=== PATIENT | male | born 1940 | race Caucasian/White ===

== ENCOUNTER 2021-06-17 19:24 | Inpatient (IN) ==
[2021-06-17] MEDS ORDERED: SODIUM CHLORIDE 0.9% 1000ML 500 ML IV ONE (19:50)
--- NOTE | 2021-06-17 19:53 | Emergency Department Note ---
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 The patient has not had a fall recently but approximately 2 to 3 weeks ago he did have a fall. He injured his back at that time. He was seen in our facility recently as well. He started noticing worsening pain and started having ecchymosis over his right flank. For this reason his family members brought him to the emergency department for further evaluation. The patient himself states the pain is improving at this time. He recently moved to this area and has no family doctor. He denies having any dysuria or hematuria. He denies having any chest pain but does complain of right lateral pain in the lower chest wall. He has had no vomiting. He denies having any headache or loss of consciousness. He does take blood thinners and also has a history of for bicytopenia. ROS: See above HPI for pertinent positives & negatives. A total of 10 systems reviewed and were otherwise negative. PAST MEDICAL HISTORY: See Below PAST SURGICAL HISTORY: See Below FAMILY HISTORY: See Below SOCIAL HISTORY: See Below HOME MEDICATIONS: See Below ALLERGIES: See Below VITALS: See Below PHYSICAL EXAMINATION: GENERAL: The patient is awake and alert but somewhat uncomfortable appearing. EYES: The conjunctivae are clear. The pupils are round and reactive. EARS, NOSE, MOUTH AND THROAT: The nose is without any evidence of any deformity NECK: The neck is nontender and supple. RESPIRATORY: There is no tachypnea or conversational dyspnea. Diminished breath sounds are noted in the right lung field. CARDIOVASCULAR: Regular rate and rhythm noted there no murmurs rubs or gallops normal S1 normal S2. GASTROINTESTINAL: The abdomen is soft. Abdomen is nontender. BACK: There is no midline tenderness appreciated. There was palpable tenderness over the lateral right chest wall. No crepitus was appreciated. MUSCULOSKELETAL/EXTREMITIES: There is no evidence of gross deformity full range of motion is noted in the hips and shoulders. SKIN: There is no obvious evidence of any rash. There are no petechiae, pallor or cyanosis noted. NEUROLOGIC: Patient is awake alert and oriented x3. Gait was steady. MEDICAL DECISION MAKING: Patient is an 81-year-old male who presented to emergency department for an evaluation of lower chest pain and flank pain. The patient's had frequent falls in the past but has not had a significant fall in 2 weeks. The patient was seen in our facility after his initial fall. The patient presented to the emergency department this evening because of ecchymosis over his flank as well as lower chest wall pain. The patient does not have a family doctor locally. He does not have any follow-up scheduled. He was recently told by his previous physician that he might have metastatic cancer from pancreatic source. I discussed patient's laboratory and radiographic studies with him here emi. He was treated with pain medication in the emergency department. He was reevaluated multiple times. On reevaluation he was feeling much better but the patient has very poor follow-up at this time and I am concerned he may get lost to follow-up given his new diagnosis this evening. He also takes oral anticoagulation and is thrombocytopenic and I am afraid that he may end up with a significant intracranial or otherwise traumatic injury. For this reason I discussed his case with the on-call [facility] hospitalist. They have agreed to evaluate the patient in the emergency department for further management and disposition. Triage Nursing notes reviewed. Prior medical records reviewed Vital Signs: reviewed and remarkable for no significant abnormalities Differential diagnosis: Fracture, dislocation, contusion, intra-abdominal, pneumothorax, intrathoracic, intracranial, neurologic, compartment syndrome, rhabdomyolysis, as well as other pathologies. ER treatment provided: See below Diagnostics interpreted by me: ECG: AG was obtained in the emergency department. My interpretation is sinus r hythm at 83 bpm. First-degree AV block was noted. Poor R wave progression was noted. Nonspecific ST segment depressions were noted throughout. No previous tracing was available. Cardiac Monitoring: An order was placed for continuous cardiac monitoring. The monitor shows a rate of 83 bpm with sinus rhythm. Laboratory studies: As stated above and show below. Imaging studies: See below Consultation(s): The case was discussed with the on-call [place] Hospitalist. They have agreed to evaluate the patient in the emergency department. Past Med/Surg History Medical History Acid reflux Aortic valve disorder High cholesterol Hypertension Social History Smoking Status: Never smoker Feels Safe at Home: Yes Allergies Allergies Allergy/AdvReac Type Severity Reaction Status Date / Time shellfish derived AdvReac Hives Unverified 06/17/21 19:37 Home Meds Home Medications Medication Instructions Recorded Confirmed apixaban 2.5 mg tablet (Eliquis) 2.5 mg PO DAILY 06/06/21 06/17/21 aspirin 81 mg tablet,delayed 81 mg PO DAILY 06/06/21 06/17/21 release pravastatin 20 mg tablet 20 mg PO DAILY 06/06/21 06/17/21 spironolactone 25 mg tablet 25 mg PO DAILY 06/06/21 06/17/21 tamsulosin 0.4 mg capsule 0.4 mg PO DAILY 06/06/21 06/17/21 Previous Rx's Medication Instructions Recorded hydroxyzine HCl 25 mg tablet 25 mg PO QID PRN #30 tab 06/06/21 Results & Data (ED) Vital Signs Vital Signs - 24 hr 06/17/21 19:29 06/17/21 20:15 06/17/21 20:22 Temperature 36.9 C Temperature Source Temporal Artery Scan Pulse Rate 89 83 Pulse Rate [Right Finger] 83 Pulse Rhythm Regular Pulse Rhythm [Right Finger] Regular Pulse Strength [Right Finger] Normal Respiratory Rate 18 18 18 Respiratory Effort / Characteristics Non-Labored Spontaneous Respiratory Depth Normal Blood Pressure 137/77 Blood Pressure [Right Arm] Blood Pressure Mean 97 Blood Pressure Mean [Right Arm] Blood Pressure Position Sitting Blood Pressure Position [Right Arm] Pulse Oximetry 95 94 Oxygen Delivery Method Room Air Room Air Sepsis Recent Fever Within 48 Hours No Sepsis New/Unexplained Change in Mental Status No Sepsis Action Taken by Nursing No Action Required 06/17/21 22:00 Temperature Temperature Source Pulse Rate Pulse Rate [Right Finger] Pulse Rhythm Pulse Rhythm [Right Finger] Pulse Strength [Right Finger] Respiratory Rate 18 Respiratory Effort / Characteristics Non-Labored Spontaneous Respiratory Depth Normal Blood Pressure Blood Pressure [Right Arm] 139/90 Blood Pressure Mean Blood Pressure Mean [Right Arm] 106 Blood Pressure Position Blood Pressure Position [Right Arm] Lying Pulse Oximetry 97 Oxygen Delivery Method Room Air Sepsis Recent Fever Within 48 Hours Sepsis New/Unexplained Change in Mental Status Sepsis Action Taken by Assisted Medications Current Medication List: was personally reviewed by me Laboratory Data Attestation: I reviewed the patient's lab results. Result diagrams: 06/17/21 20:30 06/17/21 20:30 Lab Results 06/17/21 06/17/21 06/17/21 Range/Units 20:15 20:30 20:30 WBC 12.46 H (4.8-10.8) K/uL RBC 3.52 L (4.7-6.1) M/uL Hgb 10.8 L (14.0-18.0) g/dL Hct 32.5 L (42-52) % MCV 92.3 (80-100) fL MCH 30.7 (25-34) pg MCHC 33.2 (32-36) g/dL RDW Std Deviation 51.2 H (36.4-46.3) fL RDW Coeff of Harsh 15.2 H (11.5-14.5) % Plt Count 113 L (130-400) K/uL MPV 10.5 H (7.4-10.4) fL Immature Gran % (Auto) 0.6 % Neut % (Auto) 86.8 % Lymph % (Auto) 11.3 % Churchill % (Auto) 0.2 % Eos % (Auto) 1.0 % Baso % (Auto) 0.1 % Neut # (Auto) 10.83 H (1.4-6.5) K/uL Lymph # (Auto) 1.41 (1.2-3.4) K/uL Churchill # (Auto) 0.02 L (0.11-0.59) K/uL Eos # (Auto) 0.12 (0-0.5) K/uL Baso # (Auto) 0.01 (0-0.2) K/uL Immature Gran # (Auto) 0.07 H (0.00-0.02) K/uL PT 17.3 H (9.0-12.0) Seconds INR 1.7 H (0.9-1.1) APTT 27.2 (21.0-31.0) Seconds PTT Ratio 1.0 Sodium (136-145) mmol/L Potassium (3.5-5.1) mmol/L Chloride (98-107) mmol/L Carbon Dioxide (21-32) mmol/L Anion Gap (3-11) BUN (6-23) mg/dl Creatinine (0.6-1.4) mg/dl Est Cr Clr Drug Dosing ml/min Est GFR ( Amer) ml/min Est GFR (Non-Af Amer) ml/min BUN/Creatinine Ratio (10-20) Glucose (70-99(Fasting)) mg/dl Calcium (8.5-10.1) mg/dl Total Bilirubin (0.2-1.0) mg/dl AST (13-39) U/L ALT (7-52) U/L Alkaline Phosphatase (34-104) U/L Troponin I (0-0.04) ng/ml Total Protein (6.0-8.3) gm/dl Albumin (3.4-5.0) gm/dl Globulin (2.5-4.0) gm/dl Albumin/Globulin Ratio (0.9-2) Lipase (11-82) U/L Urine Color Dark Yellow Urine Appearance Clear (Clear) Urine pH 5.0 (4.5-7.5) Ur Specific [place] 1.018 (1.000-1.030) Urine Protein Trace H (Negative) Urine Glucose (UA) Negative (Negative) Urine Ketones Trace H (Negative) Urine Blood 1+ H (Negative) Urine Nitrite Negative (Negative) Urine Bilirubin Negative (Negative) Urine Urobilinogen Negative (Negative) Ur Leukocyte Esterase Trace H (Negative) Urine WBC (Auto) 5-10 H (0-5) /hpf Urine RBC (Auto) 10-30 H (0-4) /hpf U Hyaline Cast (Auto) 1-5 (0-5) /lpf U Epithel Cells (Auto) 10-20 H (0-5) /lpf Urine Bacteria (Auto) Negative (Negative) Urine Yeast Budding A (None Prsent) SARS-CoV-2, RNA, NAAT (NEGATIVE) 06/17/21 06/17/21 Range/Units 20:30 21:40 WBC (4.8-10.8) K/uL RBC (4.7-6.1) M/uL Hgb (14.0-18.0) g/dL Hct (42-52) % MCV (80-100) fL MCH (25-34) pg MCHC (32-36) g/dL RDW Std Deviation (36.4-46.3) fL RDW Coeff of Harsh (11.5-14.5) % Plt Count (130-400) K/uL MPV (7.4-10.4) fL Immature Gran % (Auto) % Neut % (Auto) % Lymph % (Auto) % Churchill % (Auto) % Eos % (Auto) % Baso % (Auto) % Neut # (Auto) (1.4-6.5) K/uL Lymph # (Auto) (1.2-3.4) K/uL Churchill # (Auto) (0.11-0.59) K/uL Eos # (Auto) (0-0.5) K/uL Baso # (Auto) (0-0.2) K/uL Immature Gran # (Auto) (0.00-0.02) K/uL PT (9.0-12.0) Seconds INR (0.9-1.1) APTT (21.0-31.0) Seconds PTT Ratio Sodium 136 (136-145) mmol/L Potassium 4.3 (3.5-5.1) mmol/L Chloride 105 (98-107) mmol/L Carbon Dioxide 20 L (21-32) mmol/L Anion Gap 11 (3-11) BUN 34 H (6-23) mg/dl Creatinine 1.78 H (0.6-1.4) mg/dl Est Cr Clr Drug Dosing 29.4 ml/min Est GFR ( Amer) 40.0 ml/min Est GFR (Non-Af Amer) 34.5 ml/min BUN/Creatinine Ratio 19.1 (10-20) Glucose 126 H (70-99(Fasting)) mg/dl Calcium 10.1 (8.5-10.1) mg/dl Total Bilirubin 1.1 H (0.2-1.0) mg/dl AST 26 (13-39) U/L ALT 31 (7-52) U/L Alkaline Phosphatase 272 H (34-104) U/L Troponin I 0.03 (0-0.04) ng/ml Total Protein 6.5 (6.0-8.3) gm/dl Albumin 4.2 (3.4-5.0) gm/dl Globulin 2.3 L (2.5-4.0) gm/dl Albumin/Globulin Ratio 1.8 (0.9-2) Lipase 11 (11-82) U/L Urine Color Urine Appearance (Clear) Urine pH (4.5-7.5) Ur Specific [place] (1.000-1.030) Urine Protein (Negative) Urine Glucose (UA) (Negative) Urine Ketones (Negative) Urine Blood (Negative) Urine Nitrite (Negative) Urine Bilirubin (Negative) Urine Urobilinogen (Negative) Ur Leukocyte Esterase (Negative) Urine WBC (Auto) (0-5) /hpf Urine RBC (Auto) (0-4) /hpf U Hyaline Cast (Auto) (0-5) /lpf U Epithel Cells (Auto) (0-5) /lpf Urine Bacteria (Auto) (Negative) Urine Yeast (None Prsent) SARS-CoV-2, RNA, NAAT NEGATIVE (NEGATIVE) Administered Medications Fentanyl Citrate (Fentanyl Citrate 100 Mcg/2 Ml Vial) 50 mcg IV Q15M PRN PRN Reason: Pain Stop: 07/01/21 21:28 Last Admin: 06/17/21 21:38 Dose: 50 mcg Documented by: [id number] Discontinued Medications Sodium Chloride (Nss 1000ml) 500 mls @ 999 mls/hr IV .Q31M ONE Stop: 06/17/21 20:20 Last Admin: 06/17/21 20:37 Dose: 999 mls/hr Documented by: [id number] Ondansetron HCl (Ondansetron Inj 2 Mg/Ml 2 Ml Vial) 4 mg IV NOW STA Stop: 06/17/21 21:30 Last Admin: 06/17/21 21:39 Dose: 4 mg Documented by: [id number] Imaging Data Radiologist's Impression: Cervical Spine CT 06/17/21 19:44 CT SCAN OF THE CERVICAL SPINE CLINICAL HISTORY: Fall. COMPARISON STUDY: No priors. TECHNIQUE: CT scan of the cervical spine is performed from the skull base to the upper thoracic spine. Images are reviewed in the axial, sagittal, and coronal planes. IV contrast was not administered for this examination. A dose lowering technique was utilized adhering to the principles of ALARA. FINDINGS: Skeletal structures: The skeletal structures are osteopenic. There is no evidence of fracture or subluxation involving the cervical spine. Vertebral body height and alignment are maintained. There is straightening of the cervical lordosis. Anterior osteophytes are seen throughout. The odontoid process and lateral masses are intact. The atlantoaxial articulation is preserved noting productive degenerative change. The spinous processes appear intact. There is moderate multilevel cervical spondylosis. Uncovertebral and facet arthropathy contribute to neural foraminal narrowing at several levels. Intervertebral discs: There is advanced disc space narrowing at C3-C4, C5-C6, and C6-C7. Mild to moderate disc space narrowing is noted at the remaining cervical levels. Central canal: Posterior disc osteophyte complexes are seen at all levels between C2-C3 and C6-C7. This likely contributes to multilevel acquired compromise of the central canal. Soft tissues: The prevertebral and paraspinous soft tissues are within normal limits. There is atherosclerotic calcification of the carotid bulbs. Calvarium: The visualized calvarium at the skull base appears intact. Brain parenchyma: Partially visualized brain parenchyma at the skull base is within normal limits. Sinuses and mastoids: There is trace mucosal thickening within the maxillary antra. The mastoid air cells are well pneumatized. Lung apices: Clear as visualized. IMPRESSION: 1. There is no evidence of fracture or subluxation involving the cervical spine. 2. Osteopenia and spondylotic change as above. ACT 112: Negative or not required by law. Electronically signed by: Meliton Mixon M.D. 06/17/2021 8:[address] 06/17/21 19:44 CT SCAN OF THE BRAIN WITHOUT IV CONTRAST CLINICAL HISTORY: Fall. COMPARISON STUDY: No priors. TECHNIQUE: Unenhanced axial CT scan of the brain is performed from the vertex to the skull base. A dose lowering technique was utilized adhering to the principles of ALARA. FINDINGS: Brain parenchyma: There are age-related involutional changes noting mild subcortical and periventricular microangiopathic change. There is no hemorrhage, mass effect, or evidence of acute territorial ischemia by CT criteria. Small foci of high bilateral frontal encephalomalacia are consistent with small remote infarcts. Yates-white matter differentiation is preserved. No extra-axial fluid collection is seen. Ventricles, sulci, cisterns: Prominent secondary to involutional change. Intracranial vasculature: There is atherosclerotic calcification of the cavernous carotid arteries. Calvarium: The skeletal structures are osteopenic. No depressed calvarial fracture is identified. Sinuses and mastoids: The visualized paranasal sinuses are clear. The mastoid air cells are well pneumatized. Orbits: The bony orbits are grossly intact. There are bilateral ocular lens implants. IMPRESSION: There is no hemorrhage, mass effect, or evidence of acute territorial ischemia by CT criteria. ACT 112: Negative or not required by law. Electronically signed by: Meliton Mixon M.D. 06/17/2021 8:54 PM Abdomen/Pelvis CT 06/17/21 19:48 CT SCAN OF THE CHEST, ABDOMEN, AND PELVIS WITHOUT IV CONTRAST CLINICAL HISTORY: Fall several weeks ago. Right-sided chest wall pain.. COMPARISON STUDY: No priors. TECHNIQUE: Unenhanced CT scan of the chest, abdomen, and pelvis was performed from the thoracic inlet to the proximal femora. Images are reviewed in the axial, sagittal, and coronal planes. IV contrast was not administered for these examinations. Note that the examinations are significantly suboptimal without IV contrast. A dose lowering technique was utilized adhering to the principles of ALARA. CT DOSE: 2141.74 mGy.cm FINDINGS: CHEST: Thyroid: Normal in size and heterogeneous in attenuation. Thoracic aorta: There is atherosclerotic calcification of the thoracic aorta, which is normal in caliber and demonstrates standard 3-vessel arch anatomy. Heart: The patient is status post midline sternotomy and aortic valve surgery. The heart is normal in size and without pericardial effusion. The coronary arteries are densely calcified. Lungs and pleural spaces: There is no airspace consolidation, pleural effusion, or pneumothorax. An accessory azygous fissure is incidentally noted. The trachea and central airways are clear. Mild scarring/atelectasis is noted at the lung bases. Mediastinum: There is no mediastinal hematoma or lymphadenopathy. Elida: Not well assessed without IV contrast. Axillae: There is no axillary lymphadenopathy. Bony thorax: The skeletal structures are osteopenic. No lytic or blastic lesions are identified. ABDOMEN AND PELVIS: Liver: The unenhanced liver is normal in size, contour, and attenuation. There is no intrahepatic biliary ductal dilatation. Left lobe cysts measure up to 5.5 cm. The liver is infiltrated by numerous low-attenuation lesions which measure up to 3.0 cm. The appearance is typical for extensive/multifocal hepatic metastatic disease. Gallbladder: Suspect cholelithiasis. There is no CT evidence of acute cholecystitis. Spleen: Normal in size and attenuation. Pancreas: An ill-defined mass lesion is suggested in the region of the pancreatic head/neck, measuring approximately 3 x 2 cm on image #135. The upstream pancreatic duct is markedly dilated measuring up to 13 mm in diameter, and there is severe atrophy of the pancreatic body and tail. This the mass lesion closely approximates the superior mesenteric vein. Adrenal glands: Unremarkable. Kidneys: The unenhanced kidneys are normal in size and without hydronephrosis. A 6 mm nonobstructing calculus is seen in the right upper pole. Bilateral renal cysts measure up to 3.4 cm. Abdominal vasculature: The abdominal aorta is normal in course and caliber noting advanced atherosclerotic calcification. Stomach and bowel: There is a small hiatal hernia. There is moderate colonic diverticulosis without CT evidence of acute diverticulitis. No bowel obstruction is seen. The appendix is not visualized. Peritoneum: There is no intraperitoneal free air or abdominal ascites. There is a fat-containing umbilical hernia. Lymphadenopathy: None. Pelvic viscera: The prostate gland is enlarged and heterogeneous noting median lobe hypertrophy. The bladder wall is thickened and trabeculated indicating chronic outlet obstruction. A bladder diverticulum seen posteriorly on the left measures up to 2.8 cm. There is a small fat-containing left inguinal hernia. Skeletal structures: The skeletal structures are osteopenic. The lumbosacral spine, bony pelvis, and proximal femora appear intact. There is mild lumbosacral spondylosis. No lytic or blastic lesions are seen. IMPRESSION: 1. There is no acute posttraumatic intrathoracic abnormality. 2. There is no airspace consolidation, pleural effusion, or pneumothorax. 3. There is no evidence of solid organ injury in the abdomen or pelvis on this unenhanced examination. 4. There is evidence of extensive/diffuse multifocal hepatic metastatic disease. A pancreatic primary is favored. See below. 5. There is an approximately 3 cm ill-defined/heterogeneous mass lesion in the pancreatic head/neck with significant dilatation of the upstream pancreatic duct and marked atrophy of the pancreatic body/tail. Pancreatic adenocarcinoma is the diagnosis of exclusion. GI follow-up is recommended. 6. There is no intra- or extrahepatic biliary ductal dilatation. 7. Colonic diverticulosis without CT evidence of acute diverticulitis. 8. Right-sided nephrolithiasis and suspect cholelithiasis. 9. Additional findings as above. ACT 112: Positive. There are findings on this exam that require communication between the performing entity and the patient following Patient Test Result Information Act ([place] Act 112) guidelines. Electronically signed by: Meliton Mixon M.D. 06/17/2021 9:[address] 06/17/21 19:48 CT SCAN OF THE CHEST, ABDOMEN, AND PELVIS WITHOUT IV CONTRAST CLINICAL HISTORY: Fall several weeks ago. Right-sided chest wall pain.. COMPARISON STUDY: No priors. TECHNIQUE: Unenhanced CT scan of the chest, abdomen, and pelvis was performed from the thoracic inlet to the proximal femora. Images are reviewed in the axial, sagittal, and coronal planes. IV contrast was not administered for these examinations. Note that the examinations are significantly suboptimal without IV contrast. A dose lowering technique was utilized adhering to the principles of ALARA. CT DOSE: 2141.74 mGy.cm FINDINGS: CHEST: Thyroid: Normal in size and heterogeneous in attenuation. Thoracic aorta: There is atherosclerotic calcification of the thoracic aorta, which is normal in caliber and demonstrates standard 3-vessel arch anatomy. Heart: The patient is status post midline sternotomy and aortic valve surgery. The heart is normal in size and without pericardial effusion. The coronary arteries are densely calcified. Lungs and pleural spaces: There is no airspace consolidation, pleural effusion, or pneumothorax. An accessory azygous fissure is incidentally noted. The trachea and central airways are clear. Mild scarring/atelectasis is noted at the lung bases. Mediastinum: There is no mediastinal hematoma or lymphadenopathy. Elida: Not well assessed without IV contrast. Axillae: There is no axillary lymphadenopathy. Bony thorax: The skeletal structures are osteopenic. No lytic or blastic lesions are identified. ABDOMEN AND PELVIS: Liver: The unenhanced liver is normal in size, contour, and attenuation. There is no intrahepatic biliary ductal dilatation. Left lobe cysts measure up to 5.5 cm. The liver is infiltrated by numerous low-attenuation lesions which measure up to 3.0 cm. The appearance is typical for extensive/multifocal hepatic metastatic disease. Gallbladder: Suspect cholelithiasis. There is no CT evidence of acute cholecystitis. Spleen: Normal in size and attenuation. Pancreas: An ill-defined mass lesion is suggested in the region of the pancreatic head/neck, measuring approximately 3 x 2 cm on image #135. The upstream pancreatic duct is markedly dilated measuring up to 13 mm in diameter, and there is severe atrophy of the pancreatic body and tail. This the mass lesion closely approximates the superior mesenteric vein. Adrenal glands: Unremarkable. Kidneys: The unenhanced kidneys are normal in size and without hydronephrosis. A 6 mm nonobstructing calculus is seen in the right upper pole. Bilateral renal cysts measure up to 3.4 cm. Abdominal vasculature: The abdominal aorta is normal in course and caliber noting advanced atherosclerotic calcification. Stomach and bowel: There is a small hiatal hernia. There is moderate colonic diverticulosis without CT evidence of acute diverticulitis. No bowel obstruction is seen. The appendix is not visualized. Peritoneum: There is no intraperitoneal free air or abdominal ascites. There is a fat-containing umbilical hernia. Lymphadenopathy: None. Pelvic viscera: The prostate gland is enlarged and heterogeneous noting median lobe hypertrophy. The bladder wall is thickened and trabeculated indicating chronic outlet obstruction. A bladder diverticulum seen posteriorly on the left measures up to 2.8 cm. There is a small fat-containing left inguinal hernia. Skeletal structures: The skeletal structures are osteopenic. The lumbosacral spine, bony pelvis, and proximal femora appear intact. There is mild lumbosacral spondylosis. No lytic or blastic lesions are seen. IMPRESSION: 1. There is no acute posttraumatic intrathoracic abnormality. 2. There is no airspace consolidation, pleural effusion, or pneumothorax. 3. There is no evidence of solid organ injury in the abdomen or pelvis on this unenhanced examination. 4. There is evidence of extensive/diffuse multifocal hepatic metastatic disease. A pancreatic primary is favored. See below. 5. There is an approximately 3 cm ill-defined/heterogeneous mass lesion in the pancreatic head/neck with significant dilatation of the upstream pancreatic duct and marked atrophy of the pancreatic body/tail. Pancreatic adenocarcinoma is the diagnosis of exclusion. GI follow-up is recommended. 6. There is no intra- or extrahepatic biliary ductal dilatation. 7. Colonic diverticulosis without CT evidence of acute diverticulitis. 8. Right-sided nephrolithiasis and suspect cholelithiasis. 9. Additional findings as above. ACT 112: Positive. There are findings on this exam that require communication between the performing entity and the patient following Patient Test Result Information Act ([place] Act 112) guidelines. Electronically signed by: Meliton Mixon M.D. 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
[2021-06-17 20:30] LABS: Appearance Urine Clear (Clear); Bacteria Urine Automated Negative (Negative); Bilirubin Urine Negative (Negative); Blood Urine 1+ (Negative); Color Urine Dark Yellow; Glucose Urine UA Negative (Negative); Ketones Urine Trace (Negative); Leukocyte Esterase Urine Trace (Negative); Nitrite Urine Negative (Negative); Protein Urine Trace (Negative); Specific Gravity Urine 1.018 (1.000-1.030); Urobilinogen Urine Negative (Negative)
[2021-06-17 20:42] LABS: Basophils # (auto) 0.01 K/uL (0-0.2); Basophils % (auto) 0.1 %; Eosinophils # (auto) 0.12 K/uL (0-0.5); Hematocrit (blood only) 32.5 % (42-52); Hemoglobin 10.8 g/dL (14.0-18.0); Immature Granulocytes # (auto) 0.07 K/uL (0.00-0.02); Immature Granulocytes % (auto) 0.6 %; Lymphocytes # (auto) 1.41 K/uL (1.2-3.4); Lymphocytes % (auto) 11.3 %; Mean Corpuscular Hemoglobin 30.7 pg (25-34); Mean Corpuscular Hgb Conc 33.2 g/dL (32-36); Mean Corpuscular Volume 92.3 fL (80-100); Mean Platelet Volume 10.5 fL (7.4-10.4); Monocytes # (auto) 0.02 K/uL (0.11-0.59); Monocytes % (auto) 0.2 %; Neutrophils # (auto) 10.83 K/uL (1.4-6.5); Neutrophils % (auto) 86.8 %; Platelet Count 113 K/uL (130-400); RDW Coefficient of Variation 15.2 % (11.5-14.5); RDW Standard Deviation 51.2 fL (36.4-46.3); Red Blood Count 3.52 M/uL (4.7-6.1); White Blood Count 12.46 K/uL (4.8-10.8)
--- NOTE | 2021-06-17 20:55 | CT Scan Report ---
CT SCAN OF THE BRAIN WITHOUT IV CONTRAST CLINICAL HISTORY: Fall. COMPARISON STUDY: No priors. TECHNIQUE: Unenhanced axial CT scan of the brain is performed from the vertex to the skull base. A do se lowering technique was utilized adhering to the principles of ALARA. FINDINGS: Brain parenchyma: There are age-related involutional changes noting mild subcortical and periventric ular microangiopathic change. There is no hemorrhage, mass effect, or evidence of acute territorial i schemia by CT criteria. Small foci of high bilateral frontal encephalomalacia are consistent with sma ll remote infarcts. Yates-white matter differentiation is preserved. No extra-axial fluid collection i s seen. Ventricles, sulci, cisterns: Prominent secondary to involutional change. Intracranial vasculature: There is atherosclerotic calcification of the cavernous carotid arteries. Calvarium: The skeletal structures are osteopenic. No depressed calvarial fracture is identified. Sinuses and mastoids: The visualized paranasal sinuses are clear. The mastoid air cells are well pneu matized. Orbits: The bony orbits are grossly intact. There are bilateral ocular lens implants. IMPRESSION: There is no hemorrhage, mass effect, or evidence of acute territorial ischemia by CT elian hackett. ACT 112: Negative or not required by law. Electronically signed by: Meliton Mixon M.D. 06/17/2021 8:54 PM
[2021-06-17 20:58] LABS: INR 1.7 (0.9-1.1); Partial Thromboplastin Time 27.2 Seconds (21.0-31.0); Prothrombin Time 17.3 Seconds (9.0-12.0)
--- NOTE | 2021-06-17 20:59 | CT Scan Report ---
CT SCAN OF THE CERVICAL SPINE CLINICAL HISTORY: Fall. COMPARISON STUDY: No priors. TECHNIQUE: CT scan of the cervical spine is performed from the skull base to the upper thoracic spine . Images are reviewed in the axial, sagittal, and coronal planes. IV contrast was not administered fo r this examination. A dose lowering technique was utilized adhering to the principles of ALARA. FINDINGS: Skeletal structures: The skeletal structures are osteopenic. There is no evidence of fracture or subl uxation involving the cervical spine. Vertebral body height and alignment are maintained. There is st raightening of the cervical lordosis. Anterior osteophytes are seen throughout. The odontoid process and lateral masses are intact. The atlantoaxial articulation is preserved noting productive degenerat sonia change. The spinous processes appear intact. There is moderate multilevel cervical spondylosis. U ncovertebral and facet arthropathy contribute to neural foraminal narrowing at several levels. Intervertebral discs: There is advanced disc space narrowing at C3-C4, C5-C6, and C6-C7. Mild to mode rate disc space narrowing is noted at the remaining cervical levels. Central canal: Posterior disc osteophyte complexes are seen at all levels between C2-C3 and C6-C7. Th is likely contributes to multilevel acquired compromise of the central canal. Soft tissues: The prevertebral and paraspinous soft tissues are within normal limits. There is athero sclerotic calcification of the carotid bulbs. Calvarium: The visualized calvarium at the skull base appears intact. Brain parenchyma: Partially visualized brain parenchyma at the skull base is within normal limits. Sinuses and mastoids: There is trace mucosal thickening within the maxillary antra. The mastoid air c ells are well pneumatized. Lung apices: Clear as visualized. IMPRESSION: 1. There is no evidence of fracture or subluxation involving the cervical spine. 2. Osteopenia and spondylotic change as above. ACT 112: Negative or not required by law. Electronically signed by: Meliton Mixon M.D. 06/17/2021 8:57 PM
[2021-06-17 21:01] LABS: Albumin Globulin Ratio 1.8 (0.9-2); Albumin Level 4.2 gm/dl (3.4-5.0); BUN Creatinine Ratio 19.1 (10-20); Bilirubin,Total 1.1 mg/dl (0.2-1.0); Calcium 10.1 mg/dl (8.5-10.1); Creatinine Clr Calc Pharmacy 29.4 ml/min; Est GFR (Non-African American) 34.5 ml/min; Globulin 2.3 gm/dl (2.5-4.0); Potassium 4.3 mmol/L (3.5-5.1); Total Protein 6.5 gm/dl (6.0-8.3)
[2021-06-17 21:02] LABS: Troponin I 0.03 ng/ml (0-0.04)
--- NOTE | 2021-06-17 21:15 | CT Scan Report ---
CT SCAN OF THE CHEST, ABDOMEN, AND PELVIS WITHOUT IV CONTRAST CLINICAL HISTORY: Fall several weeks ago. Right-sided chest wall pain.. COMPARISON STUDY: No priors. TECHNIQUE: Unenhanced CT scan of the chest, abdomen, and pelvis was performed from the thoracic inlet to the proximal femora. Images are reviewed in the axial, sagittal, and coronal planes. IV contrast was not administered for these examinations. Note that the examinations are significantly suboptimal without IV contrast. A dose lowering technique was utilized adhering to the principles of ALARA. CT DOSE: 2141.74 mGy.cm FINDINGS: CHEST: Thyroid: Normal in size and heterogeneous in attenuation. Thoracic aorta: There is atherosclerotic calcification of the thoracic aorta, which is normal in rossy alexis and demonstrates standard 3-vessel arch anatomy. Heart: The patient is status post midline sternotomy and aortic valve surgery. The heart is normal in size and without pericardial effusion. The coronary arteries are densely calcified. Lungs and pleural spaces: There is no airspace consolidation, pleural effusion, or pneumothorax. An a ccessory azygous fissure is incidentally noted. The trachea and central airways are clear. Mild scarr ing/atelectasis is noted at the lung bases. Mediastinum: There is no mediastinal hematoma or lymphadenopathy. Elida: Not well assessed without IV contrast. Axillae: There is no axillary lymphadenopathy. Bony thorax: The skeletal structures are osteopenic. No lytic or blastic lesions are identified. ABDOMEN AND PELVIS: Liver: The unenhanced liver is normal in size, contour, and attenuation. There is no intrahepatic kiran iary ductal dilatation. Left lobe cysts measure up to 5.5 cm. The liver is infiltrated by numerous lo w-attenuation lesions which measure up to 3.0 cm. The appearance is typical for extensive/multifocal hepatic metastatic disease. Gallbladder: Suspect cholelithiasis. There is no CT evidence of acute cholecystitis. Spleen: Normal in size and attenuation. Pancreas: An ill-defined mass lesion is suggested in the region of the pancreatic head/neck, measurin g approximately 3 x 2 cm on image #135. The upstream pancreatic duct is markedly dilated measuring up to 13 mm in diameter, and there is severe atrophy of the pancreatic body and tail. This the mass les ion closely approximates the superior mesenteric vein. Adrenal glands: Unremarkable. Kidneys: The unenhanced kidneys are normal in size and without hydronephrosis. A 6 mm nonobstructing calculus is seen in the right upper pole. Bilateral renal cysts measure up to 3.4 cm. Abdominal vasculature: The abdominal aorta is normal in course and caliber noting advanced atheroscle rotic calcification. Stomach and bowel: There is a small hiatal hernia. There is moderate colonic diverticulosis without C T evidence of acute diverticulitis. No bowel obstruction is seen. The appendix is not visualized. Peritoneum: There is no intraperitoneal free air or abdominal ascites. There is a fat-containing umbi lical hernia. Lymphadenopathy: None. Pelvic viscera: The prostate gland is enlarged and heterogeneous noting median lobe hypertrophy. The bladder wall is thickened and trabeculated indicating chronic outlet obstruction. A bladder diverticu lum seen posteriorly on the left measures up to 2.8 cm. There is a small fat-containing left inguinal hernia. Skeletal structures: The skeletal structures are osteopenic. The lumbosacral spine, bony pelvis, and proximal femora appear intact. There is mild lumbosacral spondylosis. No lytic or blastic lesions are seen. IMPRESSION: 1. There is no acute posttraumatic intrathoracic abnormality. 2. There is no airspace consolidation, pleural effusion, or pneumothorax. 3. There is no evidence of solid organ injury in the abdomen or pelvis on this unenhanced examination . 4. There is evidence of extensive/diffuse multifocal hepatic metastatic disease. A pancreatic primary is favored. See below. 5. There is an approximately 3 cm ill-defined/heterogeneous mass lesion in the pancreatic head/neck w ith significant dilatation of the upstream pancreatic duct and marked atrophy of the pancreatic body/ tail. Pancreatic adenocarcinoma is the diagnosis of exclusion. GI follow-up is recommended. 6. There is no intra- or extrahepatic biliary ductal dilatation. 7. Colonic diverticulosis without CT evidence of acute diverticulitis. 8. Right-sided nephrolithiasis and suspect cholelithiasis. 9. Additional findings as above. ACT 112: Positive. There are findings on this exam that require communication between the performing entity and the patient following Patient Test Result Information Act ([place] Act 112) guidelines. Electronically signed by: Meliton Mixon M.D. 06/17/2021 9:14 PM
[2021-06-17] MEDS ORDERED: ONDANSETRON INJ 2 MG/ML 2 ML VIAL IV STA (21:29)
[2021-06-17] MEDS: fentaNYL citrate 100 MCG/2 ML VIAL IV PRN (21:38)
--- NOTE | 2021-06-17 21:52 | History & Physical Report ---
Date of Service June 17, 2021 Assessment & Plan (1) Pancreatic neoplasm: Plan: Moises López is an 81yo male with PMHx significant for CKDIII, chronic normocytic anemia, HTN, HLD, paroxysmal a-fib (on Eliquis, no BB) and aortic stenosis (s/p open aortic valve replacement 1.5 years ago) who presented to [facility] ED on 06/17 for right-sided rib pain. Found to have pancreatic neoplasm with evidence of liver metastases. Pancreatic Neoplasm; Liver Metastases New diagnosis per outside imaging results earlier today, in addition to CT C/A/P in [facility] ED. 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 Patient would like to start this process while hospitalized, as he recently moved to [place] and would like to undergo all necessary treatment here if possible. He understan - consulted GI (Dr. Aguirre) for consideration for ERCP with biopsy - consulted Heme/Onc - appreciate recs - note: patient signed release of records to obtain records from [facility], but he reports that his currently already has all of the records and will bring them in [place] - NPO in case of ERCP tomorrow - started on mIVFs with LR @100cc/hr Right-sided Rib Pain Improved s/p Fentanyl. Suspect this is referred pain from possible peritoneal metastasis that may not be evident on CT. No signs of lytic/blastic rib lesions or pneumonia on CT. EKG/Trop negative - unlikely cardiac. - Tylenol 1g IV Q8H ordered for pain (currently pain is minimal) Paroxysmal Atrial Fibrillation; S/p open aortic valve replacement CHADS-VASc score of 4. Currently in sinus rhythm with 1st degree AV block per admission EKG. Chronically on Eliquis for both a-fib and s/p valve replacement, and was reportedly "weaned off of" rate-control by PCP in [facility] before moving here. - hold Aspirin/Eliquis given possible ERCP with biopsy tomorrow - started Heparin gtt without bolus - stop 4-5 hours before procedure Elevated PT/INR Suspect 2/2 chronic Eliquis and possible dietary deficiency in vitamin K. Also, liver metastases and associated hepatic dysfunction may be contributing. Thrombocytopenia Plts 113 in ED, were 220 in 11/2019. Suspect due to possible hepatic dysfunction in setting of malignancy. No signs of active bleeding. - trend in AM Leukocytosis WBC mildly elevated with neutrophilic predominance and left shift, but patient is afebrile and without focal source of infection. Suspect possible hemoconcentration (2/2 dehydration) vs inflammatory response to cancer. - trend CBC in AM Hyperbilirubinemia TBili 1.1 in ED, down from 1.7 on 06/06, and patient reports higher TBili levels per previous blood draws in last several months. Also had reported generalized pruritus and jaundice that resolved. Likely 2/2 intermittent biliary duct obstruction due to pancreatic malignancy. Currently no evidence of biliary duct obstruction on CT A/P. - ordered DBili - trend in AM Asymptomatic Bacteriuria UA positive for trace LE and 5-10 WBC but also with 10-20 epithelial cells, and patient denies dysuria or urinary urgency. - urine cx pending - defer abx for now Hematuria UA showed RBC 10-30 and 1+ blood. Patient denies gross hematuria. Does have chronic BPH which is evident on CT A/P with associated chronic bladder outlet obstruction. Suspect the hematuria is 2/2 BPH but cannot completely r/o bladder malignancy. - urine cytology ordered Chronic Normocytic Anemia; CKDIII Suspect chronic anemia is 2/2 CKD. Hgb is 10.8 which appears to be chronic baseline. Cr is 1.78 which also seems to be ~baseline. No signs of active bleeding. - trend CBC and BMP in AM FEN/GI: NPO, LR @100cc/hr DVT Prophylaxis: Heparin gtt Code Status: full code Disposition: med/surg (2) Liver metastases: (3) Rib pain on right side: (4) Thrombocytopenia: (5) Anemia: (6) Aortic valve disorder: (7) Hypertension: (8) High cholesterol: (9) Hyperbilirubinemia: History of Present Illness Chief Complaint: right flank pain Primary Care Provider: NO PCP Moises López is an 81yo male with PMHx significant for HTN, HLD, paroxysmal a- fib (on Eliquis, no BB) and aortic stenosis (s/p open aortic valve replacement 1.5 years ago) who presented to [facility] ED on 06/17 for acute-onset moderate right- sided rib pain, non-pleuritic, x1 day. Reports that the pain was constant. Only mildly improved with Tylenol, so he decided to come in for evaluation. The patient recently moved from the [facility] but had been seeing [facility] for constipation, bloating, and mild burning epigastric pain for the last several months. Also reports that he had "elevated bilirubin and facial jaundice" which resolved several weeks ago without intervention. He reportedly had CT A/P, followed by MRI abdomen several nights ago, and received results earlier today - primary pancreatic mass with likely liver metastasis. He reports that he primarily came to the ED for the right-sided rib pain, although he would like to figure out how to move forward with diagnosis/treatment of possible pancreatic/liver cancer. The patient moved into [place] with his in order to live closer to his daughter who is a teacher here. He would ideally like to have all necessary evaluation/treatment done here in town. Patient denies h/o obesity, alcohol use or tobacco use. Denies other drug use. Does report h/o breast cancer in mother and colon cancer in maternal uncle. In the ED the patient was afebrile and hemodynamically stable on room air. EKG without ST/T wave changes and Troponin negative x1. Laboratory evaluation was significant for WBC 12.46 with neutrophilic predominance and left shift. Hgb 10.8 (chronic baseline), MCV 92.3. Plts 113 (74 on 06/06). PT 17.3 and INR 1.7. PTT WNL. Cr 1.78 (chronic baseline), TBili 1.1 (was 1.7 on 06/06), ALP 272 (was 140 on 06/06). Lipase WNL. UA with trace LE, 5-10 WBC, 1+ blood, 10-30 RBCs, 10-[address] A/P shows 3-cm ill-defined/heterogenous mass lesion in pancreatic head/neck with significant dilatation of upstream pancreatic duct and marked atrophy of pancreatic body/tail, in addition to extensive/diffuse multifocal hepatic metastatic disease. No intra- or extra-hepatic biliary ductal dilatation. Also with right-sided nephrolithiasis and suspect cholelithiasis, in addition to colonic diverticulosis. CT head/c-spine unremarkable for fracture or acute pathology, but with chronic osteopenia and spondylitic changes. CT chest without abnormalities. No lytic/blastic bony lesions seen on any imaging. Patient was given 1L NSS bolus, Zofran x1 for nausea, and Fentanyl 50mcg IV x1 for pain. Patient reports that right-sided rib pain is nearly completely reso lved after Fentanyl. Allergies Allergy/AdvReac Type Severity Reaction Status Date / Time shellfish derived AdvReac Hives Unverified 06/17/21 19:37 Home Medications Medication Instructions Recorded Confirmed Type apixaban 2.5 mg tablet (Eliquis) 2.5 mg PO DAILY 06/06/21 06/17/21 History aspirin 81 mg tablet,delayed 81 mg PO DAILY 06/06/21 06/17/21 History release hydroxyzine HCl 25 mg tablet 25 mg PO QID PRN #30 tab 06/06/21 06/17/21 Rx pravastatin 20 mg tablet 20 mg PO DAILY 06/06/21 06/17/21 History spironolactone 25 mg tablet 25 mg PO DAILY 06/06/21 06/17/21 History tamsulosin 0.4 mg capsule 0.4 mg PO DAILY 06/06/21 06/17/21 History Past Med/Surg History Medical History Acid reflux Aortic valve disorder High cholesterol Hypertension Social History Smoking Status: Never smoker Second Hand Exposure: No; Do You Dip or Chew Tobacco: No; Hx Alcohol Use: No Hx Substance Use: No Preferred Language: Serbian Communication Ability: Effective Electrician Deck Required: No Beliefs That Will Affect Care: None Current Living Situation: Alone Other Information That Helps Us Care for You: No Feels Safe at Home: Yes Safety Concerns: Feels Safe At This Time Assistive Devices: Glasses Review of Systems Review of Systems: All systems reviewed & are unremarkable except as noted in HPI & below Physical Exam Physical Exam: General: A&Ox3. NAD. Cooperative. HEENT: Atraumatic, normocephalic. Anicteric sclerae. Pulm: CTAB A&P. -wheezes, -rales, -rhonchi. Symmetrical chest rise. No increase work of breathing. No respiratory distress. Cardiac: RRR, -mrg. Radial pulses intact and symmetrical. No LE edema. Chest: no tenderness on palpation of sternum or ribs. No bruising/ecchymoses appreciated. Abdominal: soft, mild RUQ and epigastric tenderness to palpation, non-distended, BS x 4 Skin: warm, dry, no rash, no jaundice Results & Data Results & Data ([facility]) Vital Signs (Past 12 Hours) Vital Signs Temp Pulse Pulse Resp BP Pulse Ox 06/17/21 20:22 83 18 94 06/17/21 20:15 83 18 95 06/17/21 19:29 36.9 C 89 18 137/77 Code Status & VTE Plan Code Status full code Supervising Physician Co-Signing Physician Notes Attending addendum: I have physically seen this patient, have supervised the medical residents activities, and agree with the H&P unless as otherwise noted. Assessment and Plan: Metastatic pancreatic cancer to liver- New diagnosis Consult gastroenterology Consult oncology NPO for possible ERCP tomorrow LR at 100 mL's per hour PAF status post AVR- On Eliquis per outpatient physician Hold aspirin and Eliquis for possible ERCP tomorrow Start heparin drip standard protocol without bolus Remaining orders and notations as noted Resident Activity Tracking Resident Involvement: Resident Care Provided Care Provided: Adult Hospital Medicine (1) Anemia Anemia type: unspecified type Qualified Code(s): D64.9 - Anemia, unspecified
[2021-06-17] MEDS ORDERED: HEPARIN SODIUM/DEXTROSE 25,000 UNITS/500 ML BAG IV SCH (23:42)
[2021-06-17] MEDS ORDERED: Heparin IV Adult Wt-Based Standard *NO* Bolus Protocol IV ONE (23:42)
[2021-06-18] MEDS: LACTATED RINGER'S 1,000 ML IV SCH ×2 (00:27→10:56)
[2021-06-18] MEDS: fentaNYL citrate 100 MCG/2 ML VIAL IV PRN (00:39)
[2021-06-18] MEDS ORDERED: ONDANSETRON INJ 2 MG/ML 2 ML VIAL IV PRN (03:26)
[2021-06-18] MEDS ORDERED: ACETAMINOPHEN 1000 MG/100 ML IV IV PRN (03:26)
[2021-06-18 07:21] LABS: Hematocrit (blood only) 26.7 % (42-52); Hemoglobin 9.1 g/dL (14.0-18.0); Mean Corpuscular Hemoglobin 31.6 pg (25-34); Mean Corpuscular Hgb Conc 34.1 g/dL (32-36); Mean Corpuscular Volume 92.7 fL (80-100); RDW Coefficient of Variation 15.3 % (11.5-14.5); RDW Standard Deviation 51.7 fL (36.4-46.3); Red Blood Count 2.88 M/uL (4.7-6.1); White Blood Count 9.07 K/uL (4.8-10.8)
[2021-06-18 07:39] LABS: Mean Platelet Volume 10.1 fL (7.4-10.4); Platelet Count 95 K/uL (130-400)
[2021-06-18 07:45] LABS: Basophils # (auto) 0.01 K/uL (0-0.2); Basophils % (auto) 0.1 %; Eosinophils # (auto) 0.21 K/uL (0-0.5); Eosinophils % (auto) 2.3 %; Immature Granulocytes # (auto) 0.03 K/uL (0.00-0.02); Immature Granulocytes % (auto) 0.3 %; Lymphocytes # (auto) 1.01 K/uL (1.2-3.4); Lymphocytes % (auto) 11.1 %; Monocytes # (auto) 0.37 K/uL (0.11-0.59); Monocytes % (auto) 4.1 %; Neutrophils # (auto) 7.44 K/uL (1.4-6.5); Neutrophils % (auto) 82.1 %
[2021-06-18 07:47] LABS: Partial Thromboplastin Ratio 3.9
[2021-06-18 07:54] LABS: Estimated Average Glucose 103 mg/dl; Hemoglobin A1C 5.2 % (4.5-5.6)
[2021-06-18 08:04] LABS: Partial Thromboplastin Time 107.2 Seconds (21.0-31.0)
[2021-06-18 08:09] LABS: Albumin Globulin Ratio 1.9 (0.9-2); BUN Creatinine Ratio 18.3 (10-20); Bilirubin,Total 0.9 mg/dl (0.2-1.0); Creatinine Clr Calc Pharmacy 39.9 ml/min; Est GFR (African American) 57.9 ml/min; Globulin 1.6 gm/dl (2.5-4.0); Magnesium 1.7 mg/dl (1.7-2.4); Phosphorus 2.6 mg/dl (2.5-4.9); Potassium 4.4 mmol/L (3.5-5.1); Total Protein 4.6 gm/dl (6.0-8.3)
--- NOTE | 2021-06-18 09:12 | Hospitalist Progress Note ---
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 No intra- or extra-hepatic biliary ductal dilatation. No lytic/blastic bony lesions seen on any imaging -pathology is necessary to confirm malignancy and primary tumor site -elevated LFTs likely explained by malignancy/liver mets -hyperbilirubinemia likely explained by malignancy/liver mets -per GI he will have an outpatient procedure and no ERCP during his hospital stay -heme/onc will follow outpt -MRI would help ascertain whether or not there are brain mets #rib pain on R side/flank contusion -stable, ecchymoses present on back/flank area, continue analgesia #anemia, chronic -Hgb is 10.8 which appears to be at baseline -no signs of bleeding #CKDIII -stable, Cr is 1.78, seems to be his baseline #asymptomatic bacteriuria #hematuria, microscopic -no UTI symptoms, UA positive for trace LE and 5-10 WBC but also with 10-20 epithelial cells, urine culture pending, no abx given at this time -no gross hematuria appreciated by patient, there is evidence of a stone which could be a possible cause of hematuria -urine cytology ordered #FENGI -diet order placed since he will have an outpatient procedure for his pancreatic mass #DVT prophylaxis: since heparin was discontinued, can resume at-home apixaban Admission and Anticipated Discharge Date Admission Date: June 17, 2021 Supervising Physician Co-Signing Physician Notes I personally examined the patient and verified all lu points of history and exam, discussed case, and agree with decision making with Ulices VOSS feeling ok just mostly a lot of questions. extensive time discussing next steps in dx, most likely dx and ddx (pancreatic, vs other unfortunately severe UGI malignancy) and most likley courses of action (getting bx then being able to discuss treatment options - but that overall prognosis fdc is unfortunately grim) vitals noted nad heent nc at mmm breathing unlabored no accessory muscles good effort skin no rashes no pallor or icterus neuro no focal deficits highly probable metastatic pancreatic cancer -MRI brain to complete w/u as can be done inpt (anticipate PET as outpt as well) -US biopsy of liver lesion tomorrow -nutrition / ensuring he gets adequate calories -outpt f/u w oncology ~1hr face to face (time in around 3p, time out around 4p) extensive discussions on dx/w/u/options/overall picture - answered all questions to the best of my ability Subjective CC: R-sided rib and flank pain HPI: Moises is an 81 y/o M w. PMhx of CKDIII, HTN, HLD, chronic normocytic anemia, paroxysmal AFIB (on Eliquis), and aortic stenosis (s/p porcine aortic valve replacement 1.5 years ago) who presented to the [facility] ED on 06/17 for R-sided rib and flank pain for 1 day that was not worse with inspiration. Of note he came to the [facility] ED on 06/06/21 after sustaining a fall which caused a hematoma/ecchymosis to the buttock and tibial regions. At the time he also noted itchiness all over. At the time his bilirubin was 1.7. The patient recently moved to the [facility] from the [facility] to be closer to his daughter who teaches in the area. He lives in an apartment with his . He sees [facility] for constipation, bloating, and epigastric pain for the past several months. He reports a hx of elevated bilirubin and jaundice but has not recently noted any yellowing of the eyes or skin. He recently underwent a CT abd/pelvic and MRI abdomen which revealed a primary pancreatic mass with suspicion for liver metastases. In the ED the patient was afebrile and hemodynamically stable on room air. EKG without ST/T wave changes and Troponin negative x1. Patient was given 1L NSS bolus, Zofran x1 for nausea, and Fentanyl 50mcg IV x1 for pain. Patient reports that right-sided rib pain is nearly completely resolved after Fentanyl Today he notes a significant reduction in his R-sided flank/rib pain after receiving pain meds. He does not have any other concerns or new symptoms. He did share that he had an unintentional ~10 lb. weight loss in the past 2-3 months. He has 1 bowel movement every 2 days on average, does not report any bloody stools/diarrhea. No night sweats or fevers that he can recall. He would like to discuss the prognosis for his pancreatic mass. No BOLES/vision changes, chest pain, SOB, hemoptysis, extremity swelling, recent illness. Review of Systems Review of Systems: All systems reviewed & are unremarkable except as noted in Subjective Physical Exam Constitutional: WD/WN, vitals as above Eyes: PERRL, conjunctivae normal, anicteric sclerae Cardiovascular: RRR, no murmur, no edema no carotid bruits appreciated, no LE erythema/tenderness/swelling Gastrointestinal (Abdomen): normal bowel sounds, soft, nontender, no hepatosplenomegaly Inspection/Auscultation: abdomen normal to inspection Musculoskeletal: no tenderness to palpation to spinous processes Skin: ecchymoses noted on flanks BL Neurologic: PERRL, EOMI, accommodation nl, no face palsy, no dysarthria Results & Data Results & Data ([facility]) Vital Signs (Past 12 Hours) Vital Signs Pulse Resp BP Pulse Ox 06/18/21 06:45 81 18 115/73 96 06/18/21 04:55 87 17 111/55 L 99 06/18/21 02:00 64 18 97 06/18/21 00:00 64 18 94 06/17/21 22:00 18 139/90 97 Diagnostic Findings Laboratory Results WBC 9.07 K/uL (4.8-10.8) 06/18/21 06:58 RBC 2.88 M/uL (4.7-6.1) L 06/18/21 06:58 Hgb 9.1 g/dL (14.0-18.0) L 06/18/21 06:58 Hct 26.7 % (42-52) L 06/18/21 06:58 MCV 92.7 fL (80-100) 06/18/21 06:58 MCH 31.6 pg (25-34) 06/18/21 06:58 MCHC 34.1 g/dL (32-36) 06/18/21 06:58 RDW Std Deviation 51.7 fL (36.4-46.3) H 06/18/21 06:58 RDW Coeff of Harsh 15.3 % (11.5-14.5) H 06/18/21 06:58 Plt Count 95 K/uL (130-400) L 06/18/21 06:58 MPV 10.1 fL (7.4-10.4) 06/18/21 06:58 Immature Gran % (Auto) 0.3 % 06/18/21 06:58 Neut % (Auto) 82.1 % 06/18/21 06:58 Lymph % (Auto) 11.1 % 06/18/21 06:58 Bulloch % (Auto) 4.1 % 06/18/21 06:58 Eos % (Auto) 2.3 % 06/18/21 06:58 Baso % (Auto) 0.1 % 06/18/21 06:58 Neut # (Auto) 7.44 K/uL (1.4-6.5) H 06/18/21 06:58 Lymph # (Auto) 1.01 K/uL (1.2-3.4) L 06/18/21 06:58 Bulloch # (Auto) 0.37 K/uL (0.11-0.59) 06/18/21 06:58 Eos # (Auto) 0.21 K/uL (0-0.5) 06/18/21 06:58 Baso # (Auto) 0.01 K/uL (0-0.2) 06/18/21 06:58 Immature Gran # (Auto) 0.03 K/uL (0.00-0.02) H 06/18/21 06:58 PT 17.3 Seconds (9.0-12.0) H 06/17/21 20:30 INR 1.7 (0.9-1.1) H 06/17/21 20:30 APTT 107.2 Seconds (21.0-31.0) H* 06/18/21 06:58 PTT Ratio 3.9 06/18/21 06:58 Sodium 135 mmol/L (136-145) L 06/18/21 06:58 Potassium 4.4 mmol/L (3.5-5.1) 06/18/21 06:58 Chloride 107 mmol/L (98-107) 06/18/21 06:58 Carbon Dioxide 18 mmol/L (21-32) L 06/18/21 06:58 Anion Gap 10 (3-11) 06/18/21 06:58 BUN 24 mg/dl (6-23) H 06/18/21 06:58 Creatinine 1.31 mg/dl (0.6-1.4) D 06/18/21 06:58 Est Cr Clr Drug Dosing 39.9 ml/min 06/18/21 06:58 Est GFR ( Amer) 57.9 ml/min 06/18/21 06:58 Est GFR (Non-Af Amer) 50.0 ml/min 06/18/21 06:58 BUN/Creatinine Ratio 18.3 (10-20) 06/18/21 06:58 Glucose 95 mg/dl (70-99(Fasting)) 06/18/21 06:58 Estimat Average Glucose 103 mg/dl 06/18/21 06:58 Hemoglobin A1c 5.2 % (4.5-5.6) 06/18/21 06:58 Calcium 8.0 mg/dl (8.5-10.1) L D 06/18/21 06:58 Phosphorus 2.6 mg/dl (2.5-4.9) 06/18/21 06:58 Magnesium 1.7 mg/dl (1.7-2.4) 06/18/21 06:58 Total Bilirubin 0.9 mg/dl (0.2-1.0) 06/18/21 06:58 Direct Bilirubin 0.3 mg/dl (0-0.2) H 06/17/21 20:30 AST 113 U/L (13-39) H 06/18/21 06:58 ALT 66 U/L (7-52) H 06/18/21 06:58 Alkaline Phosphatase 212 U/L (34-104) H 06/18/21 06:58 Troponin I 0.03 ng/ml (0-0.04) 06/17/21 20:30 Total Protein 4.6 gm/dl (6.0-8.3) L D 06/18/21 06:58 Albumin 3.0 gm/dl (3.4-5.0) L 06/18/21 06:58 Globulin 1.6 gm/dl (2.5-4.0) L 06/18/21 06:58 Albumin/Globulin Ratio 1.9 (0.9-2) 06/18/21 06:58 Lipase 11 U/L (11-82) 06/17/21 20:30 Urine Color Dark Yellow 06/17/21 20:15 Urine Appearance Clear (Clear) 06/17/21 20:15 Urine pH 5.0 (4.5-7.5) 06/17/21 20:15 Ur Specific [place] 1.018 (1.000-1.030) 06/17/21 20:15 Urine Protein Trace (Negative) H 06/17/21 20:15 Urine Glucose (UA) Negative (Negative) 06/17/21 20:15 Urine Ketones Trace (Negative) H 06/17/21 20:15 Urine Blood 1+ (Negative) H 06/17/21 20:15 Urine Nitrite Negative (Negative) 06/17/21 20:15 Urine Bilirubin Negative (Negative) 06/17/21 20:15 Urine Urobilinogen Negative (Negative) 06/17/21 20:15 Ur Leukocyte Esterase Trace (Negative) H 06/17/21 20:15 Urine WBC (Auto) 5-10 /hpf (0-5) H 06/17/21 20:15 Urine RBC (Auto) 10-30 /hpf (0-4) H 06/17/21 20:15 U Hyaline Cast (Auto) 1-5 /lpf (0-5) 06/17/21 20:15 U Epithel Cells (Auto) 10-20 /lpf (0-5) H 06/17/21 20:15 Urine Bacteria (Auto) Negative (Negative) 06/17/21 20:15 Urine Yeast Budding (None Prsent) A 06/17/21 20:15 SARS-CoV-2, RNA, NAAT NEGATIVE (NEGATIVE) 06/17/21 21:[address] 06/17/21 19:44 CT SCAN OF THE CERVICAL SPINE CLINICAL HISTORY: Fall. COMPARISON STUDY: No priors. TECHNIQUE: CT scan of the cervical spine is performed from the skull base to the upper thoracic spine. Images are reviewed in the axial, sagittal, and coronal planes. IV contrast was not administered for this examination. A dose lowering technique was utilized adhering to the principles of ALARA. FINDINGS: Skeletal structures: The skeletal structures are osteopenic. There is no evidence of fracture or subluxation involving the cervical spine. Vertebral body height and alignment are maintained. There is straightening of the cervical lordosis. Anterior osteophytes are seen throughout. The odontoid process and lateral masses are intact. The atlantoaxial articulation is preserved noting productive degenerative change. The spinous processes appear intact. There is moderate multilevel cervical spondylosis. Uncovertebral and facet arthropathy contribute to neural foraminal narrowing at several levels. Intervertebral discs: There is advanced disc space narrowing at C3-C4, C5-C6, and C6-C7. Mild to moderate disc space narrowing is noted at the remaining cervical levels. Central canal: Posterior disc osteophyte complexes are seen at all levels between C2-C3 and C6-C7. This likely contributes to multilevel acquired compromise of the central canal. Soft tissues: The prevertebral and paraspinous soft tissues are within normal limits. There is atherosclerotic calcification of the carotid bulbs. Calvarium: The visualized calvarium at the skull base appears intact. Brain parenchyma: Partially visualized brain parenchyma at the skull base is within normal limits. Sinuses and mastoids: There is trace mucosal thickening within the maxillary antra. The mastoid air cells are well pneumatized. Lung apices: Clear as visualized. IMPRESSION: 1. There is no evidence of fracture or subluxation involving the cervical spine. 2. Osteopenia and spondylotic change as above. ACT 112: Negative or not required by law. Electronically signed by: Meliton Mixon M.D. 06/17/2021 8:[address] 06/17/21 19:44 CT SCAN OF THE BRAIN WITHOUT IV CONTRAST CLINICAL HISTORY: Fall. COMPARISON STUDY: No priors. TECHNIQUE: Unenhanced axial CT scan of the brain is performed from the vertex to the skull base. A dose lowering technique was utilized adhering to the principles of ALARA. FINDINGS: Brain parenchyma: There are age-related involutional changes noting mild subcortical and periventricular microangiopathic change. There is no hemorrhage, mass effect, or evidence of acute territorial ischemia by CT criteria. Small foci of high bilateral frontal encephalomalacia are consistent with small remote infarcts. Yates-white matter differentiation is preserved. No extra-axial fluid collection is seen. Ventricles, sulci, cisterns: Prominent secondary to involutional change. Intracranial vasculature: There is atherosclerotic calcification of the cavernous carotid arteries. Calvarium: The skeletal structures are osteopenic. No depressed calvarial fracture is identified. Sinuses and mastoids: The visualized paranasal sinuses are clear. The mastoid air cells are well pneumatized. Orbits: The bony orbits are grossly intact. There are bilateral ocular lens implants. IMPRESSION: There is no hemorrhage, mass effect, or evidence of acute territorial ischemia by CT criteria. ACT 112: Negative or not required by law. Electronically signed by: Meliton Mixon M.D. 06/17/2021 8:54 PM Abdomen/Pelvis CT 06/17/21 19:48 CT SCAN OF THE CHEST, ABDOMEN, AND PELVIS WITHOUT IV CONTRAST CLINICAL HISTORY: Fall several weeks ago. Right-sided chest wall pain.. COMPARISON STUDY: No priors. TECHNIQUE: Unenhanced CT scan of the chest, abdomen, and pelvis was performed from the thoracic inlet to the proximal femora. Images are reviewed in the axial, sagittal, and coronal planes. IV contrast was not administered for these examinations. Note that the examinations are significantly suboptimal without IV contrast. A dose lowering technique was utilized adhering to the principles of ALARA. CT DOSE: 2141.74 mGy.cm FINDINGS: CHEST: Thyroid: Normal in size and heterogeneous in attenuation. Thoracic aorta: There is atherosclerotic calcification of the thoracic aorta, which is normal in caliber and demonstrates standard 3-vessel arch anatomy. Heart: The patient is status post midline sternotomy and aortic valve surgery. The heart is normal in size and without pericardial effusion. The coronary arteries are densely calcified. Lungs and pleural spaces: There is no airspace consolidation, pleural effusion, or pneumothorax. An accessory azygous fissure is incidentally noted. The trachea and central airways are clear. Mild scarring/atelectasis is noted at the lung bases. Mediastinum: There is no mediastinal hematoma or lymphadenopathy. Elida: Not well assessed without IV contrast. Axillae: There is no axillary lymphadenopathy. Bony thorax: The skeletal structures are osteopenic. No lytic or blastic lesions are identified. ABDOMEN AND PELVIS: Liver: The unenhanced liver is normal in size, contour, and attenuation. There is no intrahepatic biliary ductal dilatation. Left lobe cysts measure up to 5.5 cm. The liver is infiltrated by numerous low-attenuation lesions which measure up to 3.0 cm. The appearance is typical for extensive/multifocal hepatic metastatic disease. Gallbladder: Suspect cholelithiasis. There is no CT evidence of acute cholecystitis. Spleen: Normal in size and attenuation. Pancreas: An ill-defined mass lesion is suggested in the region of the pancreatic head/neck, measuring approximately 3 x 2 cm on image #135. The upstream pancreatic duct is markedly dilated measuring up to 13 mm in diameter, and there is severe atrophy of the pancreatic body and tail. This the mass lesion closely approximates the superior mesenteric vein. Adrenal glands: Unremarkable. Kidneys: The unenhanced kidneys are normal in size and without hydronephrosis. A 6 mm nonobstructing calculus is seen in the right upper pole. Bilateral renal cysts measure up to 3.4 cm. Abdominal vasculature: The abdominal aorta is normal in course and caliber noting advanced atherosclerotic calcification. Stomach and bowel: There is a small hiatal hernia. There is moderate colonic diverticulosis without CT evidence of acute diverticulitis. No bowel obstruction is seen. The appendix is not visualized. Peritoneum: There is no intraperitoneal free air or abdominal ascites. There is a fat-containing umbilical hernia. Lymphadenopathy: None. Pelvic viscera: The prostate gland is enlarged and heterogeneous noting median lobe hypertrophy. The bladder wall is thickened and trabeculated indicating chronic outlet obstruction. A bladder diverticulum seen posteriorly on the left measures up to 2.8 cm. There is a small fat-containing left inguinal hernia. Skeletal structures: The skeletal structures are osteopenic. The lumbosacral spine, bony pelvis, and proximal femora appear intact. There is mild lumbosacral spondylosis. No lytic or blastic lesions are seen. IMPRESSION: 1. There is no acute posttraumatic intrathoracic abnormality. 2. There is no airspace consolidation, pleural effusion, or pneumothorax. 3. There is no evidence of solid organ injury in the abdomen or pelvis on this unenhanced examination. 4. There is evidence of extensive/diffuse multifocal hepatic metastatic disease. A pancreatic primary is favored. See below. 5. There is an approximately 3 cm ill-defined/heterogeneous mass lesion in the pancreatic head/neck with significant dilatation of the upstream pancreatic duct and marked atrophy of the pancreatic body/tail. Pancreatic adenocarcinoma is the diagnosis of exclusion. GI follow-up is recommended. 6. There is no intra- or extrahepatic biliary ductal dilatation. 7. Colonic diverticulosis without CT evidence of acute diverticulitis. 8. Right-sided nephrolithiasis and suspect cholelithiasis. 9. Additional findings as above. ACT 112: Positive. There are findings on this exam that require communication between the performing entity and the patient following Patient Test Result Information Act ([place] Act 112) guidelines. Electronically signed by: Meliton Mixon M.D. 06/17/2021 9:[address] 06/17/21 19:48 CT SCAN OF THE CHEST, ABDOMEN, AND PELVIS WITHOUT IV CONTRAST CLINICAL HISTORY: Fall several weeks ago. Right-sided chest wall pain.. COMPARISON STUDY: No priors. TECHNIQUE: Unenhanced CT scan of the chest, abdomen, and pelvis was performed from the thoracic inlet to the proximal femora. Images are reviewed in the axial, sagittal, and coronal planes. IV contrast was not administered for these examinations. Note that the examinations are significantly suboptimal without IV contrast. A dose lowering technique was utilized adhering to the principles of ALARA. CT DOSE: 2141.74 mGy.cm FINDINGS: CHEST: Thyroid: Normal in size and heterogeneous in attenuation. Thoracic aorta: There is atherosclerotic calcification of the thoracic aorta, which is normal in caliber and demonstrates standard 3-vessel arch anatomy. Heart: The patient is status post midline sternotomy and aortic valve surgery. The heart is normal in size and without pericardial effusion. The coronary arteries are densely calcified. Lungs and pleural spaces: There is no airspace consolidation, pleural effusion, or pneumothorax. An accessory azygous fissure is incidentally noted. The trachea and central airways are clear. Mild scarring/atelectasis is noted at the lung bases. Mediastinum: There is no mediastinal hematoma or lymphadenopathy. Elida: Not well assessed without IV contrast. Axillae: There is no axillary lymphadenopathy. Bony thorax: The skeletal structures are osteopenic. No lytic or blastic lesions are identified. ABDOMEN AND PELVIS: Liver: The unenhanced liver is normal in size, contour, and attenuation. There is no intrahepatic biliary ductal dilatation. Left lobe cysts measure up to 5.5 cm. The liver is infiltrated by numerous low-attenuation lesions which measure up to 3.0 cm. The appearance is typical for extensive/multifocal hepatic metastatic disease. Gallbladder: Suspect cholelithiasis. There is no CT evidence of acute cholecystitis. Spleen: Normal in size and attenuation. Pancreas: An ill-defined mass lesion is suggested in the region of the pancreatic head/neck, measuring approximately 3 x 2 cm on image #135. The upstream pancreatic duct is markedly dilated measuring up to 13 mm in diameter, and there is severe atrophy of the pancreatic body and tail. This the mass lesion closely approximates the superior mesenteric vein. Adrenal glands: Unremarkable. Kidneys: The unenhanced kidneys are normal in size and without hydronephrosis. A 6 mm nonobstructing calculus is seen in the right upper pole. Bilateral renal cysts measure up to 3.4 cm. Abdominal vasculature: The abdominal aorta is normal in course and caliber noting advanced atherosclerotic calcification. Stomach and bowel: There is a small hiatal hernia. There is moderate colonic diverticulosis without CT evidence of acute diverticulitis. No bowel obstruction is seen. The appendix is not visualized. Peritoneum: There is no intraperitoneal free air or abdominal ascites. There is a fat-containing umbilical hernia. Lymphadenopathy: None. Pelvic viscera: The prostate gland is enlarged and heterogeneous noting median lobe hypertrophy. The bladder wall is thickened and trabeculated indicating chronic outlet obstruction. A bladder diverticulum seen posteriorly on the left measures up to 2.8 cm. There is a small fat-containing left inguinal hernia. Skeletal structures: The skeletal structures are osteopenic. The lumbosacral spine, bony pelvis, and proximal femora appear intact. There is mild lumbosacral spondylosis. No lytic or blastic lesions are seen. IMPRESSION: 1. There is no acute posttraumatic intrathoracic abnormality. 2. There is no airspace consolidation, pleural effusion, or pneumothorax. 3. There is no evidence of solid organ injury in the abdomen or pelvis on this unenhanced examination. 4. There is evidence of extensive/diffuse multifocal hepatic metastatic disease. A pancreatic primary is favored. See below. 5. There is an approximately 3 cm ill-defined/heterogeneous mass lesion in the pancreatic head/neck with significant dilatation of the upstream pancreatic duct and marked atrophy of the pancreatic body/tail. Pancreatic adenocarcinoma is the diagnosis of exclusion. GI follow-up is recommended. 6. There is no intra- or extrahepatic biliary ductal dilatation. 7. Colonic diverticulosis without CT evidence of acute diverticulitis. 8. Right-sided nephrolithiasis and suspect cholelithiasis. 9. Additional findings as above. ACT 112: Positive. There are findings on this exam that require communication between the performing entity and the patient following Patient Test Result Information Act ([place] Act 112) guidelines. Electronically signed by: Meliton Mixon M.D. 06/17/2021 9:14 PM Medications Administered Current Inpatient Medications Acetaminophen (Acetaminophen 1000 Mg/100 Ml Iv) 1,000 mg IV Q8H PRN PRN Reason: Pain Stop: 06/21/21 03:25 Lactated Ringer's (Lr) 1,000 mls @ 100 mls/hr IV .Q10H KYLER Stop: 07/17/21 23:29 Last Admin: 06/18/21 00:27 Dose: 100 mls/hr Documented by: Heparin Sodium/Dextrose (Heparin Sodium/Dextrose) 25,000 units in 500 mls @ 24 mls/hr IV .[id number] KYLER; Protocol Stop: 07/17/21 23:41 Last Titration: 06/18/21 09:13 Dose: 1,000 units/hr, 20 mls/hr Documented by: Ondansetron HCl (Ondansetron Inj 2 Mg/Ml 2 Ml Vial) 4 mg IV Q6H PRN PRN Reason: Nausea Stop: 07/18/21 03:25 (1) Contusion, flank Encounter type: initial encounter Qualified Code(s): S30.1XXA - Contusion of abdominal wall, initial encounter (2) Contusion of buttock Encounter type: initial encounter Qualified Code(s): S30.0XXA - Contusion of lower back and pelvis, initial encounter (3) Anemia Anemia type: unspecified type Qualified Code(s): D64.9 - Anemia, unspecified
[2021-06-18] MEDS ORDERED: hydrOXYzine HCl 25 MG TAB PO PRN (13:39)
--- NOTE | 2021-06-18 13:53 | Gastrointestinal Consultation ---
Date of Consultation June 18, 2021 Assessment & Plan (1) Elevated LFTs: (2) Pancreatic lesion: (3) Liver lesion: Pt is a 81 yo male, who presented to ED w c/o R flank/rib area tenderness. Workup showed elevated LFTs w CT imaging studies demonstrating pancreas head/neck 3cm ill defined/heterogenous mass with upstream dilation of pancreatic duct and atrophy of pancreatic body/tail, findings concerning for pancreatic adenocarcinoma. 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 This was also demonstrated on outside CT/MRI - Defer repeat pancreas imaging - F/U Urine culture results - He'll need outpt EUS w FNA of pancreas lesion, which we can help arrange - On Eliquis for hx of Afib and AVR; will need to stop this med 5 days prior to EUS w FNA Supervising Physician Co-Signing Physician Notes Attg add: I interviewed and examined pt, reviewed chart and labs. Pt with imaging suspicious for met panc CA. Will expedite outpt EUS. No need biliary decompression. Please call with questions. History of Present Illness Reason for Consultation: Pancreatic neoplasm Requesting Physician: Dr Jaime Oleary Attending Physician: Dr. Lulu Douglas History of Present Illness Pt is a 81 yo male, who presented to ED today w c/o R flank/ribs area tenderness. During his workup it is noted that his LFTs are elevated: Tibli 0.9, AST 113, ALT 66, Alk phos 212. CT abd/pelvis showed 3cm ill defined/heterogenous mass lesion on pancreas head/neck upstream dilation of pancreatic duct and atrophy of pancreatic body/tail, findings concerning for pancreatic adenocarcinoma. 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 Pt recently moved from [facility] to be near to daughter who is an gymnastic teacher. He was previously seeing [facility] provider for complaints of constipation, bloating. Had outpt CT abd/pelvis followed later w MRI abd w wo contrast which showed pancreas mass and dilation of pancreatic duct, liver lesions concerning for pancreatic malignancy w liver mets. Pt denies jaundice, abd pain, n/v but noticed appetite and weight loss (15lbs in the last 2 months). Denies known family hx of GI malignancies. Denies hx of tobacco, ETOH, illicit drug uses. Allergies Allergy/AdvReac Type Severity Reaction Status Date / Time shellfish derived AdvReac Hives Unverified 06/17/21 19:37 Home Medications Medication Instructions Recorded Confirmed Type apixaban 2.5 mg tablet (Eliquis) 2.5 mg PO DAILY 06/06/21 06/17/21 History aspirin 81 mg tablet,delayed 81 mg PO DAILY 06/06/21 06/17/21 History release hydroxyzine HCl 25 mg tablet 25 mg PO QID PRN #30 tab 06/06/21 06/17/21 Rx pravastatin 20 mg tablet 20 mg PO DAILY 06/06/21 06/17/21 History spironolactone 25 mg tablet 25 mg PO DAILY 06/06/21 06/17/21 History tamsulosin 0.4 mg capsule 0.4 mg PO DAILY 06/06/21 06/17/21 History Patient History Medical History Acid reflux Aortic valve disorder High cholesterol Hypertension Social History Smoking Status: Never smoker Second Hand Exposure: No; Do You Dip or Chew Tobacco: No; Hx Alcohol Use: No Hx Substance Use: No Preferred Language: Romanian Communication Ability: Effective 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 Beliefs That Will Affect Care: None Current Living Situation: Alone Other Information That Helps Us Care for You: No Feels Safe at Home: Yes Safety Concerns: Feels Safe At This Time Assistive Devices: None Review of Systems Review of Systems: All systems reviewed & are unremarkable except as noted in HPI & below Physical Exam Constitutional: WD/WN, vitals as above well groomed, cooperative and comfortable Eyes: PERRL, conjunctivae normal, anicteric sclerae ENMT: external ear and nose normal, oropharynx normal Respiratory: normal respiratory effort, lungs clear to auscultation Cardiovascular: RRR, no murmur, no edema Gastrointestinal (Abdomen): normal bowel sounds, soft, nontender, no hepatosplenomegaly Skin: no rashes, warm and dry no jaundice Psychiatric: A+Ox3, euthymic affect Lymphatic: no lymphedema Results & Data ([facility]) Vital Signs (Past 12 Hours) Vital Signs Pulse Resp BP Pulse Ox 06/18/21 11:06 74 18 127/63 95 06/18/21 06:45 81 18 115/73 96 06/18/21 04:55 87 17 111/55 L 99 06/18/21 02:00 64 18 97
[2021-06-18] MEDS ORDERED: APIXABAN 2.5 MG TAB PO SCH (14:00)
[2021-06-18 15:11] LABS: Partial Thromboplastin Ratio 2.6
[2021-06-18 15:23] LABS: Partial Thromboplastin Time 71.7 Seconds (21.0-31.0)
--- NOTE | 2021-06-18 17:50 | Billing Data ---
Date of Service June 18, 2021 Coding Level of Care Code 90151 Subseq Hosp Care Lvl 3
--- NOTE | 2021-06-18 17:51 | Billing Data ---
Date of Service June 18, 2021 Coding Level of Care Code 47836 Prolonged Care (int'l)
--- NOTE | 2021-06-18 19:17 | Magnetic Resonance Report ---
MR brain wo con CLINICAL HISTORY: R/o mets TECHNIQUE: Multiplanar and multisequence MR images of the brain were obtained without intravenous con trast. Comparison: Comparison is made to CT head 06/17/2021 FINDINGS: No abnormal restricted diffusion is identified. Foci of T2 and FLAIR hyperintensity are noted in the paraventricular areas consistent with chronic small vessel ischemic disease. Ex vacuo ventriculomegal y and sulcal enlargement is noted compatible with diffuse encephalomalacia. Bilateral white matter ab normalities are seen in the posterior frontal lobes. There are no masses, mass effect, or midline donato ft. No abnormal enhancement is seen. There is no evidence of acute intraparenchymal hemorrhage. No ex tra axial fluid collections are seen. The corpus callosum, pituitary gland, and cerebellar tonsils ap pear grossly unremarkable. Flow voids of the major intracranial arterial vessels are identified. The imaged portions of the para nasal sinuses, mastoid air cells, and orbits are unremarkable. IMPRESSION: Encephalomalacia and white matter changes. White matter T2 hyperintensities in the bilateral posterio r frontal lobes are favored to represent degenerative changes due to the relatively small size, howev er underlying metastatic disease cannot be excluded. If clinical concern remains, MRI brain with cont rast can be performed. ACT 112: Negative or not required by law. Electronically signed by: Dwight Randall M.D. 06/18/2021 7:15 PM
--- NOTE | 2021-06-18 23:31 | Billing Data ---
Date of Service June 18, 2021 Coding Level of Care Code 33224 Initial Inpt Care Lvl 3
--- NOTE | 2021-06-19 05:36 | Electrocardiogram Report ---
Test Reason : Blood Pressure : / mmHG Vent. Rate : 083 BPM Atrial Rate : 083 BPM P-R Int : 264 ms QRS Dur : 088 ms QT Int : 386 ms P-R-T Axes : 054 036 031 degrees QTc Int : 453 ms Sinus rhythm with 1st degree A-V block Septal infarct , age undetermined Abnormal ECG No previous ECGs available Confirmed by Santos Gilmore ([id number]) on 06/19/2021 5:35:49 AM Referred By: REFERRED SELF Confirmed By:Santos Gilmore
[2021-06-19] MEDS ORDERED: SPIRONOLACTONE 25 MG TAB PO SCH (09:00)
[2021-06-19] MEDS ORDERED: TAMSULOSIN HCL 0.4 MG CAP PO SCH (09:00)
[2021-06-19] MEDS ORDERED: ASPIRIN 81 MG ECTAB PO SCH (09:00)
[2021-06-19] MEDS ORDERED: PRAVASTATIN SOD 20 MG TAB PO SCH (09:00)
[2021-06-19 09:10] LABS: Basophils # (auto) 0.02 K/uL (0-0.2); Basophils % (auto) 0.1 %; Eosinophils # (auto) 0.08 K/uL (0-0.5); Eosinophils % (auto) 0.6 %; Hematocrit (blood only) 31.4 % (42-52); Immature Granulocytes # (auto) 0.05 K/uL (0.00-0.02); Immature Granulocytes % (auto) 0.3 %; Lymphocytes # (auto) 1.24 K/uL (1.2-3.4); Lymphocytes % (auto) 8.6 %; Mean Corpuscular Hemoglobin 29.7 pg (25-34); Mean Corpuscular Hgb Conc 31.8 g/dL (32-36); Mean Corpuscular Volume 93.2 fL (80-100); Mean Platelet Volume 10.6 fL (7.4-10.4); Monocytes # (auto) 1.33 K/uL (0.11-0.59); Monocytes % (auto) 9.3 %; Neutrophils # (auto) 11.62 K/uL (1.4-6.5); Neutrophils % (auto) 81.1 %; Platelet Count 117 K/uL (130-400); RDW Coefficient of Variation 15.3 % (11.5-14.5); RDW Standard Deviation 52.2 fL (36.4-46.3); Red Blood Count 3.37 M/uL (4.7-6.1); White Blood Count 14.34 K/uL (4.8-10.8)
[2021-06-19 09:24] LABS: INR 1.5 (0.9-1.1); Prothrombin Time 15.2 Seconds (9.0-12.0)
[2021-06-19] MEDS ORDERED: LORazepam 2 MG/1 ML VIAL IV ONE (09:36)
[2021-06-19 09:48] LABS: Albumin Globulin Ratio 1.5 (0.9-2); Albumin Level 3.5 gm/dl (3.4-5.0); BUN Creatinine Ratio 18.5 (10-20); Bilirubin,Total 1.1 mg/dl (0.2-1.0); Calcium 8.7 mg/dl (8.5-10.1); Creatinine Clr Calc Pharmacy 33.3 ml/min; Est GFR (African American) 46.6 ml/min; Est GFR (Non-African American) 40.2 ml/min; Globulin 2.4 gm/dl (2.5-4.0); Potassium 4.3 mmol/L (3.5-5.1); Total Protein 5.9 gm/dl (6.0-8.3)
--- NOTE | 2021-06-19 10:18 | Hospitalist Progress Note ---
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 No intra- or extra-hepatic biliary ductal dilatation. No lytic/blastic bony lesions seen on any imaging -pathology is necessary to confirm malignancy and primary tumor site -elevated LFTs likely explained by malignancy/liver mets -hyperbilirubinemia likely explained by malignancy/liver mets -per GI he will have an outpatient procedure and no ERCP during his hospital stay -heme/onc will follow outpt -MRI w/o contrast was not sufficient, MRI w/ contrast ordered -liver US/biopsy scheduled for 06/19/21 #rib pain on R side/flank contusion -stable, ecchymoses present on back/flank area, continue analgesia #anemia, chronic -Hgb is 10.8 which appears to be at baseline -no signs of bleeding #CKDIII -stable, Cr is 1.78, seems to be his baseline #asymptomatic bacteriuria #hematuria, microscopic -no UTI symptoms, UA positive for trace LE and 5-10 WBC but also with 10-20 epithelial cells, urine culture pending, no abx given at this time -no gross hematuria appreciated by patient, there is evidence of a stone which could be a possible cause of hematuria -urine cytology ordered #JAMESI -NPO since he has liver biopsy today 06/19/21 -caloric need is ~1800 calories/day #DVT prophylaxis: apixaban 2.5 mg PO daily on hold Admission and Anticipated Discharge Date Admission Date: June 17, 2021 Subjective CC: R-sided rib and flank pain HPI: Moises is an 81 y/o M w. PMhx of CKDIII, HTN, HLD, chronic normocytic anemia, paroxysmal AFIB (on Eliquis), and aortic stenosis (s/p porcine aortic valve replacement 1.5 years ago) who presented to the [facility] ED on 06/17 for R-sided rib and flank pain for 1 day that was not worse with inspiration. Of note he came to the [facility] ED on 06/06/21 after sustaining a fall which caused a hematoma/ecchymosis to the buttock and tibial regions. At the time he also noted itchiness all over. At the time his bilirubin was 1.7. The patient recently moved to the [facility] from the [facility] to be closer to his daughter who teaches in the area. He lives in an apartment with his . He sees [facility] for constipation, bloating, and epigastric pain for the past several months. He reports a hx of elevated bilirubin and ja undice but has not recently noted any yellowing of the eyes or skin. He recently underwent a CT abd/pelvic and MRI abdomen which revealed a primary pancreatic mass with suspicion for liver metastases. In the ED the patient was afebrile and hemodynamically stable on room air. EKG without ST/T wave changes and Troponin negative x1. Patient was given 1L NSS bolus, Zofran x1 for nausea, and Fentanyl 50mcg IV x1 for pain. Patient reports that right-sided rib pain is nearly completely resolved after Fentanyl Today (06/19/21) he continues to report a significant reduction in his R-sided flank/rib pain. He did have some concerns about obtaining a liver US/biopsy and repeat MRI w/ contrast, but all of his questions were answered. He does not have any other concerns or new symptoms. He is urinating regularly without burning or suprapubic pain. He has not had a bowel movement since admission which is WNL for him. No night sweats or fevers during his current admission. No BOLES/vision changes, chest pain, SOB, hemoptysis, extremity swelling/redness/pain, recent illness. Review of Systems Review of Systems: All systems reviewed & are unremarkable except as noted in Subjective Physical Exam Constitutional: NAD, sitting upright in bed Eyes: PERRL, conjunctivae normal, anicteric sclerae Respiratory: normal respiratory effort, lungs clear to auscultation Cardiovascular: RRR, no murmur, no edema Gastrointestinal (Abdomen): normal to inspection, bowel sounds present in all quadrants, no visible masses, +some tenderness Skin: no rashes, warm and dry Neurologic: PERRL, EOMI, accommodation nl, no face palsy, no dysarthria Psychiatric: A+Ox3, euthymic affect Lymphatic: LE are without edema, redness or swelling LLE does show some ecchymoses which he reports are from his prior fall several weeks ago Results & Data Results & Data ([facility]) Vital Signs (Past 12 Hours) Vital Signs Temp Pulse Resp BP Pulse Ox 06/19/21 07:35 36.7 C 80 16 110/66 97 06/18/21 22:16 37.2 C 80 16 93/54 L 97 Diagnostic Findings Laboratory Results WBC 14.34 K/uL (4.8-10.8) H 06/19/21 08:45 RBC 3.37 M/uL (4.7-6.1) L 06/19/21 08:45 Hgb 10.0 g/dL (14.0-18.0) L 06/19/21 08:45 Hct 31.4 % (42-52) L 06/19/21 08:45 MCV 93.2 fL (80-100) 06/19/21 08:45 MCH 29.7 pg (25-34) 06/19/21 08:45 MCHC 31.8 g/dL (32-36) L 06/19/21 08:45 RDW Std Deviation 52.2 fL (36.4-46.3) H 06/19/21 08:45 RDW Coeff of Harsh 15.3 % (11.5-14.5) H 06/19/21 08:45 Plt Count 117 K/uL (130-400) L 06/19/21 08:45 MPV 10.6 fL (7.4-10.4) H 06/19/21 08:45 Immature Gran % (Auto) 0.3 % 06/19/21 08:45 Neut % (Auto) 81.1 % 06/19/21 08:45 Lymph % (Auto) 8.6 % 06/19/21 08:45 Crane % (Auto) 9.3 % 06/19/21 08:45 Eos % (Auto) 0.6 % 06/19/21 08:45 Baso % (Auto) 0.1 % 06/19/21 08:45 Neut # (Auto) 11.62 K/uL (1.4-6.5) H 06/19/21 08:45 Lymph # (Auto) 1.24 K/uL (1.2-3.4) 06/19/21 08:45 Crane # (Auto) 1.33 K/uL (0.11-0.59) H 06/19/21 08:45 Eos # (Auto) 0.08 K/uL (0-0.5) 06/19/21 08:45 Baso # (Auto) 0.02 K/uL (0-0.2) 06/19/21 08:45 Immature Gran # (Auto) 0.05 K/uL (0.00-0.02) H 06/19/21 08:45 PT 15.2 Seconds (9.0-12.0) H 06/19/21 08:45 INR 1.5 (0.9-1.1) H 06/19/21 08:45 APTT 71.7 Seconds (21.0-31.0) H* 06/18/21 14:05 PTT Ratio 2.6 06/18/21 14:05 Sodium 137 mmol/L (136-145) 06/19/21 08:45 Potassium 4.3 mmol/L (3.5-5.1) 06/19/21 08:45 Chloride 107 mmol/L (98-107) 06/19/21 08:45 Carbon Dioxide 21 mmol/L (21-32) 06/19/21 08:45 Anion Gap 9 (3-11) 06/19/21 08:45 BUN 29 mg/dl (6-23) H 06/19/21 08:45 Creatinine 1.57 mg/dl (0.6-1.4) H 06/19/21 08:45 Est Cr Clr Drug Dosing 33.3 ml/min 06/19/21 08:45 Est GFR ( Amer) 46.6 ml/min 06/19/21 08:45 Est GFR (Non-Af Amer) 40.2 ml/min 06/19/21 08:45 BUN/Creatinine Ratio 18.5 (10-20) 06/19/21 08:45 Glucose 105 mg/dl (70-99(Fasting)) H 06/19/21 08:45 Estimat Average Glucose 103 mg/dl 06/18/21 06:58 Hemoglobin A1c 5.2 % (4.5-5.6) 06/18/21 06:58 Calcium 8.7 mg/dl (8.5-10.1) 06/19/21 08:45 Phosphorus 2.6 mg/dl (2.5-4.9) 06/18/21 06:58 Magnesium 1.7 mg/dl (1.7-2.4) 06/18/21 06:58 Total Bilirubin 1.1 mg/dl (0.2-1.0) H 06/19/21 08:45 Direct Bilirubin 0.3 mg/dl (0-0.2) H 06/17/21 20:30 AST 162 U/L (13-39) H 06/19/21 08:45 ALT 146 U/L (7-52) H 06/19/21 08:45 Alkaline Phosphatase 285 U/L (34-104) H 06/19/21 08:45 Troponin I 0.03 ng/ml (0-0.04) 06/17/21 20:30 Total Protein 5.9 gm/dl (6.0-8.3) L D 06/19/21 08:45 Albumin 3.5 gm/dl (3.4-5.0) 06/19/21 08:45 Globulin 2.4 gm/dl (2.5-4.0) L 06/19/21 08:45 Albumin/Globulin Ratio 1.5 (0.9-2) 06/19/21 08:45 Lipase 11 U/L (11-82) 06/17/21 20:30 Urine Color Dark Yellow 06/17/21 20:15 Urine Appearance Clear (Clear) 06/17/21 20:15 Urine pH 5.0 (4.5-7.5) 06/17/21 20:15 Ur Specific Klemme 1.018 (1.000-1.030) 06/17/21 20:15 Urine Protein Trace (Negative) H 06/17/21 20:15 Urine Glucose (UA) Negative (Negative) 06/17/21 20:15 Urine Ketones Trace (Negative) H 06/17/21 20:15 Urine Blood 1+ (Negative) H 06/17/21 20:15 Urine Nitrite Negative (Negative) 06/17/21 20:15 Urine Bilirubin Negative (Negative) 06/17/21 20:15 Urine Urobilinogen Negative (Negative) 06/17/21 20:15 Ur Leukocyte Esterase Trace (Negative) H 06/17/21 20:15 Urine WBC (Auto) 5-10 /hpf (0-5) H 06/17/21 20:15 Urine RBC (Auto) 10-30 /hpf (0-4) H 06/17/21 20:15 U Hyaline Cast (Auto) 1-5 /lpf (0-5) 06/17/21 20:15 U Epithel Cells (Auto) 10-20 /lpf (0-5) H 06/17/21 20:15 Urine Bacteria (Auto) Negative (Negative) 06/17/21 20:15 Urine Yeast Budding (None Prsent) A 06/17/21 20:15 SARS-CoV-2, RNA, NAAT NEGATIVE (NEGATIVE) 06/17/21 21:[address] 06/17/21 19:44 CT SCAN OF THE CERVICAL SPINE CLINICAL HISTORY: Fall. COMPARISON STUDY: No priors. TECHNIQUE: CT scan of the cervical spine is performed from the skull base to the upper thoracic spine. Images are reviewed in the axial, sagittal, and coronal planes. IV contrast was not administered for this examination. A dose lowering technique was utilized adhering to the principles of ALARA. FINDINGS: Skeletal structures: The skeletal structures are osteopenic. There is no evidence of fracture or subluxation involving the cervical spine. Vertebral body height and alignment are maintained. There is straightening of the cervical lordosis. Anterior osteophytes are seen throughout. The odontoid process and lat eral masses are intact. The atlantoaxial articulation is preserved noting productive degenerative change. The spinous processes appear intact. There is moderate multilevel cervical spondylosis. Uncovertebral and facet arthropathy contribute to neural foraminal narrowing at several levels. Intervertebral discs: There is advanced disc space narrowing at C3-C4, C5-C6, and C6-C7. Mild to moderate disc space narrowing is noted at the remaining cervical levels. Central canal: Posterior disc osteophyte complexes are seen at all levels between C2-C3 and C6-C7. This likely contributes to multilevel acquired compromise of the central canal. Soft tissues: The prevertebral and paraspinous soft tissues are within normal limits. There is atherosclerotic calcification of the carotid bulbs. Calvarium: The visualized calvarium at the skull base appears intact. Brain parenchyma: Partially visualized brain parenchyma at the skull base is within normal limits. Sinuses and mastoids: There is trace mucosal thickening within the maxillary antra. The mastoid air cells are well pneumatized. Lung apices: Clear as visualized. IMPRESSION: 1. There is no evidence of fracture or subluxation involving the cervical spine. 2. Osteopenia and spondylotic change as above. ACT 112: Negative or not required by law. Electronically signed by: Meliton Mixon M.D. 06/17/2021 8:[address] 06/17/21 19:44 CT SCAN OF THE BRAIN WITHOUT IV CONTRAST CLINICAL HISTORY: Fall. COMPARISON STUDY: No priors. TECHNIQUE: Unenhanced axial CT scan of the brain is performed from the vertex to the skull base. A dose lowering technique was utilized adhering to the principles of ALARA. FINDINGS: Brain parenchyma: There are age-related involutional changes noting mild subcortical and periventricular microangiopathic change. There is no hemorrhage, mass effect, or evidence of acute territorial ischemia by CT criteria. Small foci of high bilateral frontal encephalomalacia are consistent with small remote infarcts. Yates-white matter differentiation is preserved. No extra-axial fluid collection is seen. Ventricles, sulci, cisterns: Prominent secondary to involutional change. Intracranial vasculature: There is atherosclerotic calcification of the cavernous carotid arteries. Calvarium: The skeletal structures are osteopenic. No depressed calvarial fracture is identified. Sinuses and mastoids: The visualized paranasal sinuses are clear. The mastoid air cells are well pneumatized. Orbits: The bony orbits are grossly intact. There are bilateral ocular lens implants. IMPRESSION: There is no hemorrhage, mass effect, or evidence of acute territorial ischemia by CT criteria. ACT 112: Negative or not required by law. Electronically signed by: Meliton Mixon M.D. 06/17/2021 8:54 PM Abdomen/Pelvis CT 06/17/21 19:48 CT SCAN OF THE CHEST, ABDOMEN, AND PELVIS WITHOUT IV CONTRAST CLINICAL HISTORY: Fall several weeks ago. Right-sided chest wall pain.. COMPARISON STUDY: No priors. TECHNIQUE: Unenhanced CT scan of the chest, abdomen, and pelvis was performed from the thoracic inlet to the proximal femora. Images are reviewed in the axial, sagittal, and coronal planes. IV contrast was not administered for these examinations. Note that the examinations are significantly suboptimal without IV contrast. A dose lowering technique was utilized adhering to the principles of ALARA. CT DOSE: 2141.74 mGy.cm FINDINGS: CHEST: Thyroid: Normal in size and heterogeneous in attenuation. Thoracic aorta: There is atherosclerotic calcification of the thoracic aorta, which is normal in caliber and demonstrates standard 3-vessel arch anatomy. Heart: The patient is status post midline sternotomy and aortic valve surgery. The heart is normal in size and without pericardial effusion. The coronary arteries are densely calcified. Lungs and pleural spaces: There is no airspace consolidation, pleural effusion, or pneumothorax. An accessory azygous fissure is incidentally noted. The trachea and central airways are clear. Mild scarring/atelectasis is noted at the lung bases. Mediastinum: There is no mediastinal hematoma or lymphadenopathy. Elida: Not well assessed without IV contrast. Axillae: There is no axillary lymphadenopathy. Bony thorax: The skeletal structures are osteopenic. No lytic or blastic lesions are identified. ABDOMEN AND PELVIS: Liver: The unenhanced liver is normal in size, contour, and attenuation. There is no intrahepatic biliary ductal dilatation. Left lobe cysts measure up to 5.5 cm. The liver is infiltrated by numerous low-attenuation lesions which measure up to 3.0 cm. The appearance is typical for extensive/multifocal hepatic metastatic disease. Gallbladder: Suspect cholelithiasis. There is no CT evidence of acute cholecystitis. Spleen: Normal in size and attenuation. Pancreas: An ill-defined mass lesion is suggested in the region of the pancreatic head/neck, measuring approximately 3 x 2 cm on image #135. The upstream pancreatic duct is markedly dilated measuring up to 13 mm in diameter, and there is severe atrophy of the pancreatic body and tail. This the mass lesion closely approximates the superior mesenteric vein. Adrenal glands: Unremarkable. Kidneys: The unenhanced kidneys are normal in size and without hydronephrosis. A 6 mm nonobstructing calculus is seen in the right upper pole. Bilateral renal cysts measure up to 3.4 cm. Abdominal vasculature: The abdominal aorta is normal in course and caliber noting advanced atherosclerotic calcification. Stomach and bowel: There is a small hiatal hernia. There is moderate colonic diverticulosis without CT evidence of acute diverticulitis. No bowel obstruction is seen. The appendix is not visualized. Peritoneum: There is no intraperitoneal free air or abdominal ascites. There is a fat-containing umbilical hernia. Lymphadenopathy: None. Pelvic viscera: The prostate gland is enlarged and heterogeneous noting median lobe hypertrophy. The bladder wall is thickened and trabeculated indicating chronic outlet obstruction. A bladder diverticulum seen posteriorly on the left measures up to 2.8 cm. There is a small fat-containing left inguinal hernia. Skeletal structures: The skeletal structures are osteopenic. The lumbosacral spine, bony pelvis, and proximal femora appear intact. There is mild lumbosacral spondylosis. No lytic or blastic lesions are seen. IMPRESSION: 1. There is no acute posttraumatic intrathoracic abnormality. 2. There is no airspace consolidation, pleural effusion, or pneumothorax. 3. There is no evidence of solid organ injury in the abdomen or pelvis on this unenhanced examination. 4. There is evidence of extensive/diffuse multifocal hepatic metastatic disease. A pancreatic primary is favored. See below. 5. There is an approximately 3 cm ill-defined/heterogeneous mass lesion in the pancreatic head/neck with significant dilatation of the upstream pancreatic duct and marked atrophy of the pancreatic body/tail. Pancreatic adenocarcinoma is the diagnosis of exclusion. GI follow-up is recommended. 6. There is no intra- or extrahepatic biliary ductal dilatation. 7. Colonic diverticulosis without CT evidence of acute diverticulitis. 8. Right-sided nephrolithiasis and suspect cholelithiasis. 9. Additional findings as above. ACT 112: Positive. There are findings on this exam that require communication between the performing entity and the patient following Patient Test Result Information Act ([place] Act 112) guidelines. Electronically signed by: Meliton Mixon M.D. 06/17/2021 9:[address] 06/17/21 19:48 CT SCAN OF THE CHEST, ABDOMEN, AND PELVIS WITHOUT IV CONTRAST CLINICAL HISTORY: Fall several weeks ago. Right-sided chest wall pain.. COMPARISON STUDY: No priors. TECHNIQUE: Unenhanced CT scan of the chest, abdomen, and pelvis was performed from the thoracic inlet to the proximal femora. Images are reviewed in the axial, sagittal, and coronal planes. IV contrast was not administered for these examinations. Note that the examinations are significantly suboptimal without IV contrast. A dose lowering technique was utilized adhering to the principles of ALARA. CT DOSE: 2141.74 mGy.cm FINDINGS: CHEST: Thyroid: Normal in size and heterogeneous in attenuation. Thoracic aorta: There is atherosclerotic calcification of the thoracic aorta, which is normal in caliber and demonstrates standard 3-vessel arch anatomy. Heart: The patient is status post midline sternotomy and aortic valve surgery. The heart is normal in size and without pericardial effusion. The coronary arteries are densely calcified. Lungs and pleural spaces: There is no airspace consolidation, pleural effusion, or pneumothorax. An accessory azygous fissure is incidentally noted. The trachea and central airways are clear. Mild scarring/atelectasis is noted at the lung bases. Mediastinum: There is no mediastinal hematoma or lymphadenopathy. Elida: Not well assessed without IV contrast. Axillae: There is no axillary lymphadenopathy. Bony thorax: The skeletal structures are osteopenic. No lytic or blastic lesions are identified. ABDOMEN AND PELVIS: Liver: The unenhanced liver is normal in size, contour, and attenuation. There is no intrahepatic biliary ductal dilatation. Left lobe cysts measure up to 5.5 cm. The liver is infiltrated by numerous low-attenuation lesions which measure up to 3.0 cm. The appearance is typical for extensive/multifocal hepatic metastatic disease. Gallbladder: Suspect cholelithiasis. There is no CT evidence of acute cholecystitis. Spleen: Normal in size and attenuation. Pancreas: An ill-defined mass lesion is suggested in the region of the pancreatic head/neck, measuring approximately 3 x 2 cm on image #135. The upstream pancreatic duct is markedly dilated measuring up to 13 mm in diameter, and there is severe atrophy of the pancreatic body and tail. This the mass lesion closely approximates the superior mesenteric vein. Adrenal glands: Unremarkable. Kidneys: The unenhanced kidneys are normal in size and without hydronephrosis. A 6 mm nonobstructing calculus is seen in the right upper pole. Bilateral renal cysts measure up to 3.4 cm. Abdominal vasculature: The abdominal aorta is normal in course and caliber noting advanced atherosclerotic calcification. Stomach and bowel: There is a small hiatal hernia. There is moderate colonic diverticulosis without CT evidence of acute diverticulitis. No bowel obstruction is seen. The appendix is not visualized. Peritoneum: There is no intraperitoneal free air or abdominal ascites. There is a fat-containing umbilical hernia. Lymphadenopathy: None. Pelvic viscera: The prostate gland is enlarged and heterogeneous noting median lobe hypertrophy. The bladder wall is thickened and trabeculated indicating chronic outlet obstruction. A bladder diverticulum seen posteriorly on the left measures up to 2.8 cm. There is a small fat-containing left inguinal hernia. Skeletal structures: The skeletal structures are osteopenic. The lumbosacral spine, bony pelvis, and proximal femora appear intact. There is mild lumbosacral spondylosis. No lytic or blastic lesions are seen. IMPRESSION: 1. There is no acute posttraumatic intrathoracic abnormality. 2. There is no airspace consolidation, pleural effusion, or pneumothorax. 3. There is no evidence of solid organ injury in the abdomen or pelvis on this unenhanced examination. 4. There is evidence of extensive/diffuse multifocal hepatic metastatic disease. A pancreatic primary is favored. See below. 5. There is an approximately 3 cm ill-defined/heterogeneous mass lesion in the pancreatic head/neck with significant dilatation of the upstream pancreatic duct and marked atrophy of the pancreatic body/tail. Pancreatic adenocarcinoma is the diagnosis of exclusion. GI follow-up is recommended. 6. There is no intra- or extrahepatic biliary ductal dilatation. 7. Colonic diverticulosis without CT evidence of acute diverticulitis. 8. Right-sided nephrolithiasis and suspect cholelithiasis. 9. Additional findings as above. ACT 112: Positive. There are findings on this exam that require communication between the performing entity and the patient following Patient Test Result Information Act ([place] Act 112) guidelines. Electronically signed by: Meliton Mixon M.D. 06/17/2021 9:14 PM Brain MRI 06/19/21 07:40 MRI OF THE BRAIN WITHOUT AND WITH IV CONTRAST CLINICAL HISTORY: possible brain mets COMPARISON STUDY: Head CT June 17, 2021. MRI of the brain June 18, 2021. TECHNIQUE: Utilizing a 1.5 Sherri magnet and dedicated coil, multiplanar, multiecho imaging of the brain was performed pre and postcontrast administration. IV administration of 6.5 mL of Gadavist contrast was uneventful. Thin cut T1 post contrast imaging was performed. FINDINGS: There are no foci projected diffusion to suggest acute infarct. No acute intracranial hemorrhage, midline shift or mass effect is present. Ventricular system is unremarkable. There is moderate atrophy. Basal cisterns are patent. There are no extra axial collections. No intracranial mass or pathologic enhancement is noted. A few small bilateral frontal lobe T2 hyperintense foci represent old infarcts. There is no associated enhancement of these foci. These correspond to the findings on MRI of June 19, 2019. Scattered gyral hypointense foci most evident on the gradient echo sequence suggest hemosiderin deposition. There is also a hypointense focus within the right occipital lobe. The findings favor old blood products. A 2.3 cm T1 and T2 hypointense right frontal bone lesion is noted on axial image 20 of 23. There is a smaller right frontal bone lesion on image 17. These are nonspecific. Mild white matter T2 hyperintense foci suggest small vessel disease. IMPRESSION: 1. No parenchymal metastases. 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 2. Two right frontal calvarial lesions. Although probably benign, these are indeterminate. 3. Scattered foci of hemosiderin deposition, a chronic finding. ACT 112: Negative or not required by law. Electronically signed by: Herbert Graham M.D. 06/19/2021 11:09 AM (1) Contusion, flank Encounter type: initial encounter Qualified Code(s): S30.1XXA - Contusion of abdominal wall, initial encounter (2) Contusion of buttock Encounter type: initial encounter Qualified Code(s): S30.0XXA - Contusion of lower back and pelvis, initial encounter (3) Anemia Anemia type: unspecified type Qualified Code(s): D64.9 - Anemia, unspecified
[2021-06-19] MEDS ORDERED: GADOBUTROL 65ML VIAL IV ONE (10:53)
--- NOTE | 2021-06-19 11:10 | Magnetic Resonance Report ---
MRI OF THE BRAIN WITHOUT AND WITH IV CONTRAST CLINICAL HISTORY: possible brain mets COMPARISON STUDY: Head CT June 17, 2021. MRI of the brain June 18, 2021. TECHNIQUE: Utilizing a 1.5 Sherri magnet and dedicated coil, multiplanar, multiecho imaging of the br ain was performed pre and postcontrast administration. IV administration of 6.5 mL of Gadavist contr ast was uneventful. Thin cut T1 post contrast imaging was performed. FINDINGS: There are no foci projected diffusion to suggest acute infarct. No acute intracranial hemor rhage, midline shift or mass effect is present. Ventricular system is unremarkable. There is moderate atrophy. Basal cisterns are patent. There are no extra axial collections. No intracranial mass or pa thologic enhancement is noted. A few small bilateral frontal lobe T2 hyperintense foci represent old infarcts. There is no associated enhancement of these foci. These correspond to the findings on MRI o f June 19, 2019. Scattered gyral hypointense foci most evident on the gradient echo sequence suggest hemosiderin deposition. There is also a hypointense focus within the right occipital lobe. The findin gs favor old blood products. A 2.3 cm T1 and T2 hypointense right frontal bone lesion is noted on axi al image 20 of 23. There is a smaller right frontal bone lesion on image 17. These are nonspecific. M ild white matter T2 hyperintense foci suggest small vessel disease. IMPRESSION: 1. No parenchymal metastases. The T2 hyperintense foci on MRI of June 18, 2021 represent small old in farcts. 2. Two right frontal calvarial lesions. Although probably benign, these are indeterminate. 3. Scattered foci of hemosiderin deposition, a chronic finding. ACT 112: Negative or not required by law. Electronically signed by: Herbert Graham M.D. 06/19/2021 11:09 AM
--- NOTE | 2021-06-19 15:24 | Ultrasound Report ---
ULTRASOUND-GUIDED FINE-NEEDLE ASPIRATION OF A RIGHT HEPATIC LOBE LESION HISTORY: Multiple hepatic masses. Pancreatitis w/ liver metastases COMPARISON: Abdomen and pelvis CT 06/17/2021. PROCEDURE: Written informed consent was obtained. The neck was prepped and draped in the usual steril e fashion. 1% lidocaine was used for local anesthesia. A total of 2 passes using a 22-gauge Mehdi needle and 22-gauge spinal needle were made through the dominant 2.3 cm right hepatic lobe lesion un pedro ultrasound guidance. Specimens were given to the on-site pathologist who determined adequate tiss ue for diagnosis. The patient tolerated the procedure well. There were no immediate complications. IMPRESSION: Successful ultrasound-guided fine-needle aspiration of a right hepatic lesion. ACT 112: Negative or not required by law. Electronically signed by: Craig Dash M.D. 06/19/2021 3:22 PM
[2021-06-19] MEDS ORDERED: ONDANSETRON 4 MG OD TAB PO STA (16:07)
[2021-06-19] MEDS ORDERED: KETOROLAC TROMETHAMINE 15 MG/ML VIAL IV ONE (16:15)
--- NOTE | 2021-06-19 16:20 | Discharge Summary ---
Date of Service June 19, 2021 Admission HPI Per Admitting Provider Moises López is an 81yo male with PMHx significant for HTN, HLD, paroxysmal a- fib (on Eliquis, no BB) and aortic stenosis (s/p open aortic valve replacement 1.5 years ago) who presented to [facility] ED on 06/17 for acute-onset moderate right- sided rib pain, non-pleuritic, x1 day. Reports that the pain was constant. Only mildly improved with Tylenol, so he decided to come in for evaluation. The patient recently moved from the [facility] but had been seeing [facility] for constipation, bloating, and mild burning epigastric pain for the last several months. Also reports that he had "elevated bilirubin and facial jaundice" which resolved several weeks ago without intervention. He reportedly had CT A/P, followed by MRI abdomen several nights ago, and received results earlier today - primary pancreatic mass with likely liver metastasis. He reports that he primarily came to the ED for the right-sided rib pain, although he would like to figure out how to move forward with diagnosis/treatment of possible pancreatic/liver cancer. The patient moved into [place] with his in order to live closer to his daughter who is a teacher here. He would ideally like to have all necessary evaluation/treatment done here in town. Patient denies h/o obesity, alcohol use or tobacco use. Denies other drug use. Does report h/o breast cancer in mother and colon cancer in maternal uncle. In the ED the patient was afebrile and hemodynamically stable on room air. EKG without ST/T wave changes and Troponin negative x1. Laboratory evaluation was significant for WBC 12.46 with neutrophilic predominance and left shift. Hgb 10.8 (chronic baseline), MCV 92.3. Plts 113 (74 on 06/06). PT 17.3 and INR 1.7. PTT WNL. Cr 1.78 (chronic baseline), TBili 1.1 (was 1.7 on 06/06), ALP 272 (was 140 on 06/06). Lipase WNL. UA with trace LE, 5-10 WBC, 1+ blood, 10-30 RBCs, 10-[address] A/P shows 3-cm ill-defined/heterogenous mass lesion in pancreatic head/neck with significant dilatation of upstream pancreatic duct and marked atrophy of pancreatic body/tail, in addition to extensive/diffuse multifocal hepatic metastatic disease. No intra- or extra-hepatic biliary ductal dilatation. Also with right-sided nephrolithiasis and suspect cholelithiasis, in addition to colonic diverticulosis. CT head/c-spine unremarkable for fracture or acute pathology, but with chronic osteopenia and spondylitic changes. CT chest without abnormalities. No lytic/blastic bony lesions seen on any imaging. Patient was given 1L NSS bolus, Zofran x1 for nausea, and Fentanyl 50mcg IV x1 for pain. Patient reports that right-sided rib pain is nearly completely resolved after Fentanyl. Admission Exam Per Admitting Provider General: A&Ox3. NAD. Cooperative. HEENT: Atraumatic, normocephalic. Anicteric sclerae. Pulm: CTAB A&P. -wheezes, -rales, -rhonchi. Symmetrical chest rise. No increase work of breathing. No respiratory distress. Cardiac: RRR, -mrg. Radial pulses intact and symmetrical. No LE edema. Chest: no tenderness on palpation of sternum or ribs. No bruising/ecchymoses appreciated. Abdominal: soft, mild RUQ and epigastric tenderness to palpation, non-distended, BS x 4 Skin: warm, dry, no rash, no jaundice Principal Diagnosis new dx metastatic cancer Discharge Exam Constitutional: NAD, sitting upright in bed Eyes: PERRL, conjunctivae normal, anicteric sclerae Respiratory: normal respiratory effort, lungs clear to auscultation Cardiovascular: RRR, no murmur, no edema Gastrointestinal (Abdomen): normal to inspection, bowel sounds present in all quadrants, no visible masses, +some tenderness Skin: no rashes, warm and dry Neurologic: PERRL, EOMI, accommodation nl, no face palsy, no dysarthria Psychiatric: A+Ox3, euthymic affect Lymphatic: LE are without edema, redness or swelling LLE does show some ecchymoses which he reports are from his prior fall several weeks ago Discharge Data Allergies Allergy/AdvReac Type Severity Reaction Status Date / Time shellfish derived AdvReac Hives Unverified 06/17/21 19:37 Consultations 06/17/21 22:02 ED Decision to Admit Stat 06/18/21 03:26 Consult Gastroenterology Routine Ordered Studies 06/17/21 19:44 CT cervical spine wo con Stat CT head/brain wo con Stat 06/17/21 19:48 CT abd pelvis wo con Stat CT chest diagnostic wo con Stat 06/18/21 15:03 MR brain wo con Routine 06/19/21 07:40 MR brain wo/w con Routine 06/19/21 17:48 US biopsy liver Routine Hospital Course (1) Pancreatic neoplasm: Moises López is an 81yo male with PMHx significant for CKDIII, chronic normocytic anemia, HTN, HLD, paroxysmal a-fib (on Eliquis, no BB) and aortic stenosis (s/p open aortic valve replacement 1.5 years ago) who presented to [facility] ED on 06/17 for right-sided rib pain and was found to have pancreatic neoplasm with evidence of liver metastases. Pancreatic Neoplasm; Liver Metastases New diagnosis per outside imaging results earlier today, in addition to CT C/A/P in [facility] ED. 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 Patient would like to start this process while hospitalized, as he recently moved to [place] and would like to undergo all necessary treatment here if possible. - note: patient signed release of records to obtain records from [facility], but he reports that his currently already has all of the records and will bring them in [facility] CT Chest/A/P w/ con: 1. There is no acute posttraumatic intrathoracic abnormality. 2. There is no airspace consolidation, pleural effusion, or pneumothorax. 3. There is no evidence of solid organ injury in the abdomen or pelvis on this unenhanced examination. 4. There is evidence of extensive/diffuse multifocal hepatic metastatic disease. A pancreatic primary is favored. See below. 5. There is an approximately 3 cm ill-defined/heterogeneous mass lesion in the pancreatic head/neck with significant dilatation of the upstream pancreatic duct and marked atrophy of the pancreatic body/tail. Pancreatic adenocarcinoma is the diagnosis of exclusion. GI follow-up is recommended. 6. There is no intra- or extrahepatic biliary ductal dilatation. 7. Colonic diverticulosis without CT evidence of acute diverticulitis. 8. Right-sided nephrolithiasis and suspect cholelithiasis. Brain MRI w/wo con 1. No parenchymal metastases. 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 2. Two right frontal calvarial lesions. Although probably benign, these are indeterminate. 3. Scattered foci of hemosiderin deposition, a chronic finding. Liver Biopsy: successful, pathology pending Outpatient followup: - recommend repeat hepatic panel, coags. Will likely need outpatient ERCP with gastroenterology pending liver biopsy results. All other medical conditions managed per home regimen. (2) Liver metastases: (3) Rib pain on right side: (4) Thrombocytopenia: (5) Anemia: (6) Aortic valve disorder: (7) Hypertension: (8) High cholesterol: (9) Hyperbilirubinemia: Total Time Total Time Spent Total Time Spent (In Minutes): >30mins Discharge Plan Discharge Items Patient Disposition: Home - Self-Care Reason For Visit: RIB PAIN, PANCREATIC NEOPLASM Discharge Diagnosis: Pancreatic Cancer Activity: Resume your previous activity Non-emergency contact: Primary Care Provider and Oncologist Call non-emergency contact if: you have any medication questions and your symptoms worsen Follow-up/Referrals: PCP,NO [Primary Care Provider] - Diet: Regular and Other - See Diet Comment Diet Comment: at least 1800 - 2000 calories for nutrition upkeep Addtl Attending Provider Instructions: Moises, Your abdominal and rib pain was found to be secondary to pancreatic cancer that was found at the head of your pancreas (near your belly button). You had two MRIs of your Brain to evaluate for any injuries or metastases (cancer spread) and they were negative! You also had a biopsy (piece) of your liver taken to see what kind of cancer cells were causing injury to your liver. These results will take some time to return. You will be evaluated by a local oncologist (cancer doctor) who will discuss with you options for chemotherapy, radiation, and goals of treatment. Part of cancer treatment and keeping yourself healthy is paying attention to your diet and calorie intake. Instead of being on a specific diet like most people would be, we recommend trying to "beef up" your calorie count and stay on the higher end so you have a buffer against weight loss and malnutrition. You will have an ERCP (endoscopic retrograde cholepancreatography) that is done by a GI doctor to better image and take a piece of the pancreas cancer as an outpatient. 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 If you have any questions, call your PCP or oncologist. A prescription for an anti-nausea dissolvable tab was sent to your pharmacy. None of your chronic medications were changed. Pending Studies at Discharge: No Stand-Alone Forms: My [facility], Smoking Cessation Medications and DC Order Prescriptions: New ondansetron 4 mg tablet,disintegrating 4 mg PO TID PRN (Reason: nausea and vomiting) 4 Days Qty: 12 RF: 0 oxycodone-acetaminophen [Percocet] 5-325 mg tablet 1 tab PO Q8H PRN (Reason: pain) Qty: 10 RF: 0 Continued aspirin 81 mg Tablet,Delayed Release (Dr/Ec) 81 mg PO DAILY RF: 0 spironolactone 25 mg tablet 25 mg PO DAILY RF: 0 tamsulosin 0.4 mg capsule 0.4 mg PO DAILY RF: 0 pravastatin 20 mg tablet 20 mg PO DAILY RF: 0 Eliquis 2.5 mg tablet 2.5 mg PO DAILY RF: 0 hydroxyzine HCl 25 mg tablet 25 mg PO QID PRN (Reason: itching) Qty: 30 RF: 0 Discharge Orders: Discharge Order (Routine); Ordered 06/19/21 Ordered By: Jeri Alonso Admission Data Admit Date/Time: 06/17/21 23:05 Attending Provider: Jaime Oleary Admit Provider: Espinoza Barbosa Primary Care Provider: PCP,NO Other Providers: Oracio Park ; Ari Aguirre Other Interventions: Discharge Summary Assessment (RN) Last Done: 06/19/21 17:21 Supervising Physician Co-Signing Physician Notes I personally examined the patient and verified all lu points of history and exam, discussed case, and agree with decision making with Dr Alonso feeling tired but othewise OK. extensive discussions on follow up and next steps vitals noted nad heent nc at mmm breathing unlabored no accessory muscles good effort skin no rashes no pallor or icterus neuro no focal deficits new dx metstatic cancer - most likely pancreas. biopsy pending. CT C/A/P and MRI brain done. outpt f/u, w/u, treatment. had extensive discussions w pt and family on natural hx most commonly seen with and without treatment, discussed nutrition at length and in detail as well stable for home, otherwise as above Resident Activity Tracking Resident Involvement: Resident Care Provided Care Provided: Adult Hospital Medicine
--- NOTE | 2021-06-19 17:47 | Billing Data ---
Date of Service June 19, 2021 Coding Level of Care Code D/C DAY MANAGEMENT >30 MINS
== END 2021-06-19 18:34 | disposition home or self-care (01) | DRG 436 ==
LOC: ED 19:24 → EDINP 23:05 → SUATTDRO 23:05 → 3E 06-18 16:00

== ENCOUNTER 2021-07-03 12:34 | Inpatient (IN) ==
[2021-07-03] MEDS ORDERED: ONDANSETRON INJ 2 MG/ML 2 ML VIAL IV STA (14:09)
[2021-07-03] MEDS ORDERED: fentaNYL citrate 100 MCG/2 ML VIAL IV STA (14:09)
[2021-07-03] MEDS ORDERED: SODIUM CHLORIDE 0.9% 1000ML 1,000 ML IV SCH ×2 (14:15→19:53)
[2021-07-03 14:20] LABS: Basophils # (auto) 0.03 K/uL (0-0.2); Basophils % (auto) 0.2 %; Eosinophils # (auto) 0.05 K/uL (0-0.5); Eosinophils % (auto) 0.3 %; Hematocrit (blood only) 25.6 % (42-52); Hemoglobin 8.3 g/dL (14.0-18.0); Immature Granulocytes # (auto) 0.15 K/uL (0.00-0.02); Immature Granulocytes % (auto) 0.9 %; Lymphocytes # (auto) 1.55 K/uL (1.2-3.4); Lymphocytes % (auto) 9.3 %; Mean Corpuscular Hemoglobin 29.6 pg (25-34); Mean Corpuscular Hgb Conc 32.4 g/dL (32-36); Mean Corpuscular Volume 91.4 fL (80-100); Mean Platelet Volume 10.7 fL (7.4-10.4); Monocytes # (auto) 0.03 K/uL (0.11-0.59); Monocytes % (auto) 0.2 %; Neutrophils # (auto) 14.77 K/uL (1.4-6.5); Neutrophils % (auto) 89.1 %; Platelet Count 131 K/uL (130-400); RDW Coefficient of Variation 14.9 % (11.5-14.5); RDW Standard Deviation 49.5 fL (36.4-46.3); White Blood Count 16.58 K/uL (4.8-10.8)
--- NOTE | 2021-07-03 14:30 | Emergency Department Note ---
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 The patient had a recent upper endoscopy for a biopsy. He now presents with right-sided flank pain and generalized weakness. His family number presented to the emergency department with him but the patient arrived via ambulance. The family member does provide some of the history. He denies having any chest pain or fever. He denies having any difficulty breathing. He states the pain is on his right flank and goes into his lower back as well. He denies having any numbness in the lower extremities. He has generalized weakness. He denies having any headache or loss of consciousness. He denies having any dysuria or hematuria. ROS: See above HPI for pertinent positives & negatives. A total of 10 systems reviewed and were otherwise negative. PAST MEDICAL HISTORY: See Below PAST SURGICAL HISTORY: See Below FAMILY HISTORY: See Below SOCIAL HISTORY: See Below HOME MEDICATIONS: See Below ALLERGIES: See Below VITALS: See Below PHYSICAL EXAMINATION: GENERAL: The patient is awake and alert. He does appear to be somewhat in pain. EYES: The conjunctivae are clear. The pupils are round and reactive. EARS, NOSE, MOUTH AND THROAT: The nose is without any evidence of any deformity. NECK: The neck is nontender and supple. RESPIRATORY: Diminished breath sounds are noted in the right lung field. There is no tachypnea or conversational dyspnea. CARDIOVASCULAR: Regular rate and rhythm noted there no murmurs rubs or gallops normal S1 normal S2. GASTROINTESTINAL: The abdomen is soft. Abdomen is nontender. BACK: No midline tenderness was noted to palpation. Right CVA tenderness was noted. MUSCULOSKELETAL/EXTREMITIES: There is no evidence of gross deformity full range of motion is noted in the hips and shoulders. SKIN: There is no obvious evidence of any rash. There is no significant pedal edema. NEUROLOGIC: Patient is awake alert and oriented x3 strength is symmetric patellar reflexes are 2+ bilaterally MEDICAL DECISION MAKING: The patient is an 81-year-old female who presented to emergency department for an evaluation of right-sided flank pain. The patient recently had an upper endoscopy. The patient does take blood thinners. He was found to be anemic. He was treated with IV fluids and IV antibiotics in the emergency department. I discussed the patient's laboratory and radiographic studies with him. I also [facility] They have agreed to evaluate the patient in the emergency department for further management and disposition. Triage Nursing notes reviewed. Prior medical records reviewed Vital Signs: reviewed and remarkable for low blood pressure. Differential diagnosis: Renal colic, UTI, appendicitis, diverticulitis, mesenteric ischemia, aortic pathology, infections, inflammatory bowel disease, PUD, biliary pathology, as well as other pathologies. ER treatment provided: See below Diagnostics interpreted by me: ECG: EKG was obtained in the emergency department. My interpretation is sinus rhythm with first-degree AV block at 83 bpm. There is no ectopy. Nonspecific ST segment depressions were noted. This was compared to a tracing from June 17, 2021. No significant changes were noted. Cardiac Monitoring: An order was placed for continuous cardiac monitoring. The monitor shows a rate of 87 bpm with sinus rhythm. Laboratory studies: As stated above and show below. Imaging studies: See below Consultation(s): Discussed this case with Lela who [facility] They will evaluate the patient in the emergency department. 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 at [facility] History of cardiac catheterization Family History Mother Breast cancer Social History Smoking Status: Never smoker Second Hand Exposure: No; Hx Alcohol Use: No Hx Substance Use: No Preferred Language: Dutch Communication Ability: Effective Die Sinker Apprentice Required: No Beliefs That Will Affect Care: None Current Living Situation: Alone Feels Safe at Home: Yes Assistive Devices: Glasses Allergies Allergies Allergy/AdvReac Type Severity Reaction Status Date / Time shellfish derived AdvReac Hives Unverified 07/03/21 16:24 Home Meds Home Medications Medication Instructions Recorded Confirmed apixaban 2.5 mg tablet (Eliquis) 2.5 mg PO BID 06/06/21 07/03/21 aspirin 81 mg tablet,delayed 81 mg PO DAILY 06/06/21 07/03/21 release pravastatin 20 mg tablet 20 mg PO DAILY 06/06/21 07/03/21 spironolactone 25 mg tablet 25 mg PO DAILY 06/06/21 07/03/21 tamsulosin 0.4 mg capsule 0.4 mg PO HS 06/06/21 07/03/21 cholecalciferol (vitamin D3) 50 2,000 unit PO DAILY 07/03/21 07/03/21 mcg (2,000 unit) capsule (Vitamin D3) escitalopram oxalate 10 mg tablet 10 mg PO DAILY 07/03/21 07/03/21 famotidine 20 mg tablet 20 mg PO HS 07/03/21 07/03/21 ondansetron HCl 8 mg tablet 8 mg PO Q8 PRN 07/03/21 07/03/21 prochlorperazine maleate 10 mg 10 mg PO Q6 PRN 07/03/21 07/03/21 tablet Results & Data (ED) Vital Signs Vital Signs - 24 hr 07/03/21 12:46 07/03/21 12:51 07/03/21 12:52 Temperature 37.1 C Temperature Source Oral Pulse Rate 80 Pulse Rate [Finger] 80 Pulse Rhythm Pulse Rhythm [Finger] Pulse Strength [Finger] Respiratory Rate 18 18 Respiratory Effort / Characteristics Non-Labored Spontaneous Non-Labored Spontaneous Respiratory Depth Normal Normal Respiratory Pattern Blood Pressure 116/62 Blood Pressure [Right Arm] 116/62 Blood Pressure Mean 80 Blood Pressure Mean [Right Arm] 80 Blood Pressure Position Lying Blood Pressure Position [Right Arm] Lying Pulse Oximetry 98 98 98 Oxygen Delivery Method Room Air Room Air Room Air Sepsis Recent Fever Within 48 Hours No Sepsis New/Unexplained Change in Mental Status No Sepsis Action Taken by Nursing No Action Required 07/03/21 14:31 07/03/21 14:43 07/03/21 16:00 Temperature Temperature Source Pulse Rate 82 Pulse Rate [Finger] 77 90 Pulse Rhythm Regular Pulse Rhythm [Finger] Regular Regular Pulse Strength [Finger] Normal Normal Respiratory Rate 18 18 18 Respiratory Effort / Characteristics Non-Labored Spontaneous Non-Labored Respiratory Depth Normal Normal Respiratory Pattern Regular Blood Pressure Blood Pressure [Right Arm] 104/55 L 118/66 Blood Pressure Mean Blood Pressure Mean [Right Arm] 71 83 Blood Pressure Position Blood Pressure Position [Right Arm] Lying Lying Pulse Oximetry 96 96 96 Oxygen Delivery Method Room Air Room Air Room Air Sepsis Recent Fever Within 48 Hours Sepsis New/Unexplained Change in Mental Status Sepsis Action Taken by Nursing 07/03/21 18:00 Temperature Temperature Source Pulse Rate Pulse Rate [Finger] 87 Pulse Rhythm Pulse Rhythm [Finger] Regular Pulse Strength [Finger] Normal Respiratory Rate 18 Respiratory Effort / Characteristics Non-Labored Respiratory Depth Normal Respiratory Pattern Regular Blood Pressure Blood Pressure [Right Arm] 112/58 L Blood Pressure Mean Blood Pressure Mean [Right Arm] 76 Blood Pressure Position Blood Pressure Position [Right Arm] Lying Pulse Oximetry 97 Oxygen Delivery Method Room Air Sepsis Recent Fever Within 48 Hours Sepsis New/Unexplained Change in Mental Status Sepsis Action Taken by [facility] Medications Current Medication List: was personally reviewed by me Laboratory Data Attestation: I reviewed the patient's lab results. Result diagrams: 07/03/21 12:45 07/03/21 12:45 Lab Results 07/03/21 07/03/21 07/03/21 Range/Units 12:45 12:45 12:45 WBC 16.58 H (4.8-10.8) K/uL RBC 2.80 L (4.7-6.1) M/uL Hgb 8.3 L (14.0-18.0) g/dL Hct 25.6 L (42-52) % MCV 91.4 (80-100) fL MCH 29.6 (25-34) pg MCHC 32.4 (32-36) g/dL RDW Std Deviation 49.5 H (36.4-46.3) fL RDW Coeff of Harsh 14.9 H (11.5-14.5) % Plt Count 131 (130-400) K/uL MPV 10.7 H (7.4-10.4) fL Immature Gran % (Auto) 0.9 % Neut % (Auto) 89.1 % Lymph % (Auto) 9.3 % [place] % (Auto) 0.2 % Eos % (Auto) 0.3 % Baso % (Auto) 0.2 % Neut # (Auto) 14.77 H (1.4-6.5) K/uL Lymph # (Auto) 1.55 (1.2-3.4) K/uL [place] # (Auto) 0.03 L (0.11-0.59) K/uL Eos # (Auto) 0.05 (0-0.5) K/uL Baso # (Auto) 0.03 (0-0.2) K/uL Immature Gran # (Auto) 0.15 H (0.00-0.02) K/uL PT 16.8 H (9.0-12.0) Seconds INR 1.6 H (0.9-1.1) APTT 29.1 (21.0-31.0) Seconds PTT Ratio 1.1 Sodium 137 (136-145) mmol/L Potassium 4.7 (3.5-5.1) mmol/L Chloride 107 (98-107) mmol/L Carbon Dioxide 21 (21-32) mmol/L Anion Gap 9 (3-11) BUN 54 H (6-23) mg/dl Creatinine 1.46 H (0.6-1.4) mg/dl Est Cr Clr Drug Dosing 35.8 ml/min Est GFR ( Amer) 50.8 ml/min Est GFR (Non-Af Amer) 43.9 ml/min BUN/Creatinine Ratio 37.0 H (10-20) Glucose 119 H (70-99(Fasting)) mg/dl Calcium 9.2 (8.5-10.1) mg/dl Magnesium 2.3 (1.7-2.4) mg/dl Total Bilirubin 0.8 (0.2-1.0) mg/dl AST 34 (13-39) U/L ALT 40 (7-52) U/L Alkaline Phosphatase 412 H (34-104) U/L Troponin I 0.05 H* (0-0.04) ng/ml Total Protein 5.4 L (6.0-8.3) gm/dl Albumin 3.5 (3.4-5.0) gm/dl Globulin 1.9 L (2.5-4.0) gm/dl Albumin/Globulin Ratio 1.8 (0.9-2) Lipase (11-82) U/L TSH (0.300-4.500) uIu/ml Urine Color Urine Appearance (Clear) Urine pH (4.5-7.5) Ur Specific [place] (1.000-1.030) Urine Protein (Negative) Urine Glucose (UA) (Negative) Urine Ketones (Negative) Urine Blood (Negative) Urine Nitrite (Negative) Urine Bilirubin (Negative) Urine Urobilinogen (Negative) Ur Leukocyte Esterase (Negative) SARS-CoV-2, RNA, NAAT (NEGATIVE) 07/03/21 07/03/21 07/03/21 Range/Units 12:45 13:30 16:20 WBC (4.8-10.8) K/uL RBC (4.7-6.1) M/uL Hgb (14.0-18.0) g/dL Hct (42-52) % MCV (80-100) fL MCH (25-34) pg MCHC (32-36) g/dL RDW Std Deviation (36.4-46.3) fL RDW Coeff of Harsh (11.5-14.5) % Plt Count (130-400) K/uL MPV (7.4-10.4) fL Immature Gran % (Auto) % Neut % (Auto) % Lymph % (Auto) % [place] % (Auto) % Eos % (Auto) % Baso % (Auto) % Neut # (Auto) (1.4-6.5) K/uL Lymph # (Auto) (1.2-3.4) K/uL [place] # (Auto) (0.11-0.59) K/uL Eos # (Auto) (0-0.5) K/uL Baso # (Auto) (0-0.2) K/uL Immature Gran # (Auto) (0.00-0.02) K/uL PT (9.0-12.0) Seconds INR (0.9-1.1) APTT (21.0-31.0) Seconds PTT Ratio Sodium (136-145) mmol/L Potassium (3.5-5.1) mmol/L Chloride (98-107) mmol/L Carbon Dioxide (21-32) mmol/L Anion Gap (3-11) BUN (6-23) mg/dl Creatinine (0.6-1.4) mg/dl Est Cr Clr Drug Dosing ml/min Est GFR ( Amer) ml/min Est GFR (Non-Af Amer) ml/min BUN/Creatinine Ratio (10-20) Glucose (70-99(Fasting)) mg/dl Calcium (8.5-10.1) mg/dl Magnesium (1.7-2.4) mg/dl Total Bilirubin (0.2-1.0) mg/dl AST (13-39) U/L ALT (7-52) U/L Alkaline Phosphatase (34-104) U/L Troponin I (0-0.04) ng/ml Total Protein (6.0-8.3) gm/dl Albumin (3.4-5.0) gm/dl Globulin (2.5-4.0) gm/dl Albumin/Globulin Ratio (0.9-2) Lipase 8 L (11-82) U/L TSH 4.064 (0.300-4.500) uIu/ml Urine Color Yellow Urine Appearance Clear (Clear) Urine pH 5.0 (4.5-7.5) Ur Specific [place] 1.019 (1.000-1.030) Urine Protein Negative (Negative) Urine Glucose (UA) Negative (Negative) Urine Ketones Negative (Negative) Urine Blood Negative (Negative) Urine Nitrite Negative (Negative) Urine Bilirubin Negative (Negative) Urine Urobilinogen Negative (Negative) Ur Leukocyte Esterase Negative (Negative) SARS-CoV-2, RNA, NAAT (NEGATIVE) 07/03/21 Range/Units Unknown WBC (4.8-10.8) K/uL RBC (4.7-6.1) M/uL Hgb (14.0-18.0) g/dL Hct (42-52) % MCV (80-100) fL MCH (25-34) pg MCHC (32-36) g/dL RDW Std Deviation (36.4-46.3) fL RDW Coeff of Harsh (11.5-14.5) % Plt Count (130-400) K/uL MPV (7.4-10.4) fL Immature Gran % (Auto) % Neut % (Auto) % Lymph % (Auto) % [place] % (Auto) % Eos % (Auto) % Baso % (Auto) % Neut # (Auto) (1.4-6.5) K/uL Lymph # (Auto) (1.2-3.4) K/uL [place] # (Auto) (0.11-0.59) K/uL Eos # (Auto) (0-0.5) K/uL Baso # (Auto) (0-0.2) K/uL Immature Gran # (Auto) (0.00-0.02) K/uL PT (9.0-12.0) Seconds INR (0.9-1.1) APTT (21.0-31.0) Seconds PTT Ratio Sodium (136-145) mmol/L Potassium (3.5-5.1) mmol/L Chloride (98-107) mmol/L Carbon Dioxide (21-32) mmol/L Anion Gap (3-11) BUN (6-23) mg/dl Creatinine (0.6-1.4) mg/dl Est Cr Clr Drug Dosing ml/min Est GFR ( Amer) ml/min Est GFR (Non-Af Amer) ml/min BUN/Creatinine Ratio (10-20) Glucose (70-99(Fasting)) mg/dl Calcium (8.5-10.1) mg/dl Magnesium (1.7-2.4) mg/dl Total Bilirubin (0.2-1.0) mg/dl AST (13-39) U/L ALT (7-52) U/L Alkaline Phosphatase (34-104) U/L Troponin I (0-0.04) ng/ml Total Protein (6.0-8.3) gm/dl Albumin (3.4-5.0) gm/dl Globulin (2.5-4.0) gm/dl Albumin/Globulin Ratio (0.9-2) Lipase (11-82) U/L TSH (0.300-4.500) uIu/ml Urine Color Urine Appearance (Clear) Urine pH (4.5-7.5) Ur Specific [place] (1.000-1.030) Urine Protein (Negative) Urine Glucose (UA) (Negative) Urine Ketones (Negative) Urine Blood (Negative) Urine Nitrite (Negative) Urine Bilirubin (Negative) Urine Urobilinogen (Negative) Ur Leukocyte Esterase (Negative) SARS-CoV-2, RNA, NAAT NEGATIVE (NEGATIVE) Administered Medications Discontinued Medications Fentanyl Citrate (Fentanyl Citrate 100 Mcg/2 Ml Vial) 50 mcg IV NOW STA Stop: 07/03/21 14:10 Last Admin: 07/03/21 14:36 Dose: 50 mcg Documented by: [id number] Sodium Chloride (Nss 1000ml) 1,000 mls @ 999 mls/hr IV .Q1H1M KYLER Stop: 07/03/21 15:15 Last Infusion: 07/03/21 15:38 Dose: 0 mls/hr Documented by: [id number] Admin: 07/03/21 14:34 Dose: 999 mls/hr Documented by: [id number] Sodium Chloride (Nss 1000ml) 1,000 mls @ 999 mls/hr IV .Q1H1M ONE Stop: 07/03/21 16:52 Last Infusion: 07/03/21 18:49 Dose: 0 mls/hr Documented by: [id number] Admin: 07/03/21 17:02 Dose: 999 mls/hr Documented by: [id number] Piperacillin Sod/Tazobactam Sod (Zosyn) 4.5 gm in 120 mls @ 240 mls/hr IV NOW ONE Stop: 07/03/21 16:21 Last Infusion: 07/03/21 17:59 Dose: 0 mls/hr Documented by: [id number] Admin: 07/03/21 17:02 Dose: 240 mls/hr Documented by: [id number] Ondansetron HCl (Ondansetron Inj 2 Mg/Ml 2 Ml Vial) 4 mg IV NOW STA Stop: 07/03/21 14:10 Last Admin: 07/03/21 14:34 Dose: 4 mg Documented by: [id number] Imaging Data Radiologist's Impression: Abdomen/Pelvis CT 07/03/21 14:[address] WITHOUT CONTRAST CT DOSE: 417.25 mGycm HISTORY: Acute right-sided flank pain and patient with a pancreatic mass and hepatic metastasis right flank pain TECHNIQUE: Multiaxial CT images of the abdomen and pelvis were performed without contrast. A dose lowering technique was utilized adhering to the principles of ALARA. COMPARISON STUDY: CT abdomen and pelvis 06/17/2021 FINDINGS: Prior median sternotomy with extensive coronary artery calcifications. Clear lung bases. No pneumatosis or pneumoperitoneum. Limited study without the use of contrast and respiratory motion artifact. The unenhanced spleen and adrenal glands are unremarkable. Multifocal hepatic metastasis are stable from prior. 5 cm left hepatic lobe cyst. Gallbladder is mildly contracted. Gallbladder wall thickening with pericholecystic edema and cholelithiasis. Mass of the pancreatic head redemonstrated measuring approximately 3.4 cm. There is upstream pancreatic biliary ductal dilation with atrophy. Prominent lymph nodes within the crispin hepatis. Mild nonspecific bilateral perinephric stranding. 5 mm nonobstructing calculus of the superior pole left kidney. Linear nonobstructing calculi of the inferior pole left kidney. 3.2 cm left renal cyst. No ureteral calculi or hydronephrosis. Prostamegaly. Mild urinary bladder wall thickening with left posterolateral 3 cm diverticulum suggestive of chronic bladder outlet obstruction. Atherosclerosis of the aorta without aneurysm. Tiny hiatal hernia. Mild wall thickening of the stomach with partial distention. No bowel obstruction. Colonic diverticulosis. Circumferential wall thickening of the hepatic flexure. Mild wall thickening is also noted involving the ascending colon. No CT evidence of acute appendicitis. Gynecomastia. Unremarkable soft tissues. No acute fracture. IMPRESSION: 1. Mass of the pancreatic head measuring over 3 cm is redemonstrated resulting in upstream pancreatic ductal dilation. Pancreatic adenocarcinoma is the diagnosis of exclusion. 2. Multifocal hepatic metastasis redemonstrated. 3. Cholelithiasis with partial distention of the gallbladder. There is gall bladder wall thickening with pericholecystic edema and trace free fluid within the crispin hepatis. Correlate clinically to exclude acute cholecystitis. 4. Mild wall thickening of the hepatic flexure is likely reactive. A nonspecific colitis is considered less likely. 5. Nonobstructing bilateral nephrolithiasis. 6. Prostamegaly with evidence of chronic bladder outlet obstruction. ACT 112: Negative or not required by law. The above report was generated using voice recognition software. It may contain grammatical, syntax or spelling errors. Electronically signed by: Nicolás Johnson M.D. 07/03/2021 3:42 PM Chest X-Ray 07/03/21 14:11 XR chest 1V portable HISTORY: 81 years-old Male weakness acute weakness COMPARISON: CT chest 06/17/2021 TECHNIQUE: Portable AP view of the chest FINDINGS: Cardiac mediastinal and hilar silhouettes are unchanged. Prior median sternotomy with cardiac valvular prosthesis and left atrial exclusion device. Azygos lobe and fissure. There is no pneumothorax, pleural effusion, airspace consolidation or overt pulmonary edema. The bones of the chest appear grossly intact. IMPRESSION: No acute process. ACT 112: Negative or not required by law. The above report was generated using voice recognition software. It may contain grammatical, syntax or spelling errors. Electronically signed by: Nicolás Johnson M.D. 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, Liver metastases, Pancreatic lesion Patient Disposition: Being Evaluated by Hospitalist Forms Stand Alone Forms: [facility] Prescriptions Prescriptions: No Action aspirin 81 mg Tablet,Delayed Release (Dr/Ec) 81 mg PO DAILY RF: 0 spironolactone 25 mg tablet 25 mg PO DAILY RF: 0 tamsulosin 0.4 mg capsule 0.4 mg PO HS RF: 0 pravastatin 20 mg tablet 20 mg PO DAILY RF: 0 Eliquis 2.5 mg tablet 2.5 mg PO BID RF: 0 escitalopram oxalate 10 mg tablet 10 mg PO DAILY RF: 0 ondansetron HCl 8 mg tablet 8 mg PO Q8 PRN (Reason: Nausea) RF: 0 prochlorperazine maleate 10 mg tablet 10 mg PO Q6 PRN (Reason: Nausea) RF: 0 famotidine 20 mg Tablet 20 mg PO HS RF: 0 cholecalciferol (vitamin D3) [Vitamin D3] 50 mcg (2,000 unit) Capsule 2,000 unit PO DAILY RF: 0 Referrals Referrals: PCP,NO [Physician] -
[2021-07-03 14:38] LABS: INR 1.6 (0.9-1.1); Partial Thromboplastin Ratio 1.1; Partial Thromboplastin Time 29.1 Seconds (21.0-31.0); Prothrombin Time 16.8 Seconds (9.0-12.0)
--- NOTE | 2021-07-03 14:43 | XRay Report ---
XR chest 1V portable HISTORY: 81 years-old Male weakness acute weakness COMPARISON: CT chest 06/17/2021 TECHNIQUE: Portable AP view of the chest FINDINGS: Cardiac mediastinal and hilar silhouettes are unchanged. Prior median sternotomy with cardiac valvula r prosthesis and left atrial exclusion device. Azygos lobe and fissure. There is no pneumothorax, ple ural effusion, airspace consolidation or overt pulmonary edema. The bones of the chest appear grossly intact. IMPRESSION: No acute process. ACT 112: Negative or not required by law. The above report was generated using voice recognition software. It may contain grammatical, syntax o r spelling errors. Electronically signed by: Nicolás Johnson M.D. 07/03/2021 2:42 PM
[2021-07-03 14:48] LABS: Albumin Globulin Ratio 1.8 (0.9-2); Albumin Level 3.5 gm/dl (3.4-5.0); Bilirubin,Total 0.8 mg/dl (0.2-1.0); Calcium 9.2 mg/dl (8.5-10.1); Creatinine Clr Calc Pharmacy 35.8 ml/min; Est GFR (African American) 50.8 ml/min; Est GFR (Non-African American) 43.9 ml/min; Globulin 1.9 gm/dl (2.5-4.0); Magnesium 2.3 mg/dl (1.7-2.4); Potassium 4.7 mmol/L (3.5-5.1); Total Protein 5.4 gm/dl (6.0-8.3)
[2021-07-03 15:28] LABS: Troponin I 0.05 ng/ml (0-0.04)
--- NOTE | 2021-07-03 15:43 | CT Scan Report ---
ABDOMEN AND PELVIS CT WITHOUT CONTRAST CT DOSE: 417.25 mGycm HISTORY: Acute right-sided flank pain and patient with a pancreatic mass and hepatic metastasis right flank pain TECHNIQUE: Multiaxial CT images of the abdomen and pelvis were performed without contrast. A dose lo wering technique was utilized adhering to the principles of ALARA. COMPARISON STUDY: CT abdomen and pelvis 06/17/2021 FINDINGS: Prior median sternotomy with extensive coronary artery calcifications. Clear lung bases. No pneumatos is or pneumoperitoneum. Limited study without the use of contrast and respiratory motion artifact. The unenhanced spleen and adrenal glands are unremarkable. Multifocal hepatic metastasis are stable f rom prior. 5 cm left hepatic lobe cyst. Gallbladder is mildly contracted. Gallbladder wall thickening with pericholecystic edema and cholelithiasis. Mass of the pancreatic head redemonstrated measuring approximately 3.4 cm. There is upstream pancreatic biliary ductal dilation with atrophy. Prominent ly mph nodes within the crispin hepatis. Mild nonspecific bilateral perinephric stranding. 5 mm nonobstructing calculus of the superior pole l eft kidney. Linear nonobstructing calculi of the inferior pole left kidney. 3.2 cm left renal cyst. N o ureteral calculi or hydronephrosis. Prostamegaly. Mild urinary bladder wall thickening with left po sterolateral 3 cm diverticulum suggestive of chronic bladder outlet obstruction. Atherosclerosis of t he aorta without aneurysm. Tiny hiatal hernia. Mild wall thickening of the stomach with partial distention. No bowel obstruction . Colonic diverticulosis. Circumferential wall thickening of the hepatic flexure. Mild wall thickenin g is also noted involving the ascending colon. No CT evidence of acute appendicitis. Gynecomastia. Un remarkable soft tissues. No acute fracture. IMPRESSION: 1. Mass of the pancreatic head measuring over 3 cm is redemonstrated resulting in upstream pancreatic ductal dilation. Pancreatic adenocarcinoma is the diagnosis of exclusion. 2. Multifocal hepatic metastasis redemonstrated. 3. Cholelithiasis with partial distention of the gallbladder. There is gallbladder wall thickening wi th pericholecystic edema and trace free fluid within the crispin hepatis. Correlate clinically to exclu de acute cholecystitis. 4. Mild wall thickening of the hepatic flexure is likely reactive. A nonspecific colitis is considere d less likely. 5. Nonobstructing bilateral nephrolithiasis. 6. Prostamegaly with evidence of chronic bladder outlet obstruction. ACT 112: Negative or not required by law. The above report was generated using voice recognition software. It may contain grammatical, syntax o r spelling errors. Electronically signed by: Nicolás Johnson M.D. 07/03/2021 3:42 PM
[2021-07-03] MEDS ORDERED: SODIUM CHLORIDE 0.9% 1000ML 1,000 ML IV ONE (15:52)
[2021-07-03] MEDS ORDERED: PIPERACILLIN/TAZOBACTAM 4.5 GM/120 ML BAG IV ONE (15:52)
[2021-07-03] MEDS ORDERED: PIPERACILL/TAZOBAC CONSULT ACTIVE PRN ×2 (15:52→20:31)
[2021-07-03 16:30] LABS: Appearance Urine Clear (Clear); Bilirubin Urine Negative (Negative); Blood Urine Negative (Negative); Color Urine Yellow; Glucose Urine UA Negative (Negative); Ketones Urine Negative (Negative); Leukocyte Esterase Urine Negative (Negative); Nitrite Urine Negative (Negative); Protein Urine Negative (Negative); Specific Gravity Urine 1.019 (1.000-1.030); Urobilinogen Urine Negative (Negative)
[2021-07-03] MEDS ORDERED: CONSULT PHARMACY STA (17:18)
--- NOTE | 2021-07-03 17:30 | History & Physical Report ---
Date of Service July 03, 2021 Assessment & Plan (1) Weakness: Plan: Patient is 81-year-old female with PMH HTN, HLD, TIA, CKD III, PAF on Eliquis, aortic stenosis s/p aortic valve replacement with prosthetic valve and 2020, chronic anemia, newly diagnosed pancreatic adenocarcinoma with liver mets presented to ER with complaint of weakness today. Has been having poor oral intake. Today in warm shower bilateral legs felt weak. May have generalized weakness secondary to poor oral intake, progressive decline from underlying disease Fall precautions PT/OT eval Abnormal CT abdomen/pelvis Possible cholecystitis CT Abd/pelvis: 1. Mass of the pancreatic head measuring over 3 cm is redemonstrated resulting in upstream pancreatic ductal dilation. Pancreatic adenocarcinoma is the diagnosis of exclusion. 2. Multifocal hepatic metastasis redemonstrated. 3. Cholelithiasis with partial distention of the gallbladder. There is gallbladder wall thickening with pericholecystic edema and trace free fluid within the crispin hepatis. Correlate clinically to exclude acute cholecystitis. 4. Mild wall thickening of the hepatic flexure is likely reactive. A nonspecific colitis is considered less likely. Patient afebrile, vitals stable. WBC: 16 (baseline 14-15.5). Alk phos: 412 (baseline mid 200s-400s per outpatient labs), remaining liver functions WNL. Patient without fever, chills, nausea, vomiting, diarrhea, abdominal pain. On exam patient without any right upper quadrant abdominal tenderness to palpation. Acute cholecystitis considered less likely at this time In ER given Zosyn, will continue Gentle IVF Clear liquid diet General surgery consult, spoke with on-call who had recommended that patient can have diet CBC, CMP in a.m. Pancreatic cancer Recently diagnosed adenocarcinoma with liver metastasis Patient following with [facility] hematology/oncology-Dr. Terrell. Patient is to soon start palliative chemotherapy. No radiation or surgery treatment was recommended. He is to have port placed in the near future. Elevated troponin: Troponin 0 0.05. EKG without acute ST changes Denies chest pain, shortness of breath Trend troponin EKG in a.m. Paroxysmal atrial fibrillation On Eliquis Current sinus rhythm Eliquis has been on hold secondary to EUS and biopsy on 07/02/2021. Patient was instructed to resume Eliquis on evening of 07/04/2021 Not on any rate control medication History TIA Continue aspirin, statin HTN Hold spironolactone and reevaluate tomorrow HLD Continue pravastatin CKD III Cr: 1.46. Baseline~1.6 per outpatient lab review Monitor renal functions, avoid nephrotoxic agents when possible BPH Continue tamsulosin Depression Patient recently prescribed Lexapro, however he has not started taking yet Denies suicidal, homicidal ideations DVT Prophylaxis SCDs Full Code as per discussion with pt Follows with Dr Tomer Lemons for routine care Pt was seen and care coordinated with Dr Cervantes. See addendum History of Present Illness Chief Complaint: weakness Primary Care Provider: Tomer Lemons DO Patient is 81-year-old female with PMH HTN, HLD, TIA, CKD III, PAF on Eliquis, aortic stenosis s/p aortic valve replacement with prosthetic valve and 2020, chronic anemia, newly diagnosed pancreatic adenocarcinoma with liver mets presented to ER with complaint of weakness today. Patient had endoscopy ultrasound and biopsy done yesterday 07/02/[address] Arteaga. Reports was feeling fine after procedure yesterday evening. States this morning he woke up and had some difficulty urinating. States he overall felt "wiped out" and generalized weakness. Reports he got in the hot shower and while in shower he felt like his legs were weak so called for help to get out of the shower. Denies any dizziness, lightheadedness, syncope, fall. Patient reports has had poor appetite and oral intake for several weeks Did not eat or drink today. He reports intermittent pain to right lateral ribs that has been ongoing for several weeks, denies any increased pain. Patient denies any other abdominal pain, nausea, vomiting, diarrhea. Last bowel movement 2 days ago. Denies diaphoresis, BOLES, vision changes, neck pain, CP, SOB, orthopnea, palpitations, cough, sore throat, choking, otalgia, rhinorrhea, extremity edema, rashes, dysuria, urinary frequency, hematuria. Allergies Allergy/AdvReac Type Severity Reaction Status Date / Time shellfish derived AdvReac Hives Unverified 07/03/21 16:24 Home Medications Medication Instructions Recorded Confirmed Type apixaban 2.5 mg tablet (Eliquis) 2.5 mg PO BID 06/06/21 07/03/21 History aspirin 81 mg tablet,delayed 81 mg PO DAILY 06/06/21 07/03/21 History release pravastatin 20 mg tablet 20 mg PO DAILY 06/06/21 07/03/21 History spironolactone 25 mg tablet 25 mg PO DAILY 06/06/21 07/03/21 History tamsulosin 0.4 mg capsule 0.4 mg PO HS 06/06/21 07/03/21 History cholecalciferol (vitamin D3) 50 2,000 unit PO DAILY 07/03/21 07/03/21 History mcg (2,000 unit) capsule (Vitamin D3) escitalopram oxalate 10 mg tablet 10 mg PO DAILY 07/03/21 07/03/21 History famotidine 20 mg tablet 20 mg PO HS 07/03/21 07/03/21 History ondansetron HCl 8 mg tablet 8 mg PO Q8 PRN 07/03/21 07/03/21 History prochlorperazine maleate 10 mg 10 mg PO Q6 PRN 07/03/21 07/03/21 History tablet 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 at [facility] History of cardiac catheterization Family History Mother Breast cancer Social History Smoking Status: Never smoker Second Hand Exposure: No; Hx Alcohol Use: No Hx Substance Use: No Preferred Language: Malian Communication Ability: Effective Caramel Maker Required: No Beliefs That Will Affect Care: None Current Living Situation: Alone Feels Safe at Home: Yes Assistive Devices: Glasses Review of Systems Review of Systems: All systems reviewed & are unremarkable except as noted in HPI & below Physical Exam Physical Exam: General: no distress, WDWN Head: normocephalic, atraumatic Eyes: PERRL, EOM's intact, conjunctiva non-injected, anicteric ENT: normal inspection external ears, nose, mucous membranes dry Neck: supple, trachea midline Lungs: clear, no respiratory distress, no wheezing/rhonchi/rales CV: RRR, no pretibial edema Abd: normal BS, soft, non-tender to palpation, no RUQ tenderness to palpation Ext: no cyanosis, no calf tenderness Neuro: A&O x 3, no focal deficits noted, normal affect Skin: warm, dry Results & Data Results & Data ([facility]) Vital Signs (Past 12 Hours) Vital Signs Temp Pulse Pulse Resp BP BP Pulse Ox 07/03/21 16:00 90 18 118/66 96 07/03/21 14:43 77 18 104/55 L 96 07/03/21 14:31 82 18 96 07/03/21 12:52 98 07/03/21 12:51 80 18 116/62 98 07/03/21 12:46 37.1 C 80 18 116/62 98 Laboratory Results Short CBC 07/03/21 Range/Units 12:45 WBC 16.58 H (4.8-10.8) K/uL Hgb 8.3 L (14.0-18.0) g/dL Hct 25.6 L (42-52) % Plt Count 131 (130-400) K/uL BMP 07/03/21 12:45 Sodium 137 Potassium 4.7 Chloride 107 Carbon Dioxide 21 BUN 54 H Creatinine 1.46 H Glucose 119 H Calcium 9.2 Cardiac Enzymes 07/03/21 Range/Units 12:45 Troponin I 0.05 H* (0-0.04) ng/ml Liver Function 07/03/21 Range/Units 12:45 Total Bilirubin 0.8 (0.2-1.0) mg/dl AST 34 (13-39) U/L ALT 40 (7-52) U/L Alkaline Phosphatase 412 H (34-104) U/L Albumin 3.5 (3.4-5.0) gm/dl Urine 07/03/21 Range/Units 16:20 Urine Color Yellow Urine Appearance Clear (Clear) Urine pH 5.0 (4.5-7.5) Ur Specific [place] 1.019 (1.000-1.030) Urine Protein Negative (Negative) Urine Glucose (UA) Negative (Negative) Diagnostic Findings Abdomen/Pelvis CT 07/03/21 14:[address] WITHOUT CONTRAST CT DOSE: 417.25 mGycm HISTORY: Acute right-sided flank pain and patient with a pancreatic mass and hepatic metastasis right flank pain TECHNIQUE: Multiaxial CT images of the abdomen and pelvis were performed without contrast. A dose lowering technique was utilized adhering to the principles of ALARA. COMPARISON STUDY: CT abdomen and pelvis 06/17/2021 FINDINGS: Prior median sternotomy with extensive coronary artery calcifications. Clear lung bases. No pneumatosis or pneumoperitoneum. Limited study without the use of contrast and respiratory motion artifact. The unenhanced spleen and adrenal glands are unremarkable. Multifocal hepatic metastasis are stable from prior. 5 cm left hepatic lobe cyst. Gallbladder is mildly contracted. Gallbladder wall thickening with pericholecystic edema and cholelithiasis. Mass of the pancreatic head redemonstrated measuring approximately 3.4 cm. There is upstream pancreatic biliary ductal dilation with atrophy. Prominent lymph nodes within the crispin hepatis. Mild nonspecific bilateral perinephric stranding. 5 mm nonobstructing calculus of the superior pole left kidney. Linear nonobstructing calculi of the inferior pole left kidney. 3.2 cm left renal cyst. No ureteral calculi or hydronephrosis. Prostamegaly. Mild urinary bladder wall thickening with left posterolateral 3 cm diverticulum suggestive of chronic bladder outlet obstruction. Atherosclerosis of the aorta without aneurysm. Tiny hiatal hernia. Mild wall thickening of the stomach with partial distention. No bowel obstruction. Colonic diverticulosis. Circumferential wall thickening of the hepatic flexure. Mild wall thickening is also noted involving the ascending colon. No CT evidence of acute appendicitis. Gynecomastia. Unremarkable soft tissues. No acute fracture. IMPRESSION: 1. Mass of the pancreatic head measuring over 3 cm is redemonstrated resulting in upstream pancreatic ductal dilation. Pancreatic adenocarcinoma is the diagnosis of exclusion. 2. Multifocal hepatic metastasis redemonstrated. 3. Cholelithiasis with partial distention of the gallbladder. There is gallbladder wall thickening with pericholecystic edema and trace free fluid within the crispin hepatis. Correlate clinically to exclude acute cholecystitis. 4. Mild wall thickening of the hepatic flexure is likely reactive. A nonspecific colitis is considered less likely. 5. Nonobstructing bilateral nephrolithiasis. 6. Prostamegaly with evidence of chronic bladder outlet obstruction. ACT 112: Negative or not required by law. The above report was generated using voice recognition software. It may contain grammatical, syntax or spelling errors. Electronically signed by: Nicolás Johnson M.D. 07/03/2021 3:42 PM Chest X-Ray 07/03/21 14:11 XR chest 1V portable HISTORY: 81 years-old Male weakness acute weakness COMPARISON: CT chest 06/17/2021 TECHNIQUE: Portable AP view of the chest FINDINGS: Cardiac mediastinal and hilar silhouettes are unchanged. Prior median sternotomy with cardiac valvular prosthesis and left atrial exclusion device. Azygos lobe and fissure. There is no pneumothorax, pleural effusion, airspace consolidation or overt pulmonary edema. The bones of the chest appear grossly intact. IMPRESSION: No acute process. ACT 112: Negative or not required by law. The above report was generated using voice recognition software. It may contain grammatical, syntax or spelling errors. Electronically signed by: Nicolás Johnson M.D. 07/03/2021 2:42 PM Supervising Physician Co-Signing Physician Notes This is an attending cosign note for full report and documentation please see full dictation by SHMUEL above following is a synopsis. 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 Patient otherwise states that he was taking a shower he felt fairly weak with stumbling gait. Otherwise states he feels largely comfortable currently. Denies any significant abdominal pain denies any nausea vomiting or diarrhea. Patient was noted by the ER staff to have possible cholecystitis. However symptoms are not significant. Otherwise had a traumatic chest largely clear abdomen soft fullness to palpation epigastric and the right upper quadrant area. Negative Lopez sign. Patient started on Zosyn by ER staff for possible cholecystitis and questionable colitis. For now unlikely due to lack of symptomatology. However monitor overnight for now. Physical therapy evaluation.
--- NOTE | 2021-07-03 19:37 | Surgery Consultation ---
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 While CT scan does show gallstones with some edema/ free fluid, there is no clinical sign of acute cholecystitis. Such findings could also be due to partial blockage from his pancreatic malignancy. Agree with antibiotics and follow WBC count. OK to start diet and if remains pain free, advance as tolerated. Given known metastatic disease, he is not an ideal surgical candidate should he develop acute cholecystitis. Will sign off - please call with questions. Present on Admission?: Yes History of Present Illness Reason for Consultation: abnormal ct scan abdomen/ pelvis showing gallstones Requesting Physician: Candie Ring PA-C History of Present Illness 81 yr old man recently diagnosed with metastatic pancreatic cancer to liver found on evaluation of right flank pain. Brought by ambulance to the ER with weakness. While in the shower, bilateral lower extremites felt weak. Has poor PO intake due to decrease appetite, loss of taste, early satiety. No abdominal pain but persists with back pain. No nausea or vomiting. CT scan showed gallstones with mild pericholecystic edema as well as changes c/w metastatic pancreatic cancer. Asked to consult to see if he has acute cholecystitis. Had an EUS with biopsy yesterday. Port placement for upcoming chemo is planned. Has had over 10 lbs in weight loss. Allergies Allergy/AdvReac Type Severity Reaction Status Date / Time shellfish derived AdvReac Hives Unverified 07/03/21 16:24 Home Medications Medication Instructions Recorded Confirmed Type apixaban 2.5 mg tablet (Eliquis) 2.5 mg PO BID 06/06/21 07/03/21 History aspirin 81 mg tablet,delayed 81 mg PO DAILY 06/06/21 07/03/21 History release pravastatin 20 mg tablet 20 mg PO DAILY 06/06/21 07/03/21 History spironolactone 25 mg tablet 25 mg PO DAILY 06/06/21 07/03/21 History tamsulosin 0.4 mg capsule 0.4 mg PO HS 06/06/21 07/03/21 History cholecalciferol (vitamin D3) 50 2,000 unit PO DAILY 07/03/21 07/03/21 History mcg (2,000 unit) capsule (Vitamin D3) escitalopram oxalate 10 mg tablet 10 mg PO DAILY 07/03/21 07/03/21 History famotidine 20 mg tablet 20 mg PO HS 07/03/21 07/03/21 History ondansetron HCl 8 mg tablet 8 mg PO Q8 PRN 07/03/21 07/03/21 History prochlorperazine maleate 10 mg 10 mg PO Q6 PRN 07/03/21 07/03/21 History tablet Patient History Medical History Acid reflux Anemia Aortic stenosis Aortic valve disorder BPH (benign prostatic hyperplasia) CKD (chronic kidney disease), stage III High cholesterol Hypertension Pancreatic neoplasm TIA (transient ischemic attack) Surgical History H/O aortic valve replacement 10/18/2019-prosthetic valve at [facility] History of cardiac catheterization Family History Mother Breast cancer Social History Smoking Status: Never smoker Second Hand Exposure: No; Hx Alcohol Use: No Hx Substance Use: No Preferred Language: Honduran Communication Ability: Effective Satellite Instruction Facilitator Required: No Beliefs That Will Affect Care: None Current Living Situation: Alone Feels Safe at Home: Yes Assistive Devices: Glasses Review of Systems Constitutional: + weakness; no fever and no chills Eyes: no problem reported Ear, Nose, Mouth, Throat: + problem reported (decrease in taste) Respiratory: no problem reported Cardiovascular: + problem reported (history of aortic valve for endocarditis in 2019) Gastrointestinal: as per Subjective / HPI Genitourinary: + problem reported (trouble with urination) Musculoskeletal: + problem reported (right foot had ingrown nail- family nicked his toe while cutting) Neurologic: + generalized weakness Psychiatric: no problem reported Physical Exam Constitutional: + ill appearing and + thin; no acute distress Eyes: PERRL, conjunctivae normal, anicteric sclerae ENMT: external ear and nose normal, oropharynx normal Respiratory: normal respiratory effort, lungs clear to auscultation Cardiovascular: Rate/Rhythm: regular rate and regular rhythm Gastrointestinal (Abdomen): normal bowel sounds, soft, nontender, no hepatosplenomegaly Skin: right toe with a small cut on the medial side of the nail; no infection Neurologic: awake; no focal motor deficits Results & Data ([facility]) Vital Signs (Past 12 Hours) Vital Signs Temp Pulse Pulse Resp BP BP Pulse Ox 07/03/21 18:00 87 18 112/58 L 97 07/03/21 16:00 90 18 118/66 96 07/03/21 14:43 77 18 104/55 L 96 07/03/21 14:31 82 18 96 07/03/21 12:52 98 07/03/21 12:51 80 18 116/62 98 07/03/21 12:46 37.1 C 80 18 116/62 98 Laboratory Results 07/03/21 07/03/21 07/03/21 Range/Units Unknown 16:20 13:30 WBC (4.8-10.8) K/uL RBC (4.7-6.1) M/uL Hgb (14.0-18.0) g/dL Hct (42-52) % MCV (80-100) fL MCH (25-34) pg MCHC (32-36) g/dL RDW Std Deviation (36.4-46.3) fL RDW Coeff of Harsh (11.5-14.5) % Plt Count (130-400) K/uL MPV (7.4-10.4) fL Immature Gran % (Auto) % Neut % (Auto) % Lymph % (Auto) % Giles % (Auto) % Eos % (Auto) % Baso % (Auto) % Neut # (Auto) (1.4-6.5) K/uL Lymph # (Auto) (1.2-3.4) K/uL Giles # (Auto) (0.11-0.59) K/uL Eos # (Auto) (0-0.5) K/uL Baso # (Auto) (0-0.2) K/uL Immature Gran # (Auto) (0.00-0.02) K/uL PT (9.0-12.0) Seconds INR (0.9-1.1) APTT (21.0-31.0) Seconds PTT Ratio Sodium (136-145) mmol/L Potassium (3.5-5.1) mmol/L Chloride (98-107) mmol/L Carbon Dioxide (21-32) mmol/L Anion Gap (3-11) BUN (6-23) mg/dl Creatinine (0.6-1.4) mg/dl Est Cr Clr Drug Dosing ml/min Est GFR ( Amer) ml/min Est GFR (Non-Af Amer) ml/min BUN/Creatinine Ratio (10-20) Glucose (70-99(Fasting)) mg/dl Calcium (8.5-10.1) mg/dl Magnesium (1.7-2.4) mg/dl Total Bilirubin (0.2-1.0) mg/dl AST (13-39) U/L ALT (7-52) U/L Alkaline Phosphatase (34-104) U/L Troponin I (0-0.04) ng/ml Total Protein (6.0-8.3) gm/dl Albumin (3.4-5.0) gm/dl Globulin (2.5-4.0) gm/dl Albumin/Globulin Ratio (0.9-2) Lipase 8 L (11-82) U/L TSH (0.300-4.500) uIu/ml Urine Color Yellow Urine Appearance Clear (Clear) Urine pH 5.0 (4.5-7.5) Ur Specific [place] 1.019 (1.000-1.030) Urine Protein Negative (Negative) Urine Glucose (UA) Negative (Negative) Urine Ketones Negative (Negative) Urine Blood Negative (Negative) Urine Nitrite Negative (Negative) Urine Bilirubin Negative (Negative) Urine Urobilinogen Negative (Negative) Ur Leukocyte Esterase Negative (Negative) SARS-CoV-2, RNA, NAAT NEGATIVE (NEGATIVE) 07/03/21 07/03/21 07/03/21 Range/Units 12:45 12:45 12:45 WBC (4.8-10.8) K/uL RBC (4.7-6.1) M/uL Hgb (14.0-18.0) g/dL Hct (42-52) % MCV (80-100) fL MCH (25-34) pg MCHC (32-36) g/dL RDW Std Deviation (36.4-46.3) fL RDW Coeff of Harsh (11.5-14.5) % Plt Count (130-400) K/uL MPV (7.4-10.4) fL Immature Gran % (Auto) % Neut % (Auto) % Lymph % (Auto) % Giles % (Auto) % Eos % (Auto) % Baso % (Auto) % Neut # (Auto) (1.4-6.5) K/uL Lymph # (Auto) (1.2-3.4) K/uL Giles # (Auto) (0.11-0.59) K/uL Eos # (Auto) (0-0.5) K/uL Baso # (Auto) (0-0.2) K/uL Immature Gran # (Auto) (0.00-0.02) K/uL PT 16.8 H (9.0-12.0) Seconds INR 1.6 H (0.9-1.1) APTT 29.1 (21.0-31.0) Seconds PTT Ratio 1.1 Sodium 137 (136-145) mmol/L Potassium 4.7 (3.5-5.1) mmol/L Chloride 107 (98-107) mmol/L Carbon Dioxide 21 (21-32) mmol/L Anion Gap 9 (3-11) BUN 54 H (6-23) mg/dl Creatinine 1.46 H (0.6-1.4) mg/dl Est Cr Clr Drug Dosing 35.8 ml/min Est GFR ( Amer) 50.8 ml/min Est GFR (Non-Af Amer) 43.9 ml/min BUN/Creatinine Ratio 37.0 H (10-20) Glucose 119 H (70-99(Fasting)) mg/dl Calcium 9.2 (8.5-10.1) mg/dl Magnesium 2.3 (1.7-2.4) mg/dl Total Bilirubin 0.8 (0.2-1.0) mg/dl AST 34 (13-39) U/L ALT 40 (7-52) U/L Alkaline Phosphatase 412 H (34-104) U/L Troponin I 0.05 H* (0-0.04) ng/ml Total Protein 5.4 L (6.0-8.3) gm/dl Albumin 3.5 (3.4-5.0) gm/dl Globulin 1.9 L (2.5-4.0) gm/dl Albumin/Globulin Ratio 1.8 (0.9-2) Lipase (11-82) U/L TSH 4.064 (0.300-4.500) uIu/ml Urine Color Urine Appearance (Clear) Urine pH (4.5-7.5) Ur Specific [place] (1.000-1.030) Urine Protein (Negative) Urine Glucose (UA) (Negative) Urine Ketones (Negative) Urine Blood (Negative) Urine Nitrite (Negative) Urine Bilirubin (Negative) Urine Urobilinogen (Negative) Ur Leukocyte Esterase (Negative) SARS-CoV-2, RNA, NAAT (NEGATIVE) 07/03/21 Range/Units 12:45 WBC 16.58 H (4.8-10.8) K/uL RBC 2.80 L (4.7-6.1) M/uL Hgb 8.3 L (14.0-18.0) g/dL Hct 25.6 L (42-52) % MCV 91.4 (80-100) fL MCH 29.6 (25-34) pg MCHC 32.4 (32-36) g/dL RDW Std Deviation 49.5 H (36.4-46.3) fL RDW Coeff of Harsh 14.9 H (11.5-14.5) % Plt Count 131 (130-400) K/uL MPV 10.7 H (7.4-10.4) fL Immature Gran % (Auto) 0.9 % Neut % (Auto) 89.1 % Lymph % (Auto) 9.3 % Giles % (Auto) 0.2 % Eos % (Auto) 0.3 % Baso % (Auto) 0.2 % Neut # (Auto) 14.77 H (1.4-6.5) K/uL Lymph # (Auto) 1.55 (1.2-3.4) K/uL Giles # (Auto) 0.03 L (0.11-0.59) K/uL Eos # (Auto) 0.05 (0-0.5) K/uL Baso # (Auto) 0.03 (0-0.2) K/uL Immature Gran # (Auto) 0.15 H (0.00-0.02) K/uL PT (9.0-12.0) Seconds INR (0.9-1.1) APTT (21.0-31.0) Seconds PTT Ratio Sodium (136-145) mmol/L Potassium (3.5-5.1) mmol/L Chloride (98-107) mmol/L Carbon Dioxide (21-32) mmol/L Anion Gap (3-11) BUN (6-23) mg/dl Creatinine (0.6-1.4) mg/dl Est Cr Clr Drug Dosing ml/min Est GFR ( Amer) ml/min Est GFR (Non-Af Amer) ml/min BUN/Creatinine Ratio (10-20) Glucose (70-99(Fasting)) mg/dl Calcium (8.5-10.1) mg/dl Magnesium (1.7-2.4) mg/dl Total Bilirubin (0.2-1.0) mg/dl AST (13-39) U/L ALT (7-52) U/L Alkaline Phosphatase (34-104) U/L Troponin I (0-0.04) ng/ml Total Protein (6.0-8.3) gm/dl Albumin (3.4-5.0) gm/dl Globulin (2.5-4.0) gm/dl Albumin/Globulin Ratio (0.9-2) Lipase (11-82) U/L TSH (0.300-4.500) uIu/ml Urine Color Urine Appearance (Clear) Urine pH (4.5-7.5) Ur Specific [place] (1.000-1.030) Urine Protein (Negative) Urine Glucose (UA) (Negative) Urine Ketones (Negative) Urine Blood (Negative) Urine Nitrite (Negative) Urine Bilirubin (Negative) Urine Urobilinogen (Negative) Ur Leukocyte Esterase (Negative) SARS-CoV-2, RNA, NAAT (NEGATIVE) Diagnostic Findings ABDOMEN AND PELVIS CT WITHOUT CONTRAST CT DOSE: 417.25 mGycm HISTORY: Acute right-sided flank pain and patient with a pancreatic mass and hepatic metastasis right flank pain TECHNIQUE: Multiaxial CT images of the abdomen and pelvis were performed without contrast. A dose lowering technique was utilized adhering to the principles of ALARA. COMPARISON STUDY: CT abdomen and pelvis 06/17/2021 FINDINGS: Prior median sternotomy with extensive coronary artery calcifications. Clear manpreet g bases. No pneumatosis or pneumoperitoneum. Limited study without the use of contrast and respiratory motion artifact. The unenhanced spleen and adrenal glands are unremarkable. Multifocal hepatic m etastasis are stable from prior. 5 cm left hepatic lobe cyst. Gallbladder is mildly contracted. Gallbladder wall thickening with pericholecystic edema and cholelithiasis. Mass of the pancreatic head redemonstrated measuring approximately 3.4 cm. There is upstream pancreatic biliary ductal dilation with atrophy. Prominent lymph nodes within the crispin hepatis. Mild nonspecific bilateral perinephric stranding. 5 mm nonobstructing calculus of the superior pole left kidney. Linear nonobstructing calculi of the inferior pole left kidney. 3.2 cm left renal cyst. No ureteral calculi or hydronephrosis. Prostamegaly. Mild urinary bladder wall thickening with left posterolateral 3 cm diverticulum suggestive of chronic bladder outlet obstruction. Atherosclerosis of the aorta without aneurysm. Tiny hiatal hernia. Mild wall thickening of the stomach with partial distention. No bowel obstruction. Colonic diverticulosis. Circumferential wall thickening of the hepatic flexure. Mild wall thickening is also noted involving the ascending colon. No CT evidence of acute appendicitis. Gynecomastia. Unremarkable soft tissues. No acute fracture. IMPRESSION: 1. Mass of the pancreatic head measuring over 3 cm is redemonstrated resulting in upstream pancreatic ductal dilation. Pancreatic adenocarcinoma is the diagnosis of exclusion. 2. Multifocal hepatic metastasis redemonstrated. 3. Cholelithiasis with partial distention of the gallbladder. There is gallbladder wall thickening with pericholecystic edema and trace free fluid within the crispin hepatis. Correlate clinically to exclude acute cholecystitis. 4. Mild wall thickening of the hepatic flexure is likely reactive. A nonspecific colitis is considered less likely. 5. Nonobstructing bilateral nephrolithiasis.
[2021-07-03] MEDS ORDERED: POLYETHYLENE (MIRALAX) 17 GM PACK PO PRN (19:53)
[2021-07-03] MEDS: TAMSULOSIN HCL 0.4 MG CAP PO SCH (20:54)
[2021-07-03] MEDS: FAMOTIDINE 20 MG TAB PO SCH (20:54)
[2021-07-03] MEDS: PIPERACILLIN/TAZOBACTAM 3.375 GM in DEXTROSE 5% 100 ML IV SCH (22:35)
--- NOTE | 2021-07-03 22:42 | Electrocardiogram Report ---
Test Reason : Blood Pressure : / mmHG Vent. Rate : 083 BPM Atrial Rate : 083 BPM P-R Int : 226 ms QRS Dur : 082 ms QT Int : 390 ms P-R-T Axes : 078 040 043 degrees QTc Int : 458 ms Sinus rhythm with 1st degree A-V block Cannot rule out Anterior infarct (cited on or before 17-JUN-2021) Nonspecific ST abnormality Abnormal ECG When compared with ECG of 17-JUN-2021 20:03, Questionable change in initial forces of Septal leads Confirmed by Santos Gilmore ([id number]) on 07/03/2021 10:41:44 PM Referred By: Confirmed By:Santos Gilmore
[2021-07-03] MEDS ORDERED: SODIUM CHLORIDE 0.9% 500 ML IV SCH (22:45)
[2021-07-04 02:10] LABS: Hematocrit (blood only) 21.2 % (42-52); Hemoglobin 6.9 g/dL (14.0-18.0); Mean Corpuscular Hemoglobin 30.3 pg (25-34); Mean Corpuscular Hgb Conc 32.5 g/dL (32-36); Mean Platelet Volume 10.8 fL (7.4-10.4); Platelet Count 83 K/uL (130-400); RDW Coefficient of Variation 15.4 % (11.5-14.5); RDW Standard Deviation 51.7 fL (36.4-46.3); Red Blood Count 2.28 M/uL (4.7-6.1); White Blood Count 13.09 K/uL (4.8-10.8)
[2021-07-04 02:17] LABS: Albumin Globulin Ratio 1.9 (0.9-2); BUN Creatinine Ratio 37.3 (10-20); Basophils # (auto) 0.02 K/uL (0-0.2); Basophils % (auto) 0.2 %; Bilirubin,Total 0.8 mg/dl (0.2-1.0); Calcium 8.2 mg/dl (8.5-10.1); Creatinine Clr Calc Pharmacy 36.6 ml/min; Eosinophils # (auto) 0.14 K/uL (0-0.5); Eosinophils % (auto) 1.1 %; Est GFR (African American) 52.6 ml/min; Est GFR (Non-African American) 45.4 ml/min; Globulin 1.6 gm/dl (2.5-4.0); Immature Granulocytes # (auto) 0.21 K/uL (0.00-0.02); Immature Granulocytes % (auto) 1.6 %; Lymphocytes # (auto) 1.44 K/uL (1.2-3.4); Monocytes # (auto) 0.43 K/uL (0.11-0.59); Monocytes % (auto) 3.3 %; Neutrophils # (auto) 10.85 K/uL (1.4-6.5); Neutrophils % (auto) 82.8 %; Platelet Estimate Decreased (Normal); Potassium 4.1 mmol/L (3.5-5.1); Schistocytes 1+; Total Protein 4.6 gm/dl (6.0-8.3)
[2021-07-04 04:01] LABS: Hematocrit (blood only) 19.8 % (42-52); Hemoglobin 6.4 g/dL (14.0-18.0)
[2021-07-04] MEDS ORDERED: SODIUM CHLORIDE 0.9% 250 ML IV PRN ×3 (04:40→08:39)
[2021-07-04] MEDS: PIPERACILLIN/TAZOBACTAM 3.375 GM in DEXTROSE 5% 100 ML IV SCH ×3 (06:14→23:31)
[2021-07-04] MEDS ORDERED: SODIUM CHLORIDE 0.9% 1000ML 500 ML IV ONE (07:42)
[2021-07-04] MEDS ORDERED: SODIUM CHLORIDE 0.9% 1000ML 1,000 ML IV ONE (07:58)
[2021-07-04] MEDS ORDERED: PANTOPRAZOLE BOLUS/DRIP 1 EA IV STA (08:18)
[2021-07-04] MEDS ORDERED: PANTOprazole 80 MG in DEXTROSE 5% 100 ML IV ONE (08:30)
[2021-07-04] MEDS ORDERED: ASPIRIN 81 MG ECTAB PO SCH (09:00)
[2021-07-04] MEDS: SACCHAROMYCES BOULARDII 250 MG CAP PO SCH (09:02)
[2021-07-04] MEDS: CEROVITE ADV FORMULA TAB PO SCH (09:03)
[2021-07-04] MEDS: PRAVASTATIN SOD 20 MG TAB PO SCH (09:03)
[2021-07-04] MEDS: PANTOprazole 40 MG in DEXTROSE 5% 100 ML IV SCH ×4 (09:22→23:33)
[2021-07-04 09:29] LABS: Ferritin 373.9 ng/ml (8-388)
--- NOTE | 2021-07-04 10:43 | Electrocardiogram Report ---
Test Reason : Blood Pressure : / mmHG Vent. Rate : 082 BPM Atrial Rate : 082 BPM P-R Int : 240 ms QRS Dur : 084 ms QT Int : 406 ms P-R-T Axes : 066 062 -12 degrees QTc Int : 474 ms Sinus rhythm with 1st degree A-V block T wave abnormality, consider inferior ischemia Abnormal ECG When compared with ECG of 03-JUL-2021 12:43, T wave inversion now evident in Inferior leads Confirmed by Dangelo Rodriguez ([id number]) on 07/04/2021 10:43:12 AM Referred By: REFERRED SELF Confirmed By:Chris Rodriguez
[2021-07-04 12:15] LABS: Hematocrit (blood only) 24.5 % (42-52); Hemoglobin 7.9 g/dL (14.0-18.0); Mean Corpuscular Hemoglobin 29.4 pg (25-34); Mean Corpuscular Hgb Conc 32.2 g/dL (32-36); Mean Corpuscular Volume 91.1 fL (80-100); RDW Standard Deviation 49.2 fL (36.4-46.3); Red Blood Count 2.69 M/uL (4.7-6.1); White Blood Count 17.88 K/uL (4.8-10.8)
[2021-07-04 12:16] LABS: Mean Platelet Volume 10.4 fL (7.4-10.4); Platelet Count 81 K/uL (130-400)
[2021-07-04 12:36] LABS: Acanthocytes 1+; Basophils # (auto) 0.02 K/uL (0-0.2); Basophils % (auto) 0.1 %; Echinocytes 1+; Eosinophils # (auto) 0.12 K/uL (0-0.5); Eosinophils % (auto) 0.7 %; Immature Granulocytes # (auto) 0.21 K/uL (0.00-0.02); Immature Granulocytes % (auto) 1.2 %; Lymphocytes # (auto) 1.96 K/uL (1.2-3.4); Monocytes # (auto) 0.33 K/uL (0.11-0.59); Monocytes % (auto) 1.8 %; Neutrophils # (auto) 15.24 K/uL (1.4-6.5); Neutrophils % (auto) 85.2 %
--- NOTE | 2021-07-04 14:51 | Hospitalist Progress Note ---
Date of Service July 04, 2021 Assessment & Plan (1) Weakness: Plan: per admittins service notes with addendum: Patient is 81-year-old female with PMH HTN, HLD, TIA, CKD III, PAF on Eliquis, aortic stenosis s/p aortic valve replacement with prosthetic valve and 2020, chronic anemia, newly diagnosed pancreatic adenocarcinoma with liver mets presented to ER with complaint of weakness today. Has been having poor oral intake. Today in warm shower bilateral legs felt weak. Generalized weakness secondary to Anemia, r/o Cholecystitis Anemia, possible GI Bleed? check FOBT check anemia panel 1 unit pRBC ordered Hg improved from 6.9 to 7.9 repeat Hg at 5pm 2 units on hold Protonix drip npo for now AST/ALT, Kaushal stable at this time Acute Cholecystitis unlikely per Gen Surg continue IV Zosyn monitor closely CT Abd/pelvis: 1. Mass of the pancreatic head measuring over 3 cm is redemonstrated resulting in upstream pancreatic ductal dilation. Pancreatic adenocarcinoma is the diagnosis of exclusion. 2. Multifocal hepatic metastasis redemonstrated. 3. Cholelithiasis with partial distention of the gallbladder. There is gallbladder wall thickening with pericholecystic edema and trace free fluid within the crsipin hepatis. Correlate clinically to exclude acute cholecystitis. 4. Mild wall thickening of the hepatic flexure is likely reactive. A nonspecific colitis is considered less likely. Pancreatic cancer Recently diagnosed adenocarcinoma with liver metastasis Patient following with [facility] hematology/oncology-Dr. Terrell. Patient is to soon start palliative chemotherapy. No radiation or surgery treatment was recommended. He is to have port placed in the near future. Elevated troponin: Troponin 0 0.05. EKG without acute ST changes Denies chest pain, shortness of breath troponin 2nd and 3rd set negative repeat EKG in AM Paroxysmal atrial fibrillation On Eliquis Current sinus rhythm Eliquis has been on hold secondary to EUS and biopsy on 07/02/2021. Patient was instructed to resume Eliquis on evening of 07/04/2021 Not on any rate control medication 07/04 hold Eliquis in light of anemia History TIA Hold ASA HTN Hold spironolactone due to low BP HLD Continue pravastatin CKD III Cr: 1.46. Baseline~1.6 per outpatient lab review crea at baseline BPH Continue tamsulosin Depression Patient recently prescribed Lexapro, however he has not started taking yet Denies suicidal, homicidal ideations DVT Prophylaxis SCDs Full Code as per discussion with pt Disposition pending will need PT/OT plan of care discussed with patient in detail and at length all questions answered he is understanding, agreeable, comfortable with the plan of care Admission and Anticipated Discharge Date Admission Date: July 03, 2021 Subjective ff up for weakness, anemia, possible acute cholecystitis, etc informed by RN that patient's BP systolic 79 1 L NSS bolus ordered seen at bedside, awake, alert, but appears weak answers all questions appropriately denies dizziness, chest pain, dyspnea no abdominal pain ,nausea/vomiting, chills reports intermittent straining with urination denies melena/hematochezia Eliquis last taken 4 days ago no other symptoms Review of Systems Review of Systems: all noted and negative except for above Physical Exam Physical Exam: General- oriented x 3, not in distress, speaks in sentences with no effort or accessory muscle use Head- atraumatic Eyes- PERRL, EOMI, anicteric pale conjunctivae ENT- oropharynx clear Neck- supple, no JVD, no adenopathy, no thyromegaly; carotids +2/2, no bruits appreciated Lungs- clear to auscultation bilaterally, no rales/wheezes Heart- normal rate, regular rhythm; no murmurs Abdomen- normal bowel sounds, nondistended, soft, nontender, no masses or hepatosplenomegaly Extremities- no pretibial edema, no calf tenderness; peripheral pulses intact Neuro- alert, oriented x 3; CN 2-12 grossly intact; motor 5/5 bilaterally;sensation 100% on all extremities; no other gross focal neurologic deficits Skin- warm & dry Results & Data Results & Data ([facility] [place]) Vital Signs (Past 12 Hours) Vital Signs Temp Pulse Pulse Resp BP BP Pulse Ox 07/04/21 11:20 37.0 C 82 16 90/47 L 96 07/04/21 10:18 36.8 C 18 L 72 H 108/68 97 07/04/21 09:18 36.8 C 80 18 88/46 L 100 07/04/21 08:48 36.8 C 82 18 97/59 L 99 07/04/21 08:33 36.8 C 79 18 88/54 L 98 07/04/21 08:11 36.6 C 81 18 122/88 97 07/04/21 07:39 76 07/04/21 06:23 36.8 C 82 16 78/51 L 97 07/04/21 03:02 36.6 C 82 16 89/50 L 99 all noted and reviewed including below
--- NOTE | 2021-07-04 15:24 | Surgery Progress Note ---
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 OK to continue with diet as tolerated. If develops pain, could consider HIDA scan on Tuesday. Admission and Anticipated Discharge Date Admission Date: July 03, 2021 Subjective No complaints of right upper quadrant or epigastric pain. Continues with low appetite but no nausea. Physical Exam Gastrointestinal (Abdomen): soft, nontender in right upper quadrant, no petit's sign, nondistended Results & Data ([facility]) Vital Signs (Past 12 Hours) Vital Signs Temp Pulse Pulse Resp BP BP Pulse Ox 07/04/21 15:10 73 07/04/21 14:59 36.9 C 72 18 105/59 L 98 07/04/21 11:20 37.0 C 82 16 90/47 L 96 07/04/21 10:18 36.8 C 18 L 72 H 108/68 97 07/04/21 09:18 36.8 C 80 18 88/46 L 100 07/04/21 08:48 36.8 C 82 18 97/59 L 99 07/04/21 08:33 36.8 C 79 18 88/54 L 98 07/04/21 08:11 36.6 C 81 18 122/88 97 07/04/21 07:39 76 07/04/21 06:23 36.8 C 82 16 78/51 L 97 Laboratory Results Abnormal lab results 07/03/21 07/04/21 07/04/21 Range/Units 12:45 01:35 01:35 WBC 13.09 H (4.8-10.8) K/uL RBC 2.28 L (4.7-6.1) M/uL Hgb 6.9 L* (14.0-18.0) g/dL Hct 21.2 L (42-52) % RDW Std Deviation 51.7 H (36.4-46.3) fL RDW Coeff of Harsh 15.4 H (11.5-14.5) % Plt Count 83 L (130-400) K/uL MPV 10.8 H (7.4-10.4) fL Neut # (Auto) 10.85 H (1.4-6.5) K/uL Immature Gran # (Auto) 0.21 H (0.00-0.02) K/uL Platelet Estimate Decreased L (Normal) Chloride 113 H (98-107) mmol/L Carbon Dioxide 19 L (21-32) mmol/L BUN 53 H (6-23) mg/dl Creatinine 1.42 H (0.6-1.4) mg/dl BUN/Creatinine Ratio 37.3 H (10-20) Glucose 116 H (70-99(Fasting)) mg/dl Calcium 8.2 L (8.5-10.1) mg/dl Transferrin (200-360) mg/dl Alkaline Phosphatase 352 H (34-104) U/L Troponin I 0.05 H* (0-0.04) ng/ml Total Protein 4.6 L (6.0-8.3) gm/dl Albumin 3.0 L (3.4-5.0) gm/dl Globulin 1.6 L (2.5-4.0) gm/dl Crossmatch 07/04/21 07/04/21 07/04/21 Range/Units 03:25 03:25 08:40 WBC (4.8-10.8) K/uL RBC (4.7-6.1) M/uL Hgb 6.4 L* (14.0-18.0) g/dL Hct 19.8 L* (42-52) % RDW Std Deviation (36.4-46.3) fL RDW Coeff of Harsh (11.5-14.5) % Plt Count (130-400) K/uL MPV (7.4-10.4) fL Neut # (Auto) (1.4-6.5) K/uL Immature Gran # (Auto) (0.00-0.02) K/uL Platelet Estimate (Normal) Chloride (98-107) mmol/L Carbon Dioxide (21-32) mmol/L BUN (6-23) mg/dl Creatinine (0.6-1.4) mg/dl BUN/Creatinine Ratio (10-20) Glucose (70-99(Fasting)) mg/dl Calcium (8.5-10.1) mg/dl Transferrin 142 L (200-360) mg/dl Alkaline Phosphatase (34-104) U/L Troponin I (0-0.04) ng/ml Total Protein (6.0-8.3) gm/dl Albumin (3.4-5.0) gm/dl Globulin (2.5-4.0) gm/dl Crossmatch See Detail 07/04/21 Range/Units 12:03 WBC 17.88 H (4.8-10.8) K/uL RBC 2.69 L (4.7-6.1) M/uL Hgb 7.9 L (14.0-18.0) g/dL Hct 24.5 L (42-52) % RDW Std Deviation 49.2 H (36.4-46.3) fL RDW Coeff of Harsh 15.0 H (11.5-14.5) % Plt Count 81 L (130-400) K/uL MPV (7.4-10.4) fL Neut # (Auto) 15.24 H (1.4-6.5) K/uL Immature Gran # (Auto) 0.21 H (0.00-0.02) K/uL Platelet Estimate (Normal) Chloride (98-107) mmol/L Carbon Dioxide (21-32) mmol/L BUN (6-23) mg/dl Creatinine (0.6-1.4) mg/dl BUN/Creatinine Ratio (10-20) Glucose (70-99(Fasting)) mg/dl Calcium (8.5-10.1) mg/dl Transferrin (200-360) mg/dl Alkaline Phosphatase (34-104) U/L Troponin I (0-0.04) ng/ml Total Protein (6.0-8.3) gm/dl Albumin (3.4-5.0) gm/dl Globulin (2.5-4.0) gm/dl Crossmatch
[2021-07-04] MEDS: ACETAMINOPHEN 325 MG TAB PO PRN (15:42)
[2021-07-04 16:37] LABS: Hematocrit (blood only) 22.2 % (42-52); Hemoglobin 7.3 g/dL (14.0-18.0)
[2021-07-04] MEDS: TAMSULOSIN HCL 0.4 MG CAP PO SCH (20:04)
[2021-07-04] MEDS: FAMOTIDINE 20 MG TAB PO SCH (20:04)
[2021-07-04 22:30] LABS: Hematocrit (blood only) 25.2 % (42-52); Hemoglobin 8.4 g/dL (14.0-18.0)
[2021-07-05] MEDS: PANTOprazole 40 MG in DEXTROSE 5% 100 ML IV SCH ×2 (04:36→18:50)
[2021-07-05 06:06] LABS: Hematocrit (blood only) 27.1 % (42-52); Mean Corpuscular Hemoglobin 29.9 pg (25-34); Mean Corpuscular Hgb Conc 33.2 g/dL (32-36); RDW Coefficient of Variation 15.6 % (11.5-14.5); Red Blood Count 3.01 M/uL (4.7-6.1); White Blood Count 14.29 K/uL (4.8-10.8)
[2021-07-05] MEDS: PIPERACILLIN/TAZOBACTAM 3.375 GM in DEXTROSE 5% 100 ML IV SCH ×2 (06:16→18:50)
[2021-07-05 06:24] LABS: Mean Platelet Volume 11.2 fL (7.4-10.4); Platelet Count 71 K/uL (130-400)
[2021-07-05 06:43] LABS: BUN Creatinine Ratio 21.4 (10-20); Basophils # (auto) 0.02 K/uL (0-0.2); Basophils % (auto) 0.1 %; Calcium 8.6 mg/dl (8.5-10.1); Creatinine Clr Calc Pharmacy 37.2 ml/min; Eosinophils # (auto) 0.25 K/uL (0-0.5); Eosinophils % (auto) 1.7 %; Est GFR (African American) 53.5 ml/min; Est GFR (Non-African American) 46.1 ml/min; Immature Granulocytes % (auto) 1.4 %; Lymphocytes % (auto) 9.1 %; Monocytes % (auto) 4.2 %; Neutrophils # (auto) 11.92 K/uL (1.4-6.5); Neutrophils % (auto) 83.5 %
[2021-07-05 07:18] LABS: RBC Morphology Unremarkable
[2021-07-05] MEDS: SACCHAROMYCES BOULARDII 250 MG CAP PO SCH (07:30)
[2021-07-05] MEDS: PRAVASTATIN SOD 20 MG TAB PO SCH (07:30)
[2021-07-05] MEDS: CEROVITE ADV FORMULA TAB PO SCH (07:31)
[2021-07-05] MEDS: ACETAMINOPHEN 325 MG TAB PO PRN ×2 (07:39→22:15)
[2021-07-05] MEDS: SODIUM CHLORIDE 0.9% 1000ML 1,000 ML IV SCH ×2 (10:18→22:14)
[2021-07-05] MEDS: ESCITALOPRAM OXALATE 10 MG TAB PO SCH (10:20)
--- NOTE | 2021-07-05 17:13 | Hospitalist Progress Note ---
Date of Service July 05, 2021 Assessment & Plan (1) Weakness: Plan: per admittins service notes with addendum: Patient is 81-year-old female with PMH HTN, HLD, TIA, CKD III, PAF on Eliquis, aortic stenosis s/p aortic valve replacement with prosthetic valve and 2020, chronic anemia, newly diagnosed pancreatic adenocarcinoma with liver mets presented to ER with complaint of weakness today. Has been having poor oral intake. Today in warm shower bilateral legs felt weak. Generalized weakness secondary to Anemia, r/o Cholecystitis Anemia, possible GI Bleed? check FOBT: Positive check anemia panel: Reviewed Status post 2 units of packed RBCs Hemoglobin improved from 6.4-9.0 Transition from Protonix drip to IV push twice a day We will order GI evaluation N.p.o. post midnight AST/ALT, Kaushal stable at this time Acute Cholecystitis unlikely per Gen Surg continue IV Zosyn for now monitor closely CT Abd/pelvis: 1. Mass of the pancreatic head measuring over 3 cm is redemonstrated resulting in upstream pancreatic ductal dilation. Pancreatic adenocarcinoma is the diagnosis of exclusion. 2. Multifocal hepatic metastasis redemonstrated. 3. Cholelithiasis with partial distention of the gallbladder. There is gallbladder wall thickening with pericholecystic edema and trace free fluid within the crispin hepatis. Correlate clinically to exclude acute cholecystitis. 4. Mild wall thickening of the hepatic flexure is likely reactive. A nonspecific colitis is considered less likely. Pancreatic cancer Recently diagnosed adenocarcinoma with liver metastasis Patient following with [facility] hematology/oncology-Dr. Terrell. Patient is to soon start palliative chemotherapy. No radiation or surgery treatment was recommended. He is to have port placed in the near future. Elevated troponin: Troponin 0 0.05. EKG without acute ST changes Denies chest pain, shortness of breath troponin 2nd and 3rd set negative repeat EKG in AM Paroxysmal atrial fibrillation On Eliquis Current sinus rhythm Eliquis has been on hold secondary to EUS and biopsy on 07/02/2021. Patient was instructed to resume Eliquis on evening of 07/04/2021 Not on any rate control medication 07/04 hold Eliquis in light of anemia, possible GI bleed History TIA Hold ASA HTN Hold spironolactone due to low BP HLD Continue pravastatin CKD III Cr: 1.46. Baseline~1.6 per outpatient lab review crea at baseline BPH Continue tamsulosin Depression Patient recently prescribed Lexapro, however he has not started taking yet Denies suicidal, homicidal ideations DVT Prophylaxis SCDs Full Code as per discussion with pt Disposition pending will need PT/OT plan of care discussed with patient in detail and at length all questions answered he is understanding, agreeable, comfortable with the plan of care Admission and Anticipated Discharge Date Admission Date: July 03, 2021 Subjective Follow-up for weakness, anemia, etc. Seen resting in bed, comfortable, not in distress Appears to be less weak States he feels improved today Able to ambulate in the hallways with a physical therapist with no problems Denies chest pain, shortness of breath, dizziness, edward pain, nausea vomiting, melena or hematochezia No fevers or chills No cough No other symptom Review of Systems Review of Systems: all noted and negative except for above Physical Exam Physical Exam: General- oriented x 3, not in distress, speaks in sentences with no effort or accessory muscle use Eyes- anicteric Neck- no JVD Lungs- clear breath sounds bilaterally, no rales/wheezes Heart- normal rate, regular rhythm; no murmurs Abdomen- normal bowel sounds, nondistended, soft, nontender Extremities- no pretibial edema, no calf tenderness Neuro- alert, oriented x 3; no gross focal neurologic deficits Skin- warm & dry Results & Data Results & Data ([facility]) Vital Signs (Past 12 Hours) Vital Signs Temp Pulse Pulse Resp BP Pulse Ox 07/05/21 15:41 36.3 C L 61 20 115/57 L 98 07/05/21 13:53 99 07/05/21 10:56 36.5 C 61 18 95/57 L 98 07/05/21 08:00 64 07/05/21 07:26 36.9 C 67 18 93/51 L 98 all noted and reviewed including below
[2021-07-05] MEDS: TAMSULOSIN HCL 0.4 MG CAP PO SCH (21:10)
[2021-07-05] MEDS: FAMOTIDINE 20 MG TAB PO SCH (21:10)
[2021-07-05] MEDS: PANTOprazole 40 MG in SYRINGE 0 ML IV SCH (21:10)
[2021-07-06 08:06] LABS: Hematocrit (blood only) 25.4 % (42-52); Hemoglobin 8.4 g/dL (14.0-18.0); Mean Corpuscular Hemoglobin 29.8 pg (25-34); Mean Corpuscular Hgb Conc 33.1 g/dL (32-36); Mean Corpuscular Volume 90.1 fL (80-100); RDW Coefficient of Variation 15.7 % (11.5-14.5); RDW Standard Deviation 50.6 fL (36.4-46.3); Red Blood Count 2.82 M/uL (4.7-6.1); White Blood Count 11.87 K/uL (4.8-10.8)
[2021-07-06 08:12] LABS: Mean Platelet Volume 11.2 fL (7.4-10.4); Platelet Count 63 K/uL (130-400)
[2021-07-06 08:35] LABS: Acanthocytes 1+; Basophils # (auto) 0.01 K/uL (0-0.2); Basophils % (auto) 0.1 %; Eosinophils # (auto) 0.25 K/uL (0-0.5); Eosinophils % (auto) 2.1 %; Immature Granulocytes # (auto) 0.13 K/uL (0.00-0.02); Immature Granulocytes % (auto) 1.1 %; Lymphocytes # (auto) 1.35 K/uL (1.2-3.4); Lymphocytes % (auto) 11.4 %; Monocytes # (auto) 0.35 K/uL (0.11-0.59); Monocytes % (auto) 2.9 %; Neutrophils # (auto) 9.78 K/uL (1.4-6.5); Neutrophils % (auto) 82.4 %
[2021-07-06] MEDS: PANTOprazole 40 MG in SYRINGE 0 ML IV SCH ×2 (08:40→21:41)
[2021-07-06] MEDS: CEROVITE ADV FORMULA TAB PO SCH (08:40)
[2021-07-06] MEDS: ESCITALOPRAM OXALATE 10 MG TAB PO SCH (08:40)
[2021-07-06] MEDS: PRAVASTATIN SOD 20 MG TAB PO SCH (08:40)
[2021-07-06] MEDS: SACCHAROMYCES BOULARDII 250 MG CAP PO SCH (08:40)
[2021-07-06 08:49] LABS: BUN Creatinine Ratio 16.9 (10-20); Calcium 8.3 mg/dl (8.5-10.1); Creatinine Clr Calc Pharmacy 42.2 ml/min; Est GFR (African American) 61.9 ml/min; Est GFR (Non-African American) 53.4 ml/min; Potassium 3.9 mmol/L (3.5-5.1)
--- NOTE | 2021-07-06 09:11 | Gastrointestinal Consultation ---
Date of Consultation July 06, 2021 Assessment & Plan (1) Malignant neoplasm of pancreas metastatic to liver: (2) Anemia: Mr. López is an 81 yr old male with metastatic pancreatic adenocarcinoma. Anemia likely secondary to the malignant process. Though occult stool is positive there is no gross GI bleeding. No evidence of bile duct obstruction or acute cholecystitis on imaging. No GI contraindication to a regular diet. No plans for GI procedures at this time. Management of adenocarcinoma by hematology oncology. GI will sign off. Supervising Physician Co-Signing Physician Notes I performed a history and physical examination of the patient today, including specifically on physical exam - soft abdomen. I have discussed the patient's management with the advanced practitioner. Please refer to the nurse pr actitioner's note for the documented findings and plan of care. s/p EUS FNA of Liver Mets, had drop in H/H and black stool for a day and now his stool is back to brown and H/H is stable. His BUN down to normal. Likely has a sejf limited oozing from the gastric puncture site. HIDA with no obstruction. Recommend: Can be discharged from GI stand point. PO PPI BID for a month. Need to keep his appointment for crispin cath placement this Tuesday. Recall Gi if needed. History of Present Illness Reason for Consultation: anemia, possible GI bleed Requesting Physician: Dr. Clark Attending Physician: Fabian Clark MD History of Present Illness Mr. Moises López is an 81 yr old male with a hx of HTN, HLD, TIA, CKD III, PAF on Eliquis, aortic stenosis s/p aortic valve replacement with prosthetic valve and 2020, chronic anemia, newly diagnosed pancreatic adenocarcinoma with liver mets, presented to the ED 07/03/21 for weakness. GI is consulted for anemia, possible GI bleed. He follows with Dr. Terrell and palliative chemotherapy as planned. He has had diarrhea but no gross GI bleeding. Occult stool was positive on arrival. Hb was 6.9 on admission, + 2 Units prbcs ->9.0 yesterday and 8.4 today. Allergies Allergy/AdvReac Type Severity Reaction Status Date / Time shellfish derived AdvReac Hives Unverified 07/03/21 16:24 Home Medications Medication Instructions Recorded Confirmed Type apixaban 2.5 mg tablet (Eliquis) 2.5 mg PO BID 06/06/21 07/03/21 History aspirin 81 mg tablet,delayed 81 mg PO DAILY 06/06/21 07/03/21 History release pravastatin 20 mg tablet 20 mg PO DAILY 06/06/21 07/03/21 History spironolactone 25 mg tablet 25 mg PO DAILY 06/06/21 07/03/21 History tamsulosin 0.4 mg capsule 0.4 mg PO HS 06/06/21 07/03/21 History cholecalciferol (vitamin D3) 50 2,000 unit PO DAILY 07/03/21 07/03/21 History mcg (2,000 unit) capsule (Vitamin D3) escitalopram oxalate 10 mg tablet 10 mg PO DAILY 07/03/21 07/03/21 History famotidine 20 mg tablet 20 mg PO HS 07/03/21 07/03/21 History ondansetron HCl 8 mg tablet 8 mg PO Q8 PRN 07/03/21 07/03/21 History prochlorperazine maleate 10 mg 10 mg PO Q6 PRN 07/03/21 07/03/21 History tablet Patient History Medical History Acid reflux Anemia Aortic stenosis Aortic valve disorder BPH (benign prostatic hyperplasia) CKD (chronic kidney disease), stage III High cholesterol Hypertension Pancreatic neoplasm TIA (transient ischemic attack) Surgical History H/O aortic valve replacement 10/18/2019-prosthetic valve at [facility] [place] History of cardiac catheterization Family History Mother Breast cancer Social History Smoking Status: Never smoker Second Hand Exposure: No; Hx Alcohol Use: No Hx Substance Use: No Preferred Language: Hebrew Communication Ability: Effective Topstitcher Zigzag Required: No Beliefs That Will Affect Care: None marital status: Current Living Situation: Spouse How many Children do You have: 2 Other Information That Helps Us Care for You: No Feels Safe at Home: Yes Assistive Devices: Glasses Assistive Devices Comment: Teeth Implants Review of Systems Review of Systems: ROS: Gen: +weakness, No fevers, + weight loss Eyes: No eye redness, or pain, no recent vision changes Resp: No SOB, no cough Cardio: No palpitations/irregular beats, no chest pain GI: as per HPI, otherwise (-) : Denies pain on urination Skin: No jaundice, itching or new rashes Physical Exam Constitutional: well developed, + ill appearing, + thin and cooperative Eyes: PERRL, conjunctivae normal, anicteric sclerae ENMT: external ear and nose normal, oropharynx normal Neck: trachea midline, no thyromegaly Respiratory: normal respiratory effort, lungs clear to auscultation Cardiovascular: RRR, no murmur, no edema Gastrointestinal (Abdomen): Inspection/Auscultation: abdomen normal to inspection and + hypoactive bowel sounds; abdomen not distended and no abdominal edema Percussion/Palpation: + abdomen tender (diffuse) and abdomen soft Skin: no rashes, warm and dry normal turgor and + pallor Neurologic: PERRL, EOMI, accommodation nl, no face palsy, no dysarthria awake; not confused Psychiatric: A+Ox3, euthymic affect Results & Data ([facility]) Vital Signs (Past 12 Hours) Vital Signs Temp Pulse Pulse Resp BP BP Pulse Ox 07/06/21 07:00 37.0 C 77 18 129/72 98 07/06/21 03:36 36.9 C 74 16 115/52 L 96 07/05/21 22:40 36.9 C 68 16 114/67 100 07/05/21 22:23 70 Laboratory Results WBC 11, Hb 8.4, HCT 25.4, PLT S 63, NA 138, K3.9, CL 113, CO2 19, BUN 21, CR 1.24 T bili 0.8, AST 28, ALT 35, alkaline phosphatase 352, lipase 8 Diagnostic Findings non contrast CTAP 07/03/21: 1. Mass of the pancreatic head measuring over 3 cm is redemonstrated resulting in upstream pancreatic ductal dilation. Pancreatic adenocarcinoma is the diagnosis of exclusion. 2. Multifocal hepatic metastasis redemonstrated. 3. Cholelithiasis with partial distention of the gallbladder. There is gallbladder wall thickening with pericholecystic edema and trace free fluid within the crispin hepatis. Correlate clinically to exclude acute cholecystitis. 4. Mild wall thickening of the hepatic flexure is likely reactive. A nonspecific colitis is considered less likely. 5. Nonobstructing bilateral nephrolithiasis. 6. Prostamegaly with evidence of chronic bladder outlet obstruction. CXR 07/03/21: No acute process. HIDA 07/06/21: 1. There is no scintigraphic evidence of acute cholecystitis. 2. The gallbladder ejection fraction measured 40% which is normal. 3. There is delayed and heterogeneous hepatic uptake, likely related to hepatic metastatic disease seen by CT. (1) Anemia Anemia type: unspecified type Qualified Code(s): D64.9 - Anemia, unspecified
[2021-07-06] MEDS ORDERED: SINCALIDE 1.4 MCG in 0.9 % SODIUM CHLORIDE 100 ML IV ONE (10:45)
--- NOTE | 2021-07-06 12:17 | Nuclear Medicine Report ---
NUCLEAR HEPATOBILIARY SCAN WITH EJECTION FRACTION IMAGING CLINICAL HISTORY: Right upper quadrant abdominal pain. COMPARISON STUDY: Abdominal CT dated 07/03/2021. TECHNIQUE: Dynamic images of the liver and anterior abdomen were obtained every 5 minutes for a total of 60 minutes following the IV administration of 5.3 mCi of technetium 99m Mebrofenin. 1.4 mcg of sincalide was then injected with additional images acquired every 5 minutes for 45 minutes to calcula te the gallbladder ejection fraction. FINDINGS: The hepatobiliary scan slightly delayed and heterogeneous hepatic uptake. There is visualiz ed activity within the intra and extrahepatic biliary tree at 20 minutes, and within the gallbladder at 25 minutes. There is slightly delayed biliary to bowel transit, with small bowel visualized by 75 minutes. On the sincalide imaging, the gallbladder ejection fraction was measured at 40%. IMPRESSION: 1. There is no scintigraphic evidence of acute cholecystitis. 2. The gallbladder ejection fraction measured 40% which is normal. 3. There is delayed and heterogeneous hepatic uptake, likely related to hepatic metastatic disease se en by CT. ACT 112: Negative or not required by law. Electronically signed by: Meliton Mixon M.D. 07/06/2021 12:16 PM
[2021-07-06] MEDS: SODIUM CHLORIDE 0.9% 1000ML 1,000 ML IV SCH (12:22)
--- NOTE | 2021-07-06 13:22 | Hospitalist Progress Note ---
Date of Service July 06, 2021 Assessment & Plan (1) Weakness: Plan: per admittins service notes with addendum: Patient is 81-year-old female with PMH HTN, HLD, TIA, CKD III, PAF on Eliquis, aortic stenosis s/p aortic valve replacement with prosthetic valve and 2020, chronic anemia, newly diagnosed pancreatic adenocarcinoma with liver mets presented to ER with complaint of weakness today. Has been having poor oral intake. Today in warm shower bilateral legs felt weak. Generalized weakness secondary to Anemia, likely acute blood loss, possibly from liver biopsy during endoscopic ultrasound Acute cholecystitis ruled out FOBT: Positive check anemia panel: Reviewed Status post 2 units of packed RBCs Hemoglobin improved from 6.4- 8.4 Transitioned from Protonix drip to IV push twice a day Discussed with GI, given elevation of BUN, patient may have had bleeding from liver biopsy during EUS, which has since resolved Continue to monitor hemoglobin, advance diet today AST/ALT, Kaushal stable at this time Acute Cholecystitis unlikely per Gen Surg HIDA scan: Negative Zosyn discontinued monitor closely CT Abd/pelvis: 1. Mass of the pancreatic head measuring over 3 cm is redemonstrated resulting in upstream pancreatic ductal dilation. Pancreatic adenocarcinoma is the diagnosis of exclusion. 2. Multifocal hepatic metastasis redemonstrated. 3. Cholelithiasis with partial distention of the gallbladder. There is gallbladder wall thickening with pericholecystic edema and trace free fluid within the crispin hepatis. Correlate clinically to exclude acute cholecystitis. 4. Mild wall thickening of the hepatic flexure is likely reactive. A nonspecific colitis is considered less likely. Pancreatic cancer Recently diagnosed adenocarcinoma with liver metastasis Patient following with [facility] hematology/oncology-Dr. Terrell. Patient is to soon start palliative chemotherapy. No radiation or surgery treatment was recommended. He is to have port placed in the near future. Elevated troponin: Troponin 0 0.05. EKG without acute ST changes Denies chest pain, shortness of breath troponin 2nd and 3rd set negative repeat EKG: Pending Paroxysmal atrial fibrillation usually On Eliquis Current sinus rhythm Eliquis has been on hold secondary to EUS and biopsy on 07/02/2021. Patient was instructed to resume Eliquis on evening of 07/04/2021 Not on any rate control medication 07/05 hold Eliquis in light of anemia, possible GI bleed x4 more days per Dr. Rocío Devine History TIA Hold ASA x4 more days HTN Hold spironolactone due to low BP HLD Continue pravastatin CKD III Cr: 1.46. Baseline~1.6 per outpatient lab review crea at baseline BPH Continue tamsulosin Depression Recently prescribed Lexapro, continue Denies suicidal, homicidal ideations DVT Prophylaxis SCDs Full Code as per discussion with pt Disposition pending PT/OT plan of care discussed with patient in detail and at length all questions answered he is understanding, agreeable, comfortable with the plan of care Admission and Anticipated Discharge Date Admission Date: July 03, 2021 Subjective Follow-up for weakness, anemia, following endoscopic ultrasound with liver biopsy, etc. Seen sitting up in chair, comfortable, not in distress States he feels improved overall No dizziness, recurrence of presyncope Denies chest pain, shortness of breath No abdominal pain, nausea vomiting, fevers or chills No melena hematochezia No other symptoms Review of Systems Review of Systems: all noted and negative except for above Physical Exam Physical Exam: General- oriented x 3, not in distress, speaks in sentences with no effort or accessory muscle use Eyes- anicteric Neck- no JVD Lungs- clear breath sounds, no crackles or wheezing bilaterally Heart- normal rate, regular rhythm; no murmurs Abdomen- normal bowel sounds, nondistended, soft, nontender No right upper quadrant tenderness Extremities- no pretibial edema, no calf tenderness Neuro- alert, oriented x 3; no gross focal neurologic deficits Skin- warm & dry Results & Data Results & Data ([facility]) Vital Signs (Past 12 Hours) Vital Signs Temp Pulse Pulse Resp BP BP Pulse Ox 07/06/21 09:00 74 07/06/21 07:00 37.0 C 77 18 129/72 98 07/06/21 03:36 36.9 C 74 16 115/52 L 96 all noted and reviewed including below
[2021-07-06] MEDS: TAMSULOSIN HCL 0.4 MG CAP PO SCH (20:43)
[2021-07-06] MEDS: FAMOTIDINE 20 MG TAB PO SCH (20:43)
[2021-07-07] MEDS: ESCITALOPRAM OXALATE 10 MG TAB PO SCH (07:31)
[2021-07-07] MEDS: PRAVASTATIN SOD 20 MG TAB PO SCH (07:31)
[2021-07-07] MEDS: SACCHAROMYCES BOULARDII 250 MG CAP PO SCH (07:31)
[2021-07-07] MEDS: PANTOprazole 40 MG in SYRINGE 0 ML IV SCH (07:32)
[2021-07-07] MEDS: CEROVITE ADV FORMULA TAB PO SCH (07:32)
[2021-07-07] MEDS: SODIUM CHLORIDE 0.9% 1000ML 1,000 ML IV SCH (07:34)
[2021-07-07 09:15] LABS: Hematocrit (blood only) 26.7 % (42-52); Hemoglobin 8.8 g/dL (14.0-18.0); Mean Corpuscular Hemoglobin 29.9 pg (25-34); Mean Corpuscular Volume 90.8 fL (80-100); RDW Standard Deviation 51.2 fL (36.4-46.3); Red Blood Count 2.94 M/uL (4.7-6.1); White Blood Count 12.39 K/uL (4.8-10.8)
[2021-07-07 09:21] LABS: Basophils # (auto) 0.01 K/uL (0-0.2); Basophils % (auto) 0.1 %; Eosinophils # (auto) 0.14 K/uL (0-0.5); Eosinophils % (auto) 1.1 %; Immature Granulocytes % (auto) 0.8 %; Lymphocytes # (auto) 1.06 K/uL (1.2-3.4); Lymphocytes % (auto) 8.6 %; Mean Platelet Volume 11.1 fL (7.4-10.4); Monocytes # (auto) 0.42 K/uL (0.11-0.59); Monocytes % (auto) 3.4 %; Neutrophils # (auto) 10.66 K/uL (1.4-6.5); Platelet Count 62 K/uL (130-400)
[2021-07-07 09:38] LABS: ALC (manual) 0.64 K/uL (1.2-3.4); ANC (manual) 10.88 K/uL (1.4-6.5); Basophils # (manual) 0.11 K/uL (0-0.2); Basophils % (manual) 0.9 %; Echinocytes 1+; Eosinophils # (manual) 0.21 K/uL (0-0.5); Eosinophils % (manual) 1.7 %; Lymphocytes # (manual) 0.64 K/uL (1.2-3.4); Lymphocytes % (manual) 5.2 %; Monocytes # (manual) 0.43 K/uL (0.11-0.59); Monocytes % (manual) 3.5 %; Myelocytes # (manual) 0.11 K/uL (0-0); Myelocytes % (manual) 0.9 %; Neutrophils # (manual) 10.88 K/uL (1.4-6.5); Neutrophils % (manual) 87.8 %; Polychromasia 1+
[2021-07-07 09:40] LABS: BUN Creatinine Ratio 16.8 (10-20); Calcium 8.5 mg/dl (8.5-10.1); Creatinine Clr Calc Pharmacy 45.9 ml/min; Est GFR (African American) 69.3 ml/min; Est GFR (Non-African American) 59.8 ml/min; Potassium 3.7 mmol/L (3.5-5.1)
--- NOTE | 2021-07-07 10:48 | Electrocardiogram Report ---
Test Reason : Blood Pressure : / mmHG Vent. Rate : 071 BPM Atrial Rate : 071 BPM P-R Int : 258 ms QRS Dur : 078 ms QT Int : 426 ms P-R-T Axes : 074 022 001 degrees QTc Int : 462 ms Sinus rhythm with 1st degree A-V block Otherwise normal ECG When compared with ECG of 04-JUL-2021 05:56, Criteria for Septal infarct are no longer Present Confirmed by Dangelo Rodriguez ([id number]) on 07/07/2021 10:48:03 AM Referred By: REFERRED SELF Confirmed By:Chris Rodriguez
--- NOTE | 2021-07-07 11:26 | Hospitalist Progress Note ---
Date of Service July 07, 2021 Assessment & Plan (1) Weakness: Plan: per admittins service notes with addendum: Patient is 81-year-old female with PMH HTN, HLD, TIA, CKD III, PAF on Eliquis, aortic stenosis s/p aortic valve replacement with prosthetic valve and 2020, chronic anemia, newly diagnosed pancreatic adenocarcinoma with liver mets presented to ER with complaint of weakness today. Has been having poor oral intake. Today in warm shower bilateral legs felt weak. Generalized weakness secondary to Anemia, likely acute blood loss, possibly from liver biopsy during endoscopic ultrasound Acute cholecystitis ruled out FOBT: Positive anemia panel: Reviewed Status post 2 units of packed RBCs Hemoglobin improved from 6.4- 8.4 Transitioned from Protonix drip to IV push twice a day Discussed with GI, given elevation of BUN, patient may have had bleeding from liver biopsy during EUS, which has since resolved Continue to monitor hemoglobin, advance diet today AST/ALT, Kaushal stable at this time Acute Cholecystitis unlikely per Gen Surg HIDA scan: Negative Zosyn discontinued monitor closely CT Abd/pelvis: 1. Mass of the pancreatic head measuring over 3 cm is redemonstrated resulting in upstream pancreatic ductal dilation. Pancreatic adenocarcinoma is the diagnosis of exclusion. 2. Multifocal hepatic metastasis redemonstrated. 3. Cholelithiasis with partial distention of the gallbladder. There is gallbladder wall thickening with pericholecystic edema and trace free fluid within the crispin hepatis. Correlate clinically to exclude acute cholecystitis. 4. Mild wall thickening of the hepatic flexure is likely reactive. A nonspecific colitis is considered less likely. hg stable around 8 after 2 units pRBC transfusion tolerating diet well ambulating better overall d/c home today ff up with PCP in 1 week Thrombocytopenia from bleeding, underlying metastatic CA? Plt stable around 60s-70s repeat CBC on 07/09, prior to Port placement on 07/[address] Hicks (IR), he said Plt 60s-70s for port placement is ok hold Eliquis and ASA x 4 more day Pancreatic cancer Recently diagnosed adenocarcinoma with liver metastasis Port placement plans per #1 Patient following with hematology/oncology-Dr. Terrell. Patient is to soon start palliative chemotherapy. No radiation or surgery treatment was recommended. discussed with Dr. Terrell Elevated troponin: Troponin 0 0.05. EKG without acute ST changes Denies chest pain, shortness of breath troponin 2nd and 3rd set negative Paroxysmal atrial fibrillation usually On Eliquis Current sinus rhythm Eliquis has been on hold secondary to EUS and biopsy on 07/02/2021. Patient was instructed to resume Eliquis on evening of 07/04/2021 Not on any rate control medication 07/06 held Eliquis and ASA in light of anemia, possible GI bleed; hold Eliquis and ASA x4 more days per Dr. Rocío Devine History TIA Hold ASA x4 more days HTN Hold spironolactone due to low BP resume if with leg swelling ff up with PCP HLD Continue pravastatin CKD III Cr: 1.46. Baseline~1.6 per outpatient lab review crea at baseline BPH Continue tamsulosin Depression Recently prescribed Lexapro, continue Denies suicidal, homicidal ideations DVT Prophylaxis SCDs Full Code as per discussion with pt Disposition d/c home today ff up with PCP in 1 week ff up with Oncologist next week as scheduled plan of care discussed with patient in detail and at length all questions answered he is understanding, agreeable, comfortable with the plan of care Admission and Anticipated Discharge Date Admission Date: July 03, 2021 Subjective ff up for weakness, anemia, etc seen resting in bed, comfortable states he feels much better overall denies abdominal pain,nausea, fever/chills no chest pain, dyspnea, palpitations, dizziness ambulated in the hallways with no problems states he is ready for discharge today no other symptoms Review of Systems Review of Systems: all noted and negative except for above Physical Exam Physical Exam: General- oriented x 3, not in distress, speaks in sentences with no effort or accessory muscle use Eyes- anicteric Neck- no JVD Lungs- clear breath sounds bilaterally Heart- normal rate, regular rhythm; no murmurs Abdomen- normal bowel sounds, nondistended, soft, nontender Extremities- no pretibial edema, no calf tenderness Neuro- alert, oriented x 3; no gross focal neurologic deficits Skin- warm & dry Results & Data Results & Data ([facility]) Vital Signs (Past 12 Hours) Vital Signs Temp Pulse Pulse Resp BP Pulse Ox 07/07/21 11:12 36.9 C 68 18 135/67 97 07/07/21 07:12 77 07/07/21 07:01 37.1 C 128 H 24 129/65 97 07/07/21 03:33 37.0 C 81 20 108/61 97 all noted and reviewed including below
--- NOTE | 2021-07-07 11:51 | Discharge Summary ---
Date of Service July 07, 2021 Admission HPI Per Admitting Provider Patient is 81-year-old female with PMH HTN, HLD, TIA, CKD III, PAF on Eliquis, aortic stenosis s/p aortic valve replacement with prosthetic valve and 2020, chronic anemia, newly diagnosed pancreatic adenocarcinoma with liver mets presented to ER with complaint of weakness today. Patient had endoscopy ultrasound and biopsy done yesterday 07/02/[address] Arteaga. Reports was feeling fine after procedure yesterday evening. States this morning he woke up and had some difficulty urinating. States he overall felt "wiped out" and generalized weakness. Reports he got in the hot shower and while in shower he felt like his legs were weak so called for help to get out of the shower. Denies any dizziness, lightheadedness, syncope, fall. Patient reports has had poor appetite and oral intake for several weeks Did not eat or drink today. He reports intermittent pain to right lateral ribs that has been ongoing for several weeks, denies any increased pain. Patient denies any other abdominal pain, nausea, vomiting, diarrhea. Last bowel movement 2 days ago. Denies diaphoresis, BOLES, vision changes, neck pain, CP, SOB, orthopnea, palpitations, cough, sore throat, choking, otalgia, rhinorrhea, extremity edema, rashes, dysuria, urinary frequency, hematuria. Admission Exam Per Admitting Provider General: no distress, WDWN Head: normocephalic, atraumatic Eyes: PERRL, EOM's intact, conjunctiva non-injected, anicteric ENT: normal inspection external ears, nose, mucous membranes dry Neck: supple, trachea midline Lungs: clear, no respiratory distress, no wheezing/rhonchi/rales CV: RRR, no pretibial edema Abd: normal BS, soft, non-tender to palpation, no RUQ tenderness to palpation Ext: no cyanosis, no calf tenderness Neuro: A&O x 3, no focal deficits noted, normal affect Skin: warm, dry Principal Diagnosis GENERALIZED WEAKNESS SECONDARY TO ANEMIA Discharge Exam General- oriented x 3, not in distress, speaks in sentences with no effort or accessory muscle use Eyes- anicteric Neck- no JVD Lungs- clear breath sounds bilaterally Heart- normal rate, regular rhythm; no murmurs Abdomen- normal bowel sounds, nondistended, soft, nontender Extremities- no pretibial edema, no calf tenderness Neuro- alert, oriented x 3; no gross focal neurologic deficits Skin- warm & dry Discharge Data Allergies Allergy/AdvReac Type Severity Reaction Status Date / Time shellfish derived AdvReac Hives Unverified 07/03/21 16:24 Consultations 07/03/21 16:04 ED Decision to Admit Stat 07/03/21 19:53 Consult General Surgery Routine 07/06/21 09:28 Consult Gastroenterology Routine Ordered Studies 07/03/21 14:11 CT abd pelvis wo con Stat ABDOMEN AND PELVIS CT WITHOUT CONTRAST CT DOSE: 417.25 mGycm HISTORY: Acute right-sided flank pain and patient with a pancreatic mass and hepatic metastasis right flank pain TECHNIQUE: Multiaxial CT images of the abdomen and pelvis were performed without contrast. A dose lowering technique was utilized adhering to the principles of ALARA. COMPARISON STUDY: CT abdomen and pelvis 06/17/2021 FINDINGS: Prior median sternotomy with extensive coronary artery calcifications. Clear lung bases. No pneumatosis or pneumoperitoneum. Limited study without the use of contrast and respiratory motion artifact. The unenhanced spleen and adrenal glands are unremarkable. Multifocal hepatic metastasis are stable from prior. 5 cm left hepatic lobe cyst. Gallbladder is mildly contracted. Gallbladder wall thickening with pericholecystic edema and cholelithiasis. Mass of the pancreatic head redemonstrated measuring approximately 3.4 cm. There is upstream pancreatic biliary ductal dilation with atrophy. Prominent lymph nodes within the crispin hepatis. Mild nonspecific bilateral perinephric stranding. 5 mm nonobstructing calculus of the superior pole left kidney. Linear nonobstructing calculi of the inferior pole left kidney. 3.2 cm left renal cyst. No ureteral calculi or hydronephrosis. Prostamegaly. Mild urinary bladder wall thickening with left posterolateral 3 cm diverticulum suggestive of chronic bladder outlet obstruction. Atherosclerosis of the aorta without aneurysm. Tiny hiatal hernia. Mild wall thickening of the stomach with partial distention. No bowel obstruction. Colonic diverticulosis. Circumferential wall thickening of the hepatic flexure. Mild wall thickening is also noted involving the ascending colon. No CT evidence of acute appendicitis. Gynecomastia. Unremarkable soft tissues. No acute fracture. IMPRESSION: 1. Mass of the pancreatic head measuring over 3 cm is redemonstrated resulting in upstream pancreatic ductal dilation. Pancreatic adenocarcinoma is the diagnosis of exclusion. 2. Multifocal hepatic metastasis redemonstrated. 3. Cholelithiasis with partial distention of the gallbladder. There is gallbladder wall thickening with pericholecystic edema and trace free fluid within the crispin hepatis. Correlate clinically to exclude acute cholecystitis. 4. Mild wall thickening of the hepatic flexure is likely reactive. A nonspecific colitis is considered less likely. 5. Nonobstructing bilateral nephrolithiasis. 6. Prostamegaly with evidence of chronic bladder outlet obstruction. ACT 112: Negative or not required by law. NUCLEAR HEPATOBILIARY SCAN WITH EJECTION FRACTION IMAGING CLINICAL HISTORY: Right upper quadrant abdominal pain. COMPARISON STUDY: Abdominal CT dated 07/03/2021. TECHNIQUE: Dynamic images of the liver and anterior abdomen were obtained every 5 minutes for a total of 60 minutes following the IV administration of 5.3 mCi of technetium 99m Mebrofenin. 1.4 mcg of sincalide was then injected with additional images acquired every 5 minutes for 45 minutes to calculate the gallbladder ejection fraction. FINDINGS: The hepatobiliary scan slightly delayed and heterogeneous hepatic uptake. There is visualized activity within the intra and extrahepatic biliary tree at 20 minutes, and within the gallbladder at 25 minutes. There is slightly delayed biliary to bowel transit, with small bowel visualized by 75 minutes. On the sincalide imaging, the gallbladder ejection fraction was measured at 40%. IMPRESSION: 1. There is no scintigraphic evidence of acute cholecystitis. 2. The gallbladder ejection fraction measured 40% which is normal. 3. There is delayed and heterogeneous hepatic uptake, likely related to hepatic metastatic disease seen by CT. ACT 112: Negative or not required by law. Hospital Course (1) Weakness: per admittins service notes with addendum: Patient is 81-year-old female with PMH HTN, HLD, TIA, CKD III, PAF on Eliquis, aortic stenosis s/p aortic valve replacement with prosthetic valve and 2020, chronic anemia, newly diagnosed pancreatic adenocarcinoma with liver mets presented to ER with complaint of weakness today. Has been having poor oral intake. Today in warm shower bilateral legs felt weak. Generalized weakness secondary to Anemia, likely acute blood loss, possibly from liver biopsy during endoscopic ultrasound Acute cholecystitis ruled out FOBT: Positive anemia panel: Reviewed Status post 2 units of packed RBCs Hemoglobin improved from 6.4- 8.4 Transitioned from Protonix drip to IV push twice a day Discussed with GI, given elevation of BUN, patient may have had bleeding from liver biopsy during EUS, which has since resolved Continue to monitor hemoglobin, advance diet today AST/ALT, Kaushal stable at this time Acute Cholecystitis unlikely per Gen Surg HIDA scan: Negative Zosyn discontinued monitor closely CT Abd/pelvis: 1. Mass of the pancreatic head measuring over 3 cm is redemonstrated resulting in upstream pancreatic ductal dilation. Pancreatic adenocarcinoma is the diagnosis of exclusion. 2. Multifocal hepatic metastasis redemonstrated. 3. Cholelithiasis with partial distention of the gallbladder. There is gallbladder wall thickening with pericholecystic edema and trace free fluid within the crispin hepatis. Correlate clinically to exclude acute cholecystitis. 4. Mild wall thickening of the hepatic flexure is likely reactive. A nonspecific colitis is considered less likely. hg stable around 8 after 2 units pRBC transfusion tolerating diet well ambulating better overall d/c home today ff up with PCP in 1 week Thrombocytopenia from bleeding, underlying metastatic CA? Plt stable around 60s-70s repeat CBC on 07/09, prior to Port placement on 07/[address] Hicks (IR), he said Plt 60s-70s for port placement is ok hold Eliquis and ASA x 4 more day Pancreatic cancer Recently diagnosed adenocarcinoma with liver metastasis Port placement plans per #1 Patient following with hematology/oncology-Dr. Terrell. Patient is to soon start palliative chemotherapy. No radiation or surgery treatment was recommended. discussed with Dr. Terrell Elevated troponin: Troponin 0 0.05. EKG without acute ST changes Denies chest pain, shortness of breath troponin 2nd and 3rd set negative Paroxysmal atrial fibrillation usually On Eliquis Current sinus rhythm Eliquis has been on hold secondary to EUS and biopsy on 07/02/2021. Patient was instructed to resume Eliquis on evening of 07/04/2021 Not on any rate control medication 07/06 held Eliquis and ASA in light of anemia, possible GI bleed; hold Eliquis and ASA x4 more days per Dr. Rocío Devine History TIA Hold ASA x4 more days HTN Hold spironolactone due to low BP resume if with leg swelling ff up with PCP HLD Continue pravastatin CKD III Cr: 1.46. Baseline~1.6 per outpatient lab review crea at baseline BPH Continue tamsulosin Depression Recently prescribed Lexapro, continue Denies suicidal, homicidal ideations DVT Prophylaxis SCDs Full Code as per discussion with pt Disposition d/c home today ff up with PCP in 1 week ff up with Oncologist next week as scheduled plan of care discussed with patient in detail and at length all questions answered he is understanding, agreeable, comfortable with the plan of care Total Time Total Time Spent Total Time Spent (In Minutes): >30 MINUTES Discharge Plan Discharge Items Patient Disposition: Home - Home Health Services Reason For Visit: WEAKNESS Discharge Diagnosis: GENERALIZED WEAKNESS, SECONDARY TO ANEMIA Activity: Resume your previous activity Activity Comment: ALWAYS BE CAREFUL AMBULATING TO PREVENT FALLS Lifting: Wait until after follow-up appointment Exercise/Sports: Wait until after follow-up appointment Driving/Machine Use: NO DRIVING UNTIL RE-EVALUATED AND ALLOWED BY PRIMARY CARE PHYSICIAN Non-emergency contact: Primary Care Provider Call non-emergency contact if: you have any medication questions, your symptoms worsen, your pain is not controlled, your pain is worsening, your pain is unusual for you, your pain is concerning for you and you have a fever Follow-up/Referrals: Tomer Lemons, DO [Primary Care Provider] - Diet: Regular Addtl Attending Provider Instructions: HOLD ELIQUIS AND ASPIRIN FOR UNTIL JULY 11, 2021 PER [facility] TECHNICIAN. DISCONTINUE SPIRONOLACTONE. RESUME NEEDED FOR LEG SWELLING. PLEASE CALL YOUR PRIMARY CARE PHYSICIAN OR RETURN TO THE ER IF WITH WORSENING OF SYMPTOMS, INCLUDING weakness, shortness of breath, black or bloody stools, abdominal pain, nausea/vomiting. PLEASE COME TO [facility] FOR [facility]- CBC- ON JULY 09, 2021. FOLLOW UP WITH PRIMARY CARE PHYSICIAN in 1 week as outlined above. PORT PLACEMENT SCHEDULED FOR JULY 10, 2021. FOLLOW UP WITH DR. TIEN TERRELL NEXT WEEK SCHEDULED. Pending Studies at Discharge: Yes Studies:: REPEAT BLOODWORK- CBC ON FRIDAY JULY 09, 2021 Stand-Alone Forms: My [employer], Smoking Cessation Medications and DC Order Prescriptions: New Cerovite Senior Tablet 1 tab PO QAM Qty: 30 RF: 0 Continued tamsulosin 0.4 mg capsule 0.4 mg PO HS RF: 0 pravastatin 20 mg tablet 20 mg PO DAILY RF: 0 escitalopram oxalate 10 mg tablet 10 mg PO DAILY RF: 0 ondansetron HCl 8 mg tablet 8 mg PO Q8 PRN (Reason: Nausea) RF: 0 prochlorperazine maleate 10 mg tablet 10 mg PO Q6 PRN (Reason: Nausea) RF: 0 famotidine 20 mg Tablet 20 mg PO HS RF: 0 cholecalciferol (vitamin D3) [Vitamin D3] 50 mcg (2,000 unit) Capsule 2,000 unit PO DAILY RF: 0 Discontinued aspirin 81 mg Tablet,Delayed Release (Dr/Ec) 81 mg PO DAILY RF: 0 spironolactone 25 mg tablet 25 mg PO DAILY RF: 0 Eliquis 2.5 mg tablet 2.5 mg PO BID RF: 0 Discharge Orders: Discharge Order (Routine); Ordered 07/07/21 Ordered By: Fabian Clark Admission Data Admit Date/Time: 07/03/21 17:18 Attending Provider: Fabian Clark Admit Provider: Simeon Cervantes Primary Care Provider: Tomer Lemons Other Providers: Jaskaran Del Real ; Simeon Cervantes ; Jeannette Arevalo ; Norbert Arteaga
== END 2021-07-07 17:09 | disposition home health service (06) | DRG 812 ==
LOC: ED 12:34 → SUATTDRO 17:18 → 2N 17:18

== ENCOUNTER 2021-08-16 13:10 | Inpatient (IN) ==
[2021-08-16 14:58] LABS: Mean Corpuscular Hgb Conc 31.7 g/dL (32-36)
[2021-08-16 15:07] LABS: INR 1.9 (0.9-1.1); Partial Thromboplastin Ratio 1.4; Prothrombin Time 19.5 Seconds (9.0-12.0)
[2021-08-16 15:21] LABS: Alanine Aminotransferase 40 U/L (7-52); Albumin Globulin Ratio 1.7 (0.9-2); Albumin Level 2.9 gm/dl (3.4-5.0); Alkaline Phosphatase 680 U/L (34-104); Anion Gap 6 (3-11); Aspartate Aminotransferase 38 U/L (13-39); BUN Creatinine Ratio 18.5 (10-20); Bilirubin,Total 1.7 mg/dl (0.2-1.0); Blood Urea Nitrogen 23 mg/dl (6-23); Calcium 8.6 mg/dl (8.5-10.1); Carbon Dioxide 23 mmol/L (21-32); Chloride 110 mmol/L (98-107); Est GFR (African American) 61.9 ml/min; Est GFR (Non-African American) 53.4 ml/min; Globulin 1.7 gm/dl (2.5-4.0); Glucose 133 mg/dl (70-99(Fasting)); Potassium 4.2 mmol/L (3.5-5.1); Sodium 139 mmol/L (136-145); Total Protein 4.6 gm/dl (6.0-8.3)
[2021-08-16 15:47] LABS: Hematocrit (blood only) 26.2 % (42-52); Hemoglobin 8.3 g/dL (14.0-18.0); Mean Corpuscular Volume 94.6 fL (80-100); RDW Coefficient of Variation 18.9 % (11.5-14.5); RDW Standard Deviation 64.6 fL (36.4-46.3); Red Blood Count 2.77 M/uL (4.7-6.1); White Blood Count 13.76 K/uL (4.8-10.8)
[2021-08-16 15:48] LABS: Basophils # (auto) 0.03 K/uL (0-0.2); Basophils % (auto) 0.2 %; Eosinophils # (auto) 0.46 K/uL (0-0.5); Eosinophils % (auto) 3.3 %; Giant Platelets 1+; Hypochromasia Present; Immature Granulocytes # (auto) 0.06 K/uL (0.00-0.02); Immature Granulocytes % (auto) 0.4 %; Lymphocytes # (auto) 1.62 K/uL (1.2-3.4); Lymphocytes % (auto) 11.8 %; Monocytes # (auto) 0.26 K/uL (0.11-0.59); Monocytes % (auto) 1.9 %; Neutrophils # (auto) 11.33 K/uL (1.4-6.5); Neutrophils % (auto) 82.4 %; Platelet Count 54 K/uL (130-400); Platelet Estimate Decreased (Normal)
--- NOTE | 2021-08-16 15:59 | Ultrasound Report ---
ULTRASOUND BILATERAL LOWER EXTREMITY VENOUS CLINICAL HISTORY: Leg pain and swelling COMPARISON STUDY: Bilateral lower extremity venous ultrasound dated 07/15/2021. TECHNIQUE: Real-time, grayscale, and color Doppler sonography of the deep veins of the right and left lower extremity was performed from the inguinal crease to the calf. Compression and augmentation wer e utilized. FINDINGS: Right lower extremity: There is acute appearing nonocclusive deep venous thrombosis in the right comm on femoral vein. Nonocclusive chronic appearing deep venous thrombosis is seen in the proximal and di stal portions of the superficial femoral vein. Occlusive deep venous thrombosis is noted in popliteal vein. Nonocclusive deep venous thrombosis in the right calf is present within the anterior tibial an d peroneal veins. Occlusive superficial venous thrombosis is present in the profunda femoris vein at the junction with the common femoral vein. The greater saphenous vein at the junction with the common femoral vein appears patent. Left lower extremity: There is age indeterminant nonocclusive deep venous thrombosis identified in th e left common femoral vein. The superficial femoral and popliteal veins are patent and normally compr essible. Superficial venous thrombus is seen within the profunda femoris vein. The greater saphenous vein at the junction with the common femoral vein appear clear. There is occlusive deep venous thromb osis identified in the calf within 1 of the posterior tibial veins. The remaining calf vessels are cl ear as imaged. IMPRESSION: Superficial and deep venous thrombosis is present in both legs as detailed above. ACT 112: Negative or not required by law. Electronically signed by: Meliton Mixon M.D. 08/16/2021 3:57 PM
[2021-08-16] MEDS ORDERED: SODIUM CHLORIDE 0.9% 1000ML 500 ML IV ONE (16:13)
[2021-08-16] MEDS ORDERED: PANTOprazole 40 MG in SYRINGE 0 ML IV ONE (16:16)
[2021-08-16] MEDS ORDERED: FAMOTIDINE 20MG IV PUSH 20 MG/5 ML SYR IV STA (16:16)
--- NOTE | 2021-08-16 16:27 | Emergency Department Note ---
Impression & Plan Anemia, Thrombocytopenia, DVT (deep venous thrombosis), Acute GI bleeding ED Provider Note NAME: SHERWIN CRAFT AGE: 81 SEX: M : 1940 ARRIVES VIA: Walk-In INFORMANT: Patient, ED PROVIDER(S): Charlie Servin DO CHIEF COMPLAINT: Swelling HPI: The patient is an 81-year-old male who presented to the emergency department for an evaluation of generalized weakness. He also noticed swelling in his legs. He has had trouble ambulating because of generalized weakness. He does have a history of metastatic pancreatic cancer. The patient has a history of DVT. His Eliquis dose was recently decreased because he was found to be thrombocytopenic. He is noticed generalized weakness leg swelling and difficulty ambulating. The patient had Dopplers done from triage which showed persistence of DVT as well as superficial thrombophlebitis. The patient also reports has had dark stool intermittently. The patient denies having any fever. He denies having any coughing. He has noticed some shortness of breath especially with ambulation. The patient states his symptoms were moderate to severe and worsened with any ambulation. ROS: See above HPI for pertinent positives & negatives. A total of 10 systems reviewed and were otherwise negative. PAST MEDICAL HISTORY: See Below PAST SURGICAL HISTORY: See Below FAMILY HISTORY: See Below SOCIAL HISTORY: See Below HOME MEDICATIONS: See Below ALLERGIES: See Below VITALS: See Below PHYSICAL EXAMINATION: GENERAL: The patient is listless and slow to respond to questioning. EYES: The conjunctivae are clear. The pupils are round and reactive. EARS, NOSE, MOUTH AND THROAT: The nose is without any evidence of any deformity. NECK: The neck is nontender and supple. RESPIRATORY: Normal respiratory effort is noted there is no evidence of wheezing rhonchi or rales CARDIOVASCULAR: Regular rate and rhythm noted there no murmurs rubs or gallops normal S1 normal S2. GASTROINTESTINAL: The abdomen is soft. Abdomen is nontender. Rectal exam revealed dark stool which was heme positive. MUSCULOSKELETAL/EXTREMITIES: There is no evidence of gross deformity full range of motion is noted in the hips and shoulders. SKIN: Skin was warm and dry. There is pedal edema bilaterally. Pulses were symmetric in both feet. NEUROLOGIC: Patient is awake alert and oriented x3. MEDICAL DECISION MAKING: The patient is an 81-year-old male who presented to the emergency department for an evaluation of generalized weakness. The patient has a history of DVT but also history of metastatic pancreatic cancer. The patient does take blood thinners. He was found to have anemia as well as heme positive stools. He was treated with Protonix IV fluids and Pepcid in the emergency department. I discussed the patient's laboratory and radiographic studies with him. Dopplers do appear to be consistent with venous thromboembolic disease. He was reevaluated multiple times. I discussed his condition with the on-call [facility] hospitalist group. They have agreed to evaluate the patient in the emergency department for further management and disposition. Triage Nursing notes reviewed. Prior medical records reviewed Vital Signs: reviewed and remarkable for hypotension Differential diagnosis: Infection, dehydration, metabolic abnormality, hypo/hyperglycemia, electrolyte disturbance, anemia, hypoxia, cardiac sources, intracerebral event, toxicologic, neurologic, as well as other pathologies. ER treatment provided: See below Diagnostics interpreted by me: ECG: EKG was obtained in the emergency department. My interpretation is sinus rhythm at 77 bpm. There is no ectopy. Nonspecific ST segment depressions were noted in the low lateral and inferior leads. This was compared to a tracing from July 15, 2021. The ST segment abnormalities were not noted on the previous tracing. Cardiac Monitoring: An order was placed for continuous cardiac monitoring. The monitor shows a rate of 81 bpm with sinus rhythm. Laboratory studies: As stated above and show below. Imaging studies: See below Consultation(s): I discussed this case with Dr. Jasso is on-call for the [facility] hospitalist group. 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 at [facility] History of cardiac catheterization Family History Mother Breast cancer Social History Smoking Status: Never smoker Second Hand Exposure: No; Hx Alcohol Use: Yes Hx Substance Use: No Preferred Language: American Communication Ability: Effective Internal Carver Required: No Beliefs That Will Affect Care: None marital status: Current Living Situation: Spouse How many Children do You have: 2 Feels Safe at Home: Yes Assistive Devices: Glasses and Walker Allergies Allergies Allergy/AdvReac Type Severity Reaction Status Date / Time shellfish derived AdvReac Intermediate Hives Verified 08/16/21 16:24 Home Meds Home Medications Medication Instructions Recorded Confirmed pravastatin 20 mg tablet 20 mg PO QAM 06/06/21 08/16/21 tamsulosin 0.4 mg capsule 0.4 mg PO HS 06/06/21 08/16/21 cholecalciferol (vitamin D3) 50 2,000 unit PO DAILY 07/03/21 08/16/21 mcg (2,000 unit) capsule (Vitamin D3) famotidine 20 mg tablet 20 mg PO HS 07/03/21 08/16/21 oxycodone 5 mg tablet 2.5 - 5 mg PO Q6H PRN 07/15/21 08/16/21 apixaban 5 mg tablet (Eliquis) 2.5 mg PO BID 08/16/21 08/16/21 Previous Rx's Medication Instructions Recorded mirtazapine 15 mg tablet 15 mg PO HS PRN #0 tab 07/22/21 Results & Data (ED) Vital Signs Vital Signs - 24 hr 08/16/21 13:29 Temperature 36.8 C Temperature Source Temporal Artery Scan Pulse Rate 81 Respiratory Rate 16 Blood Pressure 98/54 L Blood Pressure Mean 68 Blood Pressure Position Sitting Pulse Oximetry 97 Oxygen Delivery Method Room Air Sepsis Recent Fever Within 48 Hours No Sepsis New/Unexplained Change in Mental Status No Sepsis Action Taken by Nursing No Action Required Home Medications Current Medication List: was personally reviewed by me Laboratory Data Attestation: I reviewed the patient's lab results. Result diagrams: 08/16/21 14:46 08/16/21 14:46 Lab Results 08/16/21 08/16/21 08/16/21 Range/Units 14:46 14:46 14:46 WBC 13.76 H (4.8-10.8) K/uL RBC 2.77 L (4.7-6.1) M/uL Hgb 8.3 L (14.0-18.0) g/dL Hct 26.2 L (42-52) % MCV 94.6 (80-100) fL MCH 30.0 (25-34) pg MCHC 31.7 L (32-36) g/dL RDW Std Deviation 64.6 H (36.4-46.3) fL RDW Coeff of Harsh 18.9 H (11.5-14.5) % Plt Count 54 L (130-400) K/uL Immature Gran % (Auto) 0.4 % Neut % (Auto) 82.4 % Lymph % (Auto) 11.8 % Bartholomew % (Auto) 1.9 % Eos % (Auto) 3.3 % Baso % (Auto) 0.2 % Neut # (Auto) 11.33 H (1.4-6.5) K/uL Lymph # (Auto) 1.62 (1.2-3.4) K/uL Bartholomew # (Auto) 0.26 (0.11-0.59) K/uL Eos # (Auto) 0.46 (0-0.5) K/uL Baso # (Auto) 0.03 (0-0.2) K/uL Immature Gran # (Auto) 0.06 H (0.00-0.02) K/uL Platelet Estimate Decreased L (Normal) Giant Platelets 1+ Hypochromasia Present PT 19.5 H (9.0-12.0) Seconds INR 1.9 H (0.9-1.1) APTT 38.0 H (21.0-31.0) Seconds PTT Ratio 1.4 Sodium 139 (136-145) mmol/L Potassium 4.2 (3.5-5.1) mmol/L Chloride 110 H (98-107) mmol/L Carbon Dioxide 23 (21-32) mmol/L Anion Gap 6 (3-11) BUN 23 (6-23) mg/dl Creatinine 1.24 (0.6-1.4) mg/dl Est Cr Clr Drug Dosing Not Reportable Est GFR ( Amer) 61.9 ml/min Est GFR (Non-Af Amer) 53.4 ml/min BUN/Creatinine Ratio 18.5 (10-20) Glucose 133 H (70-99(Fasting)) mg/dl Calcium 8.6 (8.5-10.1) mg/dl Total Bilirubin 1.7 H (0.2-1.0) mg/dl AST 38 (13-39) U/L ALT 40 (7-52) U/L Alkaline Phosphatase 680 H (34-104) U/L Troponin I High Sens (0-20) pg/ml Total Protein 4.6 L (6.0-8.3) gm/dl Albumin 2.9 L (3.4-5.0) gm/dl Globulin 1.7 L (2.5-4.0) gm/dl Albumin/Globulin Ratio 1.7 (0.9-2) 08/16/21 Range/Units 14:46 WBC (4.8-10.8) K/uL RBC (4.7-6.1) M/uL Hgb (14.0-18.0) g/dL Hct (42-52) % MCV (80-100) fL MCH (25-34) pg MCHC (32-36) g/dL RDW Std Deviation (36.4-46.3) fL RDW Coeff of Harsh (11.5-14.5) % Plt Count (130-400) K/uL Immature Gran % (Auto) % Neut % (Auto) % Lymph % (Auto) % Bartholomew % (Auto) % Eos % (Auto) % Baso % (Auto) % Neut # (Auto) (1.4-6.5) K/uL Lymph # (Auto) (1.2-3.4) K/uL Bartholomew # (Auto) (0.11-0.59) K/uL Eos # (Auto) (0-0.5) K/uL Baso # (Auto) (0-0.2) K/uL Immature Gran # (Auto) (0.00-0.02) K/uL Platelet Estimate (Normal) Giant Platelets Hypochromasia PT (9.0-12.0) Seconds INR (0.9-1.1) APTT (21.0-31.0) Seconds PTT Ratio Sodium (136-145) mmol/L Potassium (3.5-5.1) mmol/L Chloride (98-107) mmol/L Carbon Dioxide (21-32) mmol/L Anion Gap (3-11) BUN (6-23) mg/dl Creatinine (0.6-1.4) mg/dl Est Cr Clr Drug Dosing Est GFR ( Amer) ml/min Est GFR (Non-Af Amer) ml/min BUN/Creatinine Ratio (10-20) Glucose (70-99(Fasting)) mg/dl Calcium (8.5-10.1) mg/dl Total Bilirubin (0.2-1.0) mg/dl AST (13-39) U/L ALT (7-52) U/L Alkaline Phosphatase (34-104) U/L Troponin I High Sens 37.7 H (0-20) pg/ml Total Protein (6.0-8.3) gm/dl Albumin (3.4-5.0) gm/dl Globulin (2.5-4.0) gm/dl Albumin/Globulin Ratio (0.9-2) Administered Medications Discontinued Medications Sodium Chloride (Nss 1000ml) 500 mls @ 999 mls/hr IV .Q31M ONE Stop: 08/16/21 16:43 Last Admin: 08/16/21 16:35 Dose: 999 mls/hr Documented by: [id number] Famotidine (Pepcid 20mg Iv Push) 20 mg in 5 mls @ 2.5 mls/min IV NOW STA Stop: 08/16/21 16:17 Last Admin: 08/16/21 16:34 Dose: 2.5 mls/min Documented by: [id number] Imaging Data Radiologist's Impression: Venous Doppler Study 08/16/21 13:36 ULTRASOUND BILATERAL LOWER EXTREMITY VENOUS CLINICAL HISTORY: Leg pain and swelling COMPARISON STUDY: Bilateral lower extremity venous ultrasound dated 07/15/2021. TECHNIQUE: Real-time, grayscale, and color Doppler sonography of the deep veins of the right and left lower extremity was performed from the inguinal crease to the calf. Compression and augmentation were utilized. FINDINGS: Right lower extremity: There is acute appearing nonocclusive deep venous thrombosis in the right common femoral vein. Nonocclusive chronic appearing deep venous thrombosis is seen in the proximal and distal portions of the superficial femoral vein. Occlusive deep venous thrombosis is noted in popliteal vein. Nonocclusive deep venous thrombosis in the right calf is present within the anterior tibial and peroneal veins. Occlusive superficial venous thrombosis is present in the profunda femoris vein at the junction with the common femoral vein. The greater saphenous vein at the junction with the common femoral vein appears patent. Left lower extremity: There is age indeterminant nonocclusive deep venous thrombosis identified in the left common femoral vein. The superficial femoral and popliteal veins are patent and normally compressible. Superficial venous thrombus is seen within the profunda femoris vein. The greater saphenous vein at the junction with the common femoral vein appear clear. There is occlusive deep venous thrombosis identified in the calf within 1 of the posterior tibial veins. The remaining calf vessels are clear as imaged. IMPRESSION: Superficial and deep venous thrombosis is present in both legs as detailed above. ACT 112: Negative or not required by law. Electronically signed by: Meliton Mixon M.D. 08/16/2021 3:57 PM Discharge Plan Visit Data Chief Complaint: Swelling/Edema to Extremity Stated Complaint: BILATERAL FEET SWELLING ED Provider: Charlie Servin Discharge Problem: Anemia, Thrombocytopenia, DVT (deep venous thrombosis), Acute GI bleeding Patient Disposition: Being Evaluated by Hospitalist Forms Stand Alone Forms: [facility] Prescriptions Prescriptions: No Action tamsulosin 0.4 mg capsule 0.4 mg PO HS RF: 0 pravastatin 20 mg tablet 20 mg PO QAM RF: 0 famotidine 20 mg Tablet 20 mg PO HS RF: 0 cholecalciferol (vitamin D3) [Vitamin D3] 50 mcg (2,000 unit) Capsule 2,000 unit PO DAILY RF: 0 oxycodone 5 mg tablet 2.5 - 5 mg PO Q6H PRN (Reason: Pain) RF: 0 mirtazapine 15 mg Tablet 15 mg PO HS PRN (Reason: Insomnia) Qty: 0 RF: 0 Eliquis 5 mg tablet 2.5 mg PO BID RF: 0 Referrals Referrals: Tomer Lemons DO [Primary Care Provider] -
--- NOTE | 2021-08-16 17:45 | History & Physical Report ---
Date of Service August 16, 2021 Assessment & Plan (1) Bilateral leg edema: Plan: Presented to the emergency room with increasing swelling of the legs bilaterally Secondary to hypoalbuminemia and is complicated by presence of paroxysmal atrial fibrillation likely secondary to diastolic CHF Decreased circulation due to edema causing some discoloration of the toes Will advised to elevate the legs while in bed Will try small doses of Lasix (2) Acute GI bleeding: Plan: His hemoglobin was 10.2 on fourth of this month This has been gradually decreasing and it is 8.3 as of today Stool is strongly positive for blood Will give Protonix drip Avoid any NSAID's and hold Eliquis Get GI evaluation for possible EGD (3) 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 Terrell Chemotherapy was not given due to low platelet count recently Has liver metastasis with INR of 1.9 and alkaline phos 680 Albumin level seems to be reasonable at 2.9 (4) Thrombocytopenia: Plan: Secondary to hepatic metastasis and the pancreatic cancer itself (5) DVT (deep venous thrombosis): Plan: History of bilateral DVT Has been on Eliquis which has been decreased to 2.5 mg twice daily from 5 mg twice daily recently due to low platelet INR is 1.9 today and with evidence of Hemoccult positive we will hold Eliquis for now During last admission vascular surgery consult was taken for possible IVC filter but that was not given due to stoppage of bleeding (6) Weakness: Plan: Generalized weakness Has been getting worse likely contributed by low hemoglobin and also metastatic cancer (7) Aortic stenosis: Plan: Status post AVR Denies any chest pain and/or palpitation (8) CKD (chronic kidney disease), stage III: Plan: Creatinine remains stable (9) Hypertension: Plan: Blood pressure is stable at 127/69 DVT prophylaxis SCDs No Eliquis due to INR being 1.9 and ongoing GI bleeding CODE STATUS Full History of Present Illness Chief Complaint: Bilateral leg swelling, exertional shortness of breath with increasing weakness for the last few days Primary Care Provider: Tomer Lemons DO He is an 81-year-old male with significant complicated past medical history including pancreatic cancer with liver metastasis, history of bilateral DVT, chronic kidney disease stage III, aortic stenosis, paroxysmal atrial fibrillation, hypertension, history of TIA, prostatic hypertrophy, and thrombocytopenia apparently has been complaining of increasing leg swelling for the last few days associated with increasing generalized weakness and shortness of breath with minimal exertion. He denies any fever and/or chills, any pain in the legs but does have discoloration of the toes especially on the right side, he denies any chest pain and/or palpitation but complains to have exertional shortness of breath. Denies any history of hematemesis and or any black stool but he has noted to have a strongly positive Hemoccult in the emergency room. He was seen by his oncologist recently and was not given any chemotherapy due to low platelet at around 38,000. He was noted to have a hemoglobin of 8.3 with INR of 1.9 and repeat scans did show chronic and superficial DVTs in both legs. He was strongly positive for blood on Hemoccult stool. He was admitted to medical telemetry unit for continuation of care Allergies Allergy/AdvReac Type Severity Reaction Status Date / Time shellfish derived AdvReac Intermediate Hives Verified 08/16/21 16:24 Home Medications Medication Instructions Recorded Confirmed Type pravastatin 20 mg tablet 20 mg PO QAM 06/06/21 08/16/21 History tamsulosin 0.4 mg capsule 0.4 mg PO HS 06/06/21 08/16/21 History cholecalciferol (vitamin D3) 50 2,000 unit PO DAILY 07/03/21 08/16/21 History mcg (2,000 unit) capsule (Vitamin D3) famotidine 20 mg tablet 20 mg PO HS 07/03/21 08/16/21 History oxycodone 5 mg tablet 2.5 - 5 mg PO Q6H PRN 07/15/21 08/16/21 History mirtazapine 15 mg tablet 15 mg PO HS PRN #0 tab 07/22/21 08/16/21 Rx apixaban 5 mg tablet (Eliquis) 2.5 mg PO BID 08/16/21 08/16/21 History 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 at [facility] History of cardiac catheterization Family History Mother Breast cancer Social History Smoking Status: Never smoker Second Hand Exposure: No; Hx Alcohol Use: No Hx Substance Use: No Preferred Language: Mohawk Communication Ability: Effective Steam Engineer Required: No Beliefs That Will Affect Care: None marital status: Current Living Situation: Spouse Current Living Situation Comment: home with How many Children do You have: 2 Other Information That Helps Us Care for You: No Feels Safe at Home: Yes Safety Concerns: Feels Safe At This Time Assistive Devices: Cane and Walker Review of Systems Review of Systems: All systems reviewed & are unremarkable except as noted in HPI & below Neurologic: Generalized weakness Physical Exam Physical Exam: Lying in bed comfortably but looks pale Constitutional: + ill appearing and average body habitus Eyes: PERRL, conjunctivae normal, anicteric sclerae ENMT: external ear and nose normal, oropharynx normal Neck: trachea midline, no thyromegaly Respiratory: no respiratory distress Auscultation: lungs clear to auscultation bilaterally; no crackles Cardiovascular: Rate/Rhythm: regular rate and regular rhythm; not tachycardic Heart Sounds: normal S1, normal S2 and + murmur (2/6 ESM over precordium) Extremities: + edema (2+ edema bilaterally with palpable pedal arteries) Gastrointestinal (Abdomen): Inspection/Auscultation: normal bowel sounds; abdomen not distended Percussion/Palpation: + abdomen tender (Minimally tender all over without guarding and no rigidity) and abdomen soft Musculoskeletal: No acute arthritis in any joint Neurologic: Alert, awake and oriented x3. No focal sensory and motor deficit appreciated Lymphatic: no cervical or axillary lymphadenopathy Results & Data Results & Data ([facility]) Vital Signs (Past 12 Hours) Vital Signs Temp Pulse Pulse Resp BP BP Pulse Ox 08/16/21 17:11 36.8 C 76 18 127/69 99 08/16/21 13:29 36.8 C 81 16 98/54 L 97 Laboratory Results Short CBC 08/16/21 Range/Units 14:46 WBC 13.76 H (4.8-10.8) K/uL Hgb 8.3 L (14.0-18.0) g/dL Hct 26.2 L (42-52) % Plt Count 54 L (130-400) K/uL BMP 08/16/21 14:46 Sodium 139 Potassium 4.2 Chloride 110 H Carbon Dioxide 23 BUN 23 Creatinine 1.24 Glucose 133 H Calcium 8.6 Liver Function 08/16/21 Range/Units 14:46 Total Bilirubin 1.7 H (0.2-1.0) mg/dl AST 38 (13-39) U/L ALT 40 (7-52) U/L Alkaline Phosphatase 680 H (34-104) U/L Albumin 2.9 L (3.4-5.0) gm/dl Code Status & VTE Plan VTE Prophylaxis Plan VTE Prophylaxis will be ordered: Yes (1) DVT (deep venous thrombosis) Affected thrombotic vein of extremity: unspecified vein of extremity Chronicity: chronic DVT location: lower extremity Laterality: bilateral Qualified Code(s): I82.503 - 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
[2021-08-16] MEDS ORDERED: FUROSEMIDE INJ 20 MG/2 ML VIAL IV ONE (17:47)
--- NOTE | 2021-08-16 18:03 | XRay Report ---
SINGLE VIEW CHEST CLINICAL HISTORY: Generalized weakness. FINDINGS: An AP, portable, upright chest radiograph is compared to study dated 07/15/2021 and correlat ed with chest CT dated 06/17/2021. The examination is degraded by portable technique and patient rotati on. A right-sided central venous infusion port is unchanged in position. The patient is status post m idline sternotomy and cardiac valve surgery. The heart is enlarged noting atherosclerotic calcificati on of the thoracic aorta. The pulmonary vasculature is noncongested. Chronic interstitial thickening is similar to previous. Bibasilar opacities have increased from previous, right greater than left. No large pleural effusion or pneumothorax is identified. The skeletal structures are osteopenic. The [facility] thorax is grossly intact. IMPRESSION: 1. Cardiomegaly without radiographic evidence of congestive failure. 2. Bibasilar airspace opacities have increased from previous. This could represent scarring/atelectas is versus pneumonia/aspiration pneumonitis. Clinical correlation will be required and radiographic fo llow-up to resolution is recommended. ACT 112: Negative or not required by law. Electronically signed by: Meliton Mixon M.D. 08/16/2021 6:02 PM
[2021-08-16 18:21] LABS: Hematocrit (blood only) 26.2 % (42-52); Hemoglobin 8.3 g/dL (14.0-18.0)
[2021-08-16] MEDS ORDERED: FUROSEMIDE 40 MG/4 ML VIAL IV ONE (19:12)
[2021-08-16] MEDS: PANTOprazole 40 MG in DEXTROSE 5% 100 ML IV SCH (19:31)
[2021-08-16] MEDS: LACTULOSE SYRUP 30 GM/45 ML UDP PO SCH (20:00)
[2021-08-16] MEDS ORDERED: oxyCODONE HCL IR 5 MG TAB (IMMEDIATE RELEASE) PO PRN (20:37)
[2021-08-16] MEDS: TAMSULOSIN HCL 0.4 MG CAP PO SCH (21:36)
[2021-08-16 23:46] LABS: Appearance Urine Cloudy (Clear); Bacteria Urine Automated Negative (Negative); Bilirubin Urine Negative (Negative); Blood Urine Trace (Negative); Color Urine Yellow; Epithelial Cell Urine Auto 0-5 /lpf (0-5); Glucose Urine UA Negative (Negative); Ketones Urine Negative (Negative); Leukocyte Esterase Urine 1+ (Negative); Nitrite Urine Negative (Negative); Protein Urine Negative (Negative); RBC Urine Automated 0-4 /hpf (0-4); Specific Gravity Urine 1.007 (1.000-1.030); Urobilinogen Urine Negative (Negative)
[2021-08-17 00:10] LABS: Hematocrit (blood only) 24.9 % (42-52); Hemoglobin 7.9 g/dL (14.0-18.0)
[2021-08-17] MEDS: PANTOprazole 40 MG in DEXTROSE 5% 100 ML IV SCH ×5 (00:37→20:46)
[2021-08-17 08:05] LABS: Mean Corpuscular Hgb Conc 31.2 g/dL (32-36)
[2021-08-17 08:13] LABS: Hemoglobin 8.1 g/dL (14.0-18.0); Mean Corpuscular Hemoglobin 29.5 pg (25-34); Mean Corpuscular Volume 94.5 fL (80-100); RDW Coefficient of Variation 19.1 % (11.5-14.5); RDW Standard Deviation 64.5 fL (36.4-46.3); Red Blood Count 2.75 M/uL (4.7-6.1); White Blood Count 11.75 K/uL (4.8-10.8)
[2021-08-17 08:20] LABS: INR 1.8 (0.9-1.1); Prothrombin Time 18.2 Seconds (9.0-12.0)
[2021-08-17 08:29] LABS: BUN Creatinine Ratio 15.7 (10-20); Calcium 8.3 mg/dl (8.5-10.1); Creatinine Clr Calc Pharmacy 37.4 ml/min; Est GFR (African American) 53.5 ml/min; Est GFR (Non-African American) 46.1 ml/min; Potassium 3.9 mmol/L (3.5-5.1)
[2021-08-17 08:43] LABS: Basophils # (auto) 0.02 K/uL (0-0.2); Basophils % (auto) 0.2 %; Eosinophils # (auto) 0.45 K/uL (0-0.5); Eosinophils % (auto) 3.8 %; Immature Granulocytes # (auto) 0.05 K/uL (0.00-0.02); Immature Granulocytes % (auto) 0.4 %; Lymphocytes # (auto) 1.24 K/uL (1.2-3.4); Lymphocytes % (auto) 10.6 %; Monocytes # (auto) 0.55 K/uL (0.11-0.59); Monocytes % (auto) 4.7 %; Neutrophils # (auto) 9.44 K/uL (1.4-6.5); Neutrophils % (auto) 80.3 %; Platelet Count 51 K/uL (130-400); Platelet Estimate SIGNIFIC DECREASED (Normal)
--- NOTE | 2021-08-17 09:21 | Gastrointestinal Consultation ---
Date of Consultation August 17, 2021 Assessment & Plan (1) Anemia: 81 year old male with history of HTN, HLD, TIA, CKD III, PAF on Eliquis, aortic stenosis s/p aortic valve replacement with prosthetic valve and 2020, chronic anemia, pancreatic adenocarcinoma with liver mets admitted with weakness - chronic anemia, heme positive stools without report of active GI bleeding. Agree with conservative measures as doing HGB has remained stable BUN normal Trend H&H Document GI output Transfuse PRN In the event he develops evidence of GI bleed would consider endoscopy at that time No contraindication to diet as tolerated 08/17/21 08/17/21 08/17/21 Range/Units 07:32 07:32 07:32 WBC 11.75 H (4.8-10.8) K/uL RBC 2.75 L (4.7-6.1) M/uL Hgb 8.1 L (14.0-18.0) g/dL Hct 26.0 L (42-52) % MCV 94.5 (80-100) fL MCH 29.5 (25-34) pg MCHC 31.2 L (32-36) g/dL RDW Std Deviation 64.5 H (36.4-46.3) fL RDW Coeff of Harsh 19.1 H (11.5-14.5) % Plt Count 51 L (130-400) K/uL Immature Gran % (Auto) 0.4 % Neut % (Auto) 80.3 % Lymph % (Auto) 10.6 % [place] % (Auto) 4.7 % Eos % (Auto) 3.8 % Baso % (Auto) 0.2 % Neut # (Auto) 9.44 H (1.4-6.5) K/uL Lymph # (Auto) 1.24 (1.2-3.4) K/uL [place] # (Auto) 0.55 (0.11-0.59) K/uL Eos # (Auto) 0.45 (0-0.5) K/uL Baso # (Auto) 0.02 (0-0.2) K/uL Immature Gran # (Auto) 0.05 H (0.00-0.02) K/uL Platelet Estimate SIGNIFIC DECREASED (Normal) Giant Platelets Hypochromasia PT 18.2 H (9.0-12.0) Seconds INR 1.8 H (0.9-1.1) APTT (21.0-31.0) Seconds PTT Ratio Sodium 140 (136-145) mmol/L Potassium 3.9 (3.5-5.1) mmol/L Chloride 111 H (98-107) mmol/L Carbon Dioxide 23 (21-32) mmol/L Anion Gap 6 (3-11) BUN 22 (6-23) mg/dl Creatinine 1.40 (0.6-1.4) mg/dl Est Cr Clr Drug Dosing 37.4 Est GFR ( Amer) 53.5 ml/min Est GFR (Non-Af Amer) 46.1 ml/min BUN/Creatinine Ratio 15.7 (10-20) Glucose 121 H (70-99(Fasting)) mg/dl Calcium 8.3 L (8.5-10.1) mg/dl Total Bilirubin (0.2-1.0) mg/dl AST (13-39) U/L ALT (7-52) U/L Alkaline Phosphatase (34-104) U/L Ammonia (18-72) umol/L Troponin I High Sens (0-20) pg/ml Total Protein (6.0-8.3) gm/dl Albumin (3.4-5.0) gm/dl Globulin (2.5-4.0) gm/dl Albumin/Globulin Ratio (0.9-2) Urine Color Urine Appearance (Clear) Urine pH (4.5-7.5) Ur Specific Tiro (1.000-1.030) Urine Protein (Negative) Urine Glucose (UA) (Negative) Urine Ketones (Negative) Urine Blood (Negative) Urine Nitrite (Negative) Urine Bilirubin (Negative) Urine Urobilinogen (Negative) Ur Leukocyte Esterase (Negative) Urine WBC (Auto) (0-5) /hpf Urine RBC (Auto) (0-4) /hpf U Hyaline Cast (Auto) (0-5) /lpf U Epithel Cells (Auto) (0-5) /lpf Urine Bacteria (Auto) (Negative) Urine Yeast SARS-CoV-2, RNA, NAAT (NEGATIVE) Blood Type Antibody Screen 08/16/21 08/16/21 08/16/21 Range/Units 23:50 23:15 21:15 WBC (4.8-10.8) K/uL RBC (4.7-6.1) M/uL Hgb 7.9 L (14.0-18.0) g/dL Hct 24.9 L (42-52) % MCV (80-100) fL MCH (25-34) pg MCHC (32-36) g/dL RDW Std Deviation (36.4-46.3) fL RDW Coeff of Harsh (11.5-14.5) % Plt Count (130-400) K/uL Immature Gran % (Auto) % Neut % (Auto) % Lymph % (Auto) % [place] % (Auto) % Eos % (Auto) % Baso % (Auto) % Neut # (Auto) (1.4-6.5) K/uL Lymph # (Auto) (1.2-3.4) K/uL [place] # (Auto) (0.11-0.59) K/uL Eos # (Auto) (0-0.5) K/uL Baso # (Auto) (0-0.2) K/uL Immature Gran # (Auto) (0.00-0.02) K/uL Platelet Estimate (Normal) Giant Platelets Hypochromasia PT (9.0-12.0) Seconds INR (0.9-1.1) APTT (21.0-31.0) Seconds PTT Ratio Sodium (136-145) mmol/L Potassium (3.5-5.1) mmol/L Chloride (98-107) mmol/L Carbon Dioxide (21-32) mmol/L Anion Gap (3-11) BUN (6-23) mg/dl Creatinine (0.6-1.4) mg/dl Est Cr Clr Drug Dosing Est GFR ( Amer) ml/min Est GFR (Non-Af Amer) ml/min BUN/Creatinine Ratio (10-20) Glucose (70-99(Fasting)) mg/dl Calcium (8.5-10.1) mg/dl Total Bilirubin (0.2-1.0) mg/dl AST (13-39) U/L ALT (7-52) U/L Alkaline Phosphatase (34-104) U/L Ammonia 36.0 (18-72) umol/L Troponin I High Sens (0-20) pg/ml Total Protein (6.0-8.3) gm/dl Albumin (3.4-5.0) gm/dl Globulin (2.5-4.0) gm/dl Albumin/Globulin Ratio (0.9-2) Urine Color Yellow Urine Appearance Cloudy A (Clear) Urine pH 5.0 (4.5-7.5) Ur Specific [place]iro 1.007 (1.000-1.030) Urine Protein Negative (Negative) Urine Glucose (UA) Negative (Negative) Urine Ketones Negative (Negative) Urine Blood Trace H (Negative) Urine Nitrite Negative (Negative) Urine Bilirubin Negative (Negative) Urine Urobilinogen Negative (Negative) Ur Leukocyte Esterase 1+ H (Negative) Urine WBC (Auto) 10-30 H (0-5) /hpf Urine RBC (Auto) 0-4 (0-4) /hpf U Hyaline Cast (Auto) 1-5 (0-5) /lpf U Epithel Cells (Auto) 0-5 (0-5) /lpf Urine Bacteria (Auto) Negative (Negative) Urine Yeast Not Reportable SARS-CoV-2, RNA, NAAT (NEGATIVE) Blood Type Antibody Screen 08/16/21 08/16/21 08/16/21 Range/Units 18:10 17:08 16:20 WBC (4.8-10.8) K/uL RBC (4.7-6.1) M/uL Hgb 8.3 L (14.0-18.0) g/dL Hct 26.2 L (42-52) % MCV (80-100) fL MCH (25-34) pg MCHC (32-36) g/dL RDW Std Deviation (36.4-46.3) fL RDW Coeff of Harsh (11.5-14.5) % Plt Count (130-400) K/uL Immature Gran % (Auto) % Neut % (Auto) % Lymph % (Auto) % [place] % (Auto) % Eos % (Auto) % Baso % (Auto) % Neut # (Auto) (1.4-6.5) K/uL Lymph # (Auto) (1.2-3.4) K/uL [place] # (Auto) (0.11-0.59) K/uL Eos # (Auto) (0-0.5) K/uL Baso # (Auto) (0-0.2) K/uL Immature Gran # (Auto) (0.00-0.02) K/uL Platelet Estimate (Normal) Giant Platelets Hypochromasia PT (9.0-12.0) Seconds INR (0.9-1.1) APTT (21.0-31.0) Seconds PTT Ratio Sodium (136-145) mmol/L Potassium (3.5-5.1) mmol/L Chloride (98-107) mmol/L Carbon Dioxide (21-32) mmol/L Anion Gap (3-11) BUN (6-23) mg/dl Creatinine (0.6-1.4) mg/dl Est Cr Clr Drug Dosing Est GFR ( Amer) ml/min Est GFR (Non-Af Amer) ml/min BUN/Creatinine Ratio (10-20) Glucose (70-99(Fasting)) mg/dl Calcium (8.5-10.1) mg/dl Total Bilirubin (0.2-1.0) mg/dl AST (13-39) U/L ALT (7-52) U/L Alkaline Phosphatase (34-104) U/L Ammonia (18-72) umol/L Troponin I High Sens (0-20) pg/ml Total Protein (6.0-8.3) gm/dl Albumin (3.4-5.0) gm/dl Globulin (2.5-4.0) gm/dl Albumin/Globulin Ratio (0.9-2) Urine Color Urine Appearance (Clear) Urine pH (4.5-7.5) Ur Specific [place]iro (1.000-1.030) Urine Protein (Negative) Urine Glucose (UA) (Negative) Urine Ketones (Negative) Urine Blood (Negative) Urine Nitrite (Negative) Urine Bilirubin (Negative) Urine Urobilinogen (Negative) Ur Leukocyte Esterase (Negative) Urine WBC (Auto) (0-5) /hpf Urine RBC (Auto) (0-4) /hpf U Hyaline Cast (Auto) (0-5) /lpf U Epithel Cells (Auto) (0-5) /lpf Urine Bacteria (Auto) (Negative) Urine Yeast SARS-CoV-2, RNA, NAAT NEGATIVE (NEGATIVE) Blood Type O Positive Antibody Screen NEGATIVE 08/16/21 08/16/21 08/16/21 Range/Units 14:46 14:46 14:46 WBC (4.8-10.8) K/uL RBC (4.7-6.1) M/uL Hgb (14.0-18.0) g/dL Hct (42-52) % MCV (80-100) fL MCH (25-34) pg MCHC (32-36) g/dL RDW Std Deviation (36.4-46.3) fL RDW Coeff of Harsh (11.5-14.5) % Plt Count (130-400) K/uL Immature Gran % (Auto) % Neut % (Auto) % Lymph % (Auto) % [place] % (Auto) % Eos % (Auto) % Baso % (Auto) % Neut # (Auto) (1.4-6.5) K/uL Lymph # (Auto) (1.2-3.4) K/uL [place] # (Auto) (0.11-0.59) K/uL Eos # (Auto) (0-0.5) K/uL Baso # (Auto) (0-0.2) K/uL Immature Gran # (Auto) (0.00-0.02) K/uL Platelet Estimate (Normal) Giant Platelets Hypochromasia PT 19.5 H (9.0-12.0) Seconds INR 1.9 H (0.9-1.1) APTT 38.0 H (21.0-31.0) Seconds PTT Ratio 1.4 Sodium 139 (136-145) mmol/L Potassium 4.2 (3.5-5.1) mmol/L Chloride 110 H (98-107) mmol/L Carbon Dioxide 23 (21-32) mmol/L Anion Gap 6 (3-11) BUN 23 (6-23) mg/dl Creatinine 1.24 (0.6-1.4) mg/dl Est Cr Clr Drug Dosing Not Reportable Est GFR ( Amer) 61.9 ml/min Est GFR (Non-Af Amer) 53.4 ml/min BUN/Creatinine Ratio 18.5 (10-20) Glucose 133 H (70-99(Fasting)) mg/dl Calcium 8.6 (8.5-10.1) mg/dl Total Bilirubin 1.7 H (0.2-1.0) mg/dl AST 38 (13-39) U/L ALT 40 (7-52) U/L Alkaline Phosphatase 680 H (34-104) U/L Ammonia (18-72) umol/L Troponin I High Sens 37.7 H (0-20) pg/ml Total Protein 4.6 L (6.0-8.3) gm/dl Albumin 2.9 L (3.4-5.0) gm/dl Globulin 1.7 L (2.5-4.0) gm/dl Albumin/Globulin Ratio 1.7 (0.9-2) Urine Color Urine Appearance (Clear) Urine pH (4.5-7.5) Ur Specific [place]iro (1.000-1.030) Urine Protein (Negative) Urine Glucose (UA) (Negative) Urine Ketones (Negative) Urine Blood (Negative) Urine Nitrite (Negative) Urine Bilirubin (Negative) Urine Urobilinogen (Negative) Ur Leukocyte Esterase (Negative) Urine WBC (Auto) (0-5) /hpf Urine RBC (Auto) (0-4) /hpf U Hyaline Cast (Auto) (0-5) /lpf U Epithel Cells (Auto) (0-5) /lpf Urine Bacteria (Auto) (Negative) Urine Yeast SARS-CoV-2, RNA, NAAT (NEGATIVE) Blood Type Antibody Screen 08/16/21 Range/Units 14:46 WBC 13.76 H (4.8-10.8) K/uL RBC 2.77 L (4.7-6.1) M/uL Hgb 8.3 L (14.0-18.0) g/dL Hct 26.2 L (42-52) % MCV 94.6 (80-100) fL MCH 30.0 (25-34) pg MCHC 31.7 L (32-36) g/dL RDW Std Deviation 64.6 H (36.4-46.3) fL RDW Coeff of Harsh 18.9 H (11.5-14.5) % Plt Count 54 L (130-400) K/uL Immature Gran % (Auto) 0.4 % Neut % (Auto) 82.4 % Lymph % (Auto) 11.8 % [place] % (Auto) 1.9 % Eos % (Auto) 3.3 % Baso % (Auto) 0.2 % Neut # (Auto) 11.33 H (1.4-6.5) K/uL Lymph # (Auto) 1.62 (1.2-3.4) K/uL [place] # (Auto) 0.26 (0.11-0.59) K/uL Eos # (Auto) 0.46 (0-0.5) K/uL Baso # (Auto) 0.03 (0-0.2) K/uL Immature Gran # (Auto) 0.06 H (0.00-0.02) K/uL Platelet Estimate Decreased L (Normal) Giant Platelets 1+ Hypochromasia Present PT (9.0-12.0) Seconds INR (0.9-1.1) APTT (21.0-31.0) Seconds PTT Ratio Sodium (136-145) mmol/L Potassium (3.5-5.1) mmol/L Chloride (98-107) mmol/L Carbon Dioxide (21-32) mmol/L Anion Gap (3-11) BUN (6-23) mg/dl Creatinine (0.6-1.4) mg/dl Est Cr Clr Drug Dosing Est GFR ( Amer) ml/min Est GFR (Non-Af Amer) ml/min BUN/Creatinine Ratio (10-20) Glucose (70-99(Fasting)) mg/dl Calcium (8.5-10.1) mg/dl Total Bilirubin (0.2-1.0) mg/dl AST (13-39) U/L ALT (7-52) U/L Alkaline Phosphatase (34-104) U/L Ammonia (18-72) umol/L Troponin I High Sens (0-20) pg/ml Total Protein (6.0-8.3) gm/dl Albumin (3.4-5.0) gm/dl Globulin (2.5-4.0) gm/dl Albumin/Globulin Ratio (0.9-2) Urine Color Urine Appearance (Clear) Urine pH (4.5-7.5) Ur Specific [place]iro (1.000-1.030) Urine Protein (Negative) Urine Glucose (UA) (Negative) Urine Ketones (Negative) Urine Blood (Negative) Urine Nitrite (Negative) Urine Bilirubin (Negative) Urine Urobilinogen (Negative) Ur Leukocyte Esterase (Negative) Urine WBC (Auto) (0-5) /hpf Urine RBC (Auto) (0-4) /hpf U Hyaline Cast (Auto) (0-5) /lpf U Epithel Cells (Auto) (0-5) /lpf Urine Bacteria (Auto) (Negative) Urine Yeast SARS-CoV-2, RNA, NAAT (NEGATIVE) Blood Type Antibody Screen Supervising Physician Co-Signing Physician Notes Patient is lying in bed in no acute distress, abd soft Labs reviewed hgb 8.1, hct 26.0, plt 51, venous dopplers lower extremity dopplers on eliquis no bun elevation to suspect an active gi bleed and also without overt signs of a gi bleed at this time agree with further plan of care History of Present Illness Reason for Consultation: anemia Requesting Physician: Romero Attending Physician: Francheska Jasso MD History of Present Illness 81 year old male with history of HTN, HLD, TIA, CKD III, PAF on Eliqu, aortic stenosis s/p aortic valve replacement with prosthetic valve and 2019, chronic anemia, pancreatic adenocarcinoma with liver mets, presented to the ED with weakness - GI asked to evaluate as he was found to be anemia with heme positive stools. Similar presentation in June, conservative measures at that time. Pt was seen and evaluated, chart reviewed. He was asleep initially, woke to name. He suggests he is tired and weak. Unable to provide much advances history. He presently feels ok from a GI standpoint. He denies any abdominal pian. No report of nausea/vomiting. Denies previous episodes of hematemesis or coffee ground emesis. Moving bowels okay - last BM yesterday. Brown stools. Denies previous black or bloody stools. HGB 8 from baseline 9-10 BUN normal CTAP 2021: Mass of the pancreatic head measuring over 3 cm is redemonstrated resulting in upstream pancreatic ductal dilation. Pancreatic adenocarcinoma is the diagnosis of exclusion. Multifocal hepatic metastasis redemonstrated.. Cholelithiasis with partial distention of the gallbladder. There is gallbladder wall thickening with pericholecystic edema and trace free fluid within the crispin hepatis. Correlate clinically to exclude acute cholecystitis. Mild wall thickening of the hepatic flexure is likely reactive. A nonspecific colitis is considered less likely. Nonobstructing bilateral nephrolithiasis. Prostamegaly with evidence of chronic bladder outlet obstruction. Allergies Allergy/AdvReac Type Severity Reaction Status Date / Time shellfish derived AdvReac Intermediate Hives Verified 08/16/21 16:24 Home Medications Medication Instructions Recorded Confirmed Type pravastatin 20 mg tablet 20 mg PO QAM 06/06/21 08/16/21 History tamsulosin 0.4 mg capsule 0.4 mg PO HS 06/06/21 08/16/21 History cholecalciferol (vitamin D3) 50 2,000 unit PO DAILY 07/03/21 08/16/21 History mcg (2,000 unit) capsule (Vitamin D3) famotidine 20 mg tablet 20 mg PO HS 07/03/21 08/16/21 History oxycodone 5 mg tablet 2.5 - 5 mg PO Q6H PRN 07/15/21 08/16/21 History mirtazapine 15 mg tablet 15 mg PO HS PRN #0 tab 07/22/21 08/16/21 Rx apixaban 5 mg tablet (Eliquis) 2.5 mg PO BID 08/16/21 08/16/21 History Patient History Medical History Acid reflux Anemia Aortic stenosis Aortic valve disorder BPH (benign prostatic hyperplasia) CKD (chronic kidney disease), stage III High cholesterol Hypertension Pancreatic neoplasm TIA (transient ischemic attack) Surgical History H/O aortic valve replacement 10/18/2019-prosthetic valve at [facility] History of cardiac catheterization Family History Mother Breast cancer Social History Smoking Status: Never smoker Second Hand Exposure: No; Hx Alcohol Use: No Hx Substance Use: No Preferred Language: Pakistani Communication Ability: Effective Observer [employer] Required: No Beliefs That Will Affect Care: None marital status: Current Living Situation: Spouse Current Living Situation Comment: home with How many Children do You have: 2 Other Information That Helps Us Care for You: No Feels Safe at Home: Yes Safety Concerns: Feels Safe At This Time Assistive Devices: Walker Review of Systems Review of Systems: All systems reviewed & are unremarkable except as noted in HPI & below Physical Exam Constitutional: WD/WN, vitals as above Neck: trachea midline, no thyromegaly Respiratory: normal respiratory effort, lungs clear to auscultation Cardiovascular: RRR, no murmur, no edema Gastrointestinal (Abdomen): normal bowel sounds, soft, nontender, no hepatosplenomegaly Skin: no rashes, warm and dry Results & Data ([facility]) Vital Signs (Past 12 Hours) Vital Signs Temp Pulse Pulse Resp BP Pulse Ox 08/17/21 07:45 36.7 C 93 H 18 92/54 L 96 08/17/21 07:37 85 08/16/21 22:20 75 08/16/21 21:22 36.5 C 78 18 109/69 97 Laboratory Results 08/17/21 08/17/21 08/17/21 Range/Units 07:32 07:32 07:32 WBC 11.75 H (4.8-10.8) K/uL RBC 2.75 L (4.7-6.1) M/uL Hgb 8.1 L (14.0-18.0) g/dL Hct 26.0 L (42-52) % MCV 94.5 (80-100) fL MCH 29.5 (25-34) pg MCHC 31.2 L (32-36) g/dL RDW Std Deviation 64.5 H (36.4-46.3) fL RDW Coeff of Harsh 19.1 H (11.5-14.5) % Plt Count 51 L (130-400) K/uL Immature Gran % (Auto) 0.4 % Neut % (Auto) 80.3 % Lymph % (Auto) 10.6 % [place] % (Auto) 4.7 % Eos % (Auto) 3.8 % Baso % (Auto) 0.2 % Neut # (Auto) 9.44 H (1.4-6.5) K/uL Lymph # (Auto) 1.24 (1.2-3.4) K/uL [place] # (Auto) 0.55 (0.11-0.59) K/uL Eos # (Auto) 0.45 (0-0.5) K/uL Baso # (Auto) 0.02 (0-0.2) K/uL Immature Gran # (Auto) 0.05 H (0.00-0.02) K/uL Platelet Estimate SIGNIFIC DECREASED (Normal) Giant Platelets Hypochromasia PT 18.2 H (9.0-12.0) Seconds INR 1.8 H (0.9-1.1) APTT (21.0-31.0) Seconds PTT Ratio Sodium 140 (136-145) mmol/L Potassium 3.9 (3.5-5.1) mmol/L Chloride 111 H (98-107) mmol/L Carbon Dioxide 23 (21-32) mmol/L Anion Gap 6 (3-11) BUN 22 (6-23) mg/dl Creatinine 1.40 (0.6-1.4) mg/dl Est Cr Clr Drug Dosing 37.4 Est GFR ( Amer) 53.5 ml/min Est GFR (Non-Af Amer) 46.1 ml/min BUN/Creatinine Ratio 15.7 (10-20) Glucose 121 H (70-99(Fasting)) mg/dl Calcium 8.3 L (8.5-10.1) mg/dl Total Bilirubin (0.2-1.0) mg/dl AST (13-39) U/L ALT (7-52) U/L Alkaline Phosphatase (34-104) U/L Ammonia (18-72) umol/L Troponin I High Sens (0-20) pg/ml Total Protein (6.0-8.3) gm/dl Albumin (3.4-5.0) gm/dl Globulin (2.5-4.0) gm/dl Albumin/Globulin Ratio (0.9-2) Urine Color Urine Appearance (Clear) Urine pH (4.5-7.5) Ur Specific Tiro (1.000-1.030) Urine Protein (Negative) Urine Glucose (UA) (Negative) Urine Ketones (Negative) Urine Blood (Negative) Urine Nitrite (Negative) Urine Bilirubin (Negative) Urine Urobilinogen (Negative) Ur Leukocyte Esterase (Negative) Urine WBC (Auto) (0-5) /hpf Urine RBC (Auto) (0-4) /hpf U Hyaline Cast (Auto) (0-5) /lpf U Epithel Cells (Auto) (0-5) /lpf Urine Bacteria (Auto) (Negative) Urine Yeast SARS-CoV-2, RNA, NAAT (NEGATIVE) Blood Type Antibody Screen 08/16/21 08/16/21 08/16/21 Range/Units 23:50 23:15 21:15 WBC (4.8-10.8) K/uL RBC (4.7-6.1) M/uL Hgb 7.9 L (14.0-18.0) g/dL Hct 24.9 L (42-52) % MCV (80-100) fL MCH (25-34) pg MCHC (32-36) g/dL RDW Std Deviation (36.4-46.3) fL RDW Coeff of Harsh (11.5-14.5) % Plt Count (130-400) K/uL Immature Gran % (Auto) % Neut % (Auto) % Lymph % (Auto) % [place] % (Auto) % Eos % (Auto) % Baso % (Auto) % Neut # (Auto) (1.4-6.5) K/uL Lymph # (Auto) (1.2-3.4) K/uL [place] # (Auto) (0.11-0.59) K/uL Eos # (Auto) (0-0.5) K/uL Baso # (Auto) (0-0.2) K/uL Immature Gran # (Auto) (0.00-0.02) K/uL Platelet Estimate (Normal) Giant Platelets Hypochromasia PT (9.0-12.0) Seconds INR (0.9-1.1) APTT (21.0-31.0) Seconds PTT Ratio Sodium (136-145) mmol/L Potassium (3.5-5.1) mmol/L Chloride (98-107) mmol/L Carbon Dioxide (21-32) mmol/L Anion Gap (3-11) BUN (6-23) mg/dl Creatinine (0.6-1.4) mg/dl Est Cr Clr Drug Dosing Est GFR ( Amer) ml/min Est GFR (Non-Af Amer) ml/min BUN/Creatinine Ratio (10-20) Glucose (70-99(Fasting)) mg/dl Calcium (8.5-10.1) mg/dl Total Bilirubin (0.2-1.0) mg/dl AST (13-39) U/L ALT (7-52) U/L Alkaline Phosphatase (34-104) U/L Ammonia 36.0 (18-72) umol/L Troponin I High Sens (0-20) pg/ml Total Protein (6.0-8.3) gm/dl Albumin (3.4-5.0) gm/dl Globulin (2.5-4.0) gm/dl Albumin/Globulin Ratio (0.9-2) Urine Color Yellow Urine Appearance Cloudy A (Clear) Urine pH 5.0 (4.5-7.5) Ur Specific Tiro 1.007 (1.000-1.030) Urine Protein Negative (Negative) Urine Glucose (UA) Negative (Negative) Urine Ketones Negative (Negative) Urine Blood Trace H (Negative) Urine Nitrite Negative (Negative) Urine Bilirubin Negative (Negative) Urine Urobilinogen Negative (Negative) Ur Leukocyte Esterase 1+ H (Negative) Urine WBC (Auto) 10-30 H (0-5) /hpf Urine RBC (Auto) 0-4 (0-4) /hpf U Hyaline Cast (Auto) 1-5 (0-5) /lpf U Epithel Cells (Auto) 0-5 (0-5) /lpf Urine Bacteria (Auto) Negative (Negative) Urine Yeast Not Reportable SARS-CoV-2, RNA, NAAT (NEGATIVE) Blood Type Antibody Screen 08/16/21 08/16/21 08/16/21 Range/Units 18:10 17:08 16:20 WBC (4.8-10.8) K/uL RBC (4.7-6.1) M/uL Hgb 8.3 L (14.0-18.0) g/dL Hct 26.2 L (42-52) % MCV (80-100) fL MCH (25-34) pg MCHC (32-36) g/dL RDW Std Deviation (36.4-46.3) fL RDW Coeff of Harsh (11.5-14.5) % Plt Count (130-400) K/uL Immature Gran % (Auto) % Neut % (Auto) % Lymph % (Auto) % [place] % (Auto) % Eos % (Auto) % Baso % (Auto) % Neut # (Auto) (1.4-6.5) K/uL Lymph # (Auto) (1.2-3.4) K/uL [place] # (Auto) (0.11-0.59) K/uL Eos # (Auto) (0-0.5) K/uL Baso # (Auto) (0-0.2) K/uL Immature Gran # (Auto) (0.00-0.02) K/uL Platelet Estimate (Normal) Giant Platelets Hypochromasia PT (9.0-12.0) Seconds INR (0.9-1.1) APTT (21.0-31.0) Seconds PTT Ratio Sodium (136-145) mmol/L Potassium (3.5-5.1) mmol/L Chloride (98-107) mmol/L Carbon Dioxide (21-32) mmol/L Anion Gap (3-11) BUN (6-23) mg/dl Creatinine (0.6-1.4) mg/dl Est Cr Clr Drug Dosing Est GFR ( Amer) ml/min Est GFR (Non-Af Amer) ml/min BUN/Creatinine Ratio (10-20) Glucose (70-99(Fasting)) mg/dl Calcium (8.5-10.1) mg/dl Total Bilirubin (0.2-1.0) mg/dl AST (13-39) U/L ALT (7-52) U/L Alkaline Phosphatase (34-104) U/L Ammonia (18-72) umol/L Troponin I High Sens (0-20) pg/ml Total Protein (6.0-8.3) gm/dl Albumin (3.4-5.0) gm/dl Globulin (2.5-4.0) gm/dl Albumin/Globulin Ratio (0.9-2) Urine Color Urine Appearance (Clear) Urine pH (4.5-7.5) Ur Specific Tiro (1.000-1.030) Urine Protein (Negative) Urine Glucose (UA) (Negative) Urine Ketones (Negative) Urine Blood (Negative) Urine Nitrite (Negative) Urine Bilirubin (Negative) Urine Urobilinogen (Negative) Ur Leukocyte Esterase (Negative) Urine WBC (Auto) (0-5) /hpf Urine RBC (Auto) (0-4) /hpf U Hyaline Cast (Auto) (0-5) /lpf U Epithel Cells (Auto) (0-5) /lpf Urine Bacteria (Auto) (Negative) Urine Yeast SARS-CoV-2, RNA, NAAT NEGATIVE (NEGATIVE) Blood Type O Positive Antibody Screen NEGATIVE 08/16/21 08/16/2122 Range/Units 14:46 14:46 14:46 WBC (4.8-10.8) K/uL RBC (4.7-6.1) M/uL Hgb (14.0-18.0) g/dL Hct (42-52) % MCV (80-100) fL MCH (25-34) pg MCHC (32-36) g/dL RDW Std Deviation (36.4-46.3) fL RDW Coeff of Harsh (11.5-14.5) % Plt Count (130-400) K/uL Immature Gran % (Auto) % Neut % (Auto) % Lymph % (Auto) % [place] % (Auto) % Eos % (Auto) % Baso % (Auto) % Neut # (Auto) (1.4-6.5) K/uL Lymph # (Auto) (1.2-3.4) K/uL [place] # (Auto) (0.11-0.59) K/uL Eos # (Auto) (0-0.5) K/uL Baso # (Auto) (0-0.2) K/uL Immature Gran # (Auto) (0.00-0.02) K/uL Platelet Estimate (Normal) Giant Platelets Hypochromasia PT 19.5 H (9.0-12.0) Seconds INR 1.9 H (0.9-1.1) APTT 38.0 H (21.0-31.0) Seconds PTT Ratio 1.4 Sodium 139 (136-145) mmol/L Potassium 4.2 (3.5-5.1) mmol/L Chloride 110 H (98-107) mmol/L Carbon Dioxide 23 (21-32) mmol/L Anion Gap 6 (3-11) BUN 23 (6-23) mg/dl Creatinine 1.24 (0.6-1.4) mg/dl Est Cr Clr Drug Dosing Not Reportable Est GFR ( Amer) 61.9 ml/min Est GFR (Non-Af Amer) 53.4 ml/min BUN/Creatinine Ratio 18.5 (10-20) Glucose 133 H (70-99(Fasting)) mg/dl Calcium 8.6 (8.5-10.1) mg/dl Total Bilirubin 1.7 H (0.2-1.0) mg/dl AST 38 (13-39) U/L ALT 40 (7-52) U/L Alkaline Phosphatase 680 H (34-104) U/L Ammonia (18-72) umol/L Troponin I High Sens 37.7 H (0-20) pg/ml Total Protein 4.6 L (6.0-8.3) gm/dl Albumin 2.9 L (3.4-5.0) gm/dl Globulin 1.7 L (2.5-4.0) gm/dl Albumin/Globulin Ratio 1.7 (0.9-2) Urine Color Urine Appearance (Clear) Urine pH (4.5-7.5) Ur Specific [place]iro (1.000-1.030) Urine Protein (Negative) Urine Glucose (UA) (Negative) Urine Ketones (Negative) Urine Blood (Negative) Urine Nitrite (Negative) Urine Bilirubin (Negative) Urine Urobilinogen (Negative) Ur Leukocyte Esterase (Negative) Urine WBC (Auto) (0-5) /hpf Urine RBC (Auto) (0-4) /hpf U Hyaline Cast (Auto) (0-5) /lpf U Epithel Cells (Auto) (0-5) /lpf Urine Bacteria (Auto) (Negative) Urine Yeast SARS-CoV-2, RNA, NAAT (NEGATIVE) Blood Type Antibody Screen 08/16/21 Range/Units 14:46 WBC 13.76 H (4.8-10.8) K/uL RBC 2.77 L (4.7-6.1) M/uL Hgb 8.3 L (14.0-18.0) g/dL Hct 26.2 L (42-52) % MCV 94.6 (80-100) fL MCH 30.0 (25-34) pg MCHC 31.7 L (32-36) g/dL RDW Std Deviation 64.6 H (36.4-46.3) fL RDW Coeff of Harsh 18.9 H (11.5-14.5) % Plt Count 54 L (130-400) K/uL Immature Gran % (Auto) 0.4 % Neut % (Auto) 82.4 % Lymph % (Auto) 11.8 % [place] % (Auto) 1.9 % Eos % (Auto) 3.3 % Baso % (Auto) 0.2 % Neut # (Auto) 11.33 H (1.4-6.5) K/uL Lymph # (Auto) 1.62 (1.2-3.4) K/uL [place] # (Auto) 0.26 (0.11-0.59) K/uL Eos # (Auto) 0.46 (0-0.5) K/uL Baso # (Auto) 0.03 (0-0.2) K/uL Immature Gran # (Auto) 0.06 H (0.00-0.02) K/uL Platelet Estimate Decreased L (Normal) Giant Platelets 1+ Hypochromasia Present PT (9.0-12.0) Seconds INR (0.9-1.1) APTT (21.0-31.0) Seconds PTT Ratio Sodium (136-145) mmol/L Potassium (3.5-5.1) mmol/L Chloride (98-107) mmol/L Carbon Dioxide (21-32) mmol/L Anion Gap (3-11) BUN (6-23) mg/dl Creatinine (0.6-1.4) mg/dl Est Cr Clr Drug Dosing Est GFR ( Amer) ml/min Est GFR (Non-Af Amer) ml/min BUN/Creatinine Ratio (10-20) Glucose (70-99(Fasting)) mg/dl Calcium (8.5-10.1) mg/dl Total Bilirubin (0.2-1.0) mg/dl AST (13-39) U/L ALT (7-52) U/L Alkaline Phosphatase (34-104) U/L Ammonia (18-72) umol/L Troponin I High Sens (0-20) pg/ml Total Protein (6.0-8.3) gm/dl Albumin (3.4-5.0) gm/dl Globulin (2.5-4.0) gm/dl Albumin/Globulin Ratio (0.9-2) Urine Color Urine Appearance (Clear) Urine pH (4.5-7.5) Ur Specific Tiro (1.000-1.030) Urine Protein (Negative) Urine Glucose (UA) (Negative) Urine Ketones (Negative) Urine Blood (Negative) Urine Nitrite (Negative) Urine Bilirubin (Negative) Urine Urobilinogen (Negative) Ur Leukocyte Esterase (Negative) Urine WBC (Auto) (0-5) /hpf Urine RBC (Auto) (0-4) /hpf U Hyaline Cast (Auto) (0-5) /lpf U Epithel Cells (Auto) (0-5) /lpf Urine Bacteria (Auto) (Negative) Urine Yeast SARS-CoV-2, RNA, NAAT (NEGATIVE) Blood Type Antibody Screen (1) Anemia Anemia type: unspecified type Qualified Code(s): D64.9 - Anemia, unspecified
[2021-08-17] MEDS: CHOLECALCIFEROL 1,000 UNITS 25 MCG TAB PO SCH (11:10)
[2021-08-17] MEDS: LACTULOSE SYRUP 30 GM/45 ML UDP PO SCH (11:10)
--- NOTE | 2021-08-17 17:41 | Hospitalist Progress Note ---
Date of Service August 17, 2021 Assessment & Plan (1) Bilateral leg edema: Plan: Presented to the emergency room with increasing swelling of the legs bilaterally Secondary to hypoalbuminemia and is complicated by presence of paroxysmal atrial fibrillation likely secondary to diastolic CHF Decreased circulation due to edema causing some discoloration of the toes Will advised to elevate the legs while in bed Will try small doses of Lasix Edema has been improving Will get echocardiogram to find out LV function as that was requested by the PCP (2) Acute GI bleeding: Plan: His hemoglobin was 10.2 on fourth of this month This has been gradually decreasing and it is 8.3 as of today Stool is strongly positive for blood Will give Protonix drip Avoid any NSAID's and hold Eliquis Get GI evaluation for possible EGD Appreciate GI input and recommendation-no EGD at this (3) 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 Terrell Chemotherapy was not given due to low platelet count recently Has liver metastasis with INR of 1.9 and alkaline phos 680 Albumin level seems to be reasonable at 2.9 Pain seems to be controlled (4) Thrombocytopenia: Plan: Secondary to hepatic metastasis and the pancreatic cancer itself (5) DVT (deep venous thrombosis): Plan: History of bilateral DVT Has been on Eliquis which has been decreased to 2.5 mg twice daily from 5 mg twice daily recently due to low platelet INR is 1.9 today and with evidence of Hemoccult positive we will hold Eliquis for now During last admission vascular surgery consult was taken for possible IVC filter but that was not given due to stoppage of bleeding Will hold Eliquis for now (6) Weakness: Plan: Generalized weakness Has been getting worse likely contributed by low hemoglobin and also metastatic cancer (7) Aortic stenosis: Plan: Status post AVR Denies any chest pain and/or palpitation (8) CKD (chronic kidney disease), stage III: Plan: Creatinine remains stable (9) Hypertension: Plan: Blood pressure is stable at 127/69 DVT prophylaxis SCDs No Eliquis due to INR being 1.9 and ongoing GI bleeding CODE STATUS Full Admission and Anticipated Discharge Date Admission Date: August 16, 2021 Subjective 08/17/2021 The patient was seen and examined in medical telemetry unit He has been feeling a little better today Denies any more black stool Leg swelling has been improving Review of Systems Review of Systems: All systems reviewed and are unremarkable except as noted below Neurologic: Generalized weakness Physical Exam Physical Exam: Lying in bed comfortably but looks pale Constitutional: + ill appearing and average body habitus Eyes: PERRL, conjunctivae normal, anicteric sclerae ENMT: external ear and nose normal, oropharynx normal Neck: trachea midline, no thyromegaly Respiratory: no respiratory distress Auscultation: lungs clear to auscultation bilaterally; no crackles Cardiovascular: Rate/Rhythm: regular rate and regular rhythm; not tachycardic Heart Sounds: normal S1, normal S2 and + murmur (2/6 ESM over precordium) Extremities: + edema (1+ edema bilaterally with palpable pedal arteries) Gastrointestinal (Abdomen): Inspection/Auscultation: normal bowel sounds; abdomen not distended Percussion/Palpation: + abdomen tender (Minimally tender all over without guarding and no rigidity) and abdomen soft Lymphatic: no cervical or axillary lymphadenopathy Results & Data Results & Data ([facility]) Vital Signs (Past 12 Hours) Vital Signs Temp Pulse Pulse Pulse Resp BP Pulse Ox 08/17/21 16:00 89 08/17/21 15:12 36.9 C 90 18 94/57 L 97 08/17/21 11:21 37.1 C 90 18 92/60 L 96 08/17/21 07:45 36.7 C 93 H 18 92/54 L 96 08/17/21 07:37 85 Laboratory Results Short CBC 08/16/21 08/16/21 08/17/21 Range/Units 18:10 23:50 07:32 WBC 11.75 H (4.8-10.8) K/uL Hgb 8.3 L 7.9 L 8.1 L (14.0-18.0) g/dL Hct 26.2 L 24.9 L 26.0 L (42-52) % Plt Count 51 L (130-400) K/uL BMP 08/17/21 07:32 Sodium 140 Potassium 3.9 Chloride 111 H Carbon Dioxide 23 BUN 22 Creatinine 1.40 Glucose 121 H Calcium 8.3 L Urine 08/16/21 Range/Units 23:15 Urine Color Yellow Urine Appearance Cloudy A (Clear) Urine pH 5.0 (4.5-7.5) Ur Specific Harlan 1.007 (1.000-1.030) Urine Protein Negative (Negative) Urine Glucose (UA) Negative (Negative) Medications Administered Current Inpatient Medications Heparin Sodium (Porcine) (Heparin 100 Unit/Ml 5ml Flush) 5 ml FLUSH PRN PRN PRN Reason: Flush Stop: 09/16/21 02:24 Pantoprazole Sodium 40 mg/ (Dextrose) 100 mls @ 20 mls/hr IV Q5H KYLER Stop: 09/15/21 17:44 Last Admin: 08/17/21 15:54 Dose: 8 mg/hr, 20 mls/hr Documented by: Lactulose (Lactulose Syrup 30 Gm/45 Ml Udp) 30 gm PO DAILY KYLER Stop: 09/15/21 17:59 Last Admin: 08/17/21 11:10 Dose: Not Given Documented by: Mirtazapine (Mirtazapine Tab 15 Mg Tab) 15 mg PO HS PRN PRN Reason: Insomnia Stop: 09/15/21 20:36 Oxycodone HCl (Oxycodone Hcl Ir 5 Mg Tab (Immediate Release)) 2.5 - 5 mg PO Q6H PRN PRN Reason: Pain Stop: 08/30/21 20:36 Tamsulosin HCl (Tamsulosin Hcl 0.4 Mg Cap) 0.4 mg PO HS KYLER Stop: 09/15/21 20:59 Last Admin: 08/16/21 21:36 Dose: 0.4 mg Documented by: Vitamin D (Cholecalciferol 1,000 Units 25 Mcg Tab) 2,000 units PO DAILY KYLER Stop: 09/16/21 08:59 Last Admin: 08/17/21 11:10 Dose: Not Given Documented by: (1) DVT (deep venous thrombosis) Affected thrombotic vein of extremity: unspecified vein of extremity Chronicity: chronic DVT location: lower extremity Laterality: bilateral Qualified Code(s): I82.503 - 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
[2021-08-17] MEDS: TAMSULOSIN HCL 0.4 MG CAP PO SCH (20:09)
[2021-08-17] MEDS: MIRTAZAPINE TAB 15 MG TAB PO PRN (20:46)
[2021-08-17] MEDS ORDERED: Nursing to Pharmacy Communication SCH (22:15)
[2021-08-18] MEDS: PANTOprazole 40 MG in DEXTROSE 5% 100 ML IV SCH ×5 (01:30→22:00)
[2021-08-18 07:47] LABS: Hematocrit (blood only) 24.4 % (42-52); Hemoglobin 7.6 g/dL (14.0-18.0); Mean Corpuscular Hemoglobin 29.7 pg (25-34); Mean Corpuscular Hgb Conc 31.1 g/dL (32-36); Mean Corpuscular Volume 95.3 fL (80-100); RDW Standard Deviation 65.8 fL (36.4-46.3); Red Blood Count 2.56 M/uL (4.7-6.1); White Blood Count 11.45 K/uL (4.8-10.8)
[2021-08-18] MEDS: LACTULOSE SYRUP 30 GM/45 ML UDP PO SCH (07:51)
[2021-08-18] MEDS: CHOLECALCIFEROL 1,000 UNITS 25 MCG TAB PO SCH (07:51)
[2021-08-18 07:57] LABS: Mean Platelet Volume 11.7 fL (7.4-10.4); Platelet Count 44 K/uL (130-400)
[2021-08-18 08:21] LABS: Anisocytosis Present; Basophils # (auto) 0.02 K/uL (0-0.2); Basophils % (auto) 0.2 %; Eosinophils # (auto) 0.49 K/uL (0-0.5); Eosinophils % (auto) 4.3 %; Immature Granulocytes # (auto) 0.06 K/uL (0.00-0.02); Immature Granulocytes % (auto) 0.5 %; Lymphocytes # (auto) 0.55 K/uL (1.2-3.4); Lymphocytes % (auto) 4.8 %; Monocytes # (auto) 1.38 K/uL (0.11-0.59); Monocytes % (auto) 12.1 %; Neutrophils # (auto) 8.95 K/uL (1.4-6.5); Neutrophils % (auto) 78.1 %; Poikilocytosis Present
[2021-08-18 09:02] LABS: BUN Creatinine Ratio 15.4 (10-20); Calcium 8.1 mg/dl (8.5-10.1); Creatinine Clr Calc Pharmacy 38.5 ml/min; Est GFR (African American) 55.4 ml/min; Est GFR (Non-African American) 47.8 ml/min; Potassium 3.7 mmol/L (3.5-5.1)
[2021-08-18 09:21] LABS: INR 1.9 (0.9-1.1); Prothrombin Time 19.7 Seconds (9.0-12.0)
--- NOTE | 2021-08-18 15:49 | Hospitalist Progress Note ---
Date of Service August 18, 2021 Assessment & Plan (1) Bilateral leg edema: Plan: Presented to the emergency room with increasing swelling of the legs bilaterally Secondary to hypoalbuminemia and is complicated by presence of paroxysmal atrial fibrillation likely secondary to diastolic CHF Decreased circulation due to edema causing some discoloration of the toes Will advised to elevate the legs while in bed Will try small doses of Lasix Edema has been improving Will get echocardiogram to find out LV function as that was requested by the PCP Edema is improved Echo of the heart showed-bioprosthetic aortic valve, the gradient is abnormal for this bioprosthetic aortic valve suggesting obstruction, mild bioprosthetic aortic valve regurgitation, moderate MR and moderate TR, estimated systolic pulmonary pressure is 43 mmHg EF is 60 to 65% (2) Acute GI bleeding: Plan: His hemoglobin was 10.2 on fourth of this month This has been gradually decreasing and it is 8.3 as of today Stool is strongly positive for blood Will give Protonix drip Avoid any NSAID's and hold Eliquis Get GI evaluation for possible EGD Appreciate GI input and recommendation-no EGD at this Hemoglobin stable at more than 7 We will continue PPI drip and change to oral tomorrow (3) 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 Terrell Chemotherapy was not given due to low platelet count recently Has liver metastasis with INR of 1.9 and alkaline phos 680 Albumin level seems to be reasonable at 2.9 Pain seems to be controlled Remains pleasantly confused-likely secondary to cancer and also may have mild dementia (4) Thrombocytopenia: Plan: Secondary to hepatic metastasis and the pancreatic cancer itself (5) DVT (deep venous thrombosis): Plan: History of bilateral DVT Has been on Eliquis which has been decreased to 2.5 mg twice daily from 5 mg twice daily recently due to low platelet INR is 1.9 today and with evidence of Hemoccult positive we will hold Eliquis for now During last admission vascular surgery consult was taken for possible IVC filter but that was not given due to stoppage of bleeding Will hold Eliquis for now (6) Weakness: Plan: Generalized weakness Has been getting worse likely contributed by low hemoglobin and also metastatic cancer PT OT evaluation (7) Aortic stenosis: Plan: Status post AVR Denies any chest pain and/or palpitation (8) CKD (chronic kidney disease), stage III: Plan: Creatinine remains stable (9) Hypertension: Plan: Blood pressure is stable at 127/69 DVT prophylaxis SCDs No Eliquis due to INR being 1.9 and ongoing GI bleeding CODE STATUS Full Admission and Anticipated Discharge Date Admission Date: August 16, 2021 Subjective 08/17/2021 The patient was seen and examined in medical telemetry unit He has been feeling a little better today Denies any more black stool Leg swelling has been improving 08/18/2021 The patient was seen and examined in medical telemetry unit Remains generally weak and lethargic And may be pleasantly confused Has been getting physical therapy Review of Systems Review of Systems: All systems reviewed and are unremarkable except as noted below Neurologic: Generalized weakness Physical Exam Physical Exam: Lying in bed comfortably but looks pale Constitutional: + ill appearing and average body habitus Eyes: PERRL, conjunctivae normal, anicteric sclerae ENMT: external ear and nose normal, oropharynx normal Neck: trachea midline, no thyromegaly Respiratory: no respiratory distress Auscultation: lungs clear to auscultation bilaterally; no crackles Cardiovascular: Rate/Rhythm: regular rate and regular rhythm; not tachycardic Heart Sounds: normal S1, normal S2 and + murmur (2/6 ESM over precordium) Extremities: + edema (1+ edema bilaterally with palpable pedal arteries) Gastrointestinal (Abdomen): Inspection/Auscultation: normal bowel sounds; abdomen not distended Percussion/Palpation: + abdomen tender (Minimally tender all over without guarding and no rigidity) and abdomen soft Musculoskeletal: No acute arthritis but has generalized weakness Neurologic: .Alert and awake. Very drowsy and mildly confused Lymphatic: no cervical or axillary lymphadenopathy Results & Data Results & Data ([facility]) Vital Signs (Past 12 Hours) Vital Signs Temp Pulse Pulse Resp BP BP Pulse Ox 08/18/21 15:28 36.9 C 101 H 19 95/60 L 95 08/18/21 14:51 86 08/18/21 11:23 36.9 C 70 18 97/62 L 95 08/18/21 08:45 36.9 C 91 H 18 92/52 L 94 08/18/21 07:28 89 08/18/21 04:20 36.7 C 88 18 114/76 95 Laboratory Results Short CBC 08/18/21 Range/Units 07:12 WBC 11.45 H (4.8-10.8) K/uL Hgb 7.6 L (14.0-18.0) g/dL Hct 24.4 L (42-52) % Plt Count 44 L (130-400) K/uL [facility] 08/18/21 07:12 Sodium 140 Potassium 3.7 Chloride 111 H Carbon Dioxide 24 BUN 21 Creatinine 1.36 Glucose 123 H Calcium 8.1 L Medications Administered Current Inpatient Medications Heparin Sodium (Porcine) (Heparin 100 Unit/Ml 5ml Flush) 5 ml FLUSH PRN PRN PRN Reason: Flush Stop: 09/16/21 02:24 Pantoprazole Sodium 40 mg/ (Dextrose) 100 mls @ 20 mls/hr IV Q5H KYLER Stop: 09/15/21 17:44 Last Admin: 08/18/21 10:54 Dose: 8 mg/hr, 20 mls/hr Documented by: Lactulose (Lactulose Syrup 30 Gm/45 Ml Udp) 30 gm PO DAILY KYLER Stop: 09/15/21 17:59 Last Admin: 08/18/21 07:51 Dose: 30 gm Documented by: Mirtazapine (Mirtazapine Tab 15 Mg Tab) 15 mg PO HS PRN PRN Reason: Insomnia Stop: 09/15/21 20:36 Last Admin: 08/17/21 20:46 Dose: 15 mg Documented by: Oxycodone HCl (Oxycodone Hcl Ir 5 Mg Tab (Immediate Release)) 2.5 - 5 mg PO Q6H PRN PRN Reason: Pain Stop: 08/30/21 20:36 Tamsulosin HCl (Tamsulosin Hcl 0.4 Mg Cap) 0.4 mg PO HS KYLER Stop: 09/15/21 20:59 Last Admin: 08/17/21 20:09 Dose: 0.4 mg Documented by: Vitamin D (Cholecalciferol 1,000 Units 25 Mcg Tab) 2,000 units PO DAILY KYLER Stop: 09/16/21 08:59 Last Admin: 08/18/21 07:51 Dose: 2,000 units Documented by: (1) DVT (deep venous thrombosis) Affected thrombotic vein of extremity: unspecified vein of extremity Chronicity: chronic DVT location: lower extremity Laterality: bilateral Qualified Code(s): I82.503 - 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
[2021-08-18] MEDS ORDERED: CALCIUM CARBONATE 500 MG CHEWABLE TAB PO PRN (16:45)
[2021-08-18] MEDS: TAMSULOSIN HCL 0.4 MG CAP PO SCH (22:01)
[2021-08-19] MEDS ORDERED: METOPROLOL TARTRATE 1 MG/ML VIAL IV STA (00:59)
--- NOTE | 2021-08-19 01:04 | Communication Note ---
Date of Service: August 19, 2021 Contacted by nurse that patient went into afib and HR was in the 120-130s Reviewed telemetry regarding this. Pt was sleeping on my arrival. He is mentating normally and denies any symptoms of lightheadedness, palpitations, chest pain, SOB or other issues. He does have some back discomfort from the mattress. Vitals currently 101/66, HR 125, Resp 18 afebrile and 97% on room air Elderly, man in NAD. CV: irregularly irregular rhythm, tachy rate. No m/g/r Lungs are CTAB Abdomen soft NTND Moving all extremities equally Follows instructions and is oriented. He is known to have a h/o PAF and is on Eliquis which is being held for acute GI bleeding and thrombocytopenia. He is not taking any known rate or rhythm control medications at home. Normal EF on echo today. Lopressor 2.5mg IV x 1 ordered. Transferred to PCU BP recheck prior to giving Lopressor was 68/44. Lopressor was held and 1L NSS bolus immediately given Repeat BP was 88/60 and he has been running in the 90s systolic this admission. Continuing with additional NSS bolus 500 x 1 now and digoxin 250mcg IV x one. Contacted cardiology station baggage agent to discuss options and placed consult for am. After the additional bolus and dig vitals were 89/49, HR 153. He was taken to the ICU and placed on phenylephrine. I updated his daughter by phone on the change in status. All questions were answered to her satisfaction. I did mention that although I would expect the medication to work to improve his hemdynamics, he is still 81 yo and in critical condition with underlying comorbidities. She verbalized understanding. Will relay to am provider. Bina Rodriguez DO [facility] [address] Hospitalist
[2021-08-19] MEDS ORDERED: SODIUM CHLORIDE 0.9% 1000ML 1,000 ML IV ONE (01:36)
[2021-08-19] MEDS ORDERED: SODIUM CHLORIDE 0.9% 1000ML 500 ML IV ONE (02:45)
[2021-08-19] MEDS ORDERED: DIGOXIN 250 MCG in SYRINGE 9 ML IV ONE (03:00)
[2021-08-19] MEDS ORDERED: STAT IV Infusion **Titration per Protocol STA (03:45)
[2021-08-19] MEDS ORDERED: SODIUM CHLORIDE 0.9% 250 ML IV PRN (03:54)
--- NOTE | 2021-08-19 03:56 | Critical Care Consultation ---
Date of Consultation August 19, 2021 Assessment & Plan (1) Admitted to intensive care unit: Reason Critically Ill: 81-year-old male with acute onset of A. fib with associated hypotension in the setting of ongoing GI bleeding requiring ongoing hemodynamic monitoring and possible need for pressors. NEURO - * CAM ICU: NEGATIVE CARDIAC/VASCULAR - * A. fib with RVR with associated hypotension: * Patient did not respond to IV fluid boluses. * Received digoxin. * Would avoid ongoing fluid resuscitation in the acute on chronic anemic patient. We will start eliu drip to assist stabilize patient's pressor prior to initiating definitive treatment options. * Will check H&H. Transfuse if needed. * Monitor on telemetry. RESPIRATORY - * No history of pulmonary disease. * Saturating well on room air. GI/NUTRITION - * GI bleeding: * On Protonix drip. * GI consulted. * Pancreatic cancer with metastatic spread. RENAL/LYTES - * No significant electrolyte derangements. - * No concerns at this time. ENDO - * No h/o DM * BSGs per unit protocol. ISS --> gtt per unit policy. HEME - * Acute on chronic anemia: * Recheck H&H. Transfuse if needed. * Thrombocytopenia: * Low threshold for transfusion in the anemic patient w/ hemodynamic instability. ID - * No concerns for infectious contribution at this time. LINES/IV ACCESS - * PIVs x1 * Port a cath DVT PROPHYLAXIS - * Hold on chemoprophylaxis in the setting of GIB * SCDs I have personally spent 35 minutes of critical care time in the direct manage ment of this patient. This is a life/limb threatening event. This includes time spent evaluating patient, direct bedside care, chart review, placing orders, interpretation of diagnostic studies, discussion with consultants, patient, and family members, as well as other required patient management activities. This time is exclusive of all separately billable procedures, and teaching time and separate from and in addition to any other critical care service time. Thank you for allowing us to participate in the care of this patient. Please refer to my attending physician's documentation for any further recommendations. (2) A-fib: (3) Hypotension: History of Present Illness Attending Physician: Francheska Jasso MD History of Present Illness Patient is an 81-year-old male with a significant past medical history for hypertension, hyperlipidemia, thrombocytopenia, pancreatic cancer with metastatic spread to the liver, aortic stenosis, CKD 3, history of TIA, and ongoing issues with anemia. Patient was admitted to this institution with bilateral lower extremity edema and ongoing GI bleeding. Patient had been doing well but had noticed a small dip in his H&H. Unfortunately, overnight, the patient went into A. fib with heart rates in the 150s. He did drop his blood pressures and did not respond to IV fluid bolus. He did receive IV digoxin. ICU consulted for evaluation of ongoing hypotension. Upon evaluation in room 234, the patient is awake, alert, and oriented. His recent blood pressure was a systolic in the 60s. Heart rate in the 120s. Patient denies complaints of pain, dizziness, lightheadedness, nausea, or vomiting. Orders placed to start phenylephrine drip. Allergies Allergy/AdvReac Type Severity Reaction Status Date / Time shellfish derived AdvReac Intermediate Hives Verified 08/16/21 16:24 Home Medications Medication Instructions Recorded Confirmed Type pravastatin 20 mg tablet 20 mg PO QAM 06/06/21 08/16/21 History tamsulosin 0.4 mg capsule 0.4 mg PO HS 06/06/21 08/16/21 History cholecalciferol (vitamin D3) 50 2,000 unit PO DAILY 07/03/21 08/16/21 History mcg (2,000 unit) capsule (Vitamin D3) famotidine 20 mg tablet 20 mg PO HS 07/03/21 08/16/21 History oxycodone 5 mg tablet 2.5 - 5 mg PO Q6H PRN 07/15/21 08/16/21 History mirtazapine 15 mg tablet 15 mg PO HS PRN #0 tab 07/22/21 08/16/21 Rx apixaban 5 mg tablet (Eliquis) 2.5 mg PO BID 08/16/21 08/16/21 History Patient History Medical History Acid reflux Anemia Aortic stenosis Aortic valve disorder BPH (benign prostatic hyperplasia) CKD (chronic kidney disease), stage III High cholesterol Hypertension Pancreatic neoplasm TIA (transient ischemic attack) Surgical History H/O aortic valve replacement 10/18/2019-prosthetic valve at [facility] History of cardiac catheterization Family History Mother Breast cancer Social History Smoking Status: Never smoker Second Hand Exposure: No; Hx Alcohol Use: No Hx Substance Use: No Preferred Language: Belgian Communication Ability: Effective Account Executive Healthcare Required: No Beliefs That Will Affect Care: None marital status: Current Living Situation: Spouse Current Living Situation Comment: home with How many Children do You have: 2 Other Information That Helps Us Care for You: No Feels Safe at Home: Yes Safety Concerns: Feels Safe At This Time Assistive Devices: Cane and Walker Review of Systems Review of Systems: All systems reviewed & are unremarkable except as noted in HPI & below Physical Exam Physical Exam: VITAL SIGNS - Vital signs and nursing notes were reviewed. GENERAL - 81-year-old male appearing his stated age who is in no acute distress. Communicates well with provider and answers questions appropriately. SKIN - Without rashes. HEAD - NC/AT. EYES - PERRL with EOMI bilaterally. Sclera anicteric. EARS - No deformities of external structures noted on gross examination bilaterally. NOSE - Midline and without cyanosis. No epistaxis or purulent drainage noted. Septum midline without deviation or septal hematoma noted. MOUTH/OROPHARYNX - Without perioral cyanosis. Buccal mucosa pink and moist. NECK - Neck with FROM. Supple to palpation. No lymphadenopathy noted. No nuchal rigidity. LUNGS - Chest wall symmetric without accessory muscle use, intercostals retractions, or central cyanosis. Normal vesicular breath sounds CTA B/L. No wheezes, rales, or rhonchi appreciated. CARDIAC - RRR with S1/S2. No murmur, rubs, or gallops appreciated. ABDOMEN - Abdominal contour flat without pulsations or visible masses. BS normoactive all four quadrants. No tenderness, palpable masses, hepatosplenomegaly, or ascites noted. EXTREMITIES - No clubbing or peripheral cyanosis. No pretibial edema present. +3/5 radial and dorsalis pedis pulses palpated throughout. +5/5 strength noted in UE/LE bilaterally. NEUROLOGIC - Cranial nerves II through XII grossly intact. Sensory intact to light touch throughout. PSYCH - A&Ox3 and cooperates fully with examiner. Pt is very pleasant and interacts well with examiner. Results & Data Results & Data ([facility]) Vital Signs (Past 12 Hours) Vital Signs Temp Pulse Pulse Pulse Resp BP BP 08/19/21 03:30 132 H 94/64 L 08/19/21 03:15 128 H 74/50 L 08/19/21 03:04 138 H 08/19/21 03:00 132 H 87/55 L 08/19/21 02:45 125 H 88/55 L 08/19/21 02:39 36.6 C 140 H 16 88/51 L 08/19/21 02:07 140 H 79/52 L 08/19/21 01:29 133 H 68/44 L 08/18/21 23:30 125 H 08/18/21 23:00 36.4 C L 93 H 18 101/66 08/18/21 19:59 37.1 C 77 16 95/56 L Pulse Ox 08/19/21 03:30 08/19/21 03:15 08/19/21 03:04 08/19/21 03:00 08/19/21 02:45 08/19/21 02:39 97 08/19/21 02:07 08/19/21 01:29 08/18/21 23:30 08/18/21 23:00 97 08/18/21 19:59 97 Coding Level of Care Code Critical Care 1st 30-74 mins Diagnoses Admitted to intensive care unit Z78.9 A-fib I48.91 Hypotension I95.9 Time Spent (min) 35
[2021-08-19] MEDS ORDERED: ICU PROTOCOL FOR HYPERGLYCEMIA PRN (04:03)
[2021-08-19] MEDS: PHENYLEPHRINE HCL 20 MG in DEXTROSE 5% 500 ML IV SCH ×3 (04:06→17:47)
[2021-08-19] MEDS ORDERED: SODIUM BICARB 8.4% INJ 50 MEQ/50 ML SYR IV STA (04:22)
[2021-08-19] MEDS ORDERED: DEXTROSE 50% 50 ML SYRINGE IV STA (04:22)
[2021-08-19] MEDS ORDERED: CALCIUM CHLORIDE 10% 1,000 MG in DEXTROSE 5% 50 ML IV STA (04:23)
[2021-08-19] MEDS ORDERED: INSULIN HUMAN REGULAR PER UNIT 6 UNITS in SYRINGE 5.94 ML IV ONE (04:30)
[2021-08-19] MEDS ORDERED: CALCIUM CHLORIDE IV ONE (04:30)
[2021-08-19] MEDS ORDERED: DEXTROSE 5% IV ONE (04:30)
[2021-08-19 04:53] LABS: Hematocrit (blood only) 26.4 % (42-52); Hemoglobin 8.3 g/dL (14.0-18.0); Mean Corpuscular Hemoglobin 29.5 pg (25-34); RDW Standard Deviation 65.1 fL (36.4-46.3); Red Blood Count 2.81 M/uL (4.7-6.1)
[2021-08-19 04:54] LABS: Albumin Level 2.6 gm/dl (3.4-5.0); BUN Creatinine Ratio 16.9 (10-20); Bilirubin,Total 1.9 mg/dl (0.2-1.0); Calcium 7.8 mg/dl (8.5-10.1); Creatinine Clr Calc Pharmacy 40.3 ml/min; Est GFR (African American) 58.5 ml/min; Est GFR (Non-African American) 50.5 ml/min; Magnesium 1.7 mg/dl (1.7-2.4); Phosphorus 2.4 mg/dl (2.5-4.9); Total Protein 4.2 gm/dl (6.0-8.3)
[2021-08-19] MEDS: PANTOprazole 40 MG in DEXTROSE 5% 100 ML IV SCH ×2 (05:02→11:43)
[2021-08-19 05:07] LABS: Basophils # (auto) 0.01 K/uL (0-0.2); Basophils % (auto) 0.1 %; Eosinophils # (auto) 0.32 K/uL (0-0.5); Eosinophils % (auto) 2.3 %; Immature Granulocytes # (auto) 0.08 K/uL (0.00-0.02); Immature Granulocytes % (auto) 0.6 %; Lymphocytes # (auto) 0.52 K/uL (1.2-3.4); Lymphocytes % (auto) 3.8 %; Mean Corpuscular Hgb Conc 31.4 g/dL (32-36); Monocytes # (auto) 1.59 K/uL (0.11-0.59); Monocytes % (auto) 11.5 %; Neutrophils # (auto) 11.28 K/uL (1.4-6.5); Neutrophils % (auto) 81.7 %; Platelet Count 43 K/uL (130-400); Platelet Estimate Decreased (Normal); Polychromasia 1+
[2021-08-19 05:44] LABS: INR 1.9 (0.9-1.1)
--- NOTE | 2021-08-19 08:44 | Cardiology Consultation ---
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 Cardiology following due to PAF with RVR and hypotension. Patient converted to SR on own over night. Currently SR with a long first degree AVB. Phenylephrine on but attempting to be weaned, baseline BP in the 90s sbp prior. Patient asymptomatic but fatigued. Volume status controlled. AV gradients on echo could be increased due to anemia/stress on valve. INR remains elevated at 1.9- likely due to liver dysfunction 1. Will monitor HR/Rhythm for now- would be hesitant to add additional medications at this time due to hypotension. Can consider amiodarone vs metoprolol pending clinical course 2. Continue to hold Eliquis at this time due to anemia and heme positive stool. On Protonix gtt. 3. Mag low, goal of 2.0- 1 g Mag IV ordered for replacement 4. Further recommendations pending clinical course. Supervising Physician Co-Signing Physician Notes Patient seen examined the bedside. Contacted by physician overnight due to paroxysmal atrial fibrillation with rapid ventricular response. Patient transiently hypotensive after receiving IV metoprolol. He has since converted back to normal sinus rhythm. History of postoperative paroxysmal atrial fibrillation following valve surgery. Anticoagulation on hold since admission due to possible GI bleeding and anemia. Seen and examined at the bedside. No chest discomfort, palpitations, or shortness of breath. Offers no concerns/complaints. PE: Stable blood pressure requiring Armaan-Synephrine infusion. General: Chronically ill, no acute distress. Heart: Regular, normal S1-S2. 2/6 mid peaking low pitched systolic murmur heard best at the right second intercostal space. Lungs: Clear bilateral, no rales, rhonchi, or wheeze. Extremities: No edema. A/P: Agree with above [facility]NER history, physical exam, assessment and plan with the following additions. Examined complex 81-year-old patient with metastatic pancreatic cancer receiving palliative chemotherapy. Abnormal coagulation profile suggesting auto anticoagulation in setting of liver dysfunction. Recommend repleting magnesium IV. Maintain serum magnesium greater than 2.0, and potassium greater than 4.0. Patient blood pressure has been borderline hypotensive since admission. Recommend continued observation at this time. While not optimal due to liver dysfunction, amiodarone may be considered orally, 200 mg twice daily to maintain sinus rhythm. Overall patient prognosis is poor. Palliative care consultation pending at this time. History of Present Illness Reason for Consultation: SOB/Lower extremity edema/Atrial fibrillation Requesting Physician: Inga harris Attending Physician: Francheska Jasso MD History of Present Illness Medically complex 81 year old male. PMH as listed below. Presented to the ED 08/16 due to lower extremity edema and shortness of breath. Recently hospitalized for similar concerns on 07/16/2021 for lower extremity edema. Eliquis was held that admission for bleed- His bleeding was thought to be from the the EUS and liver biopsy.Dcd to [facility]- dc'd 07/22. Following with Dr. Terrell for pancreatic cancer with liver mets- chemo held on 08/11 due to low platelets. Follows with [facility]- [facility] (Dr. Alejandra)- recently moved from the [facility], has not established with local cardiology at this time. Patient seems to be somewhat of a poor historian. This admission found to have a positive FOBT and Protonix gtt was started by GI (no active bleeding seen). Hgb drop from 10.5 earlier in the month >>7.9 (No transfusion given). INR 1.9. Eliquis currently on hold. Hgb today 8.3. Early this am (~0100)- patient lapsed into afib with RVR, rates in the 150s. Lopressor 2.5 mg IV given with a drop in hemodynamic- BP 68/44. Given NSS bolus with improvement in BP 88/60 (patient baseline around 90 sbp). x1 dose of 250 mcg of digoxin and second NSS bolus given- no improvement in BP or heart rates (now in the 150s). He was then transferred to ICU- started on phenylephrine. Echo done 08/18, was technically limited, LVEF 60-65%, notable bioprosthetic valve with abnormal gradients- suggestive for obstruction and mild AI. Moderate MR/TR. Upon entrance into the room patient was resting in bed comfortably. No acute distress. Denied chest pain or shortness of breath. Tele showed: SR with a 1degree AVB- EKG confirmed. Hr in the 90s. No palpitations, dizziness/lightheadedness or syncope. Lower extremity edema improved besides a small amount of right pedal and rico edema. BP have improved, pressors being weaned. 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 Left atrial appendage ligation with a 50 mm clip. HTN Hx of acute cardioembolic CVA, 09/2019 [facility] Pancreatic cancer with hepatic mets- following with Dr. Terrell Mild MR CKD stage 3 Hx of BL DVTs, 07/15/2021 at [facility]- Eliquis dose reduced due to plt count by heme (08/11) Hx of thrombocytopenia Allergies Allergy/AdvReac Type Severity Reaction Status Date / Time shellfish derived AdvReac Intermediate Hives Verified 08/16/21 16:24 Home Medications Medication Instructions Recorded Confirmed Type pravastatin 20 mg tablet 20 mg PO QAM 06/06/21 08/16/21 History tamsulosin 0.4 mg capsule 0.4 mg PO HS 06/06/21 08/16/21 History cholecalciferol (vitamin D3) 50 2,000 unit PO DAILY 07/03/21 08/16/21 History mcg (2,000 unit) capsule (Vitamin D3) famotidine 20 mg tablet 20 mg PO HS 07/03/21 08/16/21 History oxycodone 5 mg tablet 2.5 - 5 mg PO Q6H PRN 07/15/21 08/16/21 History mirtazapine 15 mg tablet 15 mg PO HS PRN #0 tab 07/22/21 08/16/21 Rx apixaban 5 mg tablet (Eliquis) 2.5 mg PO BID 08/16/21 08/16/21 History Patient History Medical History Acid reflux Anemia Aortic stenosis Aortic valve disorder BPH (benign prostatic hyperplasia) CKD (chronic kidney disease), stage III High cholesterol Hypertension Pancreatic neoplasm TIA (transient ischemic attack) Surgical History H/O aortic valve replacement 10/18/2019-prosthetic valve at [facility] History of cardiac catheterization Family History Mother Breast cancer Social History Smoking Status: Never smoker Second Hand Exposure: No; Hx Alcohol Use: No Hx Substance Use: No Preferred Language: Kinyarwanda Communication Ability: Effective 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 Beliefs That Will Affect Care: None marital status: Current Living Situation: Spouse Current Living Situation Comment: home with How many Children do You have: 2 Other Information That Helps Us Care for You: No Feels Safe at Home: Yes Safety Concerns: Feels Safe At This Time Assistive Devices: Cane and Walker Review of Systems Review of Systems: All systems reviewed & are unremarkable except as noted in HPI & below Physical Exam Constitutional: + thin and + frail appearing; no acute distress Eyes: PERRL, conjunctivae normal, anicteric sclerae ENMT: external ear and nose normal, oropharynx normal Neck: normal visual inspection Respiratory: normal respiratory effort, lungs clear to auscultation Auscultation: + diminished lung sounds Cardiovascular: Rate/Rhythm: regular rhythm Heart Sounds: normal S1, normal S2 and + murmur (+3/6 systolic murmur) Vessels: no JVD Extremities: + pedal edema (trace pedal edema R>L) Chest (Breasts): Chest: normal inspection of chest Gastrointestinal (Abdomen): normal bowel sounds, soft, nontender, no hepatosplenomegaly Skin: no rashes, warm and dry Neurologic: awake Psychiatric: A+Ox3, euthymic affect Poor historian Results & Data ([facility]) Vital Signs (Past 12 Hours) Vital Signs Temp Pulse Pulse Pulse Resp BP BP 08/19/21 06:50 94 H 19 08/19/21 06:40 96 H 18 08/19/21 06:30 95 H 15 114/59 L 08/19/21 06:20 95 H 19 08/19/21 06:10 95 H 21 08/19/21 06:00 95 H 18 101/53 L 08/19/21 05:50 96 H 20 08/19/21 05:40 99 H 21 08/19/21 05:30 95 H 17 99/53 L 08/19/21 05:20 97 H 24 08/19/21 05:10 98 H 19 08/19/21 05:00 98 H 21 98/57 L 08/19/21 04:50 97 H 14 08/19/21 04:45 98 H 15 08/19/21 04:30 99 H 14 95/54 L 08/19/21 04:23 99 H 15 94/50 L 08/19/21 04:15 99 H 15 08/19/21 04:08 36.8 C 104 H 104 H 16 79/49 L 08/19/21 04:06 103 H 29 H 79/49 L 08/19/21 04:04 105 H 08/19/21 03:45 153 H 89/49 L 08/19/21 03:39 125 H 67/41 L 08/19/21 03:30 132 H 94/64 L 08/19/21 03:15 128 H 74/50 L 08/19/21 03:04 138 H 08/19/21 03:00 132 H 87/55 L 08/19/21 02:45 125 H 88/55 L 08/19/21 02:39 36.6 C 140 H 16 88/51 L 08/19/21 02:07 140 H 08/19/21 01:29 133 H 08/18/21 23:30 125 H 08/18/21 23:00 36.4 C L 93 H 18 101/66 BP Pulse Ox 08/19/21 06:50 87 L 08/19/21 06:40 93 08/19/21 06:30 95 08/19/21 06:20 91 08/19/21 06:10 95 08/19/21 06:00 98 08/19/21 05:50 95 08/19/21 05:40 94 08/19/21 05:30 95 08/19/21 05:20 92 08/19/21 05:10 93 08/19/21 05:00 96 08/19/21 04:50 95 08/19/21 04:45 96 08/19/21 04:30 96 08/19/21 04:23 97 08/19/21 04:15 98 08/19/21 04:08 97 08/19/21 04:06 95 08/19/21 04:04 08/19/21 03:45 08/19/21 03:39 08/19/21 03:30 08/19/21 03:15 08/19/21 03:04 08/19/21 03:00 08/19/21 02:45 08/19/21 02:39 97 08/19/21 02:07 79/52 L 08/19/21 01:29 68/44 L 08/18/21 23:30 08/18/21 23:00 97 Laboratory Results Cardiac Enzymes 08/19/21 Range/Units 04:24 AST 45 H (13-39) U/L Coagulation 08/18/21 08/19/21 Range/Units 08:32 04:24 PT 19.7 H 20.0 H (9.0-12.0) Seconds CBC 08/19/21 Range/Units 04:24 WBC 13.80 H (4.8-10.8) K/uL RBC 2.81 L (4.7-6.1) M/uL Hgb 8.3 L (14.0-18.0) g/dL Hct 26.4 L (42-52) % Plt Count 43 L (130-400) K/uL Neut # (Auto) 11.28 H (1.4-6.5) K/uL Lymph # (Auto) 0.52 L (1.2-3.4) K/uL [place] # (Auto) 1.59 H (0.11-0.59) K/uL Eos # (Auto) 0.32 (0-0.5) K/uL Baso # (Auto) 0.01 (0-0.2) K/uL Comprehensive Metabolic Panel 08/19/21 Range/Units 04:24 Sodium 140 (136-145) mmol/L Potassium 4.0 (3.5-5.1) mmol/L Chloride 112 H (98-107) mmol/L Carbon Dioxide 19 L (21-32) mmol/L BUN 22 (6-23) mg/dl Creatinine 1.30 (0.6-1.4) mg/dl Glucose 133 H (70-99(Fasting)) mg/dl Calcium 7.8 L (8.5-10.1) mg/dl Direct Bilirubin 1.0 H (0-0.2) mg/dl AST 45 H (13-39) U/L ALT 45 (7-52) U/L Alkaline Phosphatase 642 H (34-104) U/L Total Protein 4.2 L (6.0-8.3) gm/dl Albumin 2.6 L (3.4-5.0) gm/dl Intake and Output 08/18/21 08/19/21 08/19/21 22:59 06:59 14:59 Intake Total 440 / 2455.333 1925 / 2455.333 Output Total 200 / 201 0 / 201 Balance 240 / 2254.333 1925 / 2254.333 Intake: IV 200 / 2951.265 7798 / 1890.333 PANTOprazole 40 mg In Dextrose 200 / 390.333 100 / 390.333 5% 100 ml @ 8 MG/HR 20 mls/hr IV Q5H [facility] Rx#:[id number] Sodium Chloride 0.9% 1000ML 500 1500 / 1500 ml @ 999 mls/hr IV .Q31M ONE Rx#:[id number] Oral 240 / 565 325 / 565 Output: Urine 200 / 200 0 / 200 Other: Weight 68.1 kg Weight Measurement Method Built in [facility] (1) DVT (deep venous thrombosis) Affected thrombotic vein of extremity: unspecified vein of extremity Chronicity: chronic DVT location: lower extremity Laterality: bilateral Qualified Code(s): I82.503 - 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 (2) Anemia Anemia type: unspecified type Qualified Code(s): D64.9 - Anemia, unspecified
--- NOTE | 2021-08-19 08:59 | Electrocardiogram Report ---
Test Reason : Blood Pressure : / mmHG Vent. Rate : 077 BPM Atrial Rate : 077 BPM P-R Int : 238 ms QRS Dur : 076 ms QT Int : 412 ms P-R-T Axes : 081 022 010 degrees QTc Int : 466 ms Sinus rhythm with 1st degree A-V block Septal infarct (cited on or before 15-JUL-2021) Abnormal ECG When compared with ECG of 15-JUL-2021 22:11, Premature supraventricular complexes are no longer Present Confirmed by Jese Price ([id number]) on 08/19/2021 8:59:04 AM Referred By: REFERRED SELF Confirmed By:Jese Price
[2021-08-19] MEDS: LACTULOSE SYRUP 30 GM/45 ML UDP PO SCH (10:56)
[2021-08-19] MEDS: CHOLECALCIFEROL 1,000 UNITS 25 MCG TAB PO SCH (10:56)
[2021-08-19] MEDS ORDERED: POTASSIUM PHOSPHATE 18 MMOL in SODIUM CHLORIDE 0.9% 500 ML IV ONE (11:00)
[2021-08-19] MEDS ORDERED: MAGNESIUM SULFATE / D5W 1 GM/100 ML BAG IV ONE (11:06)
[2021-08-19 11:07] LABS: INR 1.8 (0.9-1.1); Partial Thromboplastin Ratio 1.2; Prothrombin Time 18.6 Seconds (9.0-12.0)
[2021-08-19 11:09] LABS: Fibrinogen 55 mg/dl (184-400)
[2021-08-19] MEDS: MAGNESIUM SULFATE / D5W 1 GM/100 ML BAG IV SCH ×4 (11:19→18:20)
[2021-08-19] MEDS: PANTOprazole 40 MG in SYRINGE 0 ML IV SCH ×2 (11:21→21:51)
[2021-08-19 14:29] LABS: Hematocrit (blood only) 27.3 % (42-52); Hemoglobin 8.6 g/dL (14.0-18.0)
--- NOTE | 2021-08-19 14:39 | Hospitalist Progress Note ---
Date of Service August 19, 2021 Assessment & Plan (1) Bilateral leg edema: Plan: Presented to the emergency room with increasing swelling of the legs bilaterally Secondary to hypoalbuminemia and is complicated by presence of paroxysmal atrial fibrillation likely secondary to diastolic CHF Decreased circulation due to edema causing some discoloration of the toes Will advised to elevate the legs while in bed Will try small doses of Lasix Edema has been improving Will get echocardiogram to find out LV function as that was requested by the PCP Edema is improved Echo of the heart showed-bioprosthetic aortic valve, the gradient is abnormal for this bioprosthetic aortic valve suggesting obstruction, mild bioprosthetic aortic valve regurgitation, moderate MR and moderate TR, estimated systolic pulmonary pressure is 43 mmHg EF is 60 to 65% Edema has improved a lot (2) Acute GI bleeding: Plan: His hemoglobin was 10.2 on fourth of this month This has been gradually decreasing and it is 8.3 as of today Stool is strongly positive for blood Will give Protonix drip Avoid any NSAID's and hold Eliquis Get GI evaluation for possible EGD Appreciate GI input and recommendation-no EGD at this Hemoglobin stable at more than 7 We will continue PPI drip and change to oral tomorrow Hemoglobin remains stable at 8.3 (3) A-fib: Plan: Went into A. 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 Terrell Chemotherapy was not given due to low platelet count recently Has liver metastasis with INR of 1.9 and alkaline phos 680 Albumin level seems to be reasonable at 2.9 Pain seems to be controlled Remains pleasantly confused-likely secondary to cancer and also may have mild dementia Discussed with oncologist-prognosis is very poor, chemotherapy cannot be given until the blood counts are better specially platelet (5) Thrombocytopenia: Plan: Secondary to hepatic metastasis and the pancreatic cancer itself (6) DVT (deep venous thrombosis): Plan: History of bilateral DVT Has been on Eliquis which has been decreased to 2.5 mg twice daily from 5 mg twice daily recently due to low platelet INR is 1.9 today and with evidence of Hemoccult positive we will hold Eliquis for now During last admission vascular surgery consult was taken for possible IVC filter but that was not given due to stoppage of bleeding Will hold Eliquis for now Discussed was anticoagulation-since INR remains at 1.9 will not give any further anticoagulation (7) Weakness: Plan: Generalized weakness Has been getting worse likely contributed by low hemoglobin and also metastatic cancer PT OT evaluation (8) Aortic stenosis: Plan: Status post AVR Denies any chest pain and/or palpitation (9) CKD (chronic kidney disease), stage III: Plan: Creatinine remains stable (10) Hypertension: Plan: Blood pressure is stable at 127/69 DVT prophylaxis SCDs No Eliquis due to INR being 1.9 and ongoing GI bleeding CODE STATUS Full Will discuss with the daughter Palliative care consulted Admission and Anticipated Discharge Date Admission Date: August 16, 2021 Subjective 08/17/2021 The patient was seen and examined in medical telemetry unit He has been feeling a little better today Denies any more black stool Leg swelling has been improving 08/18/2021 The patient was seen and examined in medical telemetry unit Remains generally weak and lethargic And may be pleasantly confused Has been getting physical therapy 08/19/2021 The patient was seen and examined in ICU He was transferred to ICU last night with a fever with RVR and associated hypotension Remains in sinus rhythm as of this morning and hemodynamically stable Generally weak but denies any other significant symptoms Review of Systems Review of Systems: All systems reviewed and are unremarkable except as noted below Neurologic: Generalized weakness Physical Exam Physical Exam: Lying in bed comfortably but looks pale Constitutional: + ill appearing and average body habitus Eyes: PERRL, conjunctivae normal, anicteric sclerae ENMT: external ear and nose normal, oropharynx normal Neck: trachea midline, no thyromegaly Respiratory: no respiratory distress Auscultation: lungs clear to auscultation bilaterally; no crackles Cardiovascular: Rate/Rhythm: regular rate and regular rhythm; not tachycardic Heart Sounds: normal S1, normal S2 and + murmur (2/6 ESM over precordium) Extremities: + edema (1+ edema bilaterally with palpable pedal arteries) Gastrointestinal (Abdomen): Inspection/Auscultation: normal bowel sounds; abdomen not distended Percussion/Palpation: + abdomen tender (Minimally tender all over without guarding and no rigidity) and abdomen soft Musculoskeletal: No acute arthritis in any joint Neurologic: Alert and awake. Pleasantly confused. Generally weak Lymphatic: no cervical or axillary lymphadenopathy Results & Data Results & Data ([facility]) Vital Signs (Past 12 Hours) Vital Signs Temp Pulse Pulse Pulse Resp BP BP 08/19/21 10:46 92 H 18 93/57 L 08/19/21 10:00 91 H 15 91/51 L 08/19/21 09:47 93 H 20 121/68 08/19/21 09:30 96 H 6 L 114/62 08/19/21 09:00 95 H 1 L 112/68 08/19/21 08:30 94 H 0 L 112/67 08/19/21 08:02 105 H 18 102/54 L 08/19/21 08:01 108 H 16 08/19/21 07:30 96 H 18 99/51 L 08/19/21 07:00 94 H 18 104/58 L 08/19/21 06:50 94 H 19 08/19/21 06:40 96 H 18 08/19/21 06:30 95 H 15 114/59 L 08/19/21 06:20 95 H 19 08/19/21 06:10 95 H 21 08/19/21 06:00 95 H 18 101/53 L 08/19/21 05:50 96 H 20 08/19/21 05:40 99 H 21 08/19/21 05:30 95 H 17 99/53 L 08/19/21 05:20 97 H 24 08/19/21 05:10 98 H 19 08/19/21 05:00 98 H 21 98/57 L 08/19/21 04:50 97 H 14 08/19/21 04:45 98 H 15 08/19/21 04:30 99 H 14 95/54 L 08/19/21 04:23 99 H 15 94/50 L 08/19/21 04:15 99 H 15 08/19/21 04:08 36.8 C 104 H 104 H 16 79/49 L 08/19/21 04:06 103 H 29 H 79/49 L 08/19/21 04:04 105 H 08/19/21 03:45 153 H 89/49 L 08/19/21 03:39 125 H 67/41 L 08/19/21 03:30 132 H 94/64 L 08/19/21 03:15 128 H 74/50 L 08/19/21 03:04 138 H 08/19/21 03:00 132 H 87/55 L 08/19/21 02:45 125 H 88/55 L 08/19/21 02:39 36.6 C 140 H 16 88/51 L Pulse Ox 08/19/21 10:46 95 08/19/21 10:00 91 08/19/21 09:47 95 08/19/21 09:30 95 08/19/21 09:00 95 08/19/21 08:30 94 08/19/21 08:02 94 08/19/21 08:01 08/19/21 07:30 95 08/19/21 07:00 96 08/19/21 06:50 87 L 08/19/21 06:40 93 08/19/21 06:30 95 08/19/21 06:20 91 08/19/21 06:10 95 08/19/21 06:00 98 08/19/21 05:50 95 08/19/21 05:40 94 08/19/21 05:30 95 08/19/21 05:20 92 08/19/21 05:10 93 08/19/21 05:00 96 08/19/21 04:50 95 08/19/21 04:45 96 08/19/21 04:30 96 08/19/21 04:23 97 08/19/21 04:15 98 08/19/21 04:08 97 08/19/21 04:06 95 08/19/21 04:04 08/19/21 03:45 08/19/21 03:39 08/19/21 03:30 08/19/21 03:15 08/19/21 03:04 08/19/21 03:00 08/19/21 02:45 08/19/21 02:39 97 Laboratory Results Short CBC 08/19/21 08/19/21 Range/Units 04:24 14:04 WBC 13.80 H (4.8-10.8) K/uL Hgb 8.3 L 8.6 L (14.0-18.0) g/dL Hct 26.4 L 27.3 L (42-52) % Plt Count 43 L (130-400) K/uL BMP 08/19/21 04:24 Sodium 140 Potassium 4.0 Chloride 112 H Carbon Dioxide 19 L BUN 22 Creatinine 1.30 Glucose 133 H Calcium 7.8 L Liver Function 08/19/21 Range/Units 04:24 Total Bilirubin 1.9 H (0.2-1.0) mg/dl Direct Bilirubin 1.0 H (0-0.2) mg/dl AST 45 H (13-39) U/L ALT 45 (7-52) U/L Alkaline Phosphatase 642 H (34-104) U/L Albumin 2.6 L (3.4-5.0) gm/dl Medications Administered Current Inpatient Medications Calcium Carbonate (Calcium Carbonate 500 Mg Chewable Tab) 500 mg PO TID PRN PRN Reason: Indigestion Stop: 09/17/21 16:44 Heparin Sodium (Porcine) (Heparin 100 Unit/Ml 5ml Flush) 5 ml FLUSH PRN PRN PRN Reason: Flush Stop: 09/16/21 02:24 Phenylephrine HCl 20 mg/ (Dextrose) 502 mls @ 30.768 mls/hr IV .[id number] [facility]; Protocol Stop: 09/18/21 03:44 Last Titration: 08/19/21 14:32 Dose: 0.2 mcg/kg/min, 20.5 mls/hr Documented by: Pantoprazole Sodium 40 mg/ (Syringe) 10 mls @ 5 mls/min IV BID@0900,2100 [facility] Stop: 09/18/21 10:59 Last Admin: 08/19/21 11:21 Dose: 5 mls/min Documented by: Magnesium Sulfate/Dextrose (Magnesium Sulfate / D5w) 1 gm in 100 mls @ 50 mls/hr IV Q2H [facility] Stop: 08/19/21 18:59 Last Admin: 08/19/21 13:33 Dose: 50 mls/hr Documented by: Potassium Phosphate 18 mmol/ (Sodium Chloride) 506 mls @ 88 mls/hr IV ONE ONE Stop: 08/19/21 16:44 Last Admin: 08/19/21 11:19 Dose: 88 mls/hr Documented by: Lactulose (Lactulose Syrup 30 Gm/45 Ml Udp) 30 gm PO DAILY [facility] Stop: 09/15/21 17:59 Last Admin: 08/19/21 10:56 Dose: Not Given Documented by: Mirtazapine (Mirtazapine Tab 15 Mg Tab) 15 mg PO HS PRN PRN Reason: Insomnia Stop: 09/15/21 20:36 Last Admin: 08/17/21 20:46 Dose: 15 mg Documented by: Miscellaneous (Icu Protocol For Hyperglycemia) 1 ea N/A PRN PRN; Protocol PRN Reason: Hyperglycemia Protocol Stop: 08/21/21 04:02 Oxycodone HCl (Oxycodone Hcl Ir 5 Mg Tab (Immediate Release)) 2.5 - 5 mg PO Q6H PRN PRN Reason: Pain Stop: 08/30/21 20:36 Tamsulosin HCl (Tamsulosin Hcl 0.4 Mg Cap) 0.4 mg PO HS [facility] Stop: 09/15/21 20:59 Last Admin: 08/18/21 22:01 Dose: 0.4 mg Documented by: Vitamin D (Cholecalciferol 1,000 Units 25 Mcg Tab) 2,000 units PO DAILY [facility] Stop: 09/16/21 08:59 Last Admin: 08/19/21 10:56 Dose: Not Given Documented by: (1) DVT (deep venous thrombosis) Affected thrombotic vein of extremity: unspecified vein of extremity Chronicity: chronic DVT location: lower extremity Laterality: bilateral Qualified Code(s): I82.503 - 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
[2021-08-19] MEDS ORDERED: ALBUMIN 25% 100 mL 25 GM/100 ML VIAL IV ONE (15:00)
[2021-08-19] MEDS: TAMSULOSIN HCL 0.4 MG CAP PO SCH (21:51)
[2021-08-20 05:43] LABS: Mean Corpuscular Hgb Conc 31.9 g/dL (32-36)
[2021-08-20 05:47] LABS: BUN Creatinine Ratio 15.7 (10-20); Calcium 8.3 mg/dl (8.5-10.1); Creatinine Clr Calc Pharmacy 39.1 ml/min; Est GFR (African American) 56.4 ml/min; Est GFR (Non-African American) 48.6 ml/min; Magnesium 2.4 mg/dl (1.7-2.4); Phosphorus 2.6 mg/dl (2.5-4.9); Potassium 3.8 mmol/L (3.5-5.1)
[2021-08-20 05:50] LABS: Hematocrit (blood only) 25.1 % (42-52); Mean Corpuscular Hemoglobin 29.9 pg (25-34); Mean Corpuscular Volume 93.7 fL (80-100); RDW Coefficient of Variation 19.1 % (11.5-14.5); RDW Standard Deviation 65.5 fL (36.4-46.3); Red Blood Count 2.68 M/uL (4.7-6.1); White Blood Count 12.78 K/uL (4.8-10.8)
[2021-08-20 06:03] LABS: Prothrombin Time 20.5 Seconds (9.0-12.0)
[2021-08-20 06:11] LABS: Platelet Count 30 K/uL (130-400)
[2021-08-20 06:12] LABS: Anisocytosis Present; Basophils # (auto) 0.01 K/uL (0-0.2); Basophils % (auto) 0.1 %; Eosinophils # (auto) 0.14 K/uL (0-0.5); Eosinophils % (auto) 1.1 %; Immature Granulocytes # (auto) 0.07 K/uL (0.00-0.02); Immature Granulocytes % (auto) 0.5 %; Lymphocytes # (auto) 0.93 K/uL (1.2-3.4); Lymphocytes % (auto) 7.3 %; Monocytes # (auto) 0.58 K/uL (0.11-0.59); Monocytes % (auto) 4.5 %; Neutrophils # (auto) 11.05 K/uL (1.4-6.5); Neutrophils % (auto) 86.5 %; Platelet Estimate Decreased (Normal); Polychromasia 1+
[2021-08-20] MEDS: LACTULOSE SYRUP 30 GM/45 ML UDP PO SCH (08:14)
[2021-08-20] MEDS: PANTOprazole 40 MG in SYRINGE 0 ML IV SCH ×2 (08:14→20:18)
[2021-08-20] MEDS: CHOLECALCIFEROL 1,000 UNITS 25 MCG TAB PO SCH (08:14)
--- NOTE | 2021-08-20 08:56 | Cardiology Progress Note ---
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 Cardiology following due to PAF with RVR and hypotension. Patient converted to SR spontaneously. Currently SR with a long first degree AVB. Phenylephrine weaned and shut off on 08/19 at 1700. Volume status controlled. AV gradients on echo could be increased due to anemia/stress on valve. 1. Recommend continued observation at this time. While not optimal due to liver dysfunction, amiodarone may be considered orally, 200 mg twice daily to maintain sinus rhythm. 2. Abnormal coagulation profile suggesting auto anticoagulation in setting of liver dysfunction.Continue to hold Eliquis at this time due to anemia and heme positive stool. On Protonix IVP. INR 2.0 this am 3. Goal mag level of 2.0 and potassium of 4.0- replete as necessary 4. Overall patient prognosis is poor. Palliative care consultation for goals of care pending at this time. 5. Diminished pulses and sensation of right foot- again goals of care will need to be discussed, patient not an anticoagulation candidate at this time. Admission and Anticipated Discharge Date Admission Date: August 16, 2021 Supervising Physician Co-Signing Physician Notes Patient seen examined the bedside. Complains of discomfort involving his right lower extremity overnight. Arterial duplex demonstrating severe peripheral vascular disease with complete thrombosis of the popliteal artery. Majority of the dorsalis pedis artery is occluded with a tiny focus of reconstitution suggested. Currently his pain is controlled. PE: Stable blood pressure requiring Armaan-Synephrine infusion. General: Chronically ill, no acute distress. Heart: Regular, normal S1-S2. 2/6 mid peaking low pitched systolic murmur heard best at the right second intercostal space. Lungs: Clear bilateral, no rales, rhonchi, or wheeze. Extremities: Right lower extremity is cool to touch. There is a faint posterior tibial pulse palpated. 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 Overnight patient developing right lower extremity discomfort secondary to acute thrombosis/PVD. Currently his pain is controlled and treatment options are limited. Anticoagulants have been on hold since admission due to anemia and presumed GI bleed. His INR is elevated due to hepatic dysfunction. He has remained in sinus rhythm. Continue to observe telemetry. Consider addition of amiodarone with recurrent dysrhythmias, however, will not alter medications at this time as he is hemodynamically stable. Prognosis is poor. Subjective Patient seen in room and examined, chart and telemetry reviewed. Discussed patient concerns with bedside nurse. Upon entrance into the room patient sleeping in bed comfortably- woke easily. Denies any chest pain or shortness of breath. Over night had significant right leg pain (sharp) patient believes he got his foot stuck in the bed frame however nurse cannot verify this. Since this time, right leg has been tender to touch and has some mild pitting edema (foot and rico). Toes purple and foot/leg noticeably cooler to touch. Patient noting decreased sensation of the right foot. Pulses are difficult to find using Doppler. No signs of abnormal bleeding- Eliquis remains held due to anemia. Patient transitioned from Protonix gtt to IVP. Tolerating PO. Hemodynamics have been stable- pressor support off since 1700 on 08/19. Palliative care consulted to discuss goals of care. Tele: SR 1st degree AVB 90s, no atrial fibrillation yesterday or over night into this am. Weight: 66.8 kg >> 68.1 kg Review of Systems Review of Systems: All systems reviewed & are unremarkable except as noted in HPI & below Physical Exam Constitutional: + thin and + frail appearing; no acute distress Eyes: PERRL, conjunctivae normal, anicteric sclerae ENMT: external ear and nose normal, oropharynx normal Neck: normal visual inspection Respiratory: normal respiratory effort, lungs clear to auscultation Auscultation: + diminished lung sounds Cardiovascular: Rate/Rhythm: regular rhythm Heart Sounds: normal S1, normal S2 and + murmur (+3/6 systolic murmur) Vessels: no JVD Extremities: + pedal edema (trace to +1 pedal edema R>L) Chest (Breasts): Chest: normal inspection of chest Gastrointestinal (Abdomen): normal bowel sounds, soft, nontender, no hepatosplenomegaly Musculoskeletal: Extremities: + lower leg abnormality (Leg cool to touch with mild pitting edema. Toes purple. Diminished pulses) Right Skin: no rashes, warm and dry + mottling (right foot/toes purple and cool, decreased sensation) Neurologic: moves all extremities and awake Psychiatric: A+Ox3, euthymic affect Results & Data ([facility]) Vital Signs (Past 12 Hours) Vital Signs Temp Pulse Resp BP Pulse Ox 08/20/21 05:00 95 H 19 136/56 L 94 08/20/21 04:51 36.5 C 08/20/21 04:00 98 H 15 122/52 L 91 08/20/21 03:00 93 H 20 118/62 96 08/20/21 02:00 85 22 108/61 93 08/20/21 01:00 87 17 104/63 94 08/20/21 00:00 82 19 106/60 93 08/19/21 23:00 96 H 22 93/56 L 93 Laboratory Results Coagulation 08/19/21 08/19/21 08/20/21 Range/Units 10:27 10:27 05:19 PT 18.6 H 20.5 H (9.0-12.0) Seconds APTT 33.0 H Cancelled (21.0-31.0) Seconds CBC 08/19/21 08/20/21 Range/Units 14:04 05:19 WBC 12.78 H (4.8-10.8) K/uL RBC 2.68 L (4.7-6.1) M/uL Hgb 8.6 L 8.0 L (14.0-18.0) g/dL Hct 27.3 L 25.1 L (42-52) % Plt Count 30 L (130-400) K/uL Neut # (Auto) 11.05 H (1.4-6.5) K/uL Lymph # (Auto) 0.93 L (1.2-3.4) K/uL [place] # (Auto) 0.58 (0.11-0.59) K/uL Eos # (Auto) 0.14 (0-0.5) K/uL Baso # (Auto) 0.01 (0-0.2) K/uL Comprehensive Metabolic Panel 08/20/21 Range/Units 05:19 Sodium 136 (136-145) mmol/L Potassium 3.8 (3.5-5.1) mmol/L Chloride 109 H (98-107) mmol/L Carbon Dioxide 16 L (21-32) mmol/L BUN 21 (6-23) mg/dl Creatinine 1.34 (0.6-1.4) mg/dl Glucose 165 H (70-99(Fasting)) mg/dl Calcium 8.3 L (8.5-10.1) mg/dl Intake and Output 08/19/21 08/20/21 08/20/21 22:59 06:59 14:59 Intake Total 1438.15 / 2073.955 Output Total 350 / 1026 300 / 1026 Balance 1088.15 / 1047.955 -300 / 1047.955 Intake: IV 948.15 / 1583.955 ALBUMIN 25% 100 mL 25 gm In 100 100 / 100 ml @ 50 mls/hr IV ONE ONE Rx#: [id number] Magnesium Sulfate / D5w 1 gm In 295 / 395 100 ml @ 50 mls/hr IV Q2H [facility] Rx#:[id number] Phenylephrine HCl 20 mg In 47.15 / 482.955 Dextrose 5% 500 ml @ 0 MCG/KG/ MIN IV .Q0M [facility] Rx#:[id number] Potassium Phosphate 18 mmol In 506 / 506 Sodium Chloride 0.9% 500 ml @ 88 mls/hr IV ONE ONE Rx#: [id number] Oral 490 / 490 Output: Urine 350 / 1025 300 / 1025 Other: # Unmeasured Voids 1 (1) DVT (deep venous thrombosis) Affected thrombotic vein of extremity: unspecified vein of extremity Chronicity: chronic DVT location: lower extremity Laterality: bilateral Qualified Code(s): I82.503 - 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 (2) Anemia Anemia type: unspecified type Qualified Code(s): D64.9 - Anemia, unspecified
--- NOTE | 2021-08-20 09:32 | Critical Care Progress Note ---
Date of Service August 20, 2021 Assessment & Plan (1) Acute GI bleeding: Plan: (1) Admitted to intensive care unit: Reason Critically Ill: 81-year-old male with acute onset atrial fibrillation with associated hypotension in setting of ongoing GI bleeding requiring ongoing hemodynamic monitoring and pressor support NEURO - * CAM ICU: NEGATIVE * Sedation: none at present * Analgesia: Oxycodone 2.5-5 mg PRN for pain CARDIAC/VASCULAR - * A. fib with RVR with associated hypotension: * Patient did not respond to IV fluid boluses. Given single dose digoxin. Started on neosynephrine drip- weaned off 08/20 * Currently rate controlled in HR 90s * Cardiology consulted * Monitor on telemetry * Complaint of severe R leg pain overnight and noted decreased pulse- arterial Doppler ordered * Venous R doppler 07/15 and 08/16- noted superficial and deep thrombi b/l, 07/15 doppler noted suspected occlusion of popliteal + posterior tibial artery RESPIRATORY - * No history of pulmonary disease. * Saturating well on RA GI/NUTRITION - * Acute upper GI bleed: * On Protonix drip. * GI consulted. * Previous CT of pancreatic cancer with metastatic spread. RENAL/LYTES - * No significant electrolyte derangements * VBG with pCO2 32, BMP CO2 20 today * Recheck VBG + BMP later today given development of R leg pain which may be contributory to a lactic acidosis - * No concerns at this time. ENDO - * No h/o DM * BSGs per unit protocol. ISS --> gtt per unit policy. * BSGs stable in 100s HEME - * Acute on chronic anemia: * Hgb 8.6 to 8.0 today. Suspect 2/2 blood draws rather than further acute blood loss * INR 2.0 today, elevated * Thrombocytopenia: * Low threshold for transfusion in the anemic patient w/ hemodynamic instability * Plts 43 to 30 today ID - * No concerns for infectious contribution at this time. LINES/IV ACCESS - * PIVs x1 * Port a cath DVT PROPHYLAXIS - * Hold chemoprophylaxis in the setting of GIB * SCDs CODE STATUS- to be switched to DNR following palliative discussion with media center assistant on 08/19 (2) A-fib: (3) Hypotension: (2) (HFpEF) heart failure with preserved ejection fraction: (3) Atrial fibrillation with RVR: (4) Hypotension: Admission and Anticipated Discharge Date Admission Date: August 16, 2021 Supervising Physician Co-Signing Physician Notes Dr. Bergeron was resident physician during care of patient. I separately evaluated patient for lu portions of the history and the exam. I was present during the critical portion of medical decision making, and I discussed the case with the resident. I generally agree with the findings and plan. Patient has converted to normal sinus rhythm, he is still essentially anticoagulated INR 2 I suspect there is underlying aspects of liver dysfunction. Obtained a arterial duplex of right lower extremity, significant extensive disease. There is definitely significant risk of anticoagulation, need for blood transfusions, need for EGD which would not fix metastatic pancreatic CA. I had extensive discussion with the patient and his family yesterday in follow- up today, there is no significant consensus with how best to move forward in treatment goals. Most significantly he is desiring to attend his granddaughter's graduation on September 06. We have consulted palliative care, his family was interested in involving his former primary care physician with formulating best decisions moving forward. His acute critical care needs have resolved. Did discuss with the patient the unlikelihood of a successful resuscitation in event of cardiac arrest which would not change prognosis related to malignancy and likelihood of less than optimal outcome. At this point patient wants to continue to discuss options with his family. They have expressed interest in arranging palliative care at home. Stable for downgrade out of ICU Subjective Reports some moderate R leg pain that bothers him. Otherwise breathing without difficulty, denies any lightheadedness, chest pain. Review of Systems Review of Systems: As per subjective Physical Exam Physical Exam: GENERAL - Appears stated age, no acute distress. Communicating with provider and answering questions appropriately. SKIN - No rashes. HEAD - NC/AT. EYES - PERRL with EOMI b/l. Anicteric sclerae. EARS - No deformities of external structures b/l NOSE - Midline. No epistaxis or purulent drainage. Septum midline without deviation. MOUTH/OROPHARYNX - No perioral cyanosis. Buccal mucosa pink and moist. NECK - supple, FROM, no anterior/posterior cervical lymphadenopathy, no thyromegaly, no nuchal rigidity. LUNGS - Chest wall rise and fall symmetric without accessory muscle use or intercostal retractions. CTAB of all lung wade. No wheezes, rales, or rhonchi appreciated. CARDIAC - RRR with normal S1/S2. No murmurs appreciated. No bruits. ABDOMEN - Soft, nontender, nondistended. No guarding or rebound. No hepatosplenomegaly or ascites. EXTREMITIES - No clubbing or peripheral cyanosis. No peripheral edema present. DTRs 2+, distal pulses of LE intact b/l. 5/5 strength of UE/LE b/l. Minor tenderness to palpation diffusely of RLE, no warmth, rash or swelling NEUROLOGIC - Cranial nerves II through XII grossly intact. No focal motor deficits. Sensation intact to light touch throughout. PSYCH - A&Ox3 and cooperates fully with examiner Results & Data Results & Data ([facility]) Vital Signs (Past 12 Hours) Vital Signs Temp Pulse Resp BP Pulse Ox 08/20/21 05:00 95 H 19 136/56 L 94 08/20/21 04:51 36.5 C 08/20/21 04:00 98 H 15 122/52 L 91 08/20/21 03:00 93 H 20 118/62 96 08/20/21 02:00 85 22 108/61 93 08/20/21 01:00 87 17 104/63 94 08/20/21 00:00 82 19 106/60 93 08/19/21 23:00 96 H 22 93/56 L 93 Resident Activity Tracking Resident Involvement: Resident Care Provided Care Provided: Adult Hospital Medicine
[2021-08-20 10:12] LABS: Base Excess VBG -3.1 mEq/L; HCO3 VBG 21 mmol/L; PCO2 VBG 32 mmHg (38-50); PO2 VBG 34 mmHg; pH VBG 7.43 (7.36-7.41)
[2021-08-20 10:14] LABS: Oxygen Saturation VBG < 60.0 %
[2021-08-20 10:28] LABS: BUN Creatinine Ratio 15.9 (10-20); Calcium 8.4 mg/dl (8.5-10.1); Creatinine Clr Calc Pharmacy 39.6 ml/min; Est GFR (African American) 57.4 ml/min; Est GFR (Non-African American) 49.5 ml/min
--- NOTE | 2021-08-20 11:59 | Electrocardiogram Report ---
Test Reason : Blood Pressure : / mmHG Vent. Rate : 096 BPM Atrial Rate : 096 BPM P-R Int : 264 ms QRS Dur : 076 ms QT Int : 356 ms P-R-T Axes : 082 012 -32 degrees QTc Int : 449 ms Sinus rhythm with 1st degree A-V block with Premature supraventricular complexes Septal infarct (cited on or before 15-JUL-2021) Abnormal ECG When compared with ECG of 16-AUG-2021 14:33, Premature supraventricular complexes are now Present Confirmed by Jese Price ([id number]) on 08/20/2021 11:59:26 AM Referred By: REFERRED SELF Confirmed By:Jese Price
--- NOTE | 2021-08-20 13:48 | Hospitalist Progress Note ---
Date of Service August 20, 2021 Assessment & Plan (1) A-fib: Plan: Went into A. fib with RVR last nigh With associated hypotension and has been requiring pressor agents to maintain blood pressure Appreciate cardiology input and recommendation Reverted to sinus rhythm and is maintaining Acute hypotension Likely secondary to A. fib with RVR and diastolic dysfunction Has been requiring intravenous pressors to maintain blood pressure Can be transferred to medical floor with telemetry when the pressors are off Palliative care encounter Palliative care has been consulted for further guidance with care Discussed with oncologist-no treatment until blood counts specially platelet improves and the patient is better physically Prognosis remains extremely poor (2) Bilateral leg edema: Plan: Presented to the emergency room with increasing swelling of the legs bilaterally Secondary to hypoalbuminemia and is complicated by presence of paroxysmal atrial fibrillation likely secondary to diastolic CHF Decreased circulation due to edema causing some discoloration of the toes Will advised to elevate the legs while in bed Will try small doses of Lasix Edema has been improving Will get echocardiogram to find out LV function as that was requested by the PCP Edema is improved Echo of the heart showed-bioprosthetic aortic valve, the gradient is abnormal for this bioprosthetic aortic valve suggesting obstruction, mild bioprosthetic aortic valve regurgitation, moderate MR and moderate TR, estimated systolic pulmonary pressure is 43 mmHg EF is 60 to 65% Edema has improved a lot (3) Acute GI bleeding: Plan: His hemoglobin was 10.2 on fourth of this month This has been gradually decreasing and it is 8.3 as of today Stool is strongly positive for blood Will give Protonix drip Avoid any NSAID's and hold Eliquis Get GI evaluation for possible EGD Appreciate GI input and recommendation-no EGD at this Hemoglobin stable at more than 7 We will continue PPI drip and change to oral tomorrow Hemoglobin remains stable at 8.3 (4) 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 Terrell Chemotherapy was not given due to low platelet count recently Has liver metastasis with INR of 1.9 and alkaline phos 680 Albumin level seems to be reasonable at 2.9 Pain seems to be controlled Remains pleasantly confused-likely secondary to cancer and also may have mild dementia Discussed with oncologist-prognosis is very poor, chemotherapy cannot be given until the blood counts are better specially platelet (5) Thrombocytopenia: Plan: Secondary to hepatic metastasis and the pancreatic cancer itself (6) DVT (deep venous thrombosis): Plan: History of bilateral DVT Has been on Eliquis which has been decreased to 2.5 mg twice daily from 5 mg twice daily recently due to low platelet INR is 1.9 today and with evidence of Hemoccult positive we will hold Eliquis for now During last admission vascular surgery consult was taken for possible IVC filter but that was not given due to stoppage of bleeding Will hold Eliquis for now Discussed was anticoagulation-since INR remains at 1.9 will not give any further anticoagulation (7) Weakness: Plan: Generalized weakness Has been getting worse likely contributed by low hemoglobin and also metastatic cancer PT OT evaluation (8) Aortic stenosis: Plan: Status post AVR Denies any chest pain and/or palpitation (9) CKD (chronic kidney disease), stage III: Plan: Creatinine remains stable (10) Hypertension: Plan: Blood pressure is stable at 127/69 DVT prophylaxis SCDs No Eliquis due to INR being 1.9 and ongoing GI bleeding CODE STATUS Full Will discuss with the daughter Palliative care consulted Admission and Anticipated Discharge Date Admission Date: August 16, 2021 Subjective 08/17/2021 The patient was seen and examined in medical telemetry unit He has been feeling a little better today Denies any more black stool Leg swelling has been improving 08/18/2021 The patient was seen and examined in medical telemetry unit Remains generally weak and lethargic And may be pleasantly confused Has been getting physical therapy 08/19/2021 The patient was seen and examined in ICU He was transferred to ICU last night with a fever with RVR and associated hypotension Remains in sinus rhythm as of this morning and hemodynamically stable Generally weak but denies any other significant symptoms 08/20/2021 The patient was seen and examined in ICU He has been stable and is still requiring intravenous pressors to maintain blood pressure Denies any significant symptoms except weakness Review of Systems Review of Systems: All systems reviewed and are unremarkable except as noted below Neurologic: Generalized weakness Physical Exam Physical Exam: Lying in bed comfortably but looks pale Constitutional: + ill appearing and average body habitus Eyes: PERRL, conjunctivae normal, anicteric sclerae ENMT: external ear and nose normal, oropharynx normal Neck: trachea midline, no thyromegaly Respiratory: no respiratory distress Auscultation: lungs clear to auscultation bilaterally; no crackles Cardiovascular: Rate/Rhythm: regular rate and regular rhythm; not tachycardic Heart Sounds: normal S1, normal S2 and + murmur (2/6 ESM over precordium) Extremities: + edema (1+ edema bilaterally with palpable pedal arteries) Gastrointestinal (Abdomen): Inspection/Auscultation: normal bowel sounds; abdomen not distended Percussion/Palpation: + abdomen tender (Minimally tender all over without guarding and no rigidity) and abdomen soft Musculoskeletal: No acute arthritis in any joint Neurologic: Alert and awake. Pleasantly confused Lymphatic: no cervical or axillary lymphadenopathy Results & Data Results & Data ([facility]) Vital Signs (Past 12 Hours) Vital Signs Temp Pulse Resp BP Pulse Ox 08/20/21 10:00 92 H 11 L 110/57 L 91 08/20/21 09:00 92 H 14 121/66 95 08/20/21 08:00 36.3 C L 92 H 17 113/49 L 91 08/20/21 07:00 92 H 10 L 100/50 L 95 08/20/21 06:00 90 19 107/65 92 08/20/21 05:00 95 H 19 136/56 L 94 08/20/21 04:51 36.5 C 08/20/21 04:00 98 H 15 122/52 L 91 08/20/21 03:00 93 H 20 118/62 96 08/20/21 02:00 85 22 108/61 93 Laboratory Results Short CBC 08/19/21 08/20/21 Range/Units 14:04 05:19 WBC 12.78 H (4.8-10.8) K/uL Hgb 8.6 L 8.0 L (14.0-18.0) g/dL Hct 27.3 L 25.1 L (42-52) % Plt Count 30 L (130-400) K/uL BMP 08/20/21 08/20/21 05:19 09:51 Sodium 136 139 Potassium 3.8 4.0 Chloride 109 H 112 H Carbon Dioxide 16 L 20 L BUN 21 21 Creatinine 1.34 1.32 Glucose 165 H 139 H Calcium 8.3 L 8.4 L Medications Administered Current Inpatient Medications Calcium Carbonate (Calcium Carbonate 500 Mg Chewable Tab) 500 mg PO TID PRN PRN Reason: Indigestion Stop: 09/17/21 16:44 Heparin Sodium (Porcine) (Heparin 100 Unit/Ml 5ml Flush) 5 ml FLUSH PRN PRN PRN Reason: Flush Stop: 09/16/21 02:24 Phenylephrine HCl 20 mg/ (Dextrose) 502 mls @ 0 mls/hr IV .Q0M [facility]; Protocol Stop: 09/18/21 03:44 Last Admin: 08/19/21 17:47 Dose: Not Given Documented by: Pantoprazole Sodium 40 mg/ (Syringe) 10 mls @ 5 mls/min IV BID@0900,2100 [facility] Stop: 09/18/21 10:59 Last Admin: 08/20/21 08:14 Dose: 5 mls/min Documented by: Lactulose (Lactulose Syrup 30 Gm/45 Ml Udp) 30 gm PO DAILY KYLER Stop: 09/15/21 17:59 Last Admin: 08/20/21 08:14 Dose: 30 gm Documented by: Mirtazapine (Mirtazapine Tab 15 Mg Tab) 15 mg PO HS PRN PRN Reason: Insomnia Stop: 09/15/21 20:36 Last Admin: 08/17/21 20:46 Dose: 15 mg Documented by: Miscellaneous (I[facility] Protocol For Hyperglycemia) 1 ea N/A PRN PRN; Protocol PRN Reason: Hyperglycemia Protocol Stop: 08/21/21 04:02 Oxycodone HCl (Oxycodone Hcl Ir 5 Mg Tab (Immediate Release)) 2.5 - 5 mg PO Q6H PRN PRN Reason: Pain Stop: 08/30/21 20:36 Last Admin: 08/20/21 02:32 Dose: 5 mg Documented by: Tamsulosin HCl (Tamsulosin Hcl 0.4 Mg Cap) 0.4 mg PO HS KYLER Stop: 09/15/21 20:59 Last Admin: 08/19/21 21:51 Dose: 0.4 mg Documented by: Vitamin D (Cholecalciferol 1,000 Units 25 Mcg Tab) 2,000 units PO DAILY KYLER Stop: 09/16/21 08:59 Last Admin: 08/20/21 08:14 Dose: 2,000 units Documented by: (1) DVT (deep venous thrombosis) Affected thrombotic vein of extremity: unspecified vein of extremity Chronicity: chronic DVT location: lower extremity Laterality: bilateral Qualified Code(s): I82.503 - 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
--- NOTE | 2021-08-20 14:27 | Ultrasound Report ---
ULTRASOUND RIGHT LOWER EXTREMITY ARTERIAL CLINICAL HISTORY: Decreased pulses. COMPARISON STUDY: No priors. TECHNIQUE: Portable real-time grayscale and color Doppler sonography of the arteries of the right low er extremity is performed from the inguinal crease to the foot. FINDINGS: Advanced atherosclerotic plaque and irregularity is seen throughout the arteries of the rig ht lower extremity. There is monophasic flow within the right common femoral artery which is patent. Velocities in the common femoral artery measure up to 15 cm/s. The profunda femoris artery is patent with monophasic waveforms and velocities measuring up to 31 cm/s. There is fluid within the proximal superficial femoral artery with velocities measuring up to 21 cm/s and monophasic waveforms. The kelley rity of the right superficial femoral artery is occluded. There is minimal reconstitution with revers al of flow in the distal superficial femoral artery with velocities measuring up to 14 cm/s. There is complete thrombosis of the popliteal artery. There is monophasic flow in the mid to distal posterior tibial artery with velocities measuring up to 7 cm/s. The peroneal and anterior tibial arteries are occluded. The majority of the dorsalis pedis artery is occluded. A tiny focus of reconstitution is [place] ggested. IMPRESSION: Severe peripheral vascular disease of the right lower extremity as above with extensive a rterial occlusion. Dictated: 08/20/2021 1:44 PM Transcribed: 08/20/2021 2:06 PM Rosie [id number] [email or web address] Electronically signed by: Meliton Mixon M.D. 08/20/2021 2:25 PM
--- NOTE | 2021-08-20 17:49 | Billing Data ---
Date of Service August 20, 2021 Coding Level of Care Code 43624 Subseq Hosp Care Lvl 3
[2021-08-20] MEDS: TAMSULOSIN HCL 0.4 MG CAP PO SCH (20:18)
[2021-08-20] MEDS: MoRPHine SULFATE 2 MG/ML CARP IV PRN (20:18)
[2021-08-21] MEDS ORDERED: METOPROLOL TARTRATE 1 MG/ML VIAL IV STA (02:31)
[2021-08-21] MEDS ORDERED: SODIUM CHLORIDE 0.9% 1000ML 500 ML IV ONE (02:32)
--- NOTE | 2021-08-21 02:34 | Communication Note ---
Date of Service: August 21, 2021 Notified by RN of rapid A. da, heart rate 110s to 140s, SBP 129/68. Patient asymptomatic as per RN. AP Recurrent A. fib IV Lopressor 1 dose now Initiate amiodarone for maintenance Rx following Cardiology recommendations May require PCU transfer if heart rate uncontrolled with above measures. Will relay to AM provider.
[2021-08-21] MEDS: AMIODARONE 200 MG TAB PO SCH ×2 (03:00→17:27)
[2021-08-21 03:07] LABS: Mean Corpuscular Hgb Conc 31.9 g/dL (32-36)
[2021-08-21 03:15] LABS: Hemoglobin 8.3 g/dL (14.0-18.0); Mean Corpuscular Hemoglobin 30.1 pg (25-34); Mean Corpuscular Volume 94.2 fL (80-100); RDW Coefficient of Variation 19.1 % (11.5-14.5); RDW Standard Deviation 65.5 fL (36.4-46.3); Red Blood Count 2.76 M/uL (4.7-6.1); White Blood Count 14.39 K/uL (4.8-10.8)
[2021-08-21 03:24] LABS: ANC (manual) 13.76 K/uL (1.4-6.5); Anisocytosis Present; Metamyelocytes # (manual) 0.13 K/uL (0-0); Metamyelocytes % (manual) 0.9 %; Monocytes % (manual) 3.5 %; Neutrophils # (manual) 13.76 K/uL (1.4-6.5); Neutrophils % (manual) 95.6 %; Platelet Count 42 K/uL (130-400); Platelet Estimate Decreased (Normal); Polychromasia 1+; Schistocytes 1+
[2021-08-21 03:25] LABS: BUN Creatinine Ratio 17.2 (10-20); Calcium 8.4 mg/dl (8.5-10.1); Creatinine Clr Calc Pharmacy 40.9 ml/min; Est GFR (African American) 59.6 ml/min; Est GFR (Non-African American) 51.4 ml/min; Magnesium 2.2 mg/dl (1.7-2.4); Potassium 4.1 mmol/L (3.5-5.1)
[2021-08-21 03:32] LABS: Partial Thromboplastin Ratio 1.3; Partial Thromboplastin Time 36.4 Seconds (21.0-31.0)
[2021-08-21] MEDS: PANTOprazole 40 MG in SYRINGE 0 ML IV SCH ×2 (08:24→19:42)
[2021-08-21] MEDS: CHOLECALCIFEROL 1,000 UNITS 25 MCG TAB PO SCH (08:24)
[2021-08-21] MEDS: LACTULOSE SYRUP 30 GM/45 ML UDP PO SCH (08:24)
[2021-08-21] MEDS: oxyCODONE HCL IR 5 MG TAB (IMMEDIATE RELEASE) PO PRN ×2 (08:25→19:41)
[2021-08-21] MEDS ORDERED: METOPROLOL TARTRATE 1 MG/ML VIAL IV PRN (08:50)
[2021-08-21] MEDS ORDERED: METOPROLOL TARTRATE 1 MG/ML VIAL IV ONE (08:55)
[2021-08-21] MEDS: D5W AND NSS 1,000 ML IV SCH ×2 (11:33→22:42)
--- NOTE | 2021-08-21 11:40 | Cardiology Progress Note ---
Date of Service August 21, 2021 Assessment & Plan (1) PAF (paroxysmal atrial fibrillation): (2) (HFpEF) heart failure with preserved ejection fraction: (3) S/P AVR (aortic valve replacement): (4) Hypotension: (5) Thrombocytopenia: (6) DVT (deep venous thrombosis): (7) Acute GI bleeding: (8) DVT (deep venous thrombosis): (9) Anemia: (10) Pancreatic cancer: (11) Elevated liver enzymes: Plan: Complex 81 year old male with metastatic pancreatic cancer, receiving palliative chemotherapy. Cardiology consultation requested due to paroxysmal atrial fibrillation with a rapid ventricular response. Rhythm status post spontaneous conversion following administration of IV Lopressor. Oral amiodarone initiated at 200 mg twice per day starting 08/21/2021. Patient notably status post left atrial appendage ligation with a 50 mm clip at the time of aortic valve replacement. Recommend continuation of oral amiodarone as prescribed. Risks of anticoagulation are greater than the benefit (anemia, marked thrombocytopenia, heme positive stools). Overall prognosis is very poor. Admission and Anticipated Discharge Date Admission Date: August 16, 2021 Supervising Physician Co-Signing Physician Notes Patient seen and examined at the bedside. Amiodarone initiated to maintain sinus rhythm. Received a dose of narcotic pain medication overnight and is somewhat somnolent today. Right lower extremity discomfort unchanged. PE: VSS. Gen: NAD. Heart: Regular rhythm, normal S1-S2. 3/6 systolic ejection murmur heard best at the cardiac base. Lungs: Diminished breath sounds at the bases bilateral. No rales, rhonchi, wheeze. Extremities: Right lower extremity cool to touch with diminished, thready, right-sided posterior tibial pulse. A/P: Agree with above PA-C history, physical exam, assessment and plan. Treatment options are limited with this patient due to possible GI bleeding, liver dysfunction, anemia, and thrombocytopenia. Currently in sinus rhythm and agree with low-dose amiodarone therapy despite risks. Prognosis is poor. Consider palliative care at this time. Subjective Patient seen and examined. Chart, medications, telemetry reviewed. Patient pleasantly confused, unable to provide any useful information. Telemetry monitoring reveals paroxysmal episodes of atrial fibrillation with the most recent episode starting at 7:36 AM, converting back to sinus rhythm at 10:12 AM without conversion pause. Sinus rate when not in atrial fibrillation is in the 90s. Oral amiodarone initiated at 200 mg twice per day after receiving 1 dose of IV metoprolol with onset of atrial fibrillation with RVR. Review of Systems Review of Systems: A complete and accurate review of systems was unable to be obtained. Physical Exam Physical Exam: General: Frail. No overt distress Eyes: PER, conjunctivae normal, anicteric sclerae ENMT: external ear and nose normal, oropharynx normal Neck: No JVD. Respiratory: Clear to auscultation Cardiovascular: RRR. Grade II/ systolic murmur. Extremities: Minimal edema. Abdomen: +BS. Soft. Nontender. Results & Data ([facility]) Vital Signs (Past 12 Hours) Vital Signs Temp Pulse Pulse Pulse Resp BP BP 08/21/21 11:10 36.3 C L 88 20 87/48 L 08/21/21 09:54 118 H 97/60 L 08/21/21 09:04 124 H 08/21/21 08:00 36.6 C 122 H 116 H 20 111/68 08/21/21 07:47 113 H 08/21/21 07:40 36.8 C 84 20 08/21/21 06:28 36.6 C 94 H 18 128/70 08/21/21 06:12 83 08/21/21 03:48 36.5 C 92 H 16 133/64 08/21/21 03:00 130 H 129/68 08/21/21 02:00 98 H BP Pulse Ox 08/21/21 11:10 98 08/21/21 09:54 08/21/21 09:04 92/57 L 08/21/21 08:00 95 08/21/21 07:47 08/21/21 07:40 131/78 94 08/21/21 06:28 98 08/21/21 06:12 08/21/21 03:48 96 08/21/21 03:00 08/21/21 02:00 Laboratory Results Laboratory Results - last 24 hr 08/21/21 08/21/21 08/21/21 02:50 02:50 02:50 WBC 14.39 H RBC 2.76 L Hgb 8.3 L Hct 26.0 L MCV 94.2 MCH 30.1 MCHC 31.9 L RDW Std Deviation 65.5 H RDW Coeff of Harsh 19.1 H Plt Count 42 L Neutrophils % (Manual) 95.6 Lymphocytes % (Manual) 0.0 Monocytes % (Manual) 3.5 Metamyelocytes % (Man) 0.9 Neutrophils # (Manual) 13.76 H Total Absolute Neuts 13.76 H Total Abs Lymphocytes 0.00 L Monocytes # (Manual) 0.50 Metamyelocytes # (Man) 0.13 H Platelet Estimate Decreased L Polychromasia 1+ Anisocytosis Present Schistocytes 1+ APTT 36.4 H PTT Ratio 1.3 Sodium 138 Potassium 4.1 Chloride 111 H Carbon Dioxide 20 L Anion Gap 7 BUN 22 Creatinine 1.28 Est Cr Clr Drug Dosing 40.9 Est GFR ( Amer) 59.6 Est GFR (Non-Af Amer) 51.4 BUN/Creatinine Ratio 17.2 Glucose 129 H Calcium 8.4 L Magnesium 2.2 (1) Pancreatic cancer Pancreatic malignancy location: unspecified Qualified Code(s): C25.9 - Malignant neoplasm of pancreas, unspecified (2) DVT (deep venous thrombosis) Affected thrombotic vein of extremity: unspecified vein of extremity Chronicity: chronic DVT location: lower extremity Laterality: bilateral Qualified Code(s): I82.503 - 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 (3) Anemia Anemia type: unspecified type Qualified Code(s): D64.9 - Anemia, unspecified
[2021-08-21] MEDS: ENOXAPARIN INJ 40 MG/0.4 ML SYR SQ SCH (11:49)
--- NOTE | 2021-08-21 16:10 | Hospitalist Progress Note ---
Date of Service August 21, 2021 Assessment & Plan (1) A-fib: Plan: Went into A. fib with RVR last nigh With associated hypotension and has been requiring pressor agents to maintain blood pressure Appreciate cardiology input and recommendation Reverted to sinus rhythm and is maintaining Rate remains controlled Acute hypotension Likely secondary to A. fib with RVR and diastolic dysfunction Has been requiring intravenous pressors to maintain blood pressure Can be transferred to medical floor with telemetry when the pressors are off Blood pressure is on the lower side We will give a small amount of intravenous fluid as the patient is not drinking enough Palliative care encounter Palliative care has been consulted for further guidance with care Discussed with oncologist-no treatment until blood counts specially platelet improves and the patient is better physically Prognosis remains extremely poor Palliative care has not seen him yet (2) Bilateral leg edema: Plan: Presented to the emergency room with increasing swelling of the legs bilaterally Secondary to hypoalbuminemia and is complicated by presence of paroxysmal atrial fibrillation likely secondary to diastolic CHF Decreased circulation due to edema causing some discoloration of the toes Will advised to elevate the legs while in bed Will try small doses of Lasix Edema has been improving Will get echocardiogram to find out LV function as that was requested by the PCP Edema is improved Echo of the heart showed-bioprosthetic aortic valve, the gradient is abnormal for this bioprosthetic aortic valve suggesting obstruction, mild bioprosthetic aortic valve regurgitation, moderate MR and moderate TR, estimated systolic pulmonary pressure is 43 mmHg EF is 60 to 65% Edema has improved a lot (3) Acute GI bleeding: Plan: His hemoglobin was 10.2 on fourth of this month This has been gradually decreasing and it is 8.3 as of today Stool is strongly positive for blood Will give Protonix drip Avoid any NSAID's and hold Eliquis Get GI evaluation for possible EGD Appreciate GI input and recommendation-no EGD at this Hemoglobin stable at more than 7 We will continue PPI drip and change to oral tomorrow Hemoglobin remains stable at 8.3-no active GI bleed (4) 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 Terrell Chemotherapy was not given due to low platelet count recently Has liver metastasis with INR of 1.9 and alkaline phos 680 Albumin level seems to be reasonable at 2.9 Pain seems to be controlled Remains pleasantly confused-likely secondary to cancer and also may have mild dementia Discussed with oncologist-prognosis is very poor, chemotherapy cannot be given until the blood counts are better specially platelet Discussed with oncologist (5) Thrombocytopenia: Plan: Secondary to hepatic metastasis and the pancreatic cancer itself Platelet remains low (6) DVT (deep venous thrombosis): Plan: History of bilateral DVT Has been on Eliquis which has been decreased to 2.5 mg twice daily from 5 mg twice daily recently due to low platelet INR is 1.9 today and with evidence of Hemoccult positive we will hold Eliquis for now During last admission vascular surgery consult was taken for possible IVC filter but that was not given due to stoppage of bleeding Will hold Eliquis for now Discussed was anticoagulation-since INR remains at 1.9 will not give any further anticoagulation Ultrasound did show increasing thrombosis and also involving the arterial system Discussed with oncologist again today we will start Lovenox 40 mg and if the hemoglobin is stable will increase in the dose accordingly even though INR remains 2.0 (7) Weakness: Plan: Generalized weakness Has been getting worse likely contributed by low hemoglobin and also metastatic cancer PT OT evaluation (8) Aortic stenosis: Plan: Status post AVR Denies any chest pain and/or palpitation (9) CKD (chronic kidney disease), stage III: Plan: Creatinine remains stable (10) Hypertension: Plan: Blood pressure is stable at 127/69 DVT prophylaxis SCDs No Eliquis due to INR being 1.9 and ongoing GI bleeding CODE STATUS Full Will discuss with the daughter Palliative care consulted Admission and Anticipated Discharge Date Admission Date: August 16, 2021 Subjective 08/17/2021 The patient was seen and examined in medical telemetry unit He has been feeling a little better today Denies any more black stool Leg swelling has been improving 08/18/2021 The patient was seen and examined in medical telemetry unit Remains generally weak and lethargic And may be pleasantly confused Has been getting physical therapy 08/19/2021 The patient was seen and examined in ICU He was transferred to ICU last night with a fever with RVR and associated hypote nsion Remains in sinus rhythm as of this morning and hemodynamically stable Generally weak but denies any other significant symptoms 08/20/2021 The patient was seen and examined in ICU He has been stable and is still requiring intravenous pressors to maintain blood pressure Denies any significant symptoms except weakness 09/21/2021 The patient was seen and examined in medical telemetry unit He was noted to be tachycardic this morning but condition resolved after some time Remains weak and lethargic Pleasantly confused Review of Systems Review of Systems: All systems reviewed and are unremarkable except as noted below Neurologic: Generalized weakness Physical Exam Physical Exam: Lying in bed comfortably but looks pale Constitutional: + ill appearing and average body habitus Eyes: PERRL, conjunctivae normal, anicteric sclerae ENMT: external ear and nose normal, oropharynx normal Neck: trachea midline, no thyromegaly Respiratory: no respiratory distress Auscultation: lungs clear to auscultation bilaterally; no crackles Cardiovascular: Rate/Rhythm: regular rate and regular rhythm; not tachycardic Heart Sounds: normal S1, normal S2 and + murmur (2/6 ESM over precordium) Extremities: + edema (1+ edema bilaterally with palpable pedal arteries) Gastrointestinal (Abdomen): Inspection/Auscultation: normal bowel sounds; abdomen not distended Percussion/Palpation: + abdomen tender (Minimally tender all over without guarding and no rigidity) and abdomen soft Musculoskeletal: No acute arthritis in any joint but has back pain Neurologic: Alert, awake. Pleasantly confused Lymphatic: no cervical or axillary lymphadenopathy Results & Data Results & Data ([facility]) Vital Signs (Past 12 Hours) Vital Signs Temp Pulse Pulse Pulse Resp BP BP 08/21/21 15:00 36.8 C 90 18 106/64 08/21/21 14:12 77 103/58 L 08/21/21 11:10 36.3 C L 88 20 87/48 L 08/21/21 09:54 118 H 97/60 L 08/21/21 09:04 124 H 92/57 L 08/21/21 08:00 36.6 C 122 H 116 H 20 111/68 08/21/21 07:47 113 H 08/21/21 07:40 36.8 C 84 20 131/78 08/21/21 06:28 36.6 C 94 H 18 128/70 08/21/21 06:12 83 Pulse Ox 08/21/21 15:00 98 08/21/21 14:12 08/21/21 11:10 98 08/21/21 09:54 08/21/21 09:04 08/21/21 08:00 95 08/21/21 07:47 08/21/21 07:40 94 08/21/21 06:28 98 08/21/21 06:12 Laboratory Results Short CBC 08/21/21 Range/Units 02:50 WBC 14.39 H (4.8-10.8) K/uL Hgb 8.3 L (14.0-18.0) g/dL Hct 26.0 L (42-52) % Plt Count 42 L (130-400) K/uL BMP 08/21/21 02:50 Sodium 138 Potassium 4.1 Chloride 111 H Carbon Dioxide 20 L BUN 22 Creatinine 1.28 Glucose 129 H Calcium 8.4 L Medications Administered Current Inpatient Medications Amiodarone HCl (Amiodarone 200 Mg Tab) 200 mg PO BIDM [facility] Stop: 09/20/21 02:34 Last Admin: 08/21/21 03:00 Dose: 200 mg Documented by: Calcium Carbonate (Calcium Carbonate 500 Mg Chewable Tab) 500 mg PO TID PRN PRN Reason: Indigestion Stop: 09/17/21 16:44 Enoxaparin Sodium (Enoxaparin Inj 40 Mg/0.4 Ml Syr) 40 mg SQ QAM [facility] Stop: 09/20/21 11:14 Last Admin: 08/21/21 11:49 Dose: 40 mg Documented by: Heparin Sodium (Porcine) (Heparin 100 Unit/Ml 5ml Flush) 5 ml FLUSH PRN PRN PRN Reason: Flush Stop: 09/16/21 02:24 Pantoprazole Sodium 40 mg/ (Syringe) 10 mls @ 5 mls/min IV BID@0900,2100 [facility] Stop: 09/18/21 10:59 Last Admin: 08/21/21 08:24 Dose: 5 mls/min Documented by: Dextrose/Sodium Chloride (D5w And Nss) 1,000 mls @ 80 mls/hr IV .[id number] [facility] Stop: 09/20/21 11:14 Last Admin: 08/21/21 11:33 Dose: 80 mls/hr Documented by: Lactulose (Lactulose Syrup 30 Gm/45 Ml Udp) 30 gm PO DAILY KYLER Stop: 09/15/21 17:59 Last Admin: 08/21/21 08:24 Dose: 30 gm Documented by: Metoprolol Tartrate (Metoprolol Tartrate 1 Mg/Ml Vial) 2.5 mg IV Q6 PRN PRN Reason: Tachycardia Stop: 09/20/21 11:59 Mirtazapine (Mirtazapine Tab 15 Mg Tab) 15 mg PO HS PRN PRN Reason: Insomnia Stop: 09/15/21 20:36 Last Admin: 08/17/21 20:46 Dose: 15 mg Documented by: Morphine Sulfate (Morphine Sulfate 2 Mg/Ml Carp) 2 mg IV Q3H PRN PRN Reason: Pain Stop: 09/03/21 20:05 Last Admin: 08/20/21 20:18 Dose: 2 mg Documented by: Oxycodone HCl (Oxycodone Hcl Ir 5 Mg Tab (Immediate Release)) 5 - 10 mg PO QID PRN PRN Reason: Pain Stop: 09/03/21 20:04 Last Admin: 08/21/21 08:25 Dose: 5 mg Documented by: Tamsulosin HCl (Tamsulosin Hcl 0.4 Mg Cap) 0.4 mg PO HS KYLER Stop: 09/15/21 20:59 Last Admin: 08/20/21 20:18 Dose: 0.4 mg Documented by: Vitamin D (Cholecalciferol 1,000 Units 25 Mcg Tab) 2,000 units PO DAILY KYLER Stop: 09/16/21 08:59 Last Admin: 08/21/21 08:24 Dose: 2,000 units Documented by: (1) DVT (deep venous thrombosis) Affected thrombotic vein of extremity: unspecified vein of extremity Chronicity: chronic DVT location: lower extremity Laterality: bilateral Qu alified Code(s): I82.503 - 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
[2021-08-21] MEDS: TAMSULOSIN HCL 0.4 MG CAP PO SCH (19:43)
[2021-08-22 06:42] LABS: Hemoglobin 6.9 g/dL (14.0-18.0); Mean Corpuscular Hemoglobin 29.9 pg (25-34); Mean Corpuscular Hgb Conc 31.4 g/dL (32-36); Mean Corpuscular Volume 95.2 fL (80-100); Mean Platelet Volume 11.8 fL (7.4-10.4); Platelet Count 45 K/uL (130-400); RDW Coefficient of Variation 18.6 % (11.5-14.5); RDW Standard Deviation 65.6 fL (36.4-46.3); Red Blood Count 2.31 M/uL (4.7-6.1); White Blood Count 9.72 K/uL (4.8-10.8)
[2021-08-22 07:01] LABS: BUN Creatinine Ratio 17.1 (10-20); Calcium 7.8 mg/dl (8.5-10.1); Creatinine Clr Calc Pharmacy 44.7 ml/min; Est GFR (African American) 66.4 ml/min; Est GFR (Non-African American) 57.3 ml/min; Potassium 4.1 mmol/L (3.5-5.1)
[2021-08-22 07:08] LABS: Basophils # (auto) 0.01 K/uL (0-0.2); Basophils % (auto) 0.1 %; Eosinophils # (auto) 0.29 K/uL (0-0.5); Immature Granulocytes # (auto) 0.03 K/uL (0.00-0.02); Immature Granulocytes % (auto) 0.3 %; Lymphocytes # (auto) 0.84 K/uL (1.2-3.4); Lymphocytes % (auto) 8.6 %; Monocytes % (auto) 6.2 %; Neutrophils # (auto) 7.95 K/uL (1.4-6.5); Neutrophils % (auto) 81.8 %; Polychromasia 1+; Schistocytes Occasional
[2021-08-22] MEDS: CHOLECALCIFEROL 1,000 UNITS 25 MCG TAB PO SCH (09:56)
[2021-08-22] MEDS: AMIODARONE 200 MG TAB PO SCH ×2 (09:57→17:57)
[2021-08-22] MEDS: PANTOprazole 40 MG in SYRINGE 0 ML IV SCH ×2 (09:58→21:00)
[2021-08-22] MEDS: LACTULOSE SYRUP 30 GM/45 ML UDP PO SCH (09:59)
[2021-08-22] MEDS: ENOXAPARIN INJ 40 MG/0.4 ML SYR SQ SCH (10:17)
[2021-08-22] MEDS: oxyCODONE HCL IR 5 MG TAB (IMMEDIATE RELEASE) PO PRN ×2 (10:59→18:05)
[2021-08-22] MEDS: D5W AND NSS 1,000 ML IV SCH (11:15)
[2021-08-22 12:02] LABS: Hematocrit (blood only) 23.1 % (42-52); Hemoglobin 7.2 g/dL (14.0-18.0)
--- NOTE | 2021-08-22 13:24 | Hospitalist Progress Note ---
Date of Service August 22, 2021 Assessment & Plan (1) A-fib: Plan: Went into A. fib with RVR last nigh With associated hypotension and has been requiring pressor agents to maintain blood pressure Appreciate cardiology input and recommendation Reverted to sinus rhythm and is maintaining Rate remains controlled Acute hypotension Likely secondary to A. fib with RVR and diastolic dysfunction Has been requiring intravenous pressors to maintain blood pressure Can be transferred to medical floor with telemetry when the pressors are off Blood pressure is on the lower side We will give a small amount of intravenous fluid as the patient is not drinking enough Blood pressure remains stable Palliative care encounter Palliative care has been consulted for further guidance with care Discussed with oncologist-no treatment until blood counts specially platelet improves and the patient is better physically Prognosis remains extremely poor Palliative care has not seen him yet Back pain Likely secondary to pancreatic cancer Pain has been getting worse We will continue with current pain medications (2) Bilateral leg edema: Plan: Presented to the emergency room with increasing swelling of the legs bilaterally Secondary to hypoalbuminemia and is complicated by presence of paroxysmal atrial fibrillation likely secondary to diastolic CHF Decreased circulation due to edema causing some discoloration of the toes Will advised to elevate the legs while in bed Will try small doses of Lasix Edema has been improving Will get echocardiogram to find out LV function as that was requested by the PCP Edema is improved Echo of the heart showed-bioprosthetic aortic valve, the gradient is abnormal for this bioprosthetic aortic valve suggesting obstruction, mild bioprosthetic aortic valve regurgitation, moderate MR and moderate TR, estimated systolic pulmonary pressure is 43 mmHg EF is 60 to 65% Edema has improved a lot (3) Acute GI bleeding: Plan: His hemoglobin was 10.2 on fourth of this month This has been gradually decreasing and it is 8.3 as of today Stool is strongly positive for blood Will give Protonix drip Avoid any NSAID's and hold Eliquis Get GI evaluation for possible EGD Appreciate GI input and recommendation-no EGD at this Hemoglobin stable at more than 7 We will continue PPI drip and change to oral tomorrow Hemoglobin remains stable at 8.3-no active GI bleed Hemoglobin remains reasonably stable at 7.1 today (4) 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 Terrell Chemotherapy was not given due to low platelet count recently Has liver metastasis with INR of 1.9 and alkaline phos 680 Albumin level seems to be reasonable at 2.9 Pain seems to be controlled Remains pleasantly confused-likely secondary to cancer and also may have mild dementia Discussed with oncologist-prognosis is very poor, chemotherapy cannot be given until the blood counts are better specially platelet Discussed with oncologist-prognosis remains poor (5) Thrombocytopenia: Plan: Secondary to hepatic metastasis and the pancreatic cancer itself Platelet remains low (6) DVT (deep venous thrombosis): Plan: 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.- Has been on Eliquis which has been decreased to 2.5 mg twice daily from 5 mg twice daily recently due to low platelet INR is 1.9 today and with evidence of Hemoccult positive we will hold Eliquis for now During last admission vascular surgery consult was taken for possible IVC filter but that was not given due to stoppage of bleeding Will hold Eliquis for now Discussed was anticoagulation-since INR remains at 1.9 will not give any further anticoagulation Ultrasound did show increasing thrombosis and also involving the arterial system Discussed with oncologist again today we will start Lovenox 40 mg and if the hemoglobin is stable will increase in the dose accordingly even though INR remains 2.0 Started on Lovenox 40 mg subcu daily-we will watch for any bleeding (7) Weakness: Plan: Generalized weakness Has been getting worse likely contributed by low hemoglobin and also metastatic cancer PT OT evaluation (8) Aortic stenosis: Plan: Status post AVR Denies any chest pain and/or palpitation (9) CKD (chronic kidney disease), stage III: Plan: Creatinine remains stable (10) Hypertension: Plan: Blood pressure is stable at 127/69 DVT prophylaxis SCDs No Eliquis due to INR being 1.9 and ongoing GI bleeding On Lovenox 40 mg daily Hemoglobin drops will stop Lovenox CODE STATUS Full Will discuss with the daughter Palliative care consulted Admission and Anticipated Discharge Date Admission Date: August 16, 2021 Subjective 08/17/2021 The patient was seen and examined in medical telemetry unit He has been feeling a little better today Denies any more black stool Leg swelling has been improving 08/18/2021 The patient was seen and examined in medical telemetry unit Remains generally weak and lethargic And may be pleasantly confused Has been getting physical therapy 08/19/2021 The patient was seen and examined in ICU He was transferred to ICU last night with a fever with RVR and associated hypotension Remains in sinus rhythm as of this morning and hemodynamically stable Generally weak but denies any other significant symptoms 08/20/2021 The patient was seen and examined in ICU He has been stable and is still requiring intravenous pressors to maintain blood pressure Denies any significant symptoms except weakness 08/21/2021 The patient was seen and examined in medical telemetry unit He was noted to be tachycardic this morning but condition resolved after some time Remains weak and lethargic Pleasantly confused 08/22/2021 The patient was seen and examined in medical telemetry unit He has been out of bed on a chair and complains of pain in the lower back Denies any radiation of the pain Denies any fever and or chills, remains generally weak and lethargic Review of Systems Review of Systems: All systems reviewed and are unremarkable except as noted below Neurologic: Generalized weakness Physical Exam Physical Exam: Lying in bed comfortably but looks pale Constitutional: + ill appearing and average body habitus Eyes: PERRL, conjunctivae normal, anicteric sclerae ENMT: external ear and nose normal, oropharynx normal Neck: trachea midline, no thyromegaly Respiratory: no respiratory distress Auscultation: lungs clear to auscultation bilaterally; no crackles Cardiovascular: Rate/Rhythm: regular rate and regular rhythm; not tachycardic Heart Sounds: normal S1, normal S2 and + murmur (2/6 ESM over precordium) Extremities: + edema (1+ edema bilaterally with palpable pedal arteries) Gastrointestinal (Abdomen): Inspection/Auscultation: normal bowel sounds; abdomen not distended Percussion/Palpation: + abdomen tender (Minimally tender all over without guarding and no rigidity) and abdomen soft Musculoskeletal: No acute arthritis in any joint. No localized tenderness at the back Neurologic: Alert, awake. Pleasantly confused. Generally very weak and lethargic Lymphatic: no cervical or axillary lymphadenopathy Results & Data Results & Data ([facility]) Vital Signs (Past 12 Hours) Vital Signs Temp Pulse Pulse Resp BP BP Pulse Ox 08/22/21 11:00 36.5 C 93 H 16 129/63 97 08/22/21 07:20 88 08/22/21 06:37 36.9 C 88 18 104/55 L 94 08/22/21 03:28 36.8 C 88 18 120/60 93 Laboratory Results Short CBC 08/22/21 08/22/21 Range/Units 06:18 11:32 WBC 9.72 (4.8-10.8) K/uL Hgb 6.9 L* 7.2 L (14.0-18.0) g/dL Hct 22.0 L 23.1 L (42-52) % Plt Count 45 L (130-400) K/uL BMP 08/22/21 06:18 Sodium 140 Potassium 4.1 Chloride 115 H Carbon Dioxide 20 L BUN 20 Creatinine 1.17 Glucose 172 H Calcium 7.8 L Medications Administered Current Inpatient Medications Amiodarone HCl (Amiodarone 200 Mg Tab) 200 mg PO BIDM [facility] Stop: 09/20/21 02:34 Last Admin: 08/22/21 09:57 Dose: 200 mg Documented by: Calcium Carbonate (Calcium Carbonate 500 Mg Chewable Tab) 500 mg PO TID PRN PRN Reason: Indigestion Stop: 09/17/21 16:44 Enoxaparin Sodium (Enoxaparin Inj 40 Mg/0.4 Ml Syr) 40 mg SQ QAM [facility] Stop: 09/20/21 11:14 Last Admin: 08/22/21 10:17 Dose: Not Given Documented by: Heparin Sodium (Porcine) (Heparin 100 Unit/Ml 5ml Flush) 5 ml FLUSH PRN PRN PRN Reason: Flush Stop: 09/16/21 02:24 Pantoprazole Sodium 40 mg/ (Syringe) 10 mls @ 5 mls/min IV BID@0900,2100 [facility] Stop: 09/18/21 10:59 Last Admin: 08/22/21 09:58 Dose: 5 mls/min Documented by: Dextrose/Sodium Chloride (D5w And Nss) 1,000 mls @ 80 mls/hr IV .[id number] [facility] Stop: 09/20/21 11:14 Last Admin: 08/22/21 11:15 Dose: 80 mls/hr Documented by: Lactulose (Lactulose Syrup 30 Gm/45 Ml Udp) 30 gm PO DAILY [facility] Stop: 09/15/21 17:59 Last Admin: 08/22/21 09:59 Dose: 30 gm Documented by: Metoprolol Tartrate (Metoprolol Tartrate 1 Mg/Ml Vial) 2.5 mg IV Q6 PRN PRN Reason: Tachycardia Stop: 09/20/21 11:59 Mirtazapine (Mirtazapine Tab 15 Mg Tab) 15 mg PO HS PRN PRN Reason: Insomnia Stop: 09/15/21 20:36 Last Admin: 08/17/21 20:46 Dose: 15 mg Documented by: Morphine Sulfate (Morphine Sulfate 2 Mg/Ml Carp) 2 mg IV Q3H PRN PRN Reason: Pain Stop: 09/03/21 20:05 Last Admin: 08/20/21 20:18 Dose: 2 mg Documented by: Oxycodone HCl (Oxycodone Hcl Ir 5 Mg Tab (Immediate Release)) 5 - 10 mg PO QID PRN PRN Reason: Pain Stop: 09/03/21 20:04 Last Admin: 08/22/21 10:59 Dose: 5 mg Documented by: Tamsulosin HCl (Tamsulosin Hcl 0.4 Mg Cap) 0.4 mg PO HS [facility] Stop: 09/15/21 20:59 Last Admin: 08/21/21 19:43 Dose: 0.4 mg Documented by: Vitamin D (Cholecalciferol 1,000 Units 25 Mcg Tab) 2,000 units PO DAILY [facility] Stop: 09/16/21 08:59 Last Admin: 08/22/21 09:56 Dose: 2,000 units Documented by: (1) DVT (deep venous thrombosis) Affected thrombotic vein of extremity: unspecified vein of extremity Chronicity: chronic DVT location: lower extremity Laterality: bilateral Qualified Code(s): I82.503 - 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
[2021-08-22] MEDS: TAMSULOSIN HCL 0.4 MG CAP PO SCH (21:00)
[2021-08-22] MEDS: MIRTAZAPINE TAB 15 MG TAB PO PRN (22:23)
[2021-08-23] MEDS: D5W AND NSS 1,000 ML IV SCH ×2 (00:28→13:15)
[2021-08-23] MEDS: oxyCODONE HCL IR 5 MG TAB (IMMEDIATE RELEASE) PO PRN ×2 (03:52→20:24)
[2021-08-23 05:44] LABS: BUN Creatinine Ratio 15.6 (10-20); Calcium 7.9 mg/dl (8.5-10.1); Creatinine Clr Calc Pharmacy 40.9 ml/min; Est GFR (African American) 59.6 ml/min; Est GFR (Non-African American) 51.4 ml/min
[2021-08-23 06:07] LABS: Hematocrit (blood only) 21.5 % (42-52); Hemoglobin 6.7 g/dL (14.0-18.0); Mean Corpuscular Hgb Conc 31.2 g/dL (32-36); Mean Corpuscular Volume 96.4 fL (80-100); Mean Platelet Volume 11.2 fL (7.4-10.4); Platelet Count 48 K/uL (130-400); RDW Standard Deviation 66.9 fL (36.4-46.3); Red Blood Count 2.23 M/uL (4.7-6.1); White Blood Count 12.72 K/uL (4.8-10.8)
[2021-08-23 06:08] LABS: Acanthocytes 1+; Basophils # (auto) 0.01 K/uL (0-0.2); Basophils % (auto) 0.1 %; Eosinophils # (auto) 0.17 K/uL (0-0.5); Eosinophils % (auto) 1.3 %; Immature Granulocytes # (auto) 0.06 K/uL (0.00-0.02); Immature Granulocytes % (auto) 0.5 %; Lymphocytes # (auto) 1.17 K/uL (1.2-3.4); Lymphocytes % (auto) 9.2 %; Monocytes # (auto) 0.92 K/uL (0.11-0.59); Monocytes % (auto) 7.2 %; Neutrophils # (auto) 10.39 K/uL (1.4-6.5); Neutrophils % (auto) 81.7 %; Platelet Estimate Decreased (Normal); Polychromasia 1+; Tear Drop Cells 1+
--- NOTE | 2021-08-23 06:11 | Communication Note ---
Date of Service: August 23, 2021 Notified by RN of hemoglobin of 6.7 (down from 7.2 yesterday) No overt bleed as per patient/daughter. Patient weak. No chest pain, SOB. AP Symptomatic anemia Occult GI bleed Transfuse PRBC to maintain hemoglobin greater than 8 (hx TIA as per records) Hold Lovenox for now Will relay to AM provider.
[2021-08-23] MEDS ORDERED: SODIUM CHLORIDE 0.9% 250 ML IV PRN ×2 (07:03→07:11)
[2021-08-23] MEDS: AMIODARONE 200 MG TAB PO SCH ×2 (10:57→17:02)
[2021-08-23] MEDS: CHOLECALCIFEROL 1,000 UNITS 25 MCG TAB PO SCH (10:57)
[2021-08-23] MEDS: PANTOprazole 40 MG in SYRINGE 0 ML IV SCH ×2 (10:58→20:24)
[2021-08-23] MEDS: LACTULOSE SYRUP 30 GM/45 ML UDP PO SCH (10:58)
[2021-08-23] MEDS ORDERED: ACETAMINOPHEN 500 MG TAB PO ONE (11:17)
--- NOTE | 2021-08-23 12:05 | Hospitalist Progress Note ---
Date of Service August 23, 2021 Assessment & Plan (1) A-fib: Plan: Went into A. fib with RVR last nigh With associated hypotension and has been requiring pressor agents to maintain blood pressure Appreciate cardiology input and recommendation Reverted to sinus rhythm and is maintaining Rate remains controlled Acute hypotension Likely secondary to A. fib with RVR and diastolic dysfunction Has been requiring intravenous pressors to maintain blood pressure Can be transferred to medical floor with telemetry when the pressors are off Blood pressure is on the lower side We will give a small amount of intravenous fluid as the patient is not drinking enough Blood pressure remains stable but on the lower side Palliative care encounter Palliative care has been consulted for further guidance with care Discussed with oncologist-no treatment until blood counts specially platelet improves and the patient is better physically Prognosis remains extremely poor Palliative care has not seen him yet Back pain Likely secondary to pancreatic cancer Pain has been getting worse We will continue with current pain medications Pain seems to be controlled (2) Bilateral leg edema: Plan: Presented to the emergency room with increasing swelling of the legs bilaterally Secondary to hypoalbuminemia and is complicated by presence of paroxysmal atrial fibrillation likely secondary to diastolic CHF Decreased circulation due to edema causing some discoloration of the toes Will advised to elevate the legs while in bed Will try small doses of Lasix Edema has been improving Will get echocardiogram to find out LV function as that was requested by the PCP Edema is improved Echo of the heart showed-bioprosthetic aortic valve, the gradient is abnormal for this bioprosthetic aortic valve suggesting obstruction, mild bioprosthetic aortic valve regurgitation, moderate MR and moderate TR, estimated systolic pulmonary pressure is 43 mmHg EF is 60 to 65% Edema has improved a lot (3) Acute GI bleeding: Plan: His hemoglobin was 10.2 on fourth of this month This has been gradually decreasing and it is 8.3 as of today Stool is strongly positive for blood Will give Protonix drip Avoid any NSAID's and hold Eliquis Get GI evaluation for possible EGD Appreciate GI input and recommendation-no EGD at this Hemoglobin stable at more than 7 We will continue PPI drip and change to oral tomorrow Hemoglobin remains stable at 8.3-no active GI bleed Hemoglobin remains reasonably stable at 7.1 today Hemoglobin went down to 6.7-Will receive 1 unit of blood transfusion today (4) 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 Terrell Chemotherapy was not given due to low platelet count recently Has liver metastasis with INR of 1.9 and alkaline phos 680 Albumin level seems to be reasonable at 2.9 Pain seems to be controlled Remains pleasantly confused-likely secondary to cancer and also may have mild dementia Discussed with oncologist-prognosis is very poor, chemotherapy cannot be given until the blood counts are better specially platelet Discussed with oncologist-prognosis remains poor (5) Thrombocytopenia: Plan: Secondary to hepatic metastasis and the pancreatic cancer itself Platelet remains low (6) DVT (deep venous thrombosis): Plan: 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.- Has been on Eliquis which has been decreased to 2.5 mg twice daily from 5 mg twice daily recently due to low platelet INR is 1.9 today and with evidence of Hemoccult positive we will hold Eliquis for now During last admission vascular surgery consult was taken for possible IVC filter but that was not given due to stoppage of bleeding Will hold Eliquis for now Discussed was anticoagulation-since INR remains at 1.9 will not give any further anticoagulation Ultrasound did show increasing thrombosis and also involving the arterial system Discussed with oncologist again today we will start Lovenox 40 mg and if the hemoglobin is stable will increase in the dose accordingly even though INR remains 2.0 Started on Lovenox 40 mg subcu daily-we will watch for any bleeding Lovenox has been discontinued due to low hemoglobin (7) Weakness: Plan: Generalized weakness Has been getting worse likely contributed by low hemoglobin and also metastatic cancer PT OT evaluation (8) Aortic stenosis: Plan: Status post AVR Denies any chest pain and/or palpitation (9) CKD (chronic kidney disease), stage III: Plan: Creatinine remains stable (10) Hypertension: Plan: Blood pressure is stable at 127/69 DVT prophylaxis SCDs No Eliquis due to INR being 1.9 and ongoing GI bleeding On Lovenox 40 mg daily Hemoglobin drops will stop Lovenox CODE STATUS Full Will discuss with the daughter Palliative care consulted Admission and Anticipated Discharge Date Admission Date: August 16, 2021 Subjective 08/17/2021 The patient was seen and examined in medical telemetry unit He has been feeling a little better today Denies any more black stool Leg swelling has been improving 08/18/2021 The patient was seen and examined in medical telemetry unit Remains generally weak and lethargic And may be pleasantly confused Has been getting physical therapy 08/19/2021 The patient was seen and examined in ICU He was transferred to ICU last night with a fever with RVR and associated hypote nsion Remains in sinus rhythm as of this morning and hemodynamically stable Generally weak but denies any other significant symptoms 08/20/2021 The patient was seen and examined in ICU He has been stable and is still requiring intravenous pressors to maintain blood pressure Denies any significant symptoms except weakness 08/21/2021 The patient was seen and examined in medical telemetry unit He was noted to be tachycardic this morning but condition resolved after some time Remains weak and lethargic Pleasantly confused 08/22/2021 The patient was seen and examined in medical telemetry unit He has been out of bed on a chair and complains of pain in the lower back Denies any radiation of the pain Denies any fever and or chills, remains generally weak and lethargic 08/23/2021 The patient was seen and examined in medical telemetry unit He was noted to have a hemoglobin of 6.7 without any overt GI bleeding Lovenox was stopped by the night doc and was ordered for 1 unit of blood transfusion He remains generally weak and lethargic but denies any significant pain and or other symptoms His son is coming from [facility] to see him in the hospital Review of Systems Review of Systems: All systems reviewed and are unremarkable except as noted below Neurologic: Generalized weakness Physical Exam Physical Exam: Lying in bed comfortably but looks pale Constitutional: + ill appearing and average body habitus Eyes: PERRL, conjunctivae normal, anicteric sclerae ENMT: external ear and nose normal, oropharynx normal Neck: trachea midline, no thyromegaly Respiratory: no respiratory distress Auscultation: lungs clear to auscultation bilaterally; no crackles Cardiovascular: Rate/Rhythm: regular rate and regular rhythm; not tachycardic Heart Sounds: normal S1, normal S2 and + murmur (2/6 ESM over precordium) Extremities: + edema (1+ edema bilaterally with palpable pedal arteries) Gastrointestinal (Abdomen): Inspection/Auscultation: normal bowel sounds; abdomen not distended Percussion/Palpation: + abdomen tender (Minimally tender all over without guarding and no rigidity) and abdomen soft Musculoskeletal: No acute arthritis involving any joint Neurologic: normal touch/pain/proprioception and awake; no focal motor deficits and not confused Lymphatic: no cervical or axillary lymphadenopathy Results & Data Results & Data ([facility]) Vital Signs (Past 12 Hours) Vital Signs Temp Pulse Pulse Resp BP BP Pulse Ox 08/23/21 11:55 37.0 C 89 16 102/61 94 08/23/21 11:14 36.9 C 86 16 106/61 95 08/23/21 07:43 84 08/23/21 07:29 36.9 C 84 16 90/48 L 95 Laboratory Results Short CBC 08/23/21 Range/Units 04:55 WBC 12.72 H (4.8-10.8) K/uL Hgb 6.7 L* (14.0-18.0) g/dL Hct 21.5 L (42-52) % Plt Count 48 L (130-400) K/uL BMP 08/23/21 04:55 Sodium 139 Potassium 4.0 Chloride 115 H Carbon Dioxide 18 L BUN 20 Creatinine 1.28 Glucose 173 H Calcium 7.9 L Medications Administered Current Inpatient Medications Amiodarone HCl (Amiodarone 200 Mg Tab) 200 mg PO BIDM [facility] Stop: 09/20/21 02:34 Last Admin: 08/23/21 10:57 Dose: 200 mg Documented by: Calcium Carbonate (Calcium Carbonate 500 Mg Chewable Tab) 500 mg PO TID PRN PRN Reason: Indigestion Stop: 09/17/21 16:44 Enoxaparin Sodium (Enoxaparin Inj 40 Mg/0.4 Ml Syr) 40 mg SQ QAM [facility] Stop: 09/20/21 11:14 Last Admin: 08/22/21 10:17 Dose: Not Given Documented by: Heparin Sodium (Porcine) (Heparin 100 Unit/Ml 5ml Flush) 5 ml FLUSH PRN PRN PRN Reason: Flush Stop: 09/16/21 02:24 Pantoprazole Sodium 40 mg/ (Syringe) 10 mls @ 5 mls/min IV BID@0900,2100 [facility] Stop: 09/18/21 10:59 Last Admin: 08/23/21 10:58 Dose: 5 mls/min Documented by: Dextrose/Sodium Chloride (D5w And Nss) 1,000 mls @ 80 mls/hr IV .[id number] [facility] Stop: 09/20/21 11:14 Last Admin: 08/23/21 00:28 Dose: 80 mls/hr Documented by: Sodium Chloride (Nss) 250 mls @ 15 mls/hr IV .[id number] PRN PRN Reason: For Transfusion Stop: 08/23/21 17:11 Lactulose (Lactulose Syrup 30 Gm/45 Ml Udp) 30 gm PO DAILY [facility] Stop: 09/15/21 17:59 Last Admin: 08/23/21 10:58 Dose: 30 gm Documented by: Metoprolol Tartrate (Metoprolol Tartrate 1 Mg/Ml Vial) 2.5 mg IV Q6 PRN PRN Reason: Tachycardia Stop: 09/20/21 11:59 Mirtazapine (Mirtazapine Tab 15 Mg Tab) 15 mg PO HS PRN PRN Reason: Insomnia Stop: 09/15/21 20:36 Last Admin: 08/22/21 22:23 Dose: 15 mg Documented by: Morphine Sulfate (Morphine Sulfate 2 Mg/Ml Carp) 2 mg IV Q3H PRN PRN Reason: Pain Stop: 09/03/21 20:05 Last Admin: 08/20/21 20:18 Dose: 2 mg Documented by: Oxycodone HCl (Oxycodone Hcl Ir 5 Mg Tab (Immediate Release)) 5 - 10 mg PO QID PRN PRN Reason: Pain Stop: 09/03/21 20:04 Last Admin: 08/23/21 03:52 Dose: 5 mg Documented by: Tamsulosin HCl (Tamsulosin Hcl 0.4 Mg Cap) 0.4 mg PO HS [facility] Stop: 09/15/21 20:59 Last Admin: 08/22/21 21:00 Dose: 0.4 mg Documented by: Vitamin D (Cholecalciferol 1,000 Units 25 Mcg Tab) 2,000 units PO DAILY [facility] Stop: 09/16/21 08:59 Last Admin: 08/23/21 10:57 Dose: 2,000 units Documented by: (1) DVT (deep venous thrombosis) Affected thrombotic vein of extremity: unspecified vein of extremity Chronicity: chronic DVT location: lower extremity Laterality: bilateral Qualified Code(s): I82.503 - 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
[2021-08-23] MEDS: HEPARIN 100 UNIT/ML 5ML FLUSH FLUSH PRN (19:29)
[2021-08-23] MEDS: TAMSULOSIN HCL 0.4 MG CAP PO SCH (20:24)
[2021-08-23] MEDS: MoRPHine SULFATE 2 MG/ML CARP IV PRN (21:35)
[2021-08-24 06:28] LABS: Hematocrit (blood only) 28.1 % (42-52); Hemoglobin 9.1 g/dL (14.0-18.0); Mean Corpuscular Hemoglobin 29.9 pg (25-34); Mean Corpuscular Hgb Conc 32.4 g/dL (32-36); Mean Corpuscular Volume 92.4 fL (80-100); RDW Coefficient of Variation 19.1 % (11.5-14.5); RDW Standard Deviation 63.2 fL (36.4-46.3); Red Blood Count 3.04 M/uL (4.7-6.1); White Blood Count 14.56 K/uL (4.8-10.8)
[2021-08-24 06:49] LABS: Mean Platelet Volume 11.2 fL (7.4-10.4); Platelet Count 38 K/uL (130-400)
[2021-08-24 06:55] LABS: Basophils # (auto) 0.01 K/uL (0-0.2); Basophils % (auto) 0.1 %; Eosinophils # (auto) 0.17 K/uL (0-0.5); Eosinophils % (auto) 1.2 %; Immature Granulocytes # (auto) 0.07 K/uL (0.00-0.02); Immature Granulocytes % (auto) 0.5 %; Lymphocytes # (auto) 1.11 K/uL (1.2-3.4); Lymphocytes % (auto) 7.6 %; Monocytes % (auto) 7.6 %
[2021-08-24 06:56] LABS: BUN Creatinine Ratio 15.9 (10-20); Creatinine Clr Calc Pharmacy 41.5 ml/min; Est GFR (African American) 60.7 ml/min; Est GFR (Non-African American) 52.4 ml/min; Potassium 4.2 mmol/L (3.5-5.1)
[2021-08-24] MEDS: oxyCODONE HCL IR 5 MG TAB (IMMEDIATE RELEASE) PO PRN ×2 (08:16→18:02)
[2021-08-24] MEDS: PANTOprazole 40 MG in SYRINGE 0 ML IV SCH ×2 (08:17→19:59)
[2021-08-24] MEDS: CHOLECALCIFEROL 1,000 UNITS 25 MCG TAB PO SCH (08:17)
[2021-08-24] MEDS: LACTULOSE SYRUP 30 GM/45 ML UDP PO SCH (08:18)
[2021-08-24] MEDS: AMIODARONE 200 MG TAB PO SCH ×2 (08:18→17:04)
[2021-08-24] MEDS ORDERED: SODIUM CHLORIDE 0.9% 1000ML 1,000 ML IV SCH (14:45)
[2021-08-24] MEDS: TAMSULOSIN HCL 0.4 MG CAP PO SCH (19:59)
[2021-08-24] MEDS: MIRTAZAPINE TAB 15 MG TAB PO PRN (20:45)
--- NOTE | 2021-08-24 22:26 | Hospitalist Progress Note ---
Date of Service August 24, 2021 Assessment & Plan (1) A-fib: Plan: Went into A. fib with RVR couple night ago With associated hypotension and has been requiring pressor agents to maintain blood pressure cardiology on board Heart rate control today Continue Amiodarone PO He has not been getting to Low dose IV Lopressor due to hypotension Acute hypotension Likely secondary to A. fib with RVR and diastolic dysfunction Has been requiring intravenous pressors to maintain blood pressure Blood pressure is on the lower side We will give a small amount of intravenous fluid as the patient is not drinking enough Blood pressure remains stable but on the lower side Palliative care encounter Palliative care has been consulted for further guidance with care Discussed with oncologist-no treatment until blood counts specially platelet improves and the patient is better physically Prognosis remains extremely poor Palliative care has not seen him yet Back pain Likely secondary to pancreatic cancer Pain has been getting worse We will continue with current pain medications Pain seems to be controlled (2) Bilateral leg edema: Plan: Presented to the emergency room with increasing swelling of the legs bilaterally Secondary to hypoalbuminemia and is complicated by presence of paroxysmal atrial fibrillation likely secondary to diastolic CHF Decreased circulation due to edema causing some discoloration of the toes Will advised to elevate the legs while in bed Will try small doses of Lasix Edema has been improving Will get echocardiogram to find out LV function as that was requested by the PCP Edema is improved Echo of the heart showed-bioprosthetic aortic valve, the gradient is abnormal for this bioprosthetic aortic valve suggesting obstruction, mild bioprosthetic aortic valve regurgitation, moderate MR and moderate TR, estimated systolic pulmonary pressure is 43 mmHg EF is 60 to 65% Edema has improved a lot (3) Acute GI bleeding: Plan: His hemoglobin was 10.2 on fourth of this month This has been gradually decreasing and it is 8.3 as of today Stool is strongly positive for blood Will give Protonix drip Avoid any NSAID's and hold Eliquis Get GI evaluation for possible EGD Appreciate GI input and recommendation-no EGD at this Hemoglobin stable at more than 7 We will continue PPI drip and change to oral tomorrow Hemoglobin remains stable at 8.3-no active GI bleed Hemoglobin remains reasonably stable at 7.1 today Hemoglobin went down to 6.7- Received 1 unit PRBC - Hgb improved to 9.1 (4) 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 Terrell Chemotherapy was not given due to low platelet count recently Has liver metastasis with INR of 1.9 and alkaline phos 680 Albumin level seems to be reasonable at 2.9 Pain seems to be controlled Remains pleasantly confused-likely secondary to cancer and also may have mild dementia Discussed with oncologist-prognosis is very poor, chemotherapy cannot be given until the blood counts are better specially platelet Discussed with oncologist-prognosis remains poor Waiting for palliative care consult (5) Thrombocytopenia: Plan: Secondary to hepatic metastasis and the pancreatic cancer itself Platelet remains low (6) DVT (deep venous thrombosis): Plan: 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.- Has been on Eliquis which has been decreased to 2.5 mg twice daily from 5 mg twice daily recently due to low platelet INR is 1.9 today and with evidence of Hemoccult positive we will hold Eliquis for now During last admission vascular surgery consult was taken for possible IVC filter but that was not given due to stoppage of bleeding Will hold Eliquis for now Discussed was anticoagulation-since INR remains at 1.9 will not give any further anticoagulation Ultrasound did show increasing thrombosis and also involving the arterial system Discussed with oncologist again today we will start Lovenox 40 mg and if the hemoglobin is stable will increase in the dose accordingly even though INR remains 2.0 Started on Lovenox 40 mg subcu daily-we will watch for any bleeding Lovenox has been discontinued due to low hemoglobin (7) Weakness: Plan: Generalized weakness Has been getting worse likely contributed by low hemoglobin and also metastatic cancer PT OT evaluation (8) Aortic stenosis: Plan: Status post AVR Denies any chest pain and/or palpitation (9) CKD (chronic kidney disease), stage III: Plan: Creatinine remains stable (10) Hypertension: Plan: Blood pressure is stable at 127/69 DVT prophylaxis SCDs Lovenox discontinue due to low hemoglobin Autocoagulation with INR 2 (08/20/21) CODE STATUS Full Will discuss with the daughter Palliative care consulted Admission and Anticipated Discharge Date Admission Date: August 16, 2021 Subjective Pt was seen and examined for follow up Lying in bed with no acute distress with at bedside Pt feels fees week. He has not been eating much Denies any chest pain, palpitation, dizziness and SOB Review of Systems Review of Systems: All systems reviewed & are unremarkable except as noted in Subjective Physical Exam Physical Exam: General- No acute distress Head- atraumatic Eyes- PERRL, EOMI, ENT- oropharynx clear Neck- supple, no JVD Lungs- clear to auscultation Heart- regular rhythm; +Systolic murmur Abdomen- normal bowel sounds, soft, nontender Extremities- no calf tenderness, +edema, RLE with mild erythema extended to ankle medially Neuro- alert, oriented x 3; PERRL, EOMI; no facial palsy; no dysarthria Skin- warm & dry Results & Data Results & Data ([facility]) Vital Signs (Past 12 Hours) Vital Signs Temp Pulse Pulse Resp BP BP BP 08/24/21 21:58 37.8 C H 82 16 84/44 L 08/24/21 18:05 91/52 L 08/24/21 16:53 88 82/56 L 08/24/21 15:44 83/49 L 08/24/21 14:17 130 H 08/24/21 13:41 120 H 08/24/21 13:40 91/54 L 08/24/21 11:44 73 93/55 L 08/24/21 11:20 37.2 C 74 18 82/49 L Pulse Ox 08/24/21 21:58 93 08/24/21 18:05 08/24/21 16:53 08/24/21 15:44 08/24/21 14:17 08/24/21 13:41 08/24/21 13:40 08/24/21 11:44 08/24/21 11:20 92 (1) DVT (deep venous thrombosis) Affected thrombotic vein of extremity: unspecified vein of extremity Chronicity: chronic DVT location: lower extremity Laterality: bilateral Qualified Code(s): I82.503 - 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
[2021-08-25 06:33] LABS: INR 1.8 (0.9-1.1); Prothrombin Time 18.4 Seconds (9.0-12.0)
[2021-08-25 06:41] LABS: BUN Creatinine Ratio 19.8 (10-20); Calcium 7.9 mg/dl (8.5-10.1); Creatinine Clr Calc Pharmacy 39.9 ml/min; Est GFR (African American) 57.9 ml/min; Potassium 4.1 mmol/L (3.5-5.1)
[2021-08-25 06:50] LABS: Hematocrit (blood only) 26.9 % (42-52); Hemoglobin 8.6 g/dL (14.0-18.0); Mean Corpuscular Hemoglobin 30.2 pg (25-34); Mean Corpuscular Volume 94.4 fL (80-100); Mean Platelet Volume 12.4 fL (7.4-10.4); Platelet Count 47 K/uL (130-400); RDW Coefficient of Variation 18.4 % (11.5-14.5); RDW Standard Deviation 63.6 fL (36.4-46.3); Red Blood Count 2.85 M/uL (4.7-6.1); White Blood Count 14.89 K/uL (4.8-10.8)
[2021-08-25] MEDS: LACTULOSE SYRUP 30 GM/45 ML UDP PO SCH ×2 (07:21→08:40)
[2021-08-25] MEDS: AMIODARONE 200 MG TAB PO SCH ×2 (08:39→16:58)
[2021-08-25] MEDS: CHOLECALCIFEROL 1,000 UNITS 25 MCG TAB PO SCH (08:39)
[2021-08-25] MEDS: PANTOprazole 40 MG in SYRINGE 0 ML IV SCH ×2 (08:40→21:03)
[2021-08-25] MEDS: oxyCODONE HCL IR 5 MG TAB (IMMEDIATE RELEASE) PO PRN ×2 (09:35→18:20)
[2021-08-25] MEDS: LIDOCAINE 5% 1 PATCH TD SCH (10:53)
[2021-08-25] MEDS ORDERED: DIGOXIN 250 MCG in SYRINGE 9 ML IV STA ×2 (20:02→22:20)
[2021-08-25] MEDS ORDERED: SODIUM CHLORIDE 0.9% 500 ML IV ONE (20:04)
[2021-08-25] MEDS: MIRTAZAPINE TAB 15 MG TAB PO PRN (21:04)
[2021-08-25] MEDS: TAMSULOSIN HCL 0.4 MG CAP PO SCH (21:04)
--- NOTE | 2021-08-25 22:45 | Hospitalist Progress Note ---
Date of Service August 25, 2021 Assessment & Plan (1) A-fib: Plan: Went into A. fib with RVR couple night ago With associated hypotension and has been requiring pressor agents to maintain blood pressure cardiology on board Heart rate control today Continue Amiodarone PO He has not been getting the Low dose IV Lopressor due to hypotension Acute hypotension Likely secondary to A. fib with RVR and diastolic dysfunction Has been requiring intravenous pressors to maintain blood pressure Blood pressure is on the lower side Received gentle fluid hydration Blood pressure remains stable but on the lower side Back pain Likely secondary to pancreatic cancer Pain has been getting worse We will continue with current pain medications Pain seems to be controlled (2) Bilateral leg edema: Plan: Presented to the emergency room with increasing swelling of the legs bilaterally Secondary to hypoalbuminemia and is complicated by presence of paroxysmal atrial fibrillation likely secondary to diastolic CHF Decreased circulation due to edema causing some discoloration of the toes Will advised to elevate the legs while in bed Will try small doses of Lasix Edema has been improving Will get echocardiogram to find out LV function as that was requested by the PCP Edema is improved Echo of the heart showed-bioprosthetic aortic valve, the gradient is abnormal for this bioprosthetic aortic valve suggesting obstruction, mild bioprosthetic aortic valve regurgitation, moderate MR and moderate TR, estimated systolic pulmonary pressure is 43 mmHg EF is 60 to 65% Edema has improved a lot (3) Acute GI bleeding: Plan: His hemoglobin was 10.2 on fourth of this month This has been gradually decreasing and it is 8.3 as of today Stool is strongly positive for blood Will give Protonix drip Avoid any NSAID's and hold Eliquis Get GI evaluation for possible EGD Appreciate GI input and recommendation-no EGD at this Hemoglobin stable at more than 7 We will continue PPI drip and change to oral tomorrow Hemoglobin remains stable at 8.3-no active GI bleed Hemoglobin remains reasonably stable at 7.1 today Hemoglobin went down to 6.7- Received 1 unit PRBC during the hospital course Hgb dropped to 8.6 today Continue monitor Hgb (4) 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 Terrell Chemotherapy was not given due to low platelet count recently Has liver metastasis with INR of 1.9 and alkaline phos 680 Albumin level seems to be reasonable at 2.9 Pain seems to be controlled Remains pleasantly confused-likely secondary to cancer and also may have mild dementia Discussed with oncologist-prognosis is very poor, chemotherapy cannot be given until the blood counts are better specially platelet Palliative care has been consulted for further guidance with care Prognosis remains extremely poor Palliative care has not seen him yet Spoke to and daughter and would like to transition to comfort care Code status changed to DNR (5) Thrombocytopenia: Plan: Secondary to hepatic metastasis and the pancreatic cancer itself Platelet remains low (6) DVT (deep venous thrombosis): Plan: 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.- Has been on Eliquis which has been decreased to 2.5 mg twice daily from 5 mg twice daily recently due to low platelet INR is 1.9 today and with evidence of Hemoccult positive we will hold Eliquis for now During last admission vascular surgery consult was taken for possible IVC filter but that was not given due to stoppage of bleeding Will hold Eliquis for now Discussed was anticoagulation-since INR remains at 1.9 will not give any further anticoagulation Ultrasound did show increasing thrombosis and also involving the arterial system Discussed with oncologist again today we will start Lovenox 40 mg and if the hemoglobin is stable will increase in the dose accordingly even though INR 1.8 Started on Lovenox 40 mg subcu daily-we will watch for any bleeding Lovenox has been discontinued due to low hemoglobin (7) Weakness: Plan: Generalized weakness Has been getting worse likely contributed by low hemoglobin and also metastatic cancer PT OT evaluation (8) Aortic stenosis: Plan: Status post AVR Denies any chest pain and/or palpitation (9) CKD (chronic kidney disease), stage III: Plan: Creatinine remains stable (10) Hypertension: Plan: Blood pressure is stable at 127/69 DVT prophylaxis SCDs Lovenox discontinue due to low hemoglobin Autocoagulation with INR 1.8 CODE STATUS DNR Palliative care consulted Admission and Anticipated Discharge Date Admission Date: August 16, 2021 Subjective Pt was seen and examined for follow up Lying in bed with no acute distress with and daughter at bedside Spoke to daughter and at bedside. family would like to transition to hospice They don't want any heroic measurement. They want to change code status to DNR Denies any chest pain, palpitation, dizziness and SOB Review of Systems Review of Systems: All systems reviewed & are unremarkable except as noted in Subjective Physical Exam Physical Exam: General- No acute distress Head- atraumatic Eyes- PERRL, EOMI, ENT- oropharynx clear Neck- supple, no JVD Lungs- clear to auscultation Heart- regular rhythm; +Systolic murmur Abdomen- normal bowel sounds, soft, nontender Extremities- no calf tenderness, +edema, RLE with mild erythema extended to ankle medially Neuro- alert, oriented x 3; PERRL, EOMI; no facial palsy; no dysarthria Skin- warm & dry Results & Data Results & [facility] ([facility]) Vital Signs (Past 12 Hours) Vital Signs Temp Pulse Pulse Resp BP Pulse Ox 08/25/21 22:06 126 H 95/62 L 08/25/21 20:50 124 H 08/25/21 19:43 108 H 90/64 L 08/25/21 19:38 37.3 C 123 H 16 96/61 L 93 08/25/21 15:24 36.9 C 78 18 99/65 L 93 08/25/21 14:19 76 08/25/21 11:02 36.7 C 76 18 92/53 L 90 (1) DVT (deep venous thrombosis) Affected thrombotic vein of extremity: unspecified vein of extremity Chronicity: chronic DVT location: lower extremity Laterality: bilateral Qualified Code(s): I82.503 - 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
[2021-08-25] MEDS: MAGNESIUM SULFATE / D5W 1 GM/100 ML BAG IV SCH (22:50)
[2021-08-26 00:12] LABS: Appearance Urine Turbid (Clear); Bacteria Urine Automated Negative (Negative); Blood Urine 3+ (Negative); Color Urine Orange; Epithelial Cell Urine Auto 0-5 /lpf (0-5); Glucose Urine UA Negative (Negative); Ketones Urine Negative (Negative); Leukocyte Esterase Urine 3+ (Negative); Nitrite Urine Positive (Negative); Protein Urine 2+ (Negative); Specific Gravity Urine 1.019 (1.000-1.030); Urobilinogen Urine Negative (Negative); WBC Urine Automated >30 /hpf (0-5)
[2021-08-26 00:15] LABS: Bilirubin Urine 1+ (Negative)
[2021-08-26] MEDS ORDERED: METOPROLOL TARTRATE 1 MG/ML VIAL IV STA (00:33)
[2021-08-26] MEDS ORDERED: ALBUMIN 25% 100 mL 25 GM/100 ML VIAL IV ONE (00:35)
[2021-08-26] MEDS: MAGNESIUM SULFATE / D5W 1 GM/100 ML BAG IV SCH (00:39)
[2021-08-26] MEDS ORDERED: ACETAMINOPHEN 1,000 MG/100 ML VIAL IV STA (01:44)
--- NOTE | 2021-08-26 01:45 | Communication Note ---
Date of Service: August 26, 2021 Overnight developments Patient noted to be in rapid A. fib since 1015 last night. Cardiac rate 120s, SBP 90s. Patient sleeping as per RN. Usual back pain complaints. Procalcitonin noted to be elevated. UA WBC esterase, nitrate positive AP Rapid A. fib secondary to sepsis secondary to complicated UTI CS, Cefepime Digoxin as needed given borderline BP Will relay to AM provider.
[2021-08-26] MEDS: CEFEPIME 2,000 MG in SYRINGE 0 ML IV SCH ×2 (01:52→13:08)
[2021-08-26] MEDS: AMIODARONE 200 MG TAB PO SCH ×2 (06:09→16:37)
[2021-08-26 06:33] LABS: Mean Corpuscular Hgb Conc 31.7 g/dL (32-36)
[2021-08-26 06:46] LABS: Hematocrit (blood only) 26.5 % (42-52); Hemoglobin 8.4 g/dL (14.0-18.0); Mean Corpuscular Hemoglobin 29.9 pg (25-34); Mean Corpuscular Volume 94.3 fL (80-100); RDW Coefficient of Variation 17.9 % (11.5-14.5); RDW Standard Deviation 62.3 fL (36.4-46.3); Red Blood Count 2.81 M/uL (4.7-6.1); White Blood Count 14.73 K/uL (4.8-10.8)
[2021-08-26 06:54] LABS: BUN Creatinine Ratio 22.7 (10-20); Est GFR (African American) 47.6 ml/min; Est GFR (Non-African American) 41.1 ml/min; Platelet Count 39 K/uL (130-400); Potassium 4.3 mmol/L (3.5-5.1)
[2021-08-26 06:55] LABS: Platelet Estimate Decreased (Normal)
[2021-08-26] MEDS ORDERED: SODIUM CHLORIDE 0.9% 500 ML IV SCH (08:15)
[2021-08-26] MEDS: CHOLECALCIFEROL 1,000 UNITS 25 MCG TAB PO SCH (09:09)
[2021-08-26] MEDS: LACTULOSE SYRUP 30 GM/45 ML UDP PO SCH (09:09)
[2021-08-26] MEDS: LIDOCAINE 5% 1 PATCH TD SCH (09:09)
[2021-08-26] MEDS: PANTOprazole 40 MG in SYRINGE 0 ML IV SCH ×2 (09:10→20:29)
[2021-08-26] MEDS: oxyCODONE HCL IR 5 MG TAB (IMMEDIATE RELEASE) PO PRN ×2 (11:26→20:28)
--- NOTE | 2021-08-26 14:18 | Hospitalist Progress Note ---
Date of Service August 26, 2021 Assessment & Plan (1) A-fib: Plan: Went into A. fib with RVR couple night ago With associated hypotension and has been requiring pressor agents to maintain blood pressure cardiology on board Heart rate control today Continue Amiodarone PO He has not been getting the Low dose IV Lopressor due to hypotension Acute hypotension Likely secondary to A. fib with RVR and diastolic dysfunction Has been requiring intravenous pressors to maintain blood pressure Blood pressure is on the lower side Received gentle fluid hydration Blood pressure remains stable but on the lower side Back pain Likely secondary to pancreatic cancer Pain has been getting worse We will continue with current pain medications Pain seems to be controlled (2) Bilateral leg edema: Plan: Presented to the emergency room with increasing swelling of the legs bilaterally Secondary to hypoalbuminemia and is complicated by presence of paroxysmal atrial fibrillation likely secondary to diastolic CHF Decreased circulation due to edema causing some discoloration of the toes Will advised to elevate the legs while in bed Echo of the heart showed-bioprosthetic aortic valve, the gradient is abnormal for this bioprosthetic aortic valve suggesting obstruction, mild bioprosthetic aortic valve regurgitation, moderate MR and moderate TR, estimated systolic pulmonary pressure is 43 mmHg with EF is 60 to 65% RLE erythema Possible due to cellulitis Procalcitonin and WBC elevated IV cefepime started last night, will continue for now Blood cx and urine cx pending (3) Acute GI bleeding: Plan: His hemoglobin was 10.2 on fourth of this month This has been gradually decreasing and it is 8.3 as of today Stool is strongly positive for blood Will give Protonix drip Avoid any NSAID's and hold Eliquis Get GI evaluation for possible EGD Appreciate GI input and recommendation-no EGD at this Hemoglobin stable at more than 7 We will continue PPI drip and change to oral tomorrow Hemoglobin remains stable at 8.3-no active GI bleed Hemoglobin remains reasonably stable at 7.1 today Hemoglobin went down to 6.7- Received 1 unit PRBC during the hospital course Hgb dropped to 8.4 today Continue monitor Hgb (4) 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 Terrell Chemotherapy was not given due to low platelet count recently Has liver metastasis with INR of 1.9 and alkaline phos 680 Albumin level seems to be reasonable at 2.9 Pain seems to be controlled Remains pleasantly confused-likely secondary to cancer and also may have mild dementia Discussed with oncologist-prognosis is very poor, chemotherapy cannot be given until the blood counts are better specially platelet Palliative care has been consulted for further guidance with care Prognosis remains extremely poor Palliative care has not seen him yet Spoke to and daughter and would like to transition to comfort care Code status changed to DNR (5) Thrombocytopenia: Plan: Secondary to hepatic metastasis and the pancreatic cancer itself Platelet remains low at 39K No active sign of bleeding (6) DVT (deep venous thrombosis): Plan: 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.- Has been on Eliquis which has been decreased to 2.5 mg twice daily from 5 mg twice daily recently due to low platelet INR is 1.9 today and with evidence of Hemoccult positive we will hold Eliquis for now During last admission vascular surgery consult was taken for possible IVC filter but that was not given due to stoppage of bleeding Discussed was anticoagulation-since INR remains at 1.9 will not give any further anticoagulation Ultrasound did show increasing thrombosis and also involving the arterial system Discussed with oncologist again today we will start Lovenox 40 mg and if the hemoglobin is stable will increase in the dose accordingly even though INR 1.8 Started on Lovenox 40 mg subcu daily-we will watch for any bleeding Lovenox has been discontinued due to low hemoglobin PAD in RLE Arterial doppler showed Severe peripheral vascular disease of the right lower extremity as above with extensive arterial occlusion. Family does not want any surgical intervention Not a candidate of anticoagulant or antiplatelet due to thrombocytopenia (7) Weakness: Plan: Generalized weakness Has been getting worse likely contributed by low hemoglobin and also metastatic cancer PT OT evaluation (8) Aortic stenosis: Plan: Status post AVR Denies any chest pain and/or palpitation (9) CKD (chronic kidney disease), stage III: Plan: Creatinine remains stable (10) Hypertension: Plan: Blood pressure is stable at 127/69 DVT prophylaxis SCDs Lovenox discontinue due to low hemoglobin Autocoagulation with INR 1.8 CODE STATUS DNR family not ready yet to transition to comfort care, but they don't want any heroic management Admission and Anticipated Discharge Date Admission Date: August 16, 2021 Subjective Pt was seen and examined for follow up lower extremity tenderness Lying in bed with no acute distress with daughter at bedside Pt said that pain seems to improve slightly, but when applying pressure in RLE, it is very tender later i spoke to son with nurse case management present. Provided with updates and answered all his questions Son said that they are not ready yet to transition to comfort care yet Denies any chest pain, palpitation, dizziness and SOB Review of Systems Review of Systems: All systems reviewed & are unremarkable except as noted in Subjective Physical Exam Physical Exam: General- No acute distress Head- atraumatic Eyes- PERRL, EOMI, ENT- oropharynx clear Neck- supple, no JVD Lungs- clear to auscultation Heart- regular rhythm; +Systolic murmur Abdomen- normal bowel sounds, soft, nontender Extremities- no calf tenderness, +edema, RLE with mild erythema extended to ankle medially, +blister in RLE Neuro- alert, oriented x 3; PERRL, EOMI; no facial palsy; no dysarthria Skin- warm & dry Results & Data Results & Data ([facility]) Vital Signs (Past 12 Hours) Vital Signs Temp Pulse Pulse Pulse Resp BP Pulse Ox 08/26/21 11:21 36.6 C 104 H 18 94/62 L 96 08/26/21 07:57 104 H 08/26/21 07:45 36.3 C L 102 H 16 82/58 L 91 08/26/21 05:21 36.4 C L 105 H 18 92/55 L 93 (1) DVT (deep venous thrombosis) Affected thrombotic vein of extremity: unspecified vein of extremity Chronicity: chronic DVT location: lower extremity Laterality: bilateral Qualified Code(s): I82.503 - 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
[2021-08-26] MEDS ORDERED: ACETAMINOPHEN 325 MG TAB PO PRN (14:51)
[2021-08-26] MEDS: MIRTAZAPINE TAB 15 MG TAB PO PRN (20:29)
[2021-08-26] MEDS: TAMSULOSIN HCL 0.4 MG CAP PO SCH (20:29)
[2021-08-27] MEDS: CEFEPIME 2,000 MG in SYRINGE 0 ML IV SCH ×2 (00:52→13:29)
[2021-08-27 06:08] LABS: Mean Corpuscular Hgb Conc 32.4 g/dL (32-36)
[2021-08-27 06:18] LABS: Hematocrit (blood only) 28.4 % (42-52); Hemoglobin 9.2 g/dL (14.0-18.0); Mean Corpuscular Hemoglobin 29.8 pg (25-34); Mean Corpuscular Volume 91.9 fL (80-100); RDW Coefficient of Variation 17.8 % (11.5-14.5); Red Blood Count 3.09 M/uL (4.7-6.1); White Blood Count 17.24 K/uL (4.8-10.8)
[2021-08-27 06:32] LABS: Platelet Count 50 K/uL (130-400); Platelet Estimate Decreased (Normal)
[2021-08-27 06:34] LABS: BUN Creatinine Ratio 25.3 (10-20); Calcium 8.2 mg/dl (8.5-10.1); Creatinine Clr Calc Pharmacy 34.9 ml/min; Est GFR (African American) 49.2 ml/min; Est GFR (Non-African American) 42.4 ml/min; Potassium 4.3 mmol/L (3.5-5.1)
[2021-08-27] MEDS: LACTULOSE SYRUP 30 GM/45 ML UDP PO SCH (08:14)
[2021-08-27] MEDS: PANTOprazole 40 MG in SYRINGE 0 ML IV SCH ×2 (08:14→20:40)
[2021-08-27] MEDS: LIDOCAINE 5% 1 PATCH TD SCH (08:14)
[2021-08-27] MEDS: CHOLECALCIFEROL 1,000 UNITS 25 MCG TAB PO SCH (08:14)
[2021-08-27] MEDS: HEPARIN 100 UNIT/ML 5ML FLUSH FLUSH PRN (08:16)
[2021-08-27] MEDS: AMIODARONE 200 MG TAB PO SCH ×2 (08:22→16:59)
[2021-08-27] MEDS ORDERED: D5W AND NSS 1,000 ML IV SCH (08:45)
--- NOTE | 2021-08-27 13:42 | Hospitalist Progress Note ---
Date of Service August 27, 2021 Assessment & Plan (1) A-fib: Plan: Went into A. fib with RVR couple night ago With associated hypotension and has been requiring pressor agents to maintain blood pressure cardiology on board Heart rate control today Continue Amiodarone PO He has not been getting the Low dose IV Lopressor due to hypotension Blood pressure remains on the lower side at 96/60 Acute hypotension Likely secondary to A. fib with RVR and diastolic dysfunction Has been requiring intravenous pressors to maintain blood pressure Blood pressure is on the lower side Received gentle fluid hydration Blood pressure remains stable but on the lower side at 96/60 Will give a small amount of intravenous fluid Back pain Likely secondary to pancreatic cancer Pain has been getting worse We will continue with current pain medications Pain seems to be controlled More pain with any movement (2) Bilateral leg edema: Plan: Presented to the emergency room with increasing swelling of the legs bilaterally Secondary to hypoalbuminemia and is complicated by presence of paroxysmal atrial fibrillation likely secondary to diastolic CHF Decreased circulation due to edema causing some discoloration of the toes Will advised to elevate the legs while in bed Echo of the heart showed-bioprosthetic aortic valve, the gradient is abnormal for this bioprosthetic aortic valve suggesting obstruction, mild bioprosthetic aortic valve regurgitation, moderate MR and moderate TR, estimated systolic pulmonary pressure is 43 mmHg with EF is 60 to 65% RLE erythema Possible due to cellulitis Procalcitonin and WBC elevated IV cefepime started last night, will continue for now Blood cx and urine cx pending-have been negative Right lower extremity has no blood supply and has dusky discoloration secondary to arterial and venous thrombosis No treatment can be given for this (3) Acute GI bleeding: Plan: His hemoglobin was 10.2 on fourth of this month This has been gradually decreasing and it is 8.3 as of today Stool is strongly positive for blood Will give Protonix drip Avoid any NSAID's and hold Eliquis Get GI evaluation for possible EGD Appreciate GI input and recommendation-no EGD at this Hemoglobin stable at more than 7 We will continue PPI drip and change to oral tomorrow Hemoglobin remains stable at 8.3-no active GI bleed Hemoglobin remains reasonably stable at 7.1 today Hemoglobin went down to 6.7- Received 1 unit PRBC during the hospital course Hgb dropped to 8.4 today Continue monitor Hgb -remains stable for now (4) 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 Terrell Chemotherapy was not given due to low platelet count recently Has liver metastasis with INR of 1.9 and alkaline phos 680 Albumin level seems to be reasonable at 2.9 Pain seems to be controlled Remains pleasantly confused-likely secondary to cancer and also may have mild dementia Discussed with oncologist-prognosis is very poor, chemotherapy cannot be given until the blood counts are better specially platelet Palliative care has been consulted for further guidance with care Prognosis remains extremely poor Palliative care has not seen him yet Spoke to and daughter and would like to transition to comfort care Code status changed to DNR Cancer seems to be progressing (5) Thrombocytopenia: Plan: Secondary to hepatic metastasis and the pancreatic cancer itself Platelet remains low at 39K No active sign of bleeding (6) DVT (deep venous thrombosis): Plan: 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.- Has been on Eliquis which has been decreased to 2.5 mg twice daily from 5 mg twice daily recently due to low platelet INR is 1.9 today and with evidence of Hemoccult positive we will hold Eliquis for now During last admission vascular surgery consult was taken for possible IVC filter but that was not given due to stoppage of bleeding Discussed was anticoagulation-since INR remains at 1.9 will not give any further anticoagulation Ultrasound did show increasing thrombosis and also involving the arterial system Discussed with oncologist again today we will start Lovenox 40 mg and if the hemoglobin is stable will increase in the dose accordingly even though INR 1.8 Started on Lovenox 40 mg subcu daily-we will watch for any bleeding Lovenox has been discontinued due to low hemoglobin PAD in RLE Arterial doppler showed Severe peripheral vascular disease of the right lower extremity as above with extensive arterial occlusion. Family does not want any surgical intervention Not a candidate of anticoagulant or antiplatelet due to thrombocytopenia Right lower extremity has been worsening with no blood flow (7) Weakness: Plan: Generalized weakness Has been getting worse likely contributed by low hemoglobin and also metastatic cancer PT OT evaluation (8) Aortic stenosis: Plan: Status post AVR Denies any chest pain and/or palpitation (9) CKD (chronic kidney disease), stage III: Plan: Creatinine remains stable (10) Hypertension: Plan: Blood pressure is stable at 127/69 DVT prophylaxis SCDs Lovenox discontinue due to low hemoglobin Autocoagulation with INR 1.8 CODE STATUS DNR family not ready yet to transition to comfort care, but they don't want any heroic management Discussed with the son and the in detail and answered all of their questions Patient remains critically ill but comfortable with a very poor prognosis Admission and Anticipated Discharge Date Admission Date: August 16, 2021 Subjective 08/17/2021 The patient was seen and examined in medical telemetry unit He has been feeling a little better today Denies any more black stool Leg swelling has been improving 08/18/2021 The patient was seen and examined in medical telemetry unit Remains generally weak and lethargic And may be pleasantly confused Has been getting physical therapy 08/19/2021 The patient was seen and examined in ICU He was transferred to ICU last night with a fever with RVR and associated hypotension Remains in sinus rhythm as of this morning and hemodynamically stable Generally weak but denies any other significant symptoms 08/20/2021 The patient was seen and examined in ICU He has been stable and is still requiring intravenous pressors to maintain blood pressure Denies any significant symptoms except weakness 08/21/2021 The patient was seen and examined in medical telemetry unit He was noted to be tachycardic this morning but condition resolved after some time Remains weak and lethargic Pleasantly confused 08/22/2021 The patient was seen and examined in medical telemetry unit He has been out of bed on a chair and complains of pain in the lower back Denies any radiation of the pain Denies any fever and or chills, remains generally weak and lethargic 08/23/2021 The patient was seen and examined in medical telemetry unit He was noted to have a hemoglobin of 6.7 without any overt GI bleeding Lovenox was stopped by the night doc and was ordered for 1 unit of blood transfusion He remains generally weak and lethargic but denies any significant pain and or other symptoms His son is coming from [facility] to see him in the hospital 08/27/2021 The patient was seen and examined in presence of the son and the He is overall condition has deteriorated for the last 3 or 4 days He has developed more dusky discoloration of the right lower extremity His pain seems to be more with any movement Remains hemodynamically stable though Review of Systems Review of Systems: All systems reviewed and are unremarkable except as noted below Musculoskeletal: Right lower extremity has dusky discoloration with no pulse and very cold to touch Neurologic: Generalized weakness Physical Exam Physical Exam: Lying in bed very drowsy and difficult with communication but no distress Constitutional: + ill appearing and average body habitus Eyes: PERRL, conjunctivae normal, anicteric sclerae ENMT: external ear and nose normal, oropharynx normal Neck: trachea midline, no thyromegaly Respiratory: no respiratory distress Auscultation: lungs clear to auscultation bilaterally; no crackles Cardiovascular: Rate/Rhythm: regular rate and regular rhythm; not tachycardic Heart Sounds: normal S1, normal S2 and + murmur (2/6 ESM over precordium) Extremities: + edema (1+ edema bilaterally with palpable pedal arteries) Gastrointestinal (Abdomen): Inspection/Auscultation: normal bowel sounds; abdomen not distended Percussion/Palpation: + abdomen tender (Minimally tender all over without guarding and no rigidity) and abdomen soft Musculoskeletal: Extremities: + extremities abnormal to inspection (Rt lower extremity is very cold with dusky discoloration without any pulse) Neurologic: normal touch/pain/proprioception and awake; no focal motor deficits and not confused Lymphatic: no cervical or axillary lymphadenopathy Results & Data Results & Data ([facility]) Vital Signs (Past 12 Hours) Vital Signs Temp Pulse Pulse Resp BP Pulse Ox 08/27/21 11:06 37.1 C 79 18 96/60 L 93 08/27/21 07:42 93 H 08/27/21 07:22 37.0 C 92 H 20 93/53 L 93 08/27/21 02:45 36.8 C 97 H 16 96/59 L 97 Laboratory Results Short CBC 08/27/21 Range/Units 05:26 WBC 17.24 H (4.8-10.8) K/uL Hgb 9.2 L (14.0-18.0) g/dL Hct 28.4 L (42-52) % Plt Count 50 L (130-400) K/uL BMP 08/27/21 05:26 Sodium 142 Potassium 4.3 Chloride 118 H Carbon Dioxide 18 L BUN 38 H Creatinine 1.50 H Glucose 96 Calcium 8.2 L Medications Administered Current Inpatient Medications Acetaminophen (Acetaminophen 325 Mg Tab) 650 mg PO Q6H PRN PRN Reason: Mild Pain Stop: 09/25/21 14:50 Last Admin: 08/27/21 09:13 Dose: 650 mg Documented by: Amiodarone HCl (Amiodarone 200 Mg Tab) 200 mg PO BIDM [facility] Stop: 09/25/21 05:29 Last Admin: 08/27/21 08:22 Dose: 200 mg Documented by: Calcium Carbonate (Calcium Carbonate 500 Mg Chewable Tab) 500 mg PO TID PRN PRN Reason: Indigestion Stop: 09/17/21 16:44 Enoxaparin Sodium (Enoxaparin Inj 40 Mg/0.4 Ml Syr) [facility] [place] [facility] [place] Stop: 09/20/21 11:14 Last Admin: 08/22/21 10:17 Dose: Not Given Documented by: Heparin Sodium (Porcine) (Heparin 100 Unit/Ml 5ml Flush) 5 ml FLUSH PRN PRN PRN Reason: Flush Stop: 09/16/21 02:24 Last Admin: 08/27/21 08:16 Dose: 5 ml Documented by: Pantoprazole Sodium 40 mg/ (Syringe) 10 mls @ 5 mls/min IV BID@0900,2100 [facility] Stop: 09/18/21 10:59 Last Admin: 08/27/21 08:14 Dose: 5 mls/min Documented by: Cefepime HCl 2,000 mg/ Syringe 20 mls @ 5 mls/min IV Q12H [facility]; Protocol Stop: 09/05/21 00:59 Last Admin: 08/27/21 13:29 Dose: 5 mls/min Documented by: Dextrose/Sodium Chloride (D5w And Nss) 1,000 mls @ 80 mls/hr IV .[id number] [facility] Stop: 08/27/21 21:14 Last Admin: 08/27/21 09:13 Dose: 80 mls/hr Documented by: Lactulose (Lactulose Syrup 30 Gm/45 Ml Udp) 30 gm PO DAILY [facility] Stop: 09/15/21 17:59 Last Admin: 08/27/21 08:14 Dose: Not Given Documented by: Lidocaine (Lidocaine 5% 1 Patch) 1 patch TD QAM [facility] Stop: 09/24/21 10:29 Last Admin: 08/27/21 08:14 Dose: 1 patch Documented by: Metoprolol Tartrate (Metoprolol Tartrate 1 Mg/Ml Vial) 2.5 mg IV Q6 PRN PRN Reason: Tachycardia Stop: 09/20/21 11:59 Mirtazapine (Mirtazapine Tab 15 Mg Tab) 15 mg PO HS PRN PRN Reason: Insomnia Stop: 09/15/21 20:36 Last Admin: 08/26/21 20:29 Dose: 15 mg Documented by: Miscellaneous (Remove Lidoderm Patch) 1 ea N/A DAILY@2100 [facility] Stop: 09/24/21 20:59 Last Admin: 08/26/21 20:28 Dose: 1 ea Documented by: Morphine Sulfate (Morphine Sulfate 2 Mg/Ml Carp) 1 mg IV Q4H PRN PRN Reason: Severe Pain Stop: 09/03/21 20:05 Oxycodone HCl (Oxycodone Hcl Ir 5 Mg Tab (Immediate Release)) 5 - 10 mg PO QID PRN PRN Reason: Pain Stop: 09/03/21 20:04 Last Admin: 08/26/21 20:28 Dose: 5 mg Documented by: Tamsulosin HCl (Tamsulosin Hcl 0.4 Mg Cap) 0.4 mg PO HS [facility] Stop: 09/15/21 20:59 Last Admin: 08/26/21 20:29 Dose: 0.4 mg Documented by: Vitamin D (Cholecalciferol 1,000 Units 25 Mcg Tab) 2,000 units PO DAILY [facility] Stop: 09/16/21 08:59 Last Admin: 08/27/21 08:14 Dose: 2,000 units Documented by: (1) DVT (deep venous thrombosis) Affected thrombotic vein of extremity: unspecified vein of extremity Chronicity: chronic DVT location: lower extremity Laterality: bilateral Qualified Code(s): I82.503 - 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
[2021-08-27] MEDS: oxyCODONE HCL IR 5 MG TAB (IMMEDIATE RELEASE) PO PRN (19:24)
[2021-08-27] MEDS: TAMSULOSIN HCL 0.4 MG CAP PO SCH (19:24)
[2021-08-27] MEDS: MIRTAZAPINE TAB 15 MG TAB PO PRN (19:25)
[2021-08-28] MEDS: oxyCODONE HCL IR 5 MG TAB (IMMEDIATE RELEASE) PO PRN (01:19)
[2021-08-28] MEDS: CEFEPIME 2,000 MG in SYRINGE 0 ML IV SCH ×2 (01:19→12:45)
[2021-08-28 05:50] LABS: Creatinine Clr Calc Pharmacy 37.9 ml/min; Est GFR (African American) 54.4 ml/min; Est GFR (Non-African American) 46.9 ml/min
[2021-08-28] MEDS: PANTOprazole 40 MG in SYRINGE 0 ML IV SCH ×2 (07:51→20:20)
[2021-08-28] MEDS: AMIODARONE 200 MG TAB PO SCH ×2 (09:43→18:22)
[2021-08-28] MEDS: LACTULOSE SYRUP 30 GM/45 ML UDP PO SCH (09:43)
[2021-08-28] MEDS: CHOLECALCIFEROL 1,000 UNITS 25 MCG TAB PO SCH (09:43)
[2021-08-28] MEDS: LIDOCAINE 5% 1 PATCH TD SCH (09:45)
[2021-08-28] MEDS: MoRPHine SULFATE 2 MG/ML CARP IV PRN ×2 (11:18→19:29)
--- NOTE | 2021-08-28 13:13 | Hospitalist Progress Note ---
Date of Service August 28, 2021 Assessment & Plan (1) A-fib: Plan: He has been deteriorating Does not have any acute distress Very weak and lethargic and has not been able to eat and drink Condition is critical but stable Will discuss with the family members Went into A. fib with RVR couple night ago With associated hypotension and has been requiring pressor agents to maintain blood pressure cardiology on board Heart rate control today Continue Amiodarone PO He has not been getting the Low dose IV Lopressor due to hypotension Blood pressure remains on the lower side at 96/60 Acute hypotension Likely secondary to A. fib with RVR and diastolic dysfunction Has been requiring intravenous pressors to maintain blood pressure Blood pressure is on the lower side Received gentle fluid hydration Blood pressure remains stable but on the lower side at 96/60 Will give a small amount of intravenous fluid Back pain Likely secondary to pancreatic cancer Pain has been getting worse We will continue with current pain medications Pain seems to be controlled More pain with any movement (2) Bilateral leg edema: Plan: Presented to the emergency room with increasing swelling of the legs bilaterally Secondary to hypoalbuminemia and is complicated by presence of paroxysmal atrial fibrillation likely secondary to diastolic CHF Decreased circulation due to edema causing some discoloration of the toes Will advised to elevate the legs while in bed Echo of the heart showed-bioprosthetic aortic valve, the gradient is abnormal for this bioprosthetic aortic valve suggesting obstruction, mild bioprosthetic aortic valve regurgitation, moderate MR and moderate TR, estimated systolic pulmonary pressure is 43 mmHg with EF is 60 to 65% RLE erythema Possible due to cellulitis Procalcitonin and WBC elevated IV cefepime started last night, will continue for now Blood cx and urine cx pending-have been negative Right lower extremity has no blood supply and has dusky discoloration secondary to arterial and venous thrombosis No treatment can be given for this (3) Acute GI bleeding: Plan: His hemoglobin was 10.2 on fourth of this month This has been gradually decreasing and it is 8.3 as of today Stool is strongly positive for blood Will give Protonix drip Avoid any NSAID's and hold Eliquis Get GI evaluation for possible EGD Appreciate GI input and recommendation-no EGD at this Hemoglobin stable at more than 7 We will continue PPI drip and change to oral tomorrow Hemoglobin remains stable at 8.3-no active GI bleed Hemoglobin remains reasonably stable at 7.1 today Hemoglobin went down to 6.7- Received 1 unit PRBC during the hospital course Hgb dropped to 8.4 today Continue monitor Hgb -remains stable for now (4) 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 Terrell Chemotherapy was not given due to low platelet count recently Has liver metastasis with INR of 1.9 and alkaline phos 680 Albumin level seems to be reasonable at 2.9 Pain seems to be controlled Remains pleasantly confused-likely secondary to cancer and also may have mild dementia Discussed with oncologist-prognosis is very poor, chemotherapy cannot be given until the blood counts are better specially platelet Palliative care has been consulted for further guidance with care Prognosis remains extremely poor Palliative care has not seen him yet Spoke to and daughter and would like to transition to comfort care Code status changed to DNR Cancer seems to be progressing and the patient remains very weak and lethargic and seems to be deteriorating Condition is critical but stable (5) Thrombocytopenia: Plan: Secondary to hepatic metastasis and the pancreatic cancer itself Platelet remains low at 39K No active sign of bleeding (6) DVT (deep venous thrombosis): Plan: 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.- Has been on Eliquis which has been decreased to 2.5 mg twice daily from 5 mg twice daily recently due to low platelet INR is 1.9 today and with evidence of Hemoccult positive we will hold Eliquis for now During last admission vascular surgery consult was taken for possible IVC filter but that was not given due to stoppage of bleeding Discussed was anticoagulation-since INR remains at 1.9 will not give any further anticoagulation Ultrasound did show increasing thrombosis and also involving the arterial system Discussed with oncologist again today we will start Lovenox 40 mg and if the hemoglobin is stable will increase in the dose accordingly even though INR 1.8 Started on Lovenox 40 mg subcu daily-we will watch for any bleeding Lovenox has been discontinued due to low hemoglobin PAD in RLE Arterial doppler showed Severe peripheral vascular disease of the right lower extremity as above with extensive arterial occlusion. Family does not want any surgical intervention Not a candidate of anticoagulant or antiplatelet due to thrombocytopenia Right lower extremity has been worsening with no blood flow (7) Weakness: Plan: Generalized weakness Has been getting worse likely contributed by low hemoglobin and also metastatic cancer PT OT evaluation (8) Aortic stenosis: Plan: Status post AVR Denies any chest pain and/or palpitation (9) CKD (chronic kidney disease), stage III: Plan: Creatinine remains stable (10) Hypertension: Plan: Blood pressure is stable at 127/69 DVT prophylaxis SCDs Lovenox discontinue due to low hemoglobin Autocoagulation with INR 1.8 CODE STATUS DNR family not ready yet to transition to comfort care, but they don't want any heroic management Discussed with the son and the in detail and answered all of their questions Patient remains critically ill but comfortable with a very poor prognosis Admission and Anticipated Discharge Date Admission Date: August 16, 2021 Subjective 08/17/2021 The patient was seen and examined in medical telemetry unit He has been feeling a little better today Denies any more black stool Leg swelling has been improving 08/18/2021 The patient was seen and examined in medical telemetry unit Remains generally weak and lethargic And may be pleasantly confused Has been getting physical therapy 08/19/2021 The patient was seen and examined in ICU He was transferred to ICU last night with a fever with RVR and associated hypotension Remains in sinus rhythm as of this morning and hemodynamically stable Generally weak but denies any other significant symptoms 08/20/2021 The patient was seen and examined in ICU He has been stable and is still requiring intravenous pressors to maintain blood pressure Denies any significant symptoms except weakness 08/21/2021 The patient was seen and examined in medical telemetry unit He was noted to be tachycardic this morning but condition resolved after some time Remains weak and lethargic Pleasantly confused 08/22/2021 The patient was seen and examined in medical telemetry unit He has been out of bed on a chair and complains of pain in the lower back Denies any radiation of the pain Denies any fever and or chills, remains generally weak and lethargic 08/23/2021 The patient was seen and examined in medical telemetry unit He was noted to have a hemoglobin of 6.7 without any overt GI bleeding Lovenox was stopped by the night doc and was ordered for 1 unit of blood transfusion He remains generally weak and lethargic but denies any significant pain and or other symptoms His son is coming from [facility] to see him in the hospital 08/27/2021 The patient was seen and examined in presence of the son and the He is overall condition has deteriorated for the last 3 or 4 days He has developed more dusky discoloration of the right lower extremity His pain seems to be more with any movement Remains hemodynamically stable though 08/28/2021 The patient was seen and examined in medical telemetry unit His condition has been deteriorating Remains very drowsy and pleasantly confused Has not been drinking and or eating much Does not seems to be in any distress Review of Systems Review of Systems: All systems reviewed and are unremarkable except as noted below Musculoskeletal: Right lower extremity has dusky discoloration with no pulse and very cold to touch Neurologic: Generalized weakness Physical Exam Physical Exam: Lying in bed very drowsy and pleasantly confused without any acute distress Constitutional: + ill appearing and average body habitus Eyes: PERRL, conjunctivae normal, anicteric sclerae ENMT: external ear and nose normal, oropharynx normal Neck: trachea midline, no thyromegaly Respiratory: no respiratory distress Auscultation: lungs clear to auscultation bilaterally; no crackles Cardiovascular: Rate/Rhythm: regular rate and regular rhythm; not tachycardic Heart Sounds: normal S1, normal S2 and + murmur (2/6 ESM over precordium) Extremities: + edema (1+ edema bilaterally with palpable pedal arteries) Gastrointestinal (Abdomen): Inspection/Auscultation: normal bowel sounds; abdomen not distended Percussion/Palpation: + abdomen tender (Minimally tender all over without guarding and no rigidity) and abdomen soft Musculoskeletal: Extremities: + extremities abnormal to inspection (Rt lower extremity is very cold with dusky discoloration without any pulse) Neurologic: Alert and awake. Very drowsy and lethargic without any apparent distress Lymphatic: no cervical or axillary lymphadenopathy Results & Data Results & Data ([facility]) Vital Signs (Past 12 Hours) Vital Signs Temp Pulse Pulse Resp BP Pulse Ox 08/28/21 10:53 36.9 C 82 16 102/63 94 08/28/21 08:00 37.1 C 82 16 97/59 L 94 08/28/21 07:00 82 Laboratory Results BMP 08/28/21 05:15 Creatinine 1.38 Medications Administered Current Inpatient Medications Acetaminophen (Acetaminophen 325 Mg Tab) 650 mg PO Q6H PRN PRN Reason: Mild Pain Stop: 09/25/21 14:50 Last Admin: 08/27/21 09:13 Dose: 650 mg Documented by: Amiodarone HCl (Amiodarone 200 Mg Tab) 200 mg PO BIDM [facility] Stop: 09/25/21 05:29 Last Admin: 08/28/21 09:43 Dose: 200 mg Documented by: Calcium Carbonate (Calcium Carbonate 500 Mg Chewable Tab) 500 mg PO TID PRN PRN Reason: Indigestion Stop: 09/17/21 16:44 Enoxaparin Sodium (Enoxaparin Inj 40 Mg/0.4 Ml Syr) 40 mg SQ QAM [facility] Stop: 09/20/21 11:14 Last Admin: 08/22/21 10:17 Dose: Not Given Documented by: Heparin Sodium (Porcine) (Heparin 100 Unit/Ml 5ml Flush) 5 ml FLUSH PRN PRN PRN Reason: Flush Stop: 09/16/21 02:24 Last Admin: 08/27/21 08:16 Dose: 5 ml Documented by: Pantoprazole Sodium 40 mg/ (Syringe) 10 mls @ 5 mls/min IV BID@0900,2100 [facility] Stop: 09/18/21 10:59 Last Admin: 08/28/21 07:51 Dose: 5 mls/min Documented by: Cefepime HCl 2,000 mg/ Syringe 20 mls @ 5 mls/min IV Q12H [facility]; Protocol Stop: 09/05/21 00:59 Last Admin: 08/28/21 12:45 Dose: 5 mls/min Documented by: Lactulose (Lactulose Syrup 30 Gm/45 Ml Udp) 30 gm PO DAILY [facility] Stop: 09/15/21 17:59 Last Admin: 08/28/21 09:43 Dose: 30 gm Documented by: Lidocaine (Lidocaine 5% 1 Patch) 1 patch TD [facility] Stop: 09/24/21 10:29 Last Admin: 08/28/21 09:45 Dose: Not Given Documented by: Metoprolol Tartrate (Metoprolol Tartrate 1 Mg/Ml Vial) 2.5 mg IV Q6 PRN PRN Reason: Tachycardia Stop: 09/20/21 11:59 Mirtazapine (Mirtazapine Tab 15 Mg Tab) 15 mg PO HS PRN PRN Reason: Insomnia Stop: 09/15/21 20:36 Last Admin: 08/27/21 19:25 Dose: 15 mg Documented by: Miscellaneous (Remove Lidoderm Patch) 1 ea N/A DAILY@2100 [facility] Stop: 09/24/21 20:59 Last Admin: 08/27/21 19:25 Dose: 1 ea Documented by: Morphine Sulfate (Morphine Sulfate 2 Mg/Ml Carp) 1 mg IV Q4H PRN PRN Reason: Severe Pain Stop: 09/03/21 20:05 Last Admin: 08/28/21 11:18 Dose: 1 mg Documented by: Oxycodone HCl (Oxycodone Hcl Ir 5 Mg Tab (Immediate Release)) 5 - 10 mg PO QID PRN PRN Reason: Pain Stop: 09/03/21 20:04 Last Admin: 08/28/21 01:19 Dose: 5 mg Documented by: Tamsulosin HCl (Tamsulosin Hcl 0.4 Mg Cap) 0.4 mg PO HS [facility] Stop: 09/15/21 20:59 Last Admin: 08/27/21 19:24 Dose: 0.4 mg Documented by: Vitamin D (Cholecalciferol 1,000 Units 25 Mcg Tab) 2,000 units PO DAILY [facility] Stop: 09/16/21 08:59 Last Admin: 08/28/21 09:43 Dose: 2,000 units Documented by: (1) DVT (deep venous thrombosis) Affected thrombotic vein of extremity: unspecified vein of extremity Chronicity: chronic DVT location: lower extremity Laterality: bilateral Qualified Code(s): I82.503 - 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
[2021-08-28 16:20] LABS: Mean Corpuscular Hgb Conc 32.2 g/dL (32-36); Nucleated RBC # (auto) 0.02 K/uL (0-0); Nucleated RBC % (auto) 0.1 %
[2021-08-28 16:32] LABS: Hematocrit (blood only) 30.1 % (42-52); Hemoglobin 9.7 g/dL (14.0-18.0); Mean Corpuscular Hemoglobin 29.8 pg (25-34); Mean Corpuscular Volume 92.6 fL (80-100); RDW Coefficient of Variation 17.6 % (11.5-14.5); RDW Standard Deviation 59.8 fL (36.4-46.3); Red Blood Count 3.25 M/uL (4.7-6.1); White Blood Count 19.44 K/uL (4.8-10.8)
[2021-08-28 16:45] LABS: Basophils # (auto) 0.02 K/uL (0-0.2); Basophils % (auto) 0.1 %; Echinocytes 1+; Immature Granulocytes # (auto) 0.28 K/uL (0.00-0.02); Immature Granulocytes % (auto) 1.4 %; Lymphocytes # (auto) 1.47 K/uL (1.2-3.4); Lymphocytes % (auto) 7.6 %; Monocytes # (auto) 0.77 K/uL (0.11-0.59); Neutrophils % (auto) 85.9 %; Ovalocytes 1+; Platelet Count 42 K/uL (130-400); Platelet Estimate Decreased (Normal); Schistocytes 1+
[2021-08-28 16:54] LABS: BUN Creatinine Ratio 26.7 (10-20); Calcium 8.4 mg/dl (8.5-10.1); Creatinine Clr Calc Pharmacy 34.9 ml/min; Est GFR (African American) 49.2 ml/min; Est GFR (Non-African American) 42.4 ml/min; Potassium 4.3 mmol/L (3.5-5.1)
[2021-08-28] MEDS: TAMSULOSIN HCL 0.4 MG CAP PO SCH (20:20)
[2021-08-29] MEDS: CEFEPIME 2,000 MG in SYRINGE 0 ML IV SCH ×2 (00:31→13:02)
[2021-08-29] MEDS: MoRPHine SULFATE 2 MG/ML CARP IV PRN ×4 (05:09→19:31)
[2021-08-29] MEDS: CHOLECALCIFEROL 1,000 UNITS 25 MCG TAB PO SCH (09:05)
[2021-08-29] MEDS: AMIODARONE 200 MG TAB PO SCH ×3 (09:05→17:47)
[2021-08-29] MEDS: PANTOprazole 40 MG in SYRINGE 0 ML IV SCH ×2 (09:06→20:04)
[2021-08-29] MEDS: LACTULOSE SYRUP 30 GM/45 ML UDP PO SCH (09:06)
[2021-08-29] MEDS: LIDOCAINE 5% 1 PATCH TD SCH (10:11)
--- NOTE | 2021-08-29 13:51 | Hospitalist Progress Note ---
Date of Service August 29, 2021 Assessment & Plan (1) A-fib: Plan: He has been deteriorating Does not have any acute distress Very weak and lethargic and has not been able to eat and drink Condition is critical but stable Will discuss with the family members Heart rate remains stable and controlled Went into A. fib with RVR couple night ago With associated hypotension and has been requiring pressor agents to maintain blood pressure cardiology on board Heart rate control today Continue Amiodarone PO He has not been getting the Low dose IV Lopressor due to hypotension Blood pressure remains on the lower side at 102/65 Acute hypotension Likely secondary to A. fib with RVR and diastolic dysfunction Has been requiring intravenous pressors to maintain blood pressure Blood pressure is on the lower side Received gentle fluid hydration Blood pressure remains stable but on the lower side at 96/60 Will give a small amount of intravenous fluid Has not been drinking or eating much-May need to give some continuous IV fluid. Will need to discuss with the family members Back pain Likely secondary to pancreatic cancer Pain has been getting worse We will continue with current pain medications Pain seems to be controlled More pain with any movement (2) Bilateral leg edema: Plan: Presented to the emergency room with increasing swelling of the legs bilaterally Secondary to hypoalbuminemia and is complicated by presence of paroxysmal atrial fibrillation likely secondary to diastolic CHF Decreased circulation due to edema causing some discoloration of the toes Will advised to elevate the legs while in bed Echo of the heart showed-bioprosthetic aortic valve, the gradient is abnormal for this bioprosthetic aortic valve suggesting obstruction, mild bioprosthetic aortic valve regurgitation, moderate MR and moderate TR, estimated systolic pulmonary pressure is 43 mmHg with EF is 60 to 65% RLE erythema Possible due to cellulitis Procalcitonin and WBC elevated IV cefepime started last night, will continue for now Blood cx and urine cx pending-have been negative Right lower extremity has no blood supply and has dusky discoloration secondary to arterial and venous thrombosis No treatment can be given for this Right lower extremity has been worsening (3) Acute GI bleeding: Plan: His hemoglobin was 10.2 on fourth of this month This has been gradually decreasing and it is 8.3 as of today Stool is strongly positive for blood Will give Protonix drip Avoid any NSAID's and hold Eliquis Get GI evaluation for possible EGD Appreciate GI input and recommendation-no EGD at this Hemoglobin stable at more than 7 We will continue PPI drip and change to oral tomorrow Hemoglobin remains stable at 8.3-no active GI bleed Hemoglobin remains reasonably stable at 7.1 today Hemoglobin went down to 6.7- Received 1 unit PRBC during the hospital course Hgb dropped to 8.4 today Continue monitor Hgb -remains stable for now Hemoglobin remains stable at more than 9 (4) 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 Terrell Chemotherapy was not given due to low platelet count recently Has liver metastasis with INR of 1.9 and alkaline phos 680 Albumin level seems to be reasonable at 2.9 Pain seems to be controlled Remains pleasantly confused-likely secondary to cancer and also may have mild dementia Discussed with oncologist-prognosis is very poor, chemotherapy cannot be given until the blood counts are better specially platelet Palliative care has been consulted for further guidance with care Prognosis remains extremely poor Palliative care has not seen him yet Spoke to and daughter and would like to transition to comfort care Code status changed to DNR Cancer seems to be progressing and the patient remains very weak and lethargic and seems to be deteriorating Condition is critical but stable Condition has been deteriorating. 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.- Has been on Eliquis which has been decreased to 2.5 mg twice daily from 5 mg twice daily recently due to low platelet INR is 1.9 today and with evidence of Hemoccult positive we will hold Eliquis for now During last admission vascular surgery consult was taken for possible IVC filter but that was not given due to stoppage of bleeding Discussed was anticoagulation-since INR remains at 1.9 will not give any further anticoagulation Ultrasound did show increasing thrombosis and also involving the arterial system Discussed with oncologist again today we will start Lovenox 40 mg and if the hemoglobin is stable will increase in the dose accordingly even though INR 1.8 Started on Lovenox 40 mg subcu daily-we will watch for any bleeding Lovenox has been discontinued due to low hemoglobin PAD in RLE Arterial doppler showed Severe peripheral vascular disease of the right lower extremity as above with extensive arterial occlusion. Family does not want any surgical intervention Not a candidate of anticoagulant or antiplatelet due to thrombocytopenia Right lower extremity has been worsening with no blood flow (7) Weakness: Plan: Generalized weakness Has been getting worse likely contributed by low hemoglobin and also metastatic cancer PT OT evaluation (8) Aortic stenosis: Plan: Status post AVR Denies any chest pain and/or palpitation (9) CKD (chronic kidney disease), stage III: Plan: Creatinine remains stable (10) Hypertension: Plan: Blood pressure is stable at 127/69 DVT prophylaxis SCDs Lovenox discontinue due to low hemoglobin Autocoagulation with INR 1.8 CODE STATUS DNR family not ready yet to transition to comfort care, but they don't want any heroic management Discussed with the son and the in detail and answered all of their questions Patient remains critically ill but comfortable with a very poor prognosis Admission and Anticipated Discharge Date Admission Date: August 16, 2021 Subjective 08/17/2021 The patient was seen and examined in medical telemetry unit He has been feeling a little better today Denies any more black stool Leg swelling has been improving 08/18/2021 The patient was seen and examined in medical telemetry unit Remains generally weak and lethargic And may be pleasantly confused Has been getting physical therapy 08/19/2021 The patient was seen and examined in ICU He was transferred to ICU last night with a fever with RVR and associated hypotension Remains in sinus rhythm as of this morning and hemodynamically stable Generally weak but denies any other significant symptoms 08/20/2021 The patient was seen and examined in ICU He has been stable and is still requiring intravenous pressors to maintain blood pressure Denies any significant symptoms except weakness 08/21/2021 The patient was seen and examined in medical telemetry unit He was noted to be tachycardic this morning but condition resolved after some time Remains weak and lethargic Pleasantly confused 08/22/2021 The patient was seen and examined in medical telemetry unit He has been out of bed on a chair and complains of pain in the lower back Denies any radiation of the pain Denies any fever and or chills, remains generally weak and lethargic 08/23/2021 The patient was seen and examined in medical telemetry unit He was noted to have a hemoglobin of 6.7 without any overt GI bleeding Lovenox was stopped by the night doc and was ordered for 1 unit of blood transfusion He remains generally weak and lethargic but denies any significant pain and or other symptoms His son is coming from [facility] to see him in the hospital 08/27/2021 The patient was seen and examined in presence of the son and the He is overall condition has deteriorated for the last 3 or 4 days He has developed more dusky discoloration of the right lower extremity His pain seems to be more with any movement Remains hemodynamically stable though 08/28/2021 The patient was seen and examined in medical telemetry unit His condition has been deteriorating Remains very drowsy and pleasantly confused Has not been drinking and or eating much Does not seems to be in any distress 08/29/2021 The patient was seen and examined in medical telemetry unit His condition remains critical and has been deteriorating Denies any pain at rest and no other distress at rest Pain with any movement Review of Systems Review of Systems: All systems reviewed and are unremarkable except as noted below Musculoskeletal: Right lower extremity has dusky discoloration with no pulse and very cold to touch Neurologic: Generalized weakness Physical Exam Physical Exam: Lying in bed very drowsy and pleasantly confused without any acute distress Constitutional: + ill appearing and average body habitus Eyes: PERRL, conjunctivae normal, anicteric sclerae ENMT: external ear and nose normal, oropharynx normal Neck: trachea midline, no thyromegaly Respiratory: no respiratory distress Auscultation: lungs clear to auscultation bilaterally; no crackles Cardiovascular: Rate/Rhythm: regular rate and regular rhythm; not tachycardic Heart Sounds: normal S1, normal S2 and + murmur (2/6 ESM over precordium) Extremities: + edema (1+ edema bilaterally with palpable pedal arteries) Gastrointestinal (Abdomen): Inspection/Auscultation: normal bowel sounds; abdomen not distended Percussion/Palpation: + abdomen tender (Minimally tender all over without guarding and no rigidity) and abdomen soft Musculoskeletal: Extremities: + extremities abnormal to inspection (Rt lower extremity is very cold with dusky discoloration without any pulse) Neurologic: normal touch/pain/proprioception and awake; no focal motor deficits and not confused Lymphatic: no cervical or axillary lymphadenopathy Results & Data Results & Data ([facility]) Vital Signs (Past 12 Hours) Vital Signs Temp Pulse Pulse Resp BP BP Pulse Ox 08/29/21 11:31 36.3 C L 78 18 102/65 92 08/29/21 09:46 87 08/29/21 06:44 36.2 C L 92 H 20 103/62 96 08/29/21 04:19 36.6 C 90 20 93/55 L 95 Laboratory Results Short CBC 08/28/21 Range/Units 16:07 WBC 19.44 H (4.8-10.8) K/uL Hgb 9.7 L (14.0-18.0) g/dL Hct 30.1 L (42-52) % Plt Count 42 L (130-400) K/uL BMP 08/28/21 16:07 Sodium 143 Potassium 4.3 Chloride 118 H Carbon Dioxide 17 L BUN 40 H Creatinine 1.50 H Glucose 132 H Calcium 8.4 L Medications Administered Current Inpatient Medications Acetaminophen (Acetaminophen 325 Mg Tab) 650 mg PO Q6H PRN PRN Reason: Mild Pain Stop: 09/25/21 14:50 Last Admin: 08/27/21 09:13 Dose: 650 mg Documented by: Amiodarone HCl (Amiodarone 200 Mg Tab) 200 mg PO BIDM [facility] Stop: 09/25/21 05:29 Last Admin: 08/29/21 09:05 Dose: 200 mg Documented by: Calcium Carbonate (Calcium Carbonate 500 Mg Chewable Tab) 500 mg PO TID PRN PRN Reason: Indigestion Stop: 09/17/21 16:44 Enoxaparin Sodium (Enoxaparin Inj 40 Mg/0.4 Ml Syr) 40 mg SQ QAM [facility] Stop: 09/20/21 11:14 Last Admin: 08/22/21 10:17 Dose: Not Given Documented by: Heparin Sodium (Porcine) (Heparin 100 Unit/Ml 5ml Flush) 5 ml FLUSH PRN PRN PRN Reason: Flush Stop: 09/16/21 02:24 Last Admin: 08/27/21 08:16 Dose: 5 ml Documented by: Pantoprazole Sodium 40 mg/ (Syringe) 10 mls @ 5 mls/min IV BID@0900,2100 [facility] Stop: 09/18/21 10:59 Last Admin: 08/29/21 09:06 Dose: 5 mls/min Documented by: Cefepime HCl 2,000 mg/ Syringe 20 mls @ 5 mls/min IV Q12H [facility]; Protocol Stop: 09/05/21 00:59 Last Admin: 08/29/21 13:02 Dose: 5 mls/min Documented by: Lactulose (Lactulose Syrup 30 Gm/45 Ml Udp) 30 gm PO DAILY [facility] Stop: 09/15/21 17:59 Last Admin: 08/29/21 09:06 Dose: 30 gm Documented by: Lidocaine (Lidocaine 5% 1 Patch) 1 patch TD QAM [facility] Stop: 09/24/21 10:29 Last Admin: 08/29/21 10:11 Dose: Not Given Documented by: Metoprolol Tartrate (Metoprolol Tartrate 1 Mg/Ml Vial) 2.5 mg IV Q6 PRN PRN Reason: Tachycardia Stop: 09/20/21 11:59 Mirtazapine (Mirtazapine Tab 15 Mg Tab) 15 mg PO HS PRN PRN Reason: Insomnia Stop: 09/15/21 20:36 Last Admin: 08/27/21 19:25 Dose: 15 mg Documented by: Miscellaneous (Remove Lidoderm Patch) 1 ea N/A DAILY@2100 [facility] Stop: 09/24/21 20:59 Last Admin: 08/28/21 20:21 Dose: 1 ea Documented by: Morphine Sulfate (Morphine Sulfate 2 Mg/Ml Carp) 1 mg IV Q4H PRN PRN Reason: Severe Pain Stop: 09/03/21 20:05 Last Admin: 08/29/21 13:01 Dose: 1 mg Documented by: Oxycodone HCl (Oxycodone Hcl Ir 5 Mg Tab (Immediate Release)) 5 - 10 mg PO QID PRN PRN Reason: Pain Stop: 09/03/21 20:04 Last Admin: 08/28/21 01:19 Dose: 5 mg Documented by: Tamsulosin HCl (Tamsulosin Hcl 0.4 Mg Cap) 0.4 mg PO HS [facility] Stop: 09/15/21 20:59 Last Admin: 08/28/21 20:20 Dose: 0.4 mg Documented by: Vitamin D (Cholecalciferol 1,000 Units 25 Mcg Tab) 2,000 units PO DAILY [facility] Stop: 09/16/21 08:59 Last Admin: 08/29/21 09:05 Dose: 2,000 units Documented by: (1) DVT (deep venous thrombosis) Affected thrombotic vein of extremity: unspecified vein of extremity Chronicity: chronic DVT location: lower extremity Laterality: bilateral Qualified Code(s): I82.503 - 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
[2021-08-29] MEDS: MoRPHine SULFATE 5 MG/0.25 ML UDP PO PRN (18:14)
[2021-08-29] MEDS: TAMSULOSIN HCL 0.4 MG CAP PO SCH (20:04)
[2021-08-30] MEDS: CEFEPIME 2,000 MG in SYRINGE 0 ML IV SCH ×2 (01:12→14:56)
[2021-08-30] MEDS: MoRPHine SULFATE 2 MG/ML CARP IV PRN ×4 (03:30→23:12)
[2021-08-30] MEDS: PANTOprazole 40 MG in SYRINGE 0 ML IV SCH (09:48)
[2021-08-30] MEDS: CHOLECALCIFEROL 1,000 UNITS 25 MCG TAB PO SCH (09:48)
[2021-08-30] MEDS: LIDOCAINE 5% 1 PATCH TD SCH (09:48)
[2021-08-30] MEDS: LACTULOSE SYRUP 30 GM/45 ML UDP PO SCH (09:48)
[2021-08-30] MEDS: AMIODARONE 200 MG TAB PO SCH ×2 (09:48→14:57)
[2021-08-30] MEDS: MoRPHine SULFATE 5 MG/0.25 ML UDP PO PRN (16:55)
--- NOTE | 2021-08-30 17:28 | Hospitalist Progress Note ---
Date of Service August 30, 2021 Assessment & Plan (1) A-fib: Plan: Went into A. fib with RVR couple night ago With associated hypotension and has been requiring pressor agents to maintain blood pressure cardiology on board Heart rate control today Continue Amiodarone PO He has not been getting the Low dose IV Lopressor due to hypotension Rate control Acute hypotension Likely secondary to A. fib with RVR and diastolic dysfunction Has been requiring intravenous pressors to maintain blood pressure Blood pressure is on the lower side Received gentle fluid hydration Blood pressure remains stable but on the lower side at 96/60 Will give a small amount of intravenous fluid Has not been drinking or eating much-May need to give some continuous IV fluid. daughter agreed to transition to comfort care Back pain Likely secondary to pancreatic cancer Pain has been getting worse We will continue with current pain medications Pain seems to be controlled More pain with any movement (2) Bilateral leg edema: Plan: Presented to the emergency room with increasing swelling of the legs bilaterally Secondary to hypoalbuminemia and is complicated by presence of paroxysmal atrial fibrillation likely secondary to diastolic CHF Decreased circulation due to edema causing some discoloration of the toes Will advised to elevate the legs while in bed Echo of the heart showed-bioprosthetic aortic valve, the gradient is abnormal for this bioprosthetic aortic valve suggesting obstruction, mild bioprosthetic aortic valve regurgitation, moderate MR and moderate TR, estimated systolic pulmonary pressure is 43 mmHg with EF is 60 to 65% RLE erythema Possible due to cellulitis Procalcitonin and WBC elevated IV cefepime started last night, will continue for now Blood cx and urine cx pending-have been negative Right lower extremity has no blood supply and has dusky discoloration secondary to arterial and venous thrombosis No treatment can be given for this Right lower extremity has been worsening Will d/c abx (3) Acute GI bleeding: Plan: His hemoglobin was 10.2 on fourth of this month This has been gradually decreasing and it is 8.3 as of today Stool is strongly positive for blood Will give Protonix drip Avoid any NSAID's and hold Eliquis Get GI evaluation for possible EGD Appreciate GI input and recommendation-no EGD at this Hemoglobin stable at more than 7 We will continue PPI drip and change to oral tomorrow Hemoglobin remains stable at 8.3-no active GI bleed Hemoglobin remains reasonably stable at 7.1 today Hemoglobin went down to 6.7- Received 1 unit PRBC during the hospital course Hgb dropped to 8.4 today Continue monitor Hgb -remains stable for now Hemoglobin remains stable at more than 9 (4) 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 Terrell Chemotherapy was not given due to low platelet count recently Has liver metastasis with INR of 1.9 and alkaline phos 680 Albumin level seems to be reasonable at 2.9 Pain seems to be controlled Remains pleasantly confused-likely secondary to cancer and also may have mild dementia Discussed with oncologist-prognosis is very poor, chemotherapy cannot be given until the blood counts are better specially platelet Palliative care has been consulted for further guidance with care Prognosis remains extremely poor Palliative care has not seen him yet Spoke to and daughter and would like to transition to comfort care Code status changed to DNR Cancer seems to be progressing and the patient remains very weak and lethargic and seems to be deteriorating Condition is critical but stable Condition has been deteriorating. 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.- Has been on Eliquis which has been decreased to 2.5 mg twice daily from 5 mg twice daily recently due to low platelet INR is 1.9 today and with evidence of Hemoccult positive we will hold Eliquis for now During last admission vascular surgery consult was taken for possible IVC filter but that was not given due to stoppage of bleeding Discussed was anticoagulation-since INR remains at 1.9 will not give any further anticoagulation Ultrasound did show increasing thrombosis and also involving the arterial system Discussed with oncologist again today we will start Lovenox 40 mg and if the hemoglobin is stable will increase in the dose accordingly even though INR 1.8 Started on Lovenox 40 mg subcu daily-we will watch for any bleeding Lovenox has been discontinued due to low hemoglobin PAD in RLE Arterial doppler showed Severe peripheral vascular disease of the right lower extremity as above with extensive arterial occlusion. Family does not want any surgical intervention Not a candidate of anticoagulant or antiplatelet due to thrombocytopenia Right lower extremity has been worsening with no blood flow (7) Weakness: Plan: Generalized weakness Has been getting worse likely contributed by low hemoglobin and also metastatic cancer PT OT evaluation (8) Aortic stenosis: Plan: Status post AVR Denies any chest pain and/or palpitation (9) CKD (chronic kidney disease), stage III: Plan: Creatinine remains stable (10) Hypertension: Plan: Blood pressure is stable at 127/69 DVT prophylaxis SCDs Lovenox discontinue due to low hemoglobin Autocoagulation with INR 1.8 CODE STATUS DNR Discussed with daughter today. She agreed to transition to comfort care Admission and Anticipated Discharge Date Admission Date: August 16, 2021 Subjective Pt was seen and examined for follow up Lying in bed comfortable with daughter at bedside Daughter said that pt continues to have poor appetite daughter said that the main goal is to keep pt comfortable Discussed about to transition to comfort care and stop all blood draw/lab daughter agreed to transition to comfort care. She said that the brother and on board Review of Systems Review of Systems: All systems reviewed & are unremarkable except as noted in Subjective Physical Exam Physical Exam: General- No acute distress Head- atraumatic Eyes- PERRL, EOMI, ENT- oropharynx clear Neck- supple, no JVD Lungs- clear to auscultation Heart- regular rhythm; +Systolic murmur Abdomen- normal bowel sounds, soft, nontender Extremities- no calf tenderness, +edema, RLE erythema extended to ankle medially, toes gangrene Neuro- alert, oriented x 3; PERRL, EOMI; no facial palsy; no dysarthria Skin- warm & dry Results & Data Results & Data ([facility]) Vital Signs (Past 12 Hours) Vital Signs Temp Pulse Pulse Resp BP Pulse Ox 08/30/21 15:14 83 08/30/21 09:50 92 H 08/30/21 07:08 36.0 C L 84 16 82/52 L 95 (1) DVT (deep venous thrombosis) Affected thrombotic vein of extremity: unspecified vein of extremity Chronicity: chronic DVT location: lower extremity Laterality: bilateral Qualified Code(s): I82.503 - 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
[2021-08-30] MEDS: TAMSULOSIN HCL 0.4 MG CAP PO SCH (20:01)
[2021-08-31] MEDS: AMIODARONE 200 MG TAB PO SCH ×2 (09:15→17:27)
[2021-08-31] MEDS: LIDOCAINE 5% 1 PATCH TD SCH (09:16)
[2021-08-31] MEDS: LACTULOSE SYRUP 30 GM/45 ML UDP PO SCH (09:16)
[2021-08-31] MEDS: MoRPHine SULFATE 2 MG/ML CARP IV PRN ×2 (11:52→17:24)
[2021-08-31] MEDS ORDERED: HEPARIN 100 UNIT/ML 5ML FLUSH ONE (12:08)
[2021-08-31] MEDS: HEPARIN 100 UNIT/ML 5ML FLUSH FLUSH PRN (17:27)
--- NOTE | 2021-08-31 18:09 | Hospitalist Progress Note ---
Date of Service August 31, 2021 Assessment & Plan (1) A-fib: Plan: Went into A. fib with RVR couple night ago With associated hypotension and has been requiring pressor agents to maintain blood pressure cardiology on board Heart rate control today Continue Amiodarone PO Rate control Transition to comfort care only Acute hypotension Likely secondary to A. fib with RVR and diastolic dysfunction Has been requiring intravenous pressors to maintain blood pressure Blood pressure is on the lower side Received gentle fluid hydration Blood pressure remains stable but on the lower side at 96/60 Will give a small amount of intravenous fluid Has not been drinking or eating much-May need to give some continuous IV fluid. daughter agreed to transition to comfort care Back pain Likely secondary to pancreatic cancer Pain has been getting worse We will continue with current pain medications Pain seems to be controlled More pain with any movement (2) Bilateral leg edema: Plan: Presented to the emergency room with increasing swelling of the legs bilaterally Secondary to hypoalbuminemia and is complicated by presence of paroxysmal atrial fibrillation likely secondary to diastolic CHF Decreased circulation due to edema causing some discoloration of the toes Will advised to elevate the legs while in bed Echo of the heart showed-bioprosthetic aortic valve, the gradient is abnormal for this bioprosthetic aortic valve suggesting obstruction, mild bioprosthetic aortic valve regurgitation, moderate MR and moderate TR, estimated systolic pulmonary pressure is 43 mmHg with EF is 60 to 65% RLE erythema Possible due to cellulitis Procalcitonin and WBC elevated IV cefepime started last night, will continue for now Blood cx and urine cx pending-have been negative Right lower extremity has no blood supply and has dusky discoloration secondary to arterial and venous thrombosis No treatment can be given for this Right lower extremity has been worsening abx discontinued and made comfort care only (3) Acute GI bleeding: Plan: His hemoglobin was 10.2 on fourth of this month This has been gradually decreasing and it is 8.3 as of today Stool is strongly positive for blood Will give Protonix drip Avoid any NSAID's and hold Eliquis Get GI evaluation for possible EGD Appreciate GI input and recommendation-no EGD at this Hemoglobin stable at more than 7 We will continue PPI drip and change to oral tomorrow Hemoglobin remains stable at 8.3-no active GI bleed Hemoglobin remains reasonably stable at 7.1 today Hemoglobin went down to 6.7- Received 1 unit PRBC during the hospital course Hgb dropped to 8.4 today Continue monitor Hgb -remains stable for now Hemoglobin remains stable at more than 9 No lab checked since pt was made comfort care only (4) 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 Terrell Chemotherapy was not given due to low platelet count recently Has liver metastasis with INR of 1.9 and alkaline phos 680 Albumin level seems to be reasonable at 2.9 Pain seems to be controlled Remains pleasantly confused-likely secondary to cancer and also may have mild dementia Discussed with oncologist-prognosis is very poor, chemotherapy cannot be given until the blood counts are better specially platelet Palliative care has been consulted for further guidance with care Prognosis remains extremely poor Palliative care has not seen him yet Spoke to and daughter and would like to transition to comfort care Code status changed to DNR Cancer seems to be progressing and the patient remains very weak and lethargic and seems to be deteriorating Condition is critical but stable Condition has been deteriorating. 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.- Has been on Eliquis which has been decreased to 2.5 mg twice daily from 5 mg twice daily recently due to low platelet INR is 1.9 today and with evidence of Hemoccult positive we will hold Eliquis for now During last admission vascular surgery consult was taken for possible IVC filter but that was not given due to stoppage of bleeding Discussed was anticoagulation-since INR remains at 1.9 will not give any further anticoagulation Ultrasound did show increasing thrombosis and also involving the arterial system Discussed with oncologist again today we will start Lovenox 40 mg and if the hemoglobin is stable will increase in the dose accordingly even though INR 1.8 Started on Lovenox 40 mg subcu daily-we will watch for any bleeding Lovenox has been discontinued due to low hemoglobin PAD in RLE Arterial doppler showed Severe peripheral vascular disease of the right lower extremity as above with extensive arterial occlusion. Family does not want any surgical intervention Not a candidate of anticoagulant or antiplatelet due to thrombocytopenia Right lower extremity has been worsening with no blood flow (7) Weakness: Plan: Generalized weakness Has been getting worse likely contributed by low hemoglobin and also metastatic cancer PT OT evaluation (8) Aortic stenosis: Plan: Status post AVR Denies any chest pain and/or palpitation (9) CKD (chronic kidney disease), stage III: Plan: Creatinine remains stable (10) Hypertension: Plan: Blood pressure is stable at 127/69 DVT prophylaxis SCDs Lovenox discontinue due to low hemoglobin Autocoagulation with INR 1.8 CODE STATUS DNR Discussed with daughter today. She agreed to transition to comfort care Admission and Anticipated Discharge Date Admission Date: August 16, 2021 Subjective Pt was seen and examined for follow up of comfort care Lying in bed comfortable with daughter at bedside Daughter said that pt was able to eat a small amount of food Daughter said that pt has been comfortable No sign of respiratory distress or pain Review of Systems Review of Systems: All systems reviewed & are unremarkable except as noted in Subjective Physical Exam Physical Exam: General- No acute distress Head- atraumatic Eyes- PERRL, EOMI, ENT- oropharynx clear Neck- supple, no JVD Lungs- clear to auscultation Heart- regular rhythm; +Systolic murmur Abdomen- normal bowel sounds, soft, nontender Extremities- no calf tenderness, +edema, RLE erythema extended to ankle medially, toes gangrene Neuro- sleeping, PERRL, EOMI; no facial palsy Skin- warm & dry Results & Data Results & Data ([facility]) Vital Signs (Past 12 Hours) Vital Signs Temp Pulse Resp BP Pulse Ox 08/31/21 07:30 35.9 C L 81 16 98/59 L 94 (1) DVT (deep venous thrombosis) Affected thrombotic vein of extremity: unspecified vein of extremity Chronicity: chronic DVT location: lower extremity Laterality: bilateral Qualified Code(s): I82.503 - 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
[2021-08-31] MEDS: TAMSULOSIN HCL 0.4 MG CAP PO SCH (20:03)
[2021-09-01] MEDS: HEPARIN 100 UNIT/ML 5ML FLUSH FLUSH PRN ×2 (05:11→12:14)
[2021-09-01] MEDS: MoRPHine SULFATE 2 MG/ML CARP IV PRN ×2 (05:11→12:12)
[2021-09-01] MEDS: LIDOCAINE 5% 1 PATCH TD SCH (09:43)
[2021-09-01] MEDS: AMIODARONE 200 MG TAB PO SCH ×2 (09:43→15:43)
[2021-09-01] MEDS ORDERED: MoRPHine SULFATE 2 MG/ML CARP IV PRN (12:12)
--- NOTE | 2021-09-01 12:51 | Palliative Care Consultation ---
Date of Consultation September 01, 2021 Assessment & Plan (1) Pain: Multifactorial with pain related to pancreatic cancer, LE ischemia and generalized pain due to immobility. I discussed pain management with family. Given multiple causes and pain with movement, he would benefit from routine opioid dosing. We discussed longer duration of action with oral morphine and the likelihood that lack of efficacy was likely dose related as he does well with IV morphine. We also discussed use of oral morphine concentrate even in patients near their dying time who are not otherwise able to swallow medication. He has had difficulty taking po amiodarone over the last two days. Recommend routine dosing of roxanol every four hours to achieve steady state. This could easily be continued if he were to be transferred to a SNF with hospice. Will continue IV morphine prn for breakthrough pain which can be converted to roxanol equivalent dosing if needed. Family is in agreement with this. (2) Anorexia: We discussed decreased po intake and changes in metabolism with dying process. Will use oral swabs for moisture and comfort. (3) Palliative care encounter: I met with Mrs. López and her son at bedside as well as daughter, Victoria, on speaker phone. Answered questions about what to expect with dying process and prognosis which is likely a week or two. We discussed care involved at SNF with additional support in care and symptom management from hospice. They have been in contact with Craig, at [facility] regarding possible transfer to [facility]. Case management is working with them on this. Updated case management and Dr. Yepez on our discussion. Discussed with RN. Will try to optimize pain management regimen prior to transfer. 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 Jasso Attending Physician: Atilio Yepez MD History of Present Illness 81 yo gentleman with pancreatic cancer metastatic to liver who is followed by Dr. Terrell at [facility]. He has history of bilateral DVTs as well as afib and had been on eliquis. He had GI bleeding on admission and elevated INR with thrombocytopenia related to liver mets. He was also found to have PAD with RLE ischemia and has had pain in his RLE. During his hospital stay, he has had functional decline despite treatment and after discussion with hospitalist, family has decided to pursue comfort directed care. Mr. López has been on both oral and IV morphine during his admission and per family, oral morphine was not effective. He has had better response with IV morphine and continues to have back pain as well as pain in his right lower extremity. He is nonverbal but family reports that he is restless at times, sometimes puts his hand to his head and they are concerned about his pain being adequately controlled. He has had prn IV morphine with a total of 18mg OME in the last 24 hours. At the time of visit, he is lethargic but arouses briefly. He appears comfortable at rest but does not tolerate repositioning well. He has little po intake, taking some sips of boost from his . Allergies Allergy/AdvReac Type Severity Reaction Status Date / Time shellfish derived AdvReac Intermediate Hives Verified 08/16/21 16:24 Home Medications Medication Instructions Recorded Confirmed Type pravastatin 20 mg tablet 20 mg PO QAM 06/06/21 08/16/21 History tamsulosin 0.4 mg capsule 0.4 mg PO HS 06/06/21 08/16/21 History cholecalciferol (vitamin D3) 50 2,000 unit PO DAILY 07/03/21 08/16/21 History mcg (2,000 unit) capsule (Vitamin D3) famotidine 20 mg tablet 20 mg PO HS 07/03/21 08/16/21 History oxycodone 5 mg tablet 2.5 - 5 mg PO Q6H PRN 07/15/21 08/16/21 History mirtazapine 15 mg tablet 15 mg PO HS PRN #0 tab 07/22/21 08/16/21 Rx apixaban 5 mg tablet (Eliquis) 2.5 mg PO BID 08/16/21 08/16/21 History Patient History Medical History Acid reflux Anemia Aortic stenosis Aortic valve disorder BPH (benign prostatic hyperplasia) CKD (chronic kidney disease), stage III High cholesterol Hypertension Pancreatic neoplasm TIA (transient ischemic attack) Surgical History H/O aortic valve replacement 10/18/2019-prosthetic valve at [facility] History of cardiac catheterization Family History Mother Breast cancer Social History Smoking Status: Never smoker Second Hand Exposure: No; Hx Alcohol Use: No Hx Substance Use: No Preferred Language: Ethiopian Communication Ability: Effective Sap Payroll Consultant Required: No Beliefs That Will Affect Care: None marital status: Current Living Situation: Spouse Current Living Situation Comment: home with How many Children do You have: 2 Other Information That Helps Us Care for You: No Feels Safe at Home: Yes Safety Concerns: Feels Safe At This Time Assistive Devices: Cane and Walker Review of Systems Review of Systems: Unobtainable due to reduced consciousness [place] Symptom Assessment Scale Pain by observation 2/3 Dyspnea by observation 0/3 Palliative Performance Score 20% Physical Exam Constitutional: + ill appearing and + thin ENMT: Mouth: + dry oral mucous membranes Respiratory: normal respiratory effort; no labored breathing and does not use accessory muscles no audible rhonchi Cardiovascular: Rate/Rhythm: regular rate and regular rhythm ischemic changes, RLE Gastrointestinal (Abdomen): soft, nontender Musculoskeletal: Extremities: + muscle atrophy Skin: warm and dry Neurologic: Lethargic Genitourinary: Castañeda with tea colored urine PG Care Time/CCT Total # of Minutes Spent Total Time Spent: 120 Total Time Spent with Patient: Total time spent is greater than 50% in coordination of care (as documented) at patient's floor/unit and/or counseling patient:symptom management, hospice, family education and support, coordination of care Coding Level of Care Code 01504 Initial Inpt Care Lvl 3 Diagnoses Pain R52 Anorexia R63.0 Palliative care encounter Z51.5 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
[2021-09-01] MEDS: MoRPHine SULFATE 5 MG/0.25 ML UDP PO SCH ×3 (15:37→23:11)
[2021-09-01] MEDS: TAMSULOSIN HCL 0.4 MG CAP PO SCH (20:23)
--- NOTE | 2021-09-01 23:49 | Hospitalist Progress Note ---
Date of Service September 01, 2021 Assessment & Plan (1) A-fib: Plan: Went into A. fib with RVR couple night ago With associated hypotension and has been requiring pressor agents to maintain blood pressure cardiology on board Heart rate control today Continue Amiodarone PO Rate control Transition to comfort care only Acute hypotension Likely secondary to A. fib with RVR and diastolic dysfunction Has been requiring intravenous pressors to maintain blood pressure Blood pressure is on the lower side Received gentle fluid hydration Blood pressure remains stable but on the lower side at 96/60 Will give a small amount of intravenous fluid Has not been drinking or eating much-May need to give some continuous IV fluid. daughter agreed to transition to comfort care Back pain Likely secondary to pancreatic cancer Pain has been getting worse We will continue with current pain medications Pain seems to be controlled More pain with any movement (2) Bilateral leg edema: Plan: Presented to the emergency room with increasing swelling of the legs bilaterally Secondary to hypoalbuminemia and is complicated by presence of paroxysmal atrial fibrillation likely secondary to diastolic CHF Decreased circulation due to edema causing some discoloration of the toes Will advised to elevate the legs while in bed Echo of the heart showed-bioprosthetic aortic valve, the gradient is abnormal for this bioprosthetic aortic valve suggesting obstruction, mild bioprosthetic aortic valve regurgitation, moderate MR and moderate TR, estimated systolic pulmonary pressure is 43 mmHg with EF is 60 to 65% RLE erythema Possible due to cellulitis Procalcitonin and WBC elevated IV cefepime started last night, will continue for now Blood cx and urine cx pending-have been negative Right lower extremity has no blood supply and has dusky discoloration secondary to arterial and venous thrombosis No treatment can be given for this Right lower extremity has been worsening abx discontinued and made comfort care only (3) Acute GI bleeding: Plan: His hemoglobin was 10.2 on fourth of this month This has been gradually decreasing and it is 8.3 as of today Stool is strongly positive for blood Will give Protonix drip Avoid any NSAID's and hold Eliquis Get GI evaluation for possible EGD Appreciate GI input and recommendation-no EGD at this Hemoglobin stable at more than 7 We will continue PPI drip and change to oral tomorrow Hemoglobin remains stable at 8.3-no active GI bleed Hemoglobin remains reasonably stable at 7.1 today Hemoglobin went down to 6.7- Received 1 unit PRBC during the hospital course Hgb dropped to 8.4 today Continue monitor Hgb -remains stable for now Hemoglobin remains stable at more than 9 No lab checked since pt was made comfort care only (4) 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 Terrell Chemotherapy was not given due to low platelet count recently Has liver metastasis with INR of 1.9 and alkaline phos 680 Albumin level seems to be reasonable at 2.9 Pain seems to be controlled Remains pleasantly confused-likely secondary to cancer and also may have mild dementia Discussed with oncologist-prognosis is very poor, chemotherapy cannot be given until the blood counts are better specially platelet Palliative care has been consulted for further guidance with care Prognosis remains extremely poor Palliative care has not seen him yet Spoke to and daughter and would like to transition to comfort care Code status changed to DNR Cancer seems to be progressing and the patient remains very weak and lethargic and seems to be deteriorating Condition is critical but stable Condition has been deteriorating. 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.- Has been on Eliquis which has been decreased to 2.5 mg twice daily from 5 mg twice daily recently due to low platelet INR is 1.9 today and with evidence of Hemoccult positive we will hold Eliquis for now During last admission vascular surgery consult was taken for possible IVC filter but that was not given due to stoppage of bleeding Discussed was anticoagulation-since INR remains at 1.9 will not give any further anticoagulation Ultrasound did show increasing thrombosis and also involving the arterial system Discussed with oncologist again today we will start Lovenox 40 mg and if the hemoglobin is stable will increase in the dose accordingly even though INR 1.8 Started on Lovenox 40 mg subcu daily-we will watch for any bleeding Lovenox has been discontinued due to low hemoglobin PAD in RLE Arterial doppler showed Severe peripheral vascular disease of the right lower extremity as above with extensive arterial occlusion. Family does not want any surgical intervention Not a candidate of anticoagulant or antiplatelet due to thrombocytopenia Right lower extremity has been worsening with no blood flow (7) Weakness: Plan: Generalized weakness Has been getting worse likely contributed by low hemoglobin and also metastatic cancer PT OT evaluation (8) Aortic stenosis: Plan: Status post AVR Denies any chest pain and/or palpitation (9) CKD (chronic kidney disease), stage III: Plan: Creatinine remains stable (10) Hypertension: Plan: Blood pressure is stable at 127/69 DVT prophylaxis SCDs Lovenox discontinue due to low hemoglobin Autocoagulation with INR 1.8 CODE STATUS DNR Discussed with daughter today. She agreed to transition to comfort care Admission and Anticipated Discharge Date Admission Date: August 16, 2021 Subjective Pt was seen and examined for follow up of comfort care Lying in bed comfortable sleeping with Son and at bedside No sign of respiratory distress or pain Spoke to son and and answered all their question Review of Systems Review of Systems: All systems reviewed & are unremarkable except as noted in Subjective Physical Exam Physical Exam: General- sleeping Head- atraumatic Eyes- PERRL, EOMI, ENT- oropharynx clear Neck- supple, no JVD Heart- regular rhythm; +Systolic murmur Abdomen- normal bowel sounds, soft, nontender Neuro- sleeping (1) DVT (deep venous thrombosis) Affected thrombotic vein of extremity: unspecified vein of extremity Chronicity: chronic DVT location: lower extremity Laterality: bilateral Qualified Code(s): I82.503 - 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
[2021-09-02] MEDS: MoRPHine SULFATE 5 MG/0.25 ML UDP PO SCH ×5 (03:38→20:03)
[2021-09-02] MEDS: HEPARIN 100 UNIT/ML 5ML FLUSH FLUSH PRN (06:11)
[2021-09-02] MEDS: AMIODARONE 200 MG TAB PO SCH (08:38)
[2021-09-02] MEDS: LIDOCAINE 5% 1 PATCH TD SCH (08:39)
[2021-09-02] MEDS ORDERED: MoRPHine SULFATE 5 MG/0.25 ML UDP PO PRN (16:17)
--- NOTE | 2021-09-02 19:38 | Hospitalist Progress Note ---
Date of Service September 02, 2021 Assessment & Plan (1) A-fib: Plan: Went into A. fib with RVR couple night ago With associated hypotension and has been requiring pressor agents to maintain blood pressure cardiology on board Heart rate control today Discontinued Amiodarone PO Transition to comfort care only Acute hypotension Likely secondary to A. fib with RVR and diastolic dysfunction Has been requiring intravenous pressors to maintain blood pressure Blood pressure is on the lower side Received gentle fluid hydration Blood pressure remains stable but on the lower side at 96/60 Will give a small amount of intravenous fluid Has not been drinking or eating much-May need to give some continuous IV fluid. daughter agreed to transition to comfort care Back pain Likely secondary to pancreatic cancer Pain has been getting worse We will continue with current pain medications Pain seems to be controlled More pain with any movement (2) Bilateral leg edema: Plan: Presented to the emergency room with increasing swelling of the legs bilaterally Secondary to hypoalbuminemia and is complicated by presence of paroxysmal atrial fibrillation likely secondary to diastolic CHF Decreased circulation due to edema causing some discoloration of the toes Will advised to elevate the legs while in bed Echo of the heart showed-bioprosthetic aortic valve, the gradient is abnormal for this bioprosthetic aortic valve suggesting obstruction, mild bioprosthetic aortic valve regurgitation, moderate MR and moderate TR, estimated systolic pulmonary pressure is 43 mmHg with EF is 60 to 65% RLE erythema Possible due to cellulitis Procalcitonin and WBC elevated IV cefepime started last night, will continue for now Blood cx and urine cx pending-have been negative Right lower extremity has no blood supply and has dusky discoloration secondary to arterial and venous thrombosis No treatment can be given for this Right lower extremity has been worsening abx discontinued and made comfort care only (3) Acute GI bleeding: Plan: His hemoglobin was 10.2 on fourth of this month This has been gradually decreasing and it is 8.3 as of today Stool is strongly positive for blood Will give Protonix drip Avoid any NSAID's and hold Eliquis Get GI evaluation for possible EGD Appreciate GI input and recommendation-no EGD at this Hemoglobin stable at more than 7 We will continue PPI drip and change to oral tomorrow Hemoglobin remains stable at 8.3-no active GI bleed Hemoglobin remains reasonably stable at 7.1 today Hemoglobin went down to 6.7- Received 1 unit PRBC during the hospital course Hgb dropped to 8.4 today Continue monitor Hgb -remains stable for now Hemoglobin remains stable at more than 9 No lab checked since pt was made comfort care only (4) 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 Terrell Chemotherapy was not given due to low platelet count recently Has liver metastasis with INR of 1.9 and alkaline phos 680 Albumin level seems to be reasonable at 2.9 Pain seems to be controlled Remains pleasantly confused-likely secondary to cancer and also may have mild dementia Discussed with oncologist-prognosis is very poor, chemotherapy cannot be given until the blood counts are better specially platelet Palliative care has been consulted for further guidance with care Prognosis remains extremely poor Palliative care has not seen him yet Spoke to and daughter and would like to transition to comfort care Code status changed to DNR Cancer seems to be progressing and the patient remains very weak and lethargic and seems to be deteriorating Condition is critical but stable Condition has been deteriorating. 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.- Has been on Eliquis which has been decreased to 2.5 mg twice daily from 5 mg twice daily recently due to low platelet INR is 1.9 today and with evidence of Hemoccult positive we will hold Eliquis for now During last admission vascular surgery consult was taken for possible IVC filter but that was not given due to stoppage of bleeding Discussed was anticoagulation-since INR remains at 1.9 will not give any further anticoagulation Ultrasound did show increasing thrombosis and also involving the arterial system Discussed with oncologist again today we will start Lovenox 40 mg and if the hemoglobin is stable will increase in the dose accordingly even though INR 1.8 Started on Lovenox 40 mg subcu daily-we will watch for any bleeding Lovenox has been discontinued due to low hemoglobin PAD in RLE Arterial doppler showed Severe peripheral vascular disease of the right lower extremity as above with extensive arterial occlusion. Family does not want any surgical intervention Not a candidate of anticoagulant or antiplatelet due to thrombocytopenia Right lower extremity has been worsening with no blood flow (7) Weakness: Plan: Generalized weakness Has been getting worse likely contributed by low hemoglobin and also metastatic cancer PT OT evaluation (8) Aortic stenosis: Plan: Status post AVR Denies any chest pain and/or palpitation (9) CKD (chronic kidney disease), stage III: Plan: Creatinine remains stable (10) Hypertension: Plan: Blood pressure is stable at 127/69 DVT prophylaxis SCDs Lovenox discontinue due to low hemoglobin Autocoagulation with INR 1.8 CODE STATUS DNR Discussed with daughter today. She agreed to transition to comfort care Admission and Anticipated Discharge Date Admission Date: August 16, 2021 Subjective Pt was seen and examined for follow up of comfort care Lying in bed comfortable sleeping with Son and at bedside No sign of respiratory distress or pain noted Pt received IV morphine around 6am this morning, family called [facility] and they said that reset the clock [facility] said if pain not control with the oral narcotic, they will not be able to accept him. Family was concerned on why pt received the IV morphine this morning IV morphine discontinued and if pt pain is not control, nurse can call for addition pain med Spoke to son and and answered all their question Review of Systems Review of Systems: All systems reviewed & are unremarkable except as noted in Subjective Physical Exam Physical Exam: General- sleeping Head- atraumatic Eyes- PERRL, EOMI, ENT- oropharynx clear Neck- supple, no JVD Heart- regular rhythm; +Systolic murmur Abdomen- normal bowel sounds, soft, nontender Neuro- sleeping (1) DVT (deep venous thrombosis) Affected thrombotic vein of extremity: unspecified vein of extremity Chronicity: chronic DVT location: lower extremity Laterality: bilateral Qualified Code(s): I82.503 - 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
[2021-09-03] MEDS: MoRPHine SULFATE 5 MG/0.25 ML UDP PO SCH ×6 (00:30→20:10)
[2021-09-03] MEDS: LIDOCAINE 5% 1 PATCH TD SCH (07:36)
--- NOTE | 2021-09-03 13:08 | Palliative Care Progress Note ---
Date of Service September 03, 2021 Assessment & Plan (1) Pain: Plan: Multifactorial. Controlled with current regimen. (2) Palliative care encounter: Plan: Met with and son at bedside. Vitals signs are stable with no sign of mottling or apnea. He is minimally responsive. He would be stable for discharge to SNF with hospice if bed available. Family has selected a hospice and will discuss with case management. Answered questions about prognosis and plan of care. Discussed with case management and Dr. Yepez. (3) Pancreatic cancer: (4) PAD (peripheral artery disease): Admission and Anticipated Discharge Date Admission Date: August 16, 2021 Subjective Lethargic but arouses briefly. Appears comfortable and tolerates routine care better per RN. One prn morphine dose yesterday morning. Review of Systems Review of Systems: Unobtainable due to reduced consciousness [place] Symptom Assessment Scale Pain by observation 0/3 Dyspnea by observation 0/3 Palliative Performance Score 20% Physical Exam Constitutional: + frail appearing; no acute distress ENMT: Mouth: + dry oral mucous membranes Respiratory: no apnea, no audible rhonchi Cardiovascular: no mottling Musculoskeletal: Extremities: + muscle atrophy Skin: warm and dry Genitourinary: Castañeda with tea colored urine, decreased urine output PG Care Time/CCT Total # of Minutes Spent Total Time Spent: 30 Total Time Spent with Patient: Total time spent is greater than 50% in coordination of care (as documented) at patient's floor/unit and/or counseling patient: symptom management, family education and support, coordination of care Coding Level of Care Code 99536 Subseq Hosp Care Lvl 2 Diagnoses Pain R52 Palliative care encounter Z51.5 Pancreatic cancer C25.9 Pancreatic malignancy location: unspecified PAD (peripheral artery disease) I73.9 (1) Pancreatic cancer Pancreatic malignancy location: unspecified Qualified Code(s): C25.9 - Malignant neoplasm of pancreas, unspecified
[2021-09-04] MEDS: MoRPHine SULFATE 5 MG/0.25 ML UDP PO SCH ×6 (00:40→19:45)
--- NOTE | 2021-09-04 02:19 | Hospitalist Progress Note ---
Date of Service September 03, 2021 Assessment & Plan (1) A-fib: Plan: Went into A. fib with RVR couple night ago With associated hypotension and has been requiring pressor agents to maintain blood pressure cardiology on board Heart rate control today Discontinued Amiodarone PO Transition to comfort care only Acute hypotension Likely secondary to A. fib with RVR and diastolic dysfunction Has been requiring intravenous pressors to maintain blood pressure Blood pressure is on the lower side Received gentle fluid hydration Blood pressure remains stable but on the lower side at 96/60 Will give a small amount of intravenous fluid Has not been drinking or eating much-May need to give some continuous IV fluid. Transition to comfort care as per family Back pain Likely secondary to pancreatic cancer Pain has been getting worse We will continue with current pain medications Pain seems to be controlled More pain with any movement (2) Bilateral leg edema: Plan: Presented to the emergency room with increasing swelling of the legs bilaterally Secondary to hypoalbuminemia and is complicated by presence of paroxysmal atrial fibrillation likely secondary to diastolic CHF Decreased circulation due to edema causing some discoloration of the toes Will advised to elevate the legs while in bed Echo of the heart showed-bioprosthetic aortic valve, the gradient is abnormal for this bioprosthetic aortic valve suggesting obstruction, mild bioprosthetic aortic valve regurgitation, moderate MR and moderate TR, estimated systolic pulmonary pressure is 43 mmHg with EF is 60 to 65% RLE erythema Possible due to cellulitis Procalcitonin and WBC elevated IV cefepime started last night, will continue for now Blood cx and urine cx pending-have been negative Right lower extremity has no blood supply and has dusky discoloration secondary to arterial and venous thrombosis No treatment can be given for this Right lower extremity has been worsening abx discontinued and made comfort care only (3) Acute GI bleeding: Plan: His hemoglobin was 10.2 on fourth of this month This has been gradually decreasing and it is 8.3 as of today Stool is strongly positive for blood Will give Protonix drip Avoid any NSAID's and hold Eliquis Get GI evaluation for possible EGD Appreciate GI input and recommendation-no EGD at this Hemoglobin stable at more than 7 We will continue PPI drip and change to oral tomorrow Hemoglobin remains stable at 8.3-no active GI bleed Hemoglobin remains reasonably stable at 7.1 today Hemoglobin went down to 6.7- Received 1 unit PRBC during the hospital course Hgb dropped to 8.4 today Continue monitor Hgb -remains stable for now Hemoglobin remains stable at more than 9 No lab checked since pt was made comfort care only (4) 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 Terrell Chemotherapy was not given due to low platelet count recently Has liver metastasis with INR of 1.9 and alkaline phos 680 Albumin level seems to be reasonable at 2.9 Pain seems to be controlled Remains pleasantly confused-likely secondary to cancer and also may have mild dementia Discussed with oncologist-prognosis is very poor, chemotherapy cannot be given until the blood counts are better specially platelet Palliative care has been consulted for further guidance with care Prognosis remains extremely poor Palliative care has not seen him yet Spoke to and daughter and would like to transition to comfort care Code status changed to DNR Cancer seems to be progressing and the patient remains very weak and lethargic and seems to be deteriorating Condition is critical but stable Condition has been deteriorating. 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.- Has been on Eliquis which has been decreased to 2.5 mg twice daily from 5 mg twice daily recently due to low platelet INR is 1.9 today and with evidence of Hemoccult positive we will hold Eliquis for now During last admission vascular surgery consult was taken for possible IVC filter but that was not given due to stoppage of bleeding Discussed was anticoagulation-since INR remains at 1.9 will not give any further anticoagulation Ultrasound did show increasing thrombosis and also involving the arterial system Discussed with oncologist again today we will start Lovenox 40 mg and if the hemoglobin is stable will increase in the dose accordingly even though INR 1.8 Started on Lovenox 40 mg subcu daily-we will watch for any bleeding Lovenox has been discontinued due to low hemoglobin PAD in RLE Arterial doppler showed Severe peripheral vascular disease of the right lower extremity as above with extensive arterial occlusion. Family does not want any surgical intervention Not a candidate of anticoagulant or antiplatelet due to thrombocytopenia Right lower extremity has been worsening with no blood flow (7) Weakness: Plan: Generalized weakness Has been getting worse likely contributed by low hemoglobin and also metastatic cancer PT OT evaluation (8) Aortic stenosis: Plan: Status post AVR Denies any chest pain and/or palpitation (9) CKD (chronic kidney disease), stage III: Plan: Creatinine remains stable (10) Hypertension: Plan: Blood pressure is stable at 127/69 DVT prophylaxis SCDs Lovenox discontinue due to low hemoglobin Autocoagulation with INR 1.8 CODE STATUS DNR Discussed with daughter today. She agreed to transition to comfort care Admission and Anticipated Discharge Date Admission Date: August 16, 2021 Subjective Pt was seen and examined for follow up of comfort care Lying in bed and seems to be comfortable with and son at bedside He has not gotten any extra dose of IV morphine He has not been opened his eyes and spoke as per family Review of Systems Review of Systems: All systems reviewed & are unremarkable except as noted in Subjective Physical Exam Physical Exam: General- sleeping Head- atraumatic Eyes- PERRL, EOMI, ENT- oropharynx clear Neck- supple, no JVD Heart- regular rhythm; +Systolic murmur Abdomen- normal bowel sounds, soft, nontender Neuro- sleeping (1) DVT (deep venous thrombosis) Affected thrombotic vein of extremity: unspecified vein of extremity Chronicity: chronic DVT location: lower extremity Laterality: bilateral Qualified Code(s): I82.503 - 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
[2021-09-04] MEDS: LIDOCAINE 5% 1 PATCH TD SCH (07:49)
[2021-09-04] MEDS: LORazepam 1 MG TAB SL PRN ×2 (13:07→17:39)
[2021-09-05] MEDS: MoRPHine SULFATE 5 MG/0.25 ML UDP PO SCH ×3 (01:38→07:38)
[2021-09-05] MEDS: HEPARIN 100 UNIT/ML 5ML FLUSH FLUSH PRN (05:20)
[2021-09-05] MEDS: LIDOCAINE 5% 1 PATCH TD SCH (07:38)
--- NOTE | 2021-09-05 11:03 | Communication Note ---
Date of Service: September 05, 2021 note Called from Nurse that pt ceased to breath. Pt was unresponsive with eyes closed No heart sound, no lung sound noted on auscultation No pulse and no tactile stimuli Pupils no reactive to light Time of : 10:10 AM Nurse called and daughter, unfortunately the call went to voicemail Nurse is looking for the number to notify son. Nurse was able to find a number for the son. Son was notified I will complete and sign the certificate. MD Marleni
--- NOTE | 2021-09-19 09:18 | Discharge Summary ---
Date of Service September 05, 2021 Admission HPI Per Admitting Provider He is an 81-year-old male with significant complicated past medical history including pancreatic cancer with liver metastasis, history of bilateral DVT, chronic kidney disease stage III, aortic stenosis, paroxysmal atrial fibrillation, hypertension, history of TIA, prostatic hypertrophy, and thrombocytopenia apparently has been complaining of increasing leg swelling for the last few days associated with increasing generalized weakness and shortness of breath with minimal exertion. He denies any fever and/or chills, any pain in the legs but does have discoloration of the toes especially on the right side, he denies any chest pain and/or palpitation but complains to have exertional shortness of breath. Denies any history of hematemesis and or any black stool but he has noted to have a strongly positive Hemoccult in the emergency room. He was seen by his oncologist recently and was not given any chemotherapy due to low platelet at around 38,000. He was noted to have a hemoglobin of 8.3 with INR of 1.9 and repeat scans did show chronic and superficial DVTs in both legs. He was strongly positive for blood on Hemoccult stool. He was admitted to medical telemetry unit for continuation of care Admission Exam Per Admitting Provider Physical Exam: Lying in bed comfortably but looks pale Constitutional: + ill appearing and average body habitus Eyes: PERRL, conjunctivae normal, anicteric sclerae ENMT:L external ear and nose normal, oropharynx normal Neck: trachea midline, no thyromegaly Respiratory: no respiratory distress Auscultation: lungs clear to auscultation bilaterally; no crackles Cardiovascular: Rate/Rhythm: regular rate and regular rhythm; not tachycardic Heart Sounds: normal S1, normal S2 and + murmur (2/6 ESM over precordium) Extremities: + edema (2+ edema bilaterally with palpable pedal arteries) Gastrointestinal (Abdomen): Inspection/Auscultation: normal bowel sounds; abdomen not distended Percussion/Palpation: + abdomen tender (Minimally tender all over without guarding and no rigidity) and abdomen soft Musculoskeletal: No acute arthritis in any joint Neurologic: Alert, awake and oriented x3. 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 Pt was unresponsive with eyes closed No heart sound, no lung sound noted on auscultation No pulse and no tactile stimuli Pupils no reactive to light Discharge Data Allergies Allergy/AdvReac Type Severity Reaction Status Date / Time shellfish derived AdvReac Intermediate Hives Verified 08/16/21 16:24 Consultations 08/16/21 16:32 ED Decision to Admit Stat 08/17/21 08:50 Consult Gastroenterology Routine 08/19/21 02:44 Consult Cardiology Routine 08/19/21 04:03 Consult Staff Forester Routine 08/19/21 11:19 Consult Palliative Care Routine Ordered Studies 08/16/21 13:36 US venous doppler LE BI Stat 08/20/21 09:33 US arterial duplex LE RT Stat ULTRASOUND RIGHT LOWER EXTREMITY ARTERIAL CLINICAL HISTORY: Decreased pulses. COMPARISON STUDY: No priors. TECHNIQUE: Portable real-time grayscale and color Doppler sonography of the arteries of the right lower extremity is performed from the inguinal crease to the foot. FINDINGS: Advanced atherosclerotic plaque and irregularity is seen throughout the arteries of the right lower extremity. There is monophasic flow within the right common femoral artery which is patent. Velocities in the common femoral artery measure up to 15 cm/s. The profunda femoris artery is patent with monophasic waveforms and velocities measuring up to 31 cm/s. There is fluid within the proximal superficial femoral artery with velocities measuring up to 21 cm/s and monophasic waveforms. The majority of the right superficial femoral artery is occluded. There is minimal reconstitution with reversal of flow in the distal superficial femoral artery with velocities measuring up to 14 cm/s. There is complete thrombosis of the popliteal artery. There is monophasic flow in the mid to distal posterior tibial artery with velocities measuring up to 7 cm/s. The peroneal and anterior tibial arteries are occluded. The majority of the dorsalis pedis artery is occluded. A tiny focus of reconstitution is suggested. IMPRESSION: Severe peripheral vascular disease of the right lower extremity as above with extensive arterial occlusion. Dictated: 08/20/2021 1:44 PM Transcribed: 08/20/2021 2:06 PM Rosie [id number] [facility] Electronically signed by: Meliton Mixon M.D. 08/20/2021 2:25 PM Dictated:08/20/21 1344 Transcribed: 08/20/21 1406 ULTRASOUND BILATERAL LOWER EXTREMITY VENOUS CLINICAL HISTORY: Leg pain and swelling COMPARISON STUDY: Bilateral lower extremity venous ultrasound dated 07/15/2021. TECHNIQUE: Real-time, grayscale, and color Doppler sonography of the deep veins of the right and left lower extremity was performed from the inguinal crease to the calf. Compression and augmentation were utilized. FINDINGS: Right lower extremity: There is acute appearing nonocclusive deep venous thrombosis in the right common femoral vein. Nonocclusive chronic appearing deep venous thrombosis is seen in the proximal and distal portions of the superficial femoral vein. Occlusive deep venous thrombosis is noted in popliteal vein. Nonocclusive deep venous thrombosis in the right calf is present within the anterior tibial and peroneal veins. Occlusive superficial venous thrombosis is present in the profunda femoris vein at the junction with the common femoral vein. The greater saphenous vein at the junction with the common femoral vein appears patent. Left lower extremity: There is age indeterminant nonocclusive deep venous thrombosis identified in the left common femoral vein. The superficial femoral and popliteal veins are patent and normally compressible. Superficial venous thrombus is seen within the profunda femoris vein. The greater saphenous vein at the junction with the common femoral vein appear clear. There is occlusive deep venous thrombosis identified in the calf within 1 of the posterior tibial veins. The remaining calf vessels are clear as imaged. IMPRESSION: Superficial and deep venous thrombosis is present in both legs as detailed above. ACT 112: Negative or not required by law. Electronically signed by: Meliton Mixon M.D. 08/16/2021 3:57 PM Dictated:08/16/21 1549 Transcribed: 08/16/21 1549 SINGLE VIEW CHEST CLINICAL HISTORY: Generalized weakness. FINDINGS: An AP, portable, upright chest radiograph is compared to study dated 07/15/2021 and correlated with chest CT dated 06/17/2021. The examination is degraded by portable technique and patient rotation. A right-sided central venous infusion port is unchanged in position. The patient is status post midline sternotomy and cardiac valve surgery. The heart is enlarged noting atherosclerotic calcification of the thoracic aorta. The pulmonary vasculature is noncongested. Chronic interstitial thickening is similar to previous. Bibasilar opacities have increased from previous, right greater than left. No large pleural effusion or pneumothorax is identified. The skeletal structures are osteopenic. The bony thorax is grossly intact. IMPRESSION: 1. Cardiomegaly without radiographic evidence of congestive failure. 2. Bibasilar airspace opacities have increased from previous. This could represent scarring/atelectasis versus pneumonia/aspiration pneumonitis. Clinical correlation will be required and radiographic follow-up to resolution is recommended. ACT 112: Negative or not required by law. Electronically signed by: Meliton Mixon M.D. 08/16/2021 6:02 PM Dictated:08/16/21 1800 Transcribed: 08/16/21 1800 Hospital Course (1) A-fib: Went into A. fib with RVR couple night ago With associated hypotension and has been requiring pressor agents to maintain blood pressure cardiology on board Heart rate control today Discontinued Amiodarone PO Transition to comfort care only note Called from Nurse that pt ceased to breath. Pt was unresponsive with eyes closed No heart sound, no lung sound noted on auscultation No pulse and no tactile stimuli Pupils no reactive to light Time of : 10:10 AM Nurse called and daughter, unfortunately the call went to voicemail Nurse is looking for the number to notify son. Nurse was able to find a number for the son. Son was notified I will complete and sign the certificate. Acute hypotension Likely secondary to A. fib with RVR and diastolic dysfunction Has been requiring intravenous pressors to maintain blood pressure Blood pressure is on the lower side Received gentle fluid hydration Blood pressure remains stable but on the lower side at 96/60 Will give a small amount of intravenous fluid Has not been drinking or eating much-May need to give some continuous IV fluid. Transition to comfort care as per family Back pain Likely secondary to pancreatic cancer Pain has been getting worse We will continue with current pain medications Pain seems to be controlled More pain with any movement (2) Bilateral leg edema: Presented to the emergency room with increasing swelling of the legs bilaterally Secondary to hypoalbuminemia and is complicated by presence of paroxysmal atrial fibrillation likely secondary to diastolic CHF Decreased circulation due to edema causing some discoloration of the toes Will advised to elevate the legs while in bed Echo of the heart showed-bioprosthetic aortic valve, the gradient is abnormal for this bioprosthetic aortic valve suggesting obstruction, mild bioprosthetic aortic valve regurgitation, moderate MR and moderate TR, estimated systolic pulmonary pressure is 43 mmHg with EF is 60 to 65% RLE erythema Possible due to cellulitis Procalcitonin and WBC elevated IV cefepime started last night, will continue for now Blood cx and urine cx pending-have been negative Right lower extremity has no blood supply and has dusky discoloration secondary to arterial and venous thrombosis No treatment can be given for this Right lower extremity has been worsening abx discontinued and made comfort care only (3) Acute GI bleeding: His hemoglobin was 10.2 on fourth of this month This has been gradually decreasing and it is 8.3 as of today Stool is strongly positive for blood Will give Protonix drip Avoid any NSAID's and hold Eliquis Get GI evaluation for possible EGD Appreciate GI input and recommendation-no EGD at this Hemoglobin stable at more than 7 We will continue PPI drip and change to oral tomorrow Hemoglobin remains stable at 8.3-no active GI bleed Hemoglobin remains reasonably stable at 7.1 today Hemoglobin went down to 6.7- Received 1 unit PRBC during the hospital course Hgb dropped to 8.4 today Continue monitor Hgb -remains stable for now Hemoglobin remains stable at more than 9 No lab checked since pt was made comfort care only (4) 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 Terrell Chemotherapy was not given due to low platelet count recently Has liver metastasis with INR of 1.9 and alkaline phos 680 Albumin level seems to be reasonable at 2.9 Pain seems to be controlled Remains pleasantly confused-likely secondary to cancer and also may have mild dementia Discussed with oncologist-prognosis is very poor, chemotherapy cannot be given until the blood counts are better specially platelet Palliative care has been consulted for further guidance with care Prognosis remains extremely poor Palliative care has not seen him yet Spoke to and daughter and would like to transition to comfort care Code status changed to DNR Cancer seems to be progressing and the patient remains very weak and lethargic and seems to be deteriorating Condition is critical but stable Condition has been deteriorating. 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.- Has been on Eliquis which has been decreased to 2.5 mg twice daily from 5 mg twice daily recently due to low platelet INR is 1.9 today and with evidence of Hemoccult positive we will hold Eliquis for now During last admission vascular surgery consult was taken for possible IVC filter but that was not given due to stoppage of bleeding Discussed was anticoagulation-since INR remains at 1.9 will not give any further anticoagulation Ultrasound did show increasing thrombosis and also involving the arterial system Discussed with oncologist again today we will start Lovenox 40 mg and if the hemoglobin is stable will increase in the dose accordingly even though INR 1.8 Started on Lovenox 40 mg subcu daily-we will watch for any bleeding Lovenox has been discontinued due to low hemoglobin PAD in RLE Arterial doppler showed Severe peripheral vascular disease of the right lower extremity as above with extensive arterial occlusion. Family does not want any surgical intervention Not a candidate of anticoagulant or antiplatelet due to thrombocytopenia Right lower extremity has been worsening with no blood flow (7) Weakness: Generalized weakness Has been getting worse likely contributed by low hemoglobin and also metastatic cancer PT OT evaluation (8) Aortic stenosis: Status post AVR Denies any chest pain and/or palpitation (9) CKD (chronic kidney disease), stage III: Creatinine remains stable (10) Hypertension: Blood pressure is stable at 127/69 DVT prophylaxis SCDs Lovenox discontinue due to low hemoglobin Autocoagulation with INR 1.8 CODE STATUS DNR Discussed with daughter today. She agreed to transition to comfort care Total Time Total Time Spent Total Time Spent (In Minutes): 15 minutes Discharge Plan Discharge Items Patient Disposition: Other Date/Time: 09/05/21 10:10
== END 2021-09-05 15:48 | disposition expired | DRG 844 ==
LOC: ED 13:10 → 2W 17:23 → SUATTDRO 17:23 → 2W 20:24 → 2S 08-19 01:55 → 1E 08-19 04:02 → 2N 08-20 19:02 → 3E 08-31 10:42